=== PATIENT | male | born 1960 | race Two or more races ===

== ENCOUNTER 2023-07-18 20:41 | Inpatient (IN) | payer OTHER, SELFPAY ==
[2023-07-18 21:14] VITALS: BP 150/79; PULSE 90; RESP 18; TEMP 36.3; O2SAT 97
--- NOTE | 2023-07-19 05:25 | PC.NURSE ---
Admission note Patient is a 63 y/o male admitted on CV from ED via stretcher at 21:10. Medical history include hypertension, hyperlipidemia, hyperthyroidism, anxiety, depression, and bipolar disorder. Patient was sent to [facility] ED from day program after experiencing an episode of altered mental status, found talking to himself and unable to answer questions. Patient was unable to provide meaningful history in ED and was medicated th Haldol and Benadryl due to agitation. Patient was noted to have had a seizure activity after ED provider examined him. Patient was alert and oriented to self upon arrival, primarily Vietnamese speaking, flat and mostly non verbal. Patient was able to ambulate independently to exam room, intake assessment and safety check were done. Patient was not able provide concise history but rather keep referring to daughter during mental assessement. still operator helper provider notified and patient placed on 5 min checks.
[2023-07-19] MEDS: hydrOXYzine HCL 25 MG TABLET PO (06:35)
[2023-07-19] MEDS: Levothyroxine Sodium 75 MCG TABLET PO (06:35)
[2023-07-19 08:26] LABS: Estimated Average Glucose 85 mg/dL; Hemoglobin A1c % 4.6 % (<6.0)
[2023-07-19 08:33] LABS: Cholesterol 147 mg/dL (<200); HDL Cholesterol 33 mg/dL (>40); LDL Cholesterol Calculated 98 mg/dL (<100); Triglycerides 83 mg/dL (<150)
[2023-07-19 09:00] VITALS: BP 132/83; PULSE 83; RESP 18; TEMP 36.2; O2SAT 97
[2023-07-19 09:00] LABS: Free T4 (Free Thyroxine) 1.13 ng/dL (0.71-1.85); Thyroid Stimulating Hormone 2.64 uIU/mL (0.32-4.0)
[2023-07-19] MEDS: polyethylene glycoL 3350 17 GM POWD.PACK PO (09:17)
[2023-07-19] MEDS: Omeprazole 20 MG CAPSULE.DR PO (09:18)
[2023-07-19] MEDS: Divalproex Sodium 500 MG TABLET.DR PO ×2 (09:18→20:03)
[2023-07-19] MEDS: OLANZapine 10 MG TABLET PO (09:18)
[2023-07-19] MEDS: clonazePAM 1 MG TABLET 2 MG PO (10:57)
[2023-07-19] MEDS: OLANZapine ODT 10 MG TAB.RAPDIS 20 MG TRANSLINGU (10:57)
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
--- NOTE | 2023-07-19 11:55 | HO.PM.IMCN ---
History of Present Illness Data of Consult Service Date: 07/19/23 Requesting physician: Gibran Davis Primary Care Provider: Celine Tyler NP HPI Reason for consult: medical H&P 63-year-old male with hypertension, hyperlipidemia, hypothyroidism, bipolar disorder, seizure disorder admitted to Geriatric Psychiatry from [facility] with consult placed hospital service for medical H&P. The patient was admitted to [facility] from 07/12-07/18 due to altered mental status and seizures. He was evaluated by Neurology with EEG suggestive of potential seizure. MRI brain negative for stroke but showed atrophy and small vessel ischemia. Neuro recommended adding depakote 500mg bid and discontinuation of keppra. Patient has continued to exhibits aggitation, aggression, and altered mental status and was transferred to geriatric psychiatry for further management. Valproic acid level on discharge therapeutic. Hematology studies unremarkable, renal function baseline, lytes normal. Since arrival, VSS. Review of Systems Review of Systems: General: No fevers, malaise, unintentional weight loss HEENT: No blurred vision, diplopia. No sore throat, nasal congestion, rhinorrhea, sinus pain, ear pain Cardiovascular: No chest pain, palpitations, or leg edema Respiratory: No shortness of breath, wheezing, cough GI: No abdominal pain, nausea, vomiting, diarrhea, constipation, melena, hematochezia : No dysuria, hematuria, increased urinary frequency, decreased urinary output MSK: No myalgia, back pain Neuro: No headaches, weakness, paresthesias Skin: No rashes or lesions PMFSH Medical History HLD (hyperlipidemia) Bipolar disorder Seizure disorder Hypothyroidism HTN (hypertension) Social History Comment: 1:1 Currently Displaying Signs/Symptoms of Drug Intoxication Withdrawal: No Advance Directives: No Advance Directives Information Provided: No Meds Allergies Allergy/AdvReac Type Severity Reaction Status Date / Time lorazepam Allergy Unknown Verified 07/18/23 23:04 Penicillins Allergy Nausea and Verified 07/18/23 23:04 Vomiting Active Medications: Current Medications Acetaminophen (Acetaminophen 325 Mg Tablet) 650 mg PO Q6H PRN PRN Reason: Headache/Pain Mild Scale (1-3) Al Hydroxide/Mg Hydroxide (Magnesium Hydrox/Alum Hydrox 30 Ml Oral.Susp) 30 ml PO Q6H PRN PRN Reason: Heartburn/Nausea Clonazepam (Clonazepam 1 Mg Tablet) 1 mg PO DAILY PRN PRN Reason: Anxiety Divalproex Sodium (Divalproex Sodium 500 Mg Tablet.Dr) 500 mg PO BID [facility] Last Admin: 07/19/23 09:18 Dose: 500 mg Enoxaparin Sodium (Enoxaparin Sodium 40 Mg/0.4 Ml Syringe) 40 mg SUBCUT DAILY [facility] Last Admin: 07/19/23 11:10 Dose: Not Given Hydroxyzine HCl (Hydroxyzine Hcl 25 Mg Tablet) 25 mg PO Q6H PRN PRN Reason: Anxiety Last Admin: 07/19/23 06:35 Dose: 25 mg Levothyroxine Sodium (Levothyroxine Sodium 75 Mcg Tablet) 75 mcg PO DAILY@0600 [facility] Last Admin: 07/19/23 06:35 Dose: 75 mcg Magnesium Hydroxide (Milk Of Magnesia 30 Ml Oral.Susp) 30 ml PO DAILY PRN PRN Reason: Constipation Olanzapine (Olanzapine 10 Mg Tablet) 10 mg PO DAILY [facility] Last Admin: 07/19/23 09:18 Dose: 10 mg Olanzapine (Olanzapine 10 Mg Tablet) 20 mg PO DAILY [facility] Olanzapine (Olanzapine Odt 10 Mg Tab.Rapdis) 10 mg TRANSLINGU BID PRN PRN Reason: Psychosis Omeprazole (Omeprazole 20 Mg Capsule.) 20 mg PO DAILY [facility] Last Admin: 07/19/23 09:18 Dose: 20 mg Ondansetron HCl (Ondansetron Odt 4 Mg Tab.Rapdis) 4 mg TRANSLINGU Q6H PRN PRN Reason: Nausea And Vomiting Polyethylene Glycol (Polyethylene Glycol 3350 17 Gm Powd.Pack) 17 gm PO DAILY [facility] Last Admin: 07/19/23 09:17 Dose: 17 gm Trazodone HCl (Trazodone Hcl 100 Mg Tablet) 100 mg PO BEDTIME [facility] Last Admin: 07/19/23 03:58 Dose: Not Given Home Medications Medication Instructions Recorded Confirmed Last Taken Type clonazepam 1 mg tablet 1 mg PO DAILY PRN Anxiety 07/18/23 07/18/23 Unknown History divalproex 500 mg tablet,delayed 500 mg PO BID 07/18/23 07/18/23 Unknown History release enoxaparin 40 mg/0.4 mL 40 mg subcut DAILY 07/18/23 07/18/23 Unknown History subcutaneous syringe kit levothyroxine 75 mcg tablet 75 mcg PO DAILY 07/18/23 07/18/23 Unknown History olanzapine 10 mg tablet 10 mg PO DAILY 07/18/23 07/18/23 Unknown History ondansetron HCl 4 mg tablet 4 mg PO Q6H PRN Nausea And Vomiting 07/18/23 07/18/23 Unknown History pantoprazole 20 mg tablet,delayed 40 mg PO DAILY 07/18/23 07/18/23 Unknown History release polyethylene glycol 3350 17 gram 17 g PO DAILY 07/18/23 07/18/23 Unknown History oral powder packet trazodone 100 mg tablet 100 mg PO BEDTIME 07/18/23 07/18/23 Unknown History Physical Exam Vital Signs and Narrative: Vital Signs: Last Vital Signs Temp 97.2 F 07/19/23 09:00 Pulse 83 07/19/23 09:00 Resp 18 07/19/23 09:00 BP 132/83 07/19/23 09:00 Pulse Ox 97 07/19/23 09:00 O2 Del Method Room Air 07/19/23 09:00 BMI result Body Mass Index 30.0 Constitutional - Awake and Alert, No apparent distress Eyes - PERRLA, EOMI Cardiovascular - S1S2, RRR, No edema Respiratory - Normal lung expansion, Normal respiratory effort, No respiratory distress, CTA bilaterally Extremities - no calf tenderness bilaterally, no swelling Skin - Warm/Dry Neurological - Alert & oriented x3, CN II-XII in tact Strength and GI exam deferred to patient aggitation and demonstrated aggression towards staff. Results Labs Labs: Laboratory Results - last 24 hr 07/19/23 08:07 Estimat Average Glucose 85 Hemoglobin A1c % 4.6 Triglycerides 83 Cholesterol 147 LDL Cholesterol, Calc 98 HDL Cholesterol 33 L TSH 2.64 Free T4 1.13 Assessment and Plan (1) Routine medical exam: Status: Acute Plan 63-year-old male with hypertension, hyperlipidemia, hypothyroidism, bipolar disorder, seizure disorder admitted to Geriatric Psychiatry from [facility] with consult placed hospital service for medical H&P. #Mood disorder/aggitation -plan per psychiatry #HTN -bp reasonably controlled -not on antihypertensives, monitor bp #Hypothyroidism -continue levothyroxine #GERD -ppi #Unspecified seziure disorder -continue depakote, valproic acid level therapeutic 07/16 (75.0) Discontinued lovenox. This was administered at [facility] as dvt prophylaxis. However, pt is ambulatory and OOB should be encouraged. Thank you for allowing me to participate in this consult. Signing off at this time. Please do not hesitate to call for further questions.
[2023-07-19 14:38] LABS: Vitamin B12 434 pg/mL (200-900)
[2023-07-19] MEDS: clonazePAM 1 MG TABLET PO (16:28)
[2023-07-19] MEDS: OLANZapine ODT 10 MG TAB.RAPDIS TRANSLINGU (16:28)
[2023-07-19] MEDS: diazePAM 5 MG TABLET 10 MG PO (20:03)
[2023-07-19] MEDS: traZODone HCL 100 MG TABLET PO (20:03)
[2023-07-19] MEDS: diphenhydrAMINE HCL 25 MG CAPSULE 50 MG PO (20:03)
[2023-07-19] MEDS: HaloperidoL 5 MG TABLET 10 MG PO (20:03)
[2023-07-19 20:09] VITALS: BP 151/91; PULSE 104; RESP 18; TEMP 36.1; O2SAT 98
[2023-07-20] MEDS: hydrOXYzine HCL 25 MG TABLET PO (02:10)
[2023-07-20] MEDS: Acetaminophen 325 MG TABLET 650 MG PO (02:10)
[2023-07-20] MEDS: OLANZapine ODT 10 MG TAB.RAPDIS TRANSLINGU (02:16)
[2023-07-20] MEDS: Levothyroxine Sodium 75 MCG TABLET PO (05:08)
[2023-07-20 06:00] VITALS: BP 134/73; PULSE 95; RESP 18; TEMP 36.2; O2SAT 98
[2023-07-20 07:00] VITALS: BMI 30.6
[2023-07-20] MEDS: OLANZapine 10 MG TABLET PO (08:38)
[2023-07-20] MEDS: Omeprazole 20 MG CAPSULE.DR PO (08:38)
[2023-07-20] MEDS: Divalproex Sodium 500 MG TABLET.DR PO (08:38)
[2023-07-20] MEDS: OLANZapine 10 MG TABLET 20 MG PO (08:39)
[2023-07-20] MEDS: polyethylene glycoL 3350 17 GM POWD.PACK PO (08:41)
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
[2023-07-20] MEDS: clonazePAM 1 MG TABLET PO (13:23)
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
[2023-07-20] MEDS: diphenhydrAMINE HCL 50 MG/ML VIAL IM (20:50)
[2023-07-20] MEDS: Haloperidol Lactate 5 MG/ML VIAL IM (20:50)
--- NOTE | 2023-07-21 | ECG_ITS ---
Test Reason : qtc check Blood Pressure : / mmHG Vent. Rate : 091 BPM Atrial Rate : 091 BPM P-R Int : 146 ms QRS Dur : 088 ms QT Int : 388 ms P-R-T Axes : 036 005 029 degrees QTc Int : 477 ms Normal sinus rhythm Normal ECG No previous ECGs available Referred By: Jose Matthews Electronically Signed By:JULES PERALTA
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
[2023-07-21] MEDS: OLANZapine ODT 10 MG TAB.RAPDIS TRANSLINGU ×2 (03:28→08:27)
[2023-07-21] MEDS: Levothyroxine Sodium 75 MCG TABLET PO (05:36)
[2023-07-21 06:00] VITALS: PULSE 102; RESP 18; TEMP 36.4; O2SAT 96
[2023-07-21] MEDS: Omeprazole 20 MG CAPSULE.DR PO (08:26)
[2023-07-21] MEDS: Throat Lozenge, Medicated LOZENGE 1 LOZENGE MUCOUS MEM ×2 (08:26→18:48)
[2023-07-21] MEDS: Divalproex Sodium 500 MG TABLET.DR PO ×2 (08:27→20:44)
[2023-07-21] MEDS: clonazePAM 1 MG TABLET PO ×4 (08:27→20:44)
--- NOTE | 2023-07-21 08:29 | HO.PSYCHPN ---
Subjective Subjective Date of Service: 07/21/23 Reason For Visit: F29,F14.21 Subjective Notes: Conditional Voluntary Interim History: Pt slept most of the night. He reports hearing voices at times telling him to harm himself or others or sometimes voices tell him to run. When asked about why is he here, he states for the same reason every time, mental problems. He reports he got in trouble for calling females whores. He denies any plan or intent to harm himself. he appears more organized in his behavior. No side effects with medications. Pt scheduled to receive invega sustenna 234mg IM today. Review of Systems Review of Systems General: No fevers, malaise, unintentional weight loss HEENT: No blurred vision, diplopia. No sore throat, nasal congestion, rhinorrhea, sinus pain, ear pain Cardiovascular: No chest pain, palpitations, or leg edema Respiratory: No shortness of breath, wheezing, cough GI: No abdominal pain, nausea, vomiting, diarrhea, constipation, melena, hematochezia : No dysuria, hematuria, increased urinary frequency, decreased urinary output MSK: No myalgia, back pain Neuro: No headaches, weakness, paresthesias Skin: No rashes or lesions Yes Unobtainable due to mental status Mental Status Exam Mental Status Exam Patient Appearance: Appropriate Patient Orientation: Person Level of Consciousness: Awake and Disoriented Patient Behavior: Guarded, Passive and Suspicious Mood Description: Withdrawn Affect Description: Blunted Patient Cognition Impaired: Yes Ability to Follow Directions: Fair Speech Pattern: Impoverished and Monotone Diagnostics Vital Signs (24Hr): Vital Signs - 24 hr 07/21/23 06:00 Temperature 97.5 F Pulse Rate 102 H Respiratory Rate 18 Pulse Oximetry 96 Oxygen Delivery Method Room Air BMI result Body Mass Index 30.6 Labs Labs: Laboratory Results - last 48 hr 07/19/23 08:07 Triglycerides 83 Cholesterol 147 LDL Cholesterol, Calc 98 HDL Cholesterol 33 L Vitamin B12 434 TSH 2.64 Free T4 1.13 Medications Medications Current Medications Acetaminophen (Acetaminophen 325 Mg Tablet) 650 mg PO Q6H PRN PRN Reason: Headache/Pain Mild Scale (1-3) Last Admin: 07/20/23 02:10 Dose: 650 mg Al Hydroxide/Mg Hydroxide (Magnesium Hydrox/Alum Hydrox 30 Ml Oral.Susp) 30 ml PO Q6H PRN PRN Reason: Heartburn/Nausea Benzocaine (Throat Lozenge, Medicated Lozenge) 1 lozenge MUCOUS MEM Q2H PRN PRN Reason: Sore Throat Last Admin: 07/21/23 08:26 Dose: 1 lozenge Clonazepam (Clonazepam 1 Mg Tablet) 1 mg PO BEDTIME [facility] Last Admin: 07/21/23 02:41 Dose: Not Given Clonazepam (Clonazepam 1 Mg Tablet) 1 mg PO TID PRN PRN Reason: Anxiety Last Admin: 07/21/23 08:27 Dose: 1 mg Divalproex Sodium (Divalproex Sodium 500 Mg Tablet.) 500 mg PO BID [facility] Last Admin: 07/21/23 08:27 Dose: 500 mg Hydroxyzine HCl (Hydroxyzine Hcl 25 Mg Tablet) 25 mg PO Q6H PRN PRN Reason: Anxiety Last Admin: 07/20/23 02:10 Dose: 25 mg Levothyroxine Sodium (Levothyroxine Sodium 75 Mcg Tablet) 75 mcg PO DAILY@0600 [facility] Last Admin: 07/21/23 05:36 Dose: 75 mcg Magnesium Hydroxide (Milk Of Magnesia 30 Ml Oral.Susp) 30 ml PO DAILY PRN PRN Reason: Constipation Olanzapine (Olanzapine Odt 10 Mg Tab.Rapdis) 10 mg TRANSLINGU BID PRN PRN Reason: Psychosis Last Admin: 07/21/23 08:27 Dose: 10 mg Olanzapine (Olanzapine 10 Mg Tablet) 20 mg PO BEDTIME [facility] Last Admin: 07/21/23 02:42 Dose: Not Given Omeprazole (Omeprazole 20 Mg Capsule.) 20 mg PO DAILY [facility] Last Admin: 07/21/23 08:26 Dose: 20 mg Ondansetron HCl (Ondansetron Odt 4 Mg Tab.Rapdis) 4 mg TRANSLINGU Q6H PRN PRN Reason: Nausea And Vomiting Paliperidone Palmitate (Paliperidone Palmitate 234 Mg/1.5 Ml Syringe) 234 mg IM Q30D [facility] Polyethylene Glycol (Polyethylene Glycol 3350 17 Gm Powd.Pack) 17 gm PO DAILY [facility] Last Admin: 07/20/23 08:41 Dose: 17 gm Prazosin HCl (Prazosin Hcl 1 Mg Capsule) 2 mg PO BEDTIME [facility]; Protocol Last Admin: 07/20/23 20:51 Dose: Not Given Trazodone HCl (Trazodone Hcl 100 Mg Tablet) 100 mg PO BEDTIME [facility] Last Admin: 07/21/23 02:41 Dose: Not Given Allergies Allergies Allergy/AdvReac Type Severity Reaction Status Date / Time lorazepam Allergy Unknown Verified 07/18/23 23:04 Penicillins Allergy Nausea and Verified 07/18/23 23:04 Vomiting Assessment & Plan Assessment & Plan (1) Schizophrenia: Status: Acute Code(s): F20.9 - Schizophrenia, unspecified Plan The patient is a middle-aged male with a past history of psychosis with several prior admissions into the hospital for psychiatric stabilization, the patient also has several medical comorbidities such as seizure disorder, HTN, diabetes and others. The patient was noncompliant with medication and he was transferred from the adult group day program to the emergency room of [facility] [place] due to altered mental status. Plan 1. Gather collateral information the patient is unable to provide any information due to his altered mental status. On admission, the patient was very did needed to be medicated with Zyprexa Zydis p.o. 1 Klonopin 2 mg p.o.. 2. Continue with Zyprexa as prescribed per med reconciliation form. On June we are changing to Zyprexa 20 mg p.o. q.h.s. only. We are adding Zyprexa Zydis b.i.d. p.r.n. agitation. 3. Continue with antiseizure medications. The patient had been on Depakote consistently for the last 2 days. We are going to recheck levels early next week. 4. Continue medical workout. 5. Reassessment with results. 6. Continue one-to-one observation for safety. 7. Restarted on prazosin 2 mg p.o. q.h.s. as per information provided by regular provider in the community. 8. Restarting Invega Sustenna on July 20, last dose probably the week of June. 9. We are going to continue to do the paperwork for guardianship as per request of the patient's daughter. 07/20 continue tx. received Invega sustenna 234mg IM today. Reason for continued inpatient stay Substantial Risk for: inability to function Time Spent With Patient Time: Total time managing care of this patient today ____ minutes.
[2023-07-21] MEDS: Paliperidone Palmitate 234 MG/1.5 ML SYRINGE IM (10:10)
--- NOTE | 2023-07-21 10:18 | PC.NURSE ---
Nelly Saez administered R deltoid. Patient tolerated well.
[2023-07-21] MEDS: hydrOXYzine HCL 25 MG TABLET PO ×2 (12:22→18:47)
[2023-07-21 18:00] VITALS: BP 135/80; PULSE 96; RESP 16; TEMP 35.8; O2SAT 99
[2023-07-21] MEDS: traZODone HCL 100 MG TABLET PO (20:44)
[2023-07-21] MEDS: OLANZapine 10 MG TABLET 20 MG PO (20:45)
[2023-07-21] MEDS: Prazosin HCL 1 MG CAPSULE 2 MG PO (20:46)
[2023-07-22] MEDS: clonazePAM 1 MG TABLET PO ×3 (03:23→20:39)
[2023-07-22] MEDS: Nicotine Polacrilex 2 MG GUM BUCCAL ×3 (03:23→20:38)
[2023-07-22] MEDS: OLANZapine ODT 10 MG TAB.RAPDIS TRANSLINGU ×2 (03:26→20:39)
[2023-07-22 07:55] VITALS: BP 105/65; PULSE 100; RESP 18; TEMP 36.8; O2SAT 98
[2023-07-22] MEDS: Omeprazole 20 MG CAPSULE.DR PO (08:30)
[2023-07-22] MEDS: Divalproex Sodium 500 MG TABLET.DR PO ×2 (08:30→19:46)
[2023-07-22] MEDS: Levothyroxine Sodium 75 MCG TABLET PO (08:31)
[2023-07-22] MEDS: polyethylene glycoL 3350 17 GM POWD.PACK PO (08:31)
--- NOTE | 2023-07-22 10:24 | HO.PSYCHPN ---
Subjective Subjective Date of Service: 07/22/23 Reason For Visit: F29,F14.21 Interim History: does not rouse to shoulder rub. ivorian-speaking sitter informed pt of MD's presence and to be in touch with RN later as needed. per staff, disorganized, hypersexual, h/o physical aggression on the unit. Mental Status Exam Mental Status Exam Narrative: appears to be sleeping comfortably in left lateral decubitus position on bed. does not respond to voice or shoulder pressure/movement. adequately dressed and groomed. Diagnostics Vital Signs (24Hr): Vital Signs - 24 hr 07/21/23 18:00 07/22/23 07:55 Temperature 96.5 F L 98.2 F Pulse Rate 96 100 Respiratory Rate 16 18 Blood Pressure 135/80 105/65 Pulse Oximetry 99 98 Oxygen Delivery Method Room Air Room Air BMI result Body Mass Index 30.6 Medications Medications Current Medications Acetaminophen (Acetaminophen 325 Mg Tablet) 650 mg PO Q6H PRN PRN Reason: Headache/Pain Mild Scale (1-3) Last Admin: 07/20/23 02:10 Dose: 650 mg Al Hydroxide/Mg Hydroxide (Magnesium Hydrox/Alum Hydrox 30 Ml Oral.Susp) 30 ml PO Q6H PRN PRN Reason: Heartburn/Nausea Benzocaine (Throat Lozenge, Medicated Lozenge) 1 lozenge MUCOUS MEM Q2H PRN PRN Reason: Sore Throat Last Admin: 07/21/23 18:48 Dose: 1 lozenge Clonazepam (Clonazepam 1 Mg Tablet) 1 mg PO BEDTIME [facility] Last Admin: 07/21/23 20:44 Dose: 1 mg Clonazepam (Clonazepam 1 Mg Tablet) 1 mg PO TID PRN PRN Reason: Anxiety Last Admin: 07/22/23 03:23 Dose: 1 mg Divalproex Sodium (Divalproex Sodium 500 Mg Tablet.) 500 mg PO BID [facility] Last Admin: 07/22/23 08:30 Dose: 500 mg Hydroxyzine HCl (Hydroxyzine Hcl 25 Mg Tablet) 25 mg PO Q6H PRN PRN Reason: Anxiety Last Admin: 07/21/23 18:47 Dose: 25 mg Levothyroxine Sodium (Levothyroxine Sodium 75 Mcg Tablet) 75 mcg PO DAILY@0600 [facility] Last Admin: 07/22/23 08:31 Dose: 75 mcg Magnesium Hydroxide (Milk Of Magnesia 30 Ml Oral.Susp) 30 ml PO DAILY PRN PRN Reason: Constipation Nicotine Polacrilex (Nicotine Polacrilex 2 Mg Gum) 2 mg BUCCAL Q2H PRN PRN Reason: Nicotine Cravings Last Admin: 07/22/23 03:23 Dose: 2 mg Olanzapine (Olanzapine Odt 10 Mg Tab.Rapdis) 10 mg TRANSLINGU BID PRN PRN Reason: Psychosis Last Admin: 07/22/23 03:26 Dose: 10 mg Olanzapine (Olanzapine 10 Mg Tablet) 20 mg PO BEDTIME [facility] Last Admin: 07/21/23 20:45 Dose: 20 mg Omeprazole (Omeprazole 20 Mg Capsule.Dr) 20 mg PO DAILY [facility] Last Admin: 07/22/23 08:30 Dose: 20 mg Ondansetron HCl (Ondansetron Odt 4 Mg Tab.Rapdis) 4 mg TRANSLINGU Q6H PRN PRN Reason: Nausea And Vomiting Paliperidone Palmitate (Paliperidone Palmitate 234 Mg/1.5 Ml Syringe) 234 mg IM Q30D [facility] Last Admin: 07/21/23 10:10 Dose: 234 mg Polyethylene Glycol (Polyethylene Glycol 3350 17 Gm Powd.Pack) 17 gm PO DAILY [facility] Last Admin: 07/22/23 08:31 Dose: 17 gm Prazosin HCl (Prazosin Hcl 1 Mg Capsule) 2 mg PO BEDTIME [facility]; Protocol Last Admin: 07/21/23 20:46 Dose: 2 mg Trazodone HCl (Trazodone Hcl 100 Mg Tablet) 100 mg PO BEDTIME [facility] Last Admin: 07/21/23 20:44 Dose: 100 mg Allergies Allergies Allergy/AdvReac Type Severity Reaction Status Date / Time lorazepam Allergy Unknown Verified 07/18/23 23:04 Penicillins Allergy Nausea and Verified 07/18/23 23:04 Vomiting Assessment & Plan Assessment & Plan (1) Schizophrenia: Status: Acute Code(s): F20.9 - Schizophrenia, unspecified Plan The patient is a middle-aged male with a past history of psychosis with several prior admissions into the hospital for psychiatric stabilization, the patient also has several medical comorbidities such as seizure disorder, HTN, diabetes and others. The patient was noncompliant with medication and he was transferred from the adult group day program to the emergency room of [facility] due to altered mental status. Plan 1. Gather collateral information the patient is unable to provide any information due to his altered mental status. On admission, the patient was very did needed to be medicated with Zyprexa Zydis p.o. 1 Klonopin 2 mg p.o.. 2. Continue with Zyprexa as prescribed per med reconciliation form. On June we are changing to Zyprexa 20 mg p.o. q.h.s. only. We are adding Zyprexa Zydis b.i.d. p.r.n. agitation. 3. Continue with antiseizure medications. The patient had been on Depakote consistently for the last 2 days. We are going to recheck levels early next week. 4. Continue medical workout. 5. Reassessment with results. 6. Continue one-to-one observation for safety. 7. Restarted on prazosin 2 mg p.o. q.h.s. as per information provided by regular provider in the community. 8. Restarting Invega Sustenna on July 20, last dose probably the week of June. 9. We are going to continue to do the paperwork for guardianship as per request of the patient's daughter. 07/20 continue tx. received Invega sustenna 234mg IM today. 07/21: sleeping, not rousable to voice or shoulder rub. continue current mgmt. Reason for continued inpatient stay Substantial Risk for: harm to others, inability to function and rapid decompensation Time Spent With Patient Time: Total time managing care of this patient today ____ minutes.
[2023-07-22] MEDS: OLANZapine 10 MG TABLET 20 MG PO (19:45)
[2023-07-22] MEDS: traZODone HCL 100 MG TABLET PO (19:46)
[2023-07-22] MEDS: Prazosin HCL 1 MG CAPSULE 2 MG PO (19:46)
[2023-07-22] MEDS: hydrOXYzine HCL 25 MG TABLET PO (20:38)
[2023-07-23] MEDS: hydrOXYzine HCL 25 MG TABLET PO ×2 (04:16→16:29)
[2023-07-23] MEDS: Nicotine Polacrilex 2 MG GUM BUCCAL (04:17)
[2023-07-23] MEDS: clonazePAM 1 MG TABLET PO ×3 (04:17→20:18)
[2023-07-23] MEDS: Levothyroxine Sodium 75 MCG TABLET PO (04:24)
[2023-07-23 07:55] VITALS: BP 136/80; PULSE 98; RESP 20; TEMP 36.7; O2SAT 98
[2023-07-23] MEDS: Omeprazole 20 MG CAPSULE.DR PO (08:08)
[2023-07-23] MEDS: polyethylene glycoL 3350 17 GM POWD.PACK PO (08:09)
[2023-07-23] MEDS: Divalproex Sodium 500 MG TABLET.DR PO (08:09)
--- NOTE | 2023-07-23 10:46 | HO.PSYCHPN ---
Subjective Subjective Date of Service: 07/23/23 Reason For Visit: F29,F14.21 Interim History: once again not rousable to loud voice and shoulder touch. per staff, masturbating in front of 1:1 staff yesterday and last evening on all fours in the hallway, rear end hoisted, fondling himself. Mental Status Exam Mental Status Exam Narrative: appears to be sleeping comfortably in right lateral decubitus position on bed. does not respond to voice or shoulder pressure/movement. adequately dressed and groomed. Diagnostics Vital Signs (24Hr): Vital Signs - 24 hr 07/23/23 07:55 Temperature 98.0 F Pulse Rate 98 Respiratory Rate 20 Blood Pressure 136/80 Pulse Oximetry 98 Oxygen Delivery Method Room Air BMI result Body Mass Index 30.6 Medications Medications Current Medications Acetaminophen (Acetaminophen 325 Mg Tablet) 650 mg PO Q6H PRN PRN Reason: Headache/Pain Mild Scale (1-3) Last Admin: 07/20/23 02:10 Dose: 650 mg Al Hydroxide/Mg Hydroxide (Magnesium Hydrox/Alum Hydrox 30 Ml Oral.Susp) 30 ml PO Q6H PRN PRN Reason: Heartburn/Nausea Benzocaine (Throat Lozenge, Medicated Lozenge) 1 lozenge MUCOUS MEM Q2H PRN PRN Reason: Sore Throat Last Admin: 07/21/23 18:48 Dose: 1 lozenge Clonazepam (Clonazepam 1 Mg Tablet) 1 mg PO BEDTIME [facility] Last Admin: 07/22/23 20:39 Dose: 1 mg Clonazepam (Clonazepam 1 Mg Tablet) 1 mg PO TID PRN PRN Reason: Anxiety Last Admin: 07/23/23 04:17 Dose: 1 mg Divalproex Sodium (Divalproex Sodium 500 Mg Tablet.Dr) 500 mg PO BID [facility] Last Admin: 07/23/23 08:09 Dose: 500 mg Hydroxyzine HCl (Hydroxyzine Hcl 25 Mg Tablet) 25 mg PO Q6H PRN PRN Reason: Anxiety Last Admin: 07/23/23 04:16 Dose: 25 mg Levothyroxine Sodium (Levothyroxine Sodium 75 Mcg Tablet) 75 mcg PO DAILY@0600 [facility] Last Admin: 07/23/23 04:24 Dose: 75 mcg Magnesium Hydroxide (Milk Of Magnesia 30 Ml Oral.Susp) 30 ml PO DAILY PRN PRN Reason: Constipation Nicotine Polacrilex (Nicotine Polacrilex 2 Mg Gum) 2 mg BUCCAL Q2H PRN PRN Reason: Nicotine Cravings Last Admin: 07/23/23 04:17 Dose: 2 mg Olanzapine (Olanzapine Odt 10 Mg Tab.Rapdis) 10 mg TRANSLINGU BID PRN PRN Reason: Psychosis Last Admin: 07/22/23 20:39 Dose: 10 mg Olanzapine (Olanzapine 10 Mg Tablet) 20 mg PO BEDTIME [facility] Last Admin: 07/22/23 19:45 Dose: 20 mg Olanzapine (Olanzapine Odt 10 Mg Tab.Rapdis) 20 mg TRANSLINGU DAILY PRN PRN Reason: severe agit/sexualized behavio Omeprazole (Omeprazole 20 Mg Capsule.Dr) 20 mg PO DAILY [facility] Last Admin: 07/23/23 08:08 Dose: 20 mg Ondansetron HCl (Ondansetron Odt 4 Mg Tab.Rapdis) 4 mg TRANSLINGU Q6H PRN PRN Reason: Nausea And Vomiting Paliperidone Palmitate (Paliperidone Palmitate 234 Mg/1.5 Ml Syringe) 234 mg IM Q30D [facility] Last Admin: 07/21/23 10:10 Dose: 234 mg Polyethylene Glycol (Polyethylene Glycol 3350 17 Gm Powd.Pack) 17 gm PO DAILY [facility] Last Admin: 07/23/23 08:09 Dose: 17 gm Prazosin HCl (Prazosin Hcl 1 Mg Capsule) 2 mg PO BEDTIME [facility]; Protocol Last Admin: 07/22/23 19:46 Dose: 2 mg Trazodone HCl (Trazodone Hcl 100 Mg Tablet) 100 mg PO BEDTIME [facility] Last Admin: 07/22/23 19:46 Dose: 100 mg Allergies Allergies Allergy/AdvReac Type Severity Reaction Status Date / Time lorazepam Allergy Unknown Verified 07/18/23 23:04 Penicillins Allergy Nausea and Verified 07/18/23 23:04 Vomiting Assessment & Plan Assessment & Plan (1) Schizophrenia: Status: Acute Code(s): F20.9 - Schizophrenia, unspecified Plan The patient is a middle-aged male with a past history of psychosis with several prior admissions into the hospital for psychiatric stabilization, the patient also has several medical comorbidities such as seizure disorder, HTN, diabetes and others. The patient was noncompliant with medication and he was transferred from the adult group day program to the emergency room of [facility] due to altered mental status. Plan 1. Gather collateral information the patient is unable to provide any information due to his altered mental status. On admission, the patient was very did needed to be medicated with Zyprexa Zydis p.o. 1 Klonopin 2 mg p.o.. 2. Continue with Zyprexa as prescribed per med reconciliation form. On June we are changing to Zyprexa 20 mg p.o. q.h.s. only. We are adding Zyprexa Zydis b.i.d. p.r.n. agitation. 3. Continue with antiseizure medications. The patient had been on Depakote consistently for the last 2 days. We are going to recheck levels early next week. 4. Continue medical workout. 5. Reassessment with results. 6. Continue one-to-one observation for safety. 7. Restarted on prazosin 2 mg p.o. q.h.s. as per information provided by regular provider in the community. 8. Restarting Invega Sustenna on July 20, last dose probably the week of June. 9. We are going to continue to do the paperwork for guardianship as per request of the patient's daughter. 07/20 continue tx. received Invega sustenna 234mg IM today. 07/21: sleeping, not rousable to voice or shoulder rub. continue current mgmt. 3: sleeping, not rousable to voice or shoulder rub. add zydis 20 mg daily PRN agitation or sexualized behaviors. T/C lowering klonopin dosing as that medication may exacerbate disinhibited behaviors. Reason for continued inpatient stay Substantial Risk for: harm to others, inability to function and rapid decompensation Time Spent With Patient Time: Total time managing care of this patient today ____ minutes.
[2023-07-23] MEDS: OLANZapine ODT 10 MG TAB.RAPDIS TRANSLINGU (13:22)
--- NOTE | 2023-07-23 15:25 | PC.NURSE ---
Pt with increased agitation/anxiety, continues on 1:1, doing pushup in hallway. PRN Zydis 10mg and Klonopin 1 mg given with little effect. Pt states I feel like I'm coming out of my skin , Pt also reported hearing voices and declined to inform typewriters functional tester what the voices are telling him. Pt punched the exit door and kept trying to open it, he also shoulder checked the 1:1 and kicked his bedroom door during shift change and seen posturing in an intimidating manner towards staff . pig machine supervisor notified, security notified and will be making rounds on the unit for safety. One of the security officers informed patient of unit policies and patient reported to the security consultant during rounding, I understand, I got it. You can go away now .
[2023-07-23 18:00] VITALS: BP 140/81; PULSE 100; RESP 18; TEMP 35.9; O2SAT 100
[2023-07-23] MEDS: Prazosin HCL 1 MG CAPSULE 2 MG PO (20:17)
[2023-07-23] MEDS: Divalproex Sodium 250 MG TABLET.DR 750 MG PO (20:17)
[2023-07-23] MEDS: OLANZapine 10 MG TABLET 20 MG PO (20:18)
[2023-07-23] MEDS: traZODone HCL 100 MG TABLET PO (20:18)
[2023-07-24 06:00] VITALS: BP 157/86; PULSE 100; RESP 16; TEMP 36; O2SAT 100
[2023-07-24] MEDS: Levothyroxine Sodium 75 MCG TABLET PO (06:42)
[2023-07-24] MEDS: Divalproex Sodium 250 MG TABLET.DR 750 MG PO ×2 (08:37→19:53)
[2023-07-24] MEDS: polyethylene glycoL 3350 17 GM POWD.PACK PO (08:37)
[2023-07-24] MEDS: OLANZapine ODT 10 MG TAB.RAPDIS TRANSLINGU (08:37)
[2023-07-24] MEDS: clonazePAM 1 MG TABLET PO ×4 (08:37→21:50)
[2023-07-24] MEDS: Omeprazole 20 MG CAPSULE.DR PO (08:37)
--- NOTE | 2023-07-24 10:43 | P.PNPSI_ITS ---
Subjective Subjective Date of Service: 07/24/23 Reason For Visit: F29,F14.21 Subjective Notes: Conditional Voluntary Healthcare Proxy: Yes Interim History: The nursing staff reported the patient had been agitated and restless yesterday with flat affect but compliant with medications. He slept 7 hours up and down. The staff has noticed that Haldol and Benadryl works better when he is agitated. Remains on one-to-one for safety. On interview the patient remains isolative and internally preoccupied. We are going to order Depakote level CBC with differential and chemistry tomorrow morning. Mental Status Exam Mental Status Exam Patient Appearance: Appropriate Patient Orientation: Person Level of Consciousness: Awake Patient Behavior: Guarded and Passive Mood Description: Withdrawn Affect Description: Constricted Patient Cognition Impaired: Yes Ability to Follow Directions: Good Speech Pattern: Clear Hallucinations: Auditory Delusions: Paranoid Ideation and Ideas of Reference Thought Process: Incoherent and Distracted Thought Content: positive for [place] and positive for Poverty of Content Judgement: Poor Diagnostics Vital Signs (24Hr): Vital Signs - 24 hr 07/23/23 18:00 07/24/23 06:00 Temperature 96.7 F L 96.8 F Pulse Rate 100 100 Respiratory Rate 18 16 Blood Pressure 140/81 H 157/86 H Pulse Oximetry 100 100 Oxygen Delivery Method Room Air Room Air BMI result Body Mass Index 30.6 Medications Medications Current Medications Acetaminophen (Acetaminophen 325 Mg Tablet) 650 mg PO Q6H PRN PRN Reason: Headache/Pain Mild Scale (1-3) Last Admin: 07/20/23 02:10 Dose: 650 mg Al Hydroxide/Mg Hydroxide (Magnesium Hydrox/Alum Hydrox 30 Ml Oral.Susp) 30 ml PO Q6H PRN PRN Reason: Heartburn/Nausea Benzocaine (Throat Lozenge, Medicated Lozenge) 1 lozenge MUCOUS MEM Q2H PRN PRN Reason: Sore Throat Last Admin: 07/21/23 18:48 Dose: 1 lozenge Clonazepam (Clonazepam 1 Mg Tablet) 1 mg PO BEDTIME [facility] Last Admin: 07/23/23 20:18 Dose: 1 mg Clonazepam (Clonazepam 1 Mg Tablet) 1 mg PO TID PRN PRN Reason: Anxiety Last Admin: 07/24/23 08:37 Dose: 1 mg Divalproex Sodium (Divalproex Sodium 250 Mg Tablet.) 750 mg PO BID [facility] Last Admin: 07/24/23 08:37 Dose: 750 mg Haloperidol (Haloperidol 5 Mg Tablet) 5 mg PO TID PRN PRN Reason: Psychosis Hydroxyzine HCl (Hydroxyzine Hcl 25 Mg Tablet) 25 mg PO Q6H PRN PRN Reason: Anxiety Last Admin: 07/23/23 16:29 Dose: 25 mg Levothyroxine Sodium (Levothyroxine Sodium 75 Mcg Tablet) 75 mcg PO DAILY@0600 [facility] Last Admin: 07/24/23 06:42 Dose: 75 mcg Magnesium Hydroxide (Milk Of Magnesia 30 Ml Oral.Susp) 30 ml PO DAILY PRN PRN Reason: Constipation Nicotine Polacrilex (Nicotine Polacrilex 2 Mg Gum) 2 mg BUCCAL Q2H PRN PRN Reason: Nicotine Cravings Last Admin: 07/23/23 04:17 Dose: 2 mg Olanzapine (Olanzapine 10 Mg Tablet) 20 mg PO BEDTIME [facility] Last Admin: 07/23/23 20:18 Dose: 20 mg Omeprazole (Omeprazole 20 Mg Capsule.Dr) 20 mg PO DAILY [facility] Last Admin: 07/24/23 08:37 Dose: 20 mg Ondansetron HCl (Ondansetron Odt 4 Mg Tab.Rapdis) 4 mg TRANSLINGU Q6H PRN PRN Reason: Nausea And Vomiting Paliperidone Palmitate (Paliperidone Palmitate 234 Mg/1.5 Ml Syringe) 234 mg IM Q30D [facility] Last Admin: 07/21/23 10:10 Dose: 234 mg Polyethylene Glycol (Polyethylene Glycol 3350 17 Gm Powd.Pack) 17 gm PO DAILY [facility] Last Admin: 07/24/23 08:37 Dose: 17 gm Prazosin HCl (Prazosin Hcl 1 Mg Capsule) 2 mg PO BEDTIME [facility]; Protocol Last Admin: 07/23/23 20:17 Dose: 2 mg Trazodone HCl (Trazodone Hcl 100 Mg Tablet) 100 mg PO BEDTIME [facility] Last Admin: 07/23/23 20:18 Dose: 100 mg Allergies Allergies Allergy/AdvReac Type Severity Reaction Status Date / Time lorazepam Allergy Unknown Verified 07/18/23 23:04 Penicillins Allergy Nausea and Verified 07/18/23 23:04 Vomiting Assessment & Plan Assessment & Plan (1) Schizophrenia: Status: Acute Code(s): F20.9 - Schizophrenia, unspecified Plan The patient is a middle-aged male with a past history of psychosis with several prior admissions into the hospital for psychiatric stabilization, the patient also has several medical comorbidities such as seizure disorder, HTN, diabetes and others. The patient was noncompliant with medication and he was transferred from the adult group day program to the emergency room of [facility] due to altered mental status. Plan 1. Gather collateral information the patient is unable to provide any information due to his altered mental status. On admission, the patient was very did needed to be medicated with Zyprexa Zydis p.o. 1 Klonopin 2 mg p.o.. 2. Continue with Zyprexa as prescribed per med reconciliation form. On June we are changing to Zyprexa 20 mg p.o. q.h.s. only. We are adding Zyprexa Zydis b.i.d. p.r.n. agitation. 3. Continue with antiseizure medications. The patient had been on Depakote consistently for the last 2 days. We are going to recheck levels early next week. 4. Continue medical workout. 5. Reassessment with results. 6. Continue one-to-one observation for safety. 7. Restarted on prazosin 2 mg p.o. q.h.s. as per information provided by regular provider in the community. 8. Restarting Invega Sustenna on July 20, last dose probably the week of June. 9. We are going to continue to do the paperwork for guardianship as per request of the patient's daughter. We have already given to the patient's daughter the affidavit sign. 10. We are discontinuing Zyprexa Zydis p.r.n. and starting Haldol p.o. p.r.n.. 11. Bloodowrk for 3/5 Reason for continued inpatient stay Substantial Risk for: inability to function, rapid decompensation and med/psych decompensation Time Spent With Patient Time: Total time managing care of this patient today __20__ minutes.
[2023-07-24] MEDS: hydrOXYzine HCL 25 MG TABLET PO (13:09)
[2023-07-24] MEDS: HaloperidoL 5 MG TABLET PO ×3 (13:10→21:50)
[2023-07-24] MEDS: Nicotine Polacrilex 2 MG GUM BUCCAL (14:46)
[2023-07-24 18:00] VITALS: BP 150/96; PULSE 104; RESP 16; TEMP 36.7; O2SAT 99
[2023-07-24] MEDS: OLANZapine 10 MG TABLET 20 MG PO (19:53)
[2023-07-24] MEDS: traZODone HCL 100 MG TABLET PO (19:54)
[2023-07-24] MEDS: Prazosin HCL 1 MG CAPSULE 2 MG PO (19:54)
[2023-07-25] MEDS: Levothyroxine Sodium 75 MCG TABLET PO (05:35)
[2023-07-25 06:00] VITALS: BP 145/76; PULSE 102; RESP 16; TEMP 36.6; O2SAT 97
--- NOTE | 2023-07-25 08:17 | HO.PSYCHPN ---
Subjective Subjective Date of Service: 07/25/23 Reason For Visit: F29,F14.21 Subjective Notes: Conditional Voluntary Interim History: The nursing staff reported the patient had been seclusive on one-to-one observation for safety. Yesterday he had a visit 1 of the staff members from the community. On interview, the patient denies new symptoms he looks internally preoccupied. We restarted his Invega Sustenna on July 20 and change his p.r.n. from Zyprexa to Haldol that worked better for him. His Depakote level came back on a therapeutic level. Blood work came back without major changes. Mental Status Exam Mental Status Exam Patient Appearance: Appropriate (On hospital gowns) Patient Orientation: Person and Situation Level of Consciousness: Awake and Appropriate Patient Behavior: Guarded and Passive Mood Description: Withdrawn Affect Description: Blunted Patient Cognition Impaired: Yes Ability to Follow Directions: Good Speech Pattern: Clear Hallucinations: None Delusions: Ideas of Reference Thought Process: Distracted and Slowed Thinking Thought Content: positive for [place] and positive for Poverty of Content Judgement: Poor Diagnostics Vital Signs (24Hr): Vital Signs - 24 hr 07/24/23 18:00 Temperature 98.1 F Pulse Rate 104 H Respiratory Rate 16 Blood Pressure 150/96 H Pulse Oximetry 99 Oxygen Delivery Method Room Air BMI result Body Mass Index 30.6 Labs 07/25/23 08:23 Medications Medications Current Medications Acetaminophen (Acetaminophen 325 Mg Tablet) 650 mg PO Q6H PRN PRN Reason: Headache/Pain Mild Scale (1-3) Last Admin: 07/20/23 02:10 Dose: 650 mg Al Hydroxide/Mg Hydroxide (Magnesium Hydrox/Alum Hydrox 30 Ml Oral.Susp) 30 ml PO Q6H PRN PRN Reason: Heartburn/Nausea Benzocaine (Throat Lozenge, Medicated Lozenge) 1 lozenge MUCOUS MEM Q2H PRN PRN Reason: Sore Throat Last Admin: 07/21/23 18:48 Dose: 1 lozenge Clonazepam (Clonazepam 1 Mg Tablet) 1 mg PO BEDTIME [facility] Last Admin: 07/24/23 19:55 Dose: 1 mg Clonazepam (Clonazepam 1 Mg Tablet) 1 mg PO TID PRN PRN Reason: Anxiety Last Admin: 07/24/23 21:50 Dose: 1 mg Divalproex Sodium (Divalproex Sodium 250 Mg Tablet.) 750 mg PO BID [facility] Last Admin: 07/24/23 19:53 Dose: 750 mg Haloperidol (Haloperidol 5 Mg Tablet) 5 mg PO TID PRN PRN Reason: Psychosis Last Admin: 07/24/23 21:50 Dose: 5 mg Hydroxyzine HCl (Hydroxyzine Hcl 25 Mg Tablet) 25 mg PO Q6H PRN PRN Reason: Anxiety Last Admin: 07/24/23 13:09 Dose: 25 mg Levothyroxine Sodium (Levothyroxine Sodium 75 Mcg Tablet) 75 mcg PO DAILY@0600 [facility] Last Admin: 07/25/23 05:35 Dose: 75 mcg Magnesium Hydroxide (Milk Of Magnesia 30 Ml Oral.Susp) 30 ml PO DAILY PRN PRN Reason: Constipation Nicotine Polacrilex (Nicotine Polacrilex 2 Mg Gum) 2 mg BUCCAL Q2H PRN PRN Reason: Nicotine Cravings Last Admin: 07/24/23 14:46 Dose: 2 mg Olanzapine (Olanzapine 10 Mg Tablet) 20 mg PO BEDTIME [facility] Last Admin: 07/24/23 19:53 Dose: 20 mg Omeprazole (Omeprazole 20 Mg Capsule.Dr) 20 mg PO DAILY [facility] Last Admin: 07/24/23 08:37 Dose: 20 mg Ondansetron HCl (Ondansetron Odt 4 Mg Tab.Rapdis) 4 mg TRANSLINGU Q6H PRN PRN Reason: Nausea And Vomiting Paliperidone Palmitate (Paliperidone Palmitate 234 Mg/1.5 Ml Syringe) 234 mg IM Q30D [facility] Last Admin: 07/21/23 10:10 Dose: 234 mg Polyethylene Glycol (Polyethylene Glycol 3350 17 Gm Powd.Pack) 17 gm PO DAILY [facility] Last Admin: 07/24/23 08:37 Dose: 17 gm Prazosin HCl (Prazosin Hcl 1 Mg Capsule) 2 mg PO BEDTIME [facility]; Protocol Last Admin: 07/24/23 19:54 Dose: 2 mg Trazodone HCl (Trazodone Hcl 100 Mg Tablet) 100 mg PO BEDTIME [facility] Last Admin: 07/24/23 19:54 Dose: 100 mg Allergies Allergies Allergy/AdvReac Type Severity Reaction Status Date / Time lorazepam Allergy Unknown Verified 07/18/23 23:04 Penicillins Allergy Nausea and Verified 07/18/23 23:04 Vomiting Assessment & Plan Assessment & Plan (1) Schizophrenia: Status: Acute Code(s): F20.9 - Schizophrenia, unspecified Plan The patient is a middle-aged male with a past history of psychosis with several prior admissions into the hospital for psychiatric stabilization, the patient also has several medical comorbidities such as seizure disorder, HTN, diabetes and others. The patient was noncompliant with medication and he was transferred from the adult group day program to the emergency room of [facility] due to altered mental status. Plan 1. Gather collateral information the patient is unable to provide any information due to his altered mental status. On admission, the patient was very did needed to be medicated with Zyprexa Zydis p.o. 1 Klonopin 2 mg p.o.. 2. Continue with Zyprexa as prescribed per med reconciliation form. On June we are changing to Zyprexa 20 mg p.o. q.h.s. only. We are adding Zyprexa Zydis b.i.d. p.r.n. agitation. 3. Continue with antiseizure medications. The patient had been on Depakote consistently for the last 2 days. We are going to recheck levels early next week. 4. Continue medical workout. 5. Reassessment with results. 6. Continue one-to-one observation for safety. 7. Restarted on prazosin 2 mg p.o. q.h.s. as per information provided by regular provider in the community. 8. Restarting Invega Sustenna on July 20, last dose probably the week of June. 9. We are going to continue to do the paperwork for guardianship as per request of the patient's daughter. We have already given to the patient's daughter the affidavit sign. 10. We are discontinuing Zyprexa Zydis p.r.n. and starting Haldol p.o. p.r.n.. 11. Bloodowrk for 07/24 and Depakote was on a therapeutic level. Reason for continued inpatient stay Substantial Risk for: inability to function, rapid decompensation and med/psych decompensation Time Spent With Patient Time: Total time managing care of this patient today __20__ minutes.
[2023-07-25] MEDS: Divalproex Sodium 250 MG TABLET.DR 750 MG PO ×2 (08:23→20:43)
[2023-07-25] MEDS: HaloperidoL 5 MG TABLET PO ×2 (08:23→15:45)
[2023-07-25] MEDS: Omeprazole 20 MG CAPSULE.DR PO (08:24)
[2023-07-25] MEDS: polyethylene glycoL 3350 17 GM POWD.PACK PO (08:24)
[2023-07-25] MEDS: clonazePAM 1 MG TABLET PO ×3 (08:24→20:43)
[2023-07-25 08:36] LABS: MANUAL DIFF FLAG NO
[2023-07-25 08:39] LABS: Basophils Percent Auto 0.2 % (0-2); Eosinophils Absolute Auto 0.2 X10*3/uL (0.0-0.4); Eosinophils Percent Auto 1.6 % (0-4); Hematocrit 37.4 % (42.0-52.0); Hemoglobin 12.4 g/dl (14.0-18.0); Imm Gran Abs Auto 0.06 X10*3/uL (0.00-0.03); Imm Gran Pct Auto 0.6 % (0.0-0.4); Lymphocytes Absolute Auto 1.6 X10*3/uL (1.2-4.9); Lymphocytes Percent Auto 15.8 % (20-40); Mean Corpuscular HGB Conc 33.2 g/dl (31.0-36.0); Mean Corpuscular Hemoglobin 32.4 pg (27.0-33.0); Mean Corpuscular Volume 97.7 fL (80.0-98.0); Mean Platelet Volume 10.5 fL (9.4-12.4); Monocytes Absolute Auto 0.7 X10*3/uL (0.1-1.2); Monocytes Percent Auto 6.6 % (2-11); Neutrophils Absolute Auto 7.4 x10*3/uL (2.0-8.3); Neutrophils Percent Auto 75.2 % (45-73); Platelet Count 280 X10*3/uL (160-400); Red Blood Count 3.83 X10*6/uL (4.60-5.80); Red Cell Distribution Width 11.5 % (11.0-16.0); White Blood Count 9.9 X10*3/uL (4.8-10.8)
[2023-07-25 08:51] LABS: Valproate 96.3 mcg/mL (50.0-100.0)
[2023-07-25 08:55] LABS: Alanine Aminotransferase 11 U/L (0-40); Albumin Level 4.1 g/dL (3.5-5.0); Alkaline Phosphatase 71 U/L (39-117); Aspartate Amino Transferase 12 U/L (5-37); Bilirubin Direct 0.2 mg/dL (0.0-0.5); Bilirubin Total 0.5 mg/dL (0.0-1.0); Total Protein 7.2 g/dL (6.5-8.0)
[2023-07-25 19:40] VITALS: BP 119/73; PULSE 95; RESP 18; TEMP 36.7; O2SAT 99
[2023-07-25] MEDS: Prazosin HCL 1 MG CAPSULE 2 MG PO (20:43)
[2023-07-25] MEDS: traZODone HCL 100 MG TABLET PO (20:43)
[2023-07-25] MEDS: OLANZapine 10 MG TABLET 20 MG PO (20:43)
[2023-07-26] MEDS: Nicotine Polacrilex 2 MG GUM BUCCAL (02:43)
[2023-07-26] MEDS: clonazePAM 1 MG TABLET PO ×2 (02:43→20:27)
[2023-07-26] MEDS: Levothyroxine Sodium 75 MCG TABLET PO (06:31)
[2023-07-26 08:07] VITALS: BP 120/79; PULSE 102; RESP 18; TEMP 36.4; O2SAT 98
[2023-07-26] MEDS: Divalproex Sodium 250 MG TABLET.DR 750 MG PO ×2 (08:08→20:27)
[2023-07-26] MEDS: Omeprazole 20 MG CAPSULE.DR PO (08:09)
[2023-07-26] MEDS: polyethylene glycoL 3350 17 GM POWD.PACK PO (08:09)
--- NOTE | 2023-07-26 14:15 | HO.PSYCHPN ---
Subjective Subjective Date of Service: 07/26/23 Reason For Visit: F29,F14.21 Subjective Notes: Conditional Voluntary Interim History: The nursing staff reported the patient needed p.r.n. Klonopin and Haldol in the morning. He has been more cooperative but less confused. The occupational therapist reported that he did an Nader test and he scored 3.4. The social services assistant contacted daughter and she is involved and she is applying for guardianship. On interview the patient looks less confused more reactive, we are lowering his observation to constant observation. Mental Status Exam Mental Status Exam Patient Appearance: Disheveled Patient Orientation: Person Level of Consciousness: Awake Patient Behavior: Guarded Mood Description: Withdrawn Affect Description: Blunted Patient Cognition Impaired: Yes Ability to Follow Directions: Good Speech Pattern: Clear Hallucinations: None Delusions: Ideas of Reference Thought Process: Distracted and Slowed Thinking Thought Content: positive for [place] and positive for Poverty of Content Judgement: Fair Diagnostics Vital Signs (24Hr): Vital Signs - 24 hr 07/25/23 19:40 07/26/23 08:07 Temperature 98.0 F 97.5 F Pulse Rate 95 102 H Respiratory Rate 18 18 Blood Pressure 119/73 120/79 Pulse Oximetry 99 98 Oxygen Delivery Method Room Air Room Air BMI result Body Mass Index 30.6 Labs 07/25/23 08:23 Labs: Laboratory Results - last 48 hr 07/25/23 08:23 WBC 9.9 RBC 3.83 L Hgb 12.4 L Hct 37.4 L MCV 97.7 MCH 32.4 MCHC 33.2 RDW 11.5 Plt Count 280 MPV 10.5 Immature Gran % (Auto) 0.6 H Neut % (Auto) 75.2 H Lymph % (Auto) 15.8 L Will % (Auto) 6.6 Eos % (Auto) 1.6 Baso % (Auto) 0.2 Lymph # (Auto) 1.6 Will # (Auto) 0.7 Eos # (Auto) 0.2 Baso # (Auto) 0.0 Abs Immat Gran (auto) 0.06 H Absolute Neuts (auto) 7.4 Absolute Nucleated RBC 0.000 Nucleated RBC % (auto) 0.0 Total Bilirubin 0.5 Direct Bilirubin 0.2 AST 12 ALT 11 Alkaline Phosphatase 71 Total Protein 7.2 Albumin 4.1 Valproic Acid 96.3 Medications Medications Current Medications Acetaminophen (Acetaminophen 325 Mg Tablet) 650 mg PO Q6H PRN PRN Reason: Headache/Pain Mild Scale (1-3) Last Admin: 07/20/23 02:10 Dose: 650 mg Al Hydroxide/Mg Hydroxide (Magnesium Hydrox/Alum Hydrox 30 Ml Oral.Susp) 30 ml PO Q6H PRN PRN Reason: Heartburn/Nausea Benzocaine (Throat Lozenge, Medicated Lozenge) 1 lozenge MUCOUS MEM Q2H PRN PRN Reason: Sore Throat Last Admin: 07/21/23 18:48 Dose: 1 lozenge Clonazepam (Clonazepam 1 Mg Tablet) 1 mg PO BEDTIME [facility] Last Admin: 07/25/23 20:43 Dose: 1 mg Clonazepam (Clonazepam 1 Mg Tablet) 1 mg PO TID PRN PRN Reason: Anxiety Last Admin: 07/26/23 02:43 Dose: 1 mg Divalproex Sodium (Divalproex Sodium 250 Mg Tablet.) 750 mg PO BID [facility] Last Admin: 07/26/23 08:08 Dose: 750 mg Haloperidol (Haloperidol 5 Mg Tablet) 5 mg PO TID PRN PRN Reason: Psychosis Last Admin: 07/25/23 15:45 Dose: 5 mg Hydroxyzine HCl (Hydroxyzine Hcl 25 Mg Tablet) 25 mg PO Q6H PRN PRN Reason: Anxiety Last Admin: 07/24/23 13:09 Dose: 25 mg Levothyroxine Sodium (Levothyroxine Sodium 75 Mcg Tablet) 75 mcg PO DAILY@0600 [facility] Last Admin: 07/26/23 06:31 Dose: 75 mcg Magnesium Hydroxide (Milk Of Magnesia 30 Ml Oral.Susp) 30 ml PO DAILY PRN PRN Reason: Constipation Nicotine Polacrilex (Nicotine Polacrilex 2 Mg Gum) 2 mg BUCCAL Q2H PRN PRN Reason: Nicotine Cravings Last Admin: 07/26/23 02:43 Dose: 2 mg Olanzapine (Olanzapine 10 Mg Tablet) 20 mg PO BEDTIME [facility] Last Admin: 07/25/23 20:43 Dose: 20 mg Omeprazole (Omeprazole 20 Mg Capsule.) 20 mg PO DAILY [facility] Last Admin: 07/26/23 08:09 Dose: 20 mg Ondansetron HCl (Ondansetron Odt 4 Mg Tab.Rapdis) 4 mg TRANSLINGU Q6H PRN PRN Reason: Nausea And Vomiting Paliperidone Palmitate (Paliperidone Palmitate 234 Mg/1.5 Ml Syringe) 234 mg IM Q30D [facility] Last Admin: 07/21/23 10:10 Dose: 234 mg Polyethylene Glycol (Polyethylene Glycol 3350 17 Gm Powd.Pack) 17 gm PO DAILY [facility] Last Admin: 07/26/23 08:09 Dose: 17 gm Prazosin HCl (Prazosin Hcl 1 Mg Capsule) 2 mg PO BEDTIME [facility]; Protocol Last Admin: 07/25/23 20:43 Dose: 2 mg Trazodone HCl (Trazodone Hcl 100 Mg Tablet) 100 mg PO BEDTIME [facility] Last Admin: 07/25/23 20:43 Dose: 100 mg Allergies Allergies Allergy/AdvReac Type Severity Reaction Status Date / Time lorazepam Allergy Unknown Verified 07/18/23 23:04 Penicillins Allergy Nausea and Verified 07/18/23 23:04 Vomiting Assessment & Plan Assessment & Plan (1) Schizophrenia: Status: Acute Code(s): F20.9 - Schizophrenia, unspecified Plan The patient is a middle-aged male with a past history of psychosis with several prior admissions into the hospital for psychiatric stabilization, the patient also has several medical comorbidities such as seizure disorder, HTN, diabetes and others. The patient was noncompliant with medication and he was transferred from the adult group day program to the emergency room of [facility] due to altered mental status. Plan 1. Gather collateral information the patient is unable to provide any information due to his altered mental status. On admission, the patient was very did needed to be medicated with Zyprexa Zydis p.o. 1 Klonopin 2 mg p.o.. 2. Continue with Zyprexa as prescribed per med reconciliation form. On June we are changing to Zyprexa 20 mg p.o. q.h.s. only. We are adding Zyprexa Zydis b.i.d. p.r.n. agitation. 3. Continue with antiseizure medications. The patient had been on Depakote consistently for the last 2 days. We are going to recheck levels early next week. 4. Continue medical workout. 5. Reassessment with results. 6. Continue one-to-one observation for safety. 7. Restarted on prazosin 2 mg p.o. q.h.s. as per information provided by regular provider in the community. 8. Restarting Invega Sustenna on July 20, last dose probably the week of June. 9. We are going to continue to do the paperwork for guardianship as per request of the patient's daughter. We have already given to the patient's daughter the affidavit sign. 10. We are discontinuing Zyprexa Zydis p.r.n. and starting Haldol p.o. p.r.n.. 11. Bloodowrk for 07/24 and Depakote was on a therapeutic level. Reason for continued inpatient stay Substantial Risk for: inability to function, rapid decompensation and med/psych decompensation Time Spent With Patient Time: Total time managing care of this patient today __20__ minutes.
[2023-07-26 19:35] VITALS: BP 126/76; PULSE 73; RESP 18; TEMP 36.3; O2SAT 97
[2023-07-26] MEDS: Prazosin HCL 1 MG CAPSULE 2 MG PO (20:27)
[2023-07-26] MEDS: traZODone HCL 100 MG TABLET PO (20:27)
[2023-07-26] MEDS: OLANZapine 10 MG TABLET 20 MG PO (20:27)
[2023-07-27] MEDS: Levothyroxine Sodium 75 MCG TABLET PO (05:48)
[2023-07-27 07:00] VITALS: BMI 31.0
[2023-07-27 08:23] VITALS: BP 133/89; PULSE 102; RESP 17; TEMP 36.6; O2SAT 97
[2023-07-27] MEDS: Divalproex Sodium 250 MG TABLET.DR 750 MG PO ×2 (08:25→20:52)
[2023-07-27] MEDS: Omeprazole 20 MG CAPSULE.DR PO (08:25)
[2023-07-27] MEDS: polyethylene glycoL 3350 17 GM POWD.PACK PO (08:25)
--- NOTE | 2023-07-27 14:59 | HO.PSYCHPN ---
Subjective Subjective Date of Service: 07/27/23 Reason For Visit: F29,F14.21 Subjective Notes: Conditional Voluntary Interim History: The nursing staff reported the patient had been much better pleasant cooperative compliant with treatment. His affect remains flat and withdrawn. He has not received any p.r.n. Haldol in the last 2 days. The case management social worker will have a family meeting tomorrow. On interview the patient is pleasant and cooperative states that he is feeling much better. No active hallucinations or disruptive behavior. Mental Status Exam Mental Status Exam Patient Appearance: Appropriate Patient Orientation: Person and Situation Level of Consciousness: Awake and Appropriate Patient Behavior: Guarded and Passive Mood Description: Withdrawn Affect Description: Constricted Patient Cognition Impaired: Yes Ability to Follow Directions: Good Speech Pattern: Clear Hallucinations: None Delusions: Not Present Thought Process: Distracted and Slowed Thinking Thought Content: positive for [place], positive for [place] and positive for Poverty of Content Judgement: Fair Diagnostics Vital Signs (24Hr): Vital Signs - 24 hr 07/26/23 19:35 07/27/23 08:23 Temperature 97.4 F 97.9 F Pulse Rate 73 102 H Respiratory Rate 18 17 Blood Pressure 126/76 133/89 Pulse Oximetry 97 97 Oxygen Delivery Method Room Air Room Air BMI result Body Mass Index 30.6 Labs 07/25/23 08:23 Medications Medications Current Medications Acetaminophen (Acetaminophen 325 Mg Tablet) 650 mg PO Q6H PRN PRN Reason: Headache/Pain Mild Scale (1-3) Last Admin: 07/20/23 02:10 Dose: 650 mg Al Hydroxide/Mg Hydroxide (Magnesium Hydrox/Alum Hydrox 30 Ml Oral.Susp) 30 ml PO Q6H PRN PRN Reason: Heartburn/Nausea Benzocaine (Throat Lozenge, Medicated Lozenge) 1 lozenge MUCOUS MEM Q2H PRN PRN Reason: Sore Throat Last Admin: 07/21/23 18:48 Dose: 1 lozenge Clonazepam (Clonazepam 1 Mg Tablet) 1 mg PO BEDTIME [facility] Last Admin: 07/26/23 20:27 Dose: 1 mg Clonazepam (Clonazepam 1 Mg Tablet) 1 mg PO TID PRN PRN Reason: Anxiety Last Admin: 07/26/23 02:43 Dose: 1 mg Divalproex Sodium (Divalproex Sodium 250 Mg Tablet.) 750 mg PO BID [facility] Last Admin: 07/27/23 08:25 Dose: 750 mg Haloperidol (Haloperidol 5 Mg Tablet) 5 mg PO TID PRN PRN Reason: Psychosis Last Admin: 07/25/23 15:45 Dose: 5 mg Hydroxyzine HCl (Hydroxyzine Hcl 25 Mg Tablet) 25 mg PO Q6H PRN PRN Reason: Anxiety Last Admin: 07/24/23 13:09 Dose: 25 mg Levothyroxine Sodium (Levothyroxine Sodium 75 Mcg Tablet) 75 mcg PO DAILY@0600 [facility] Last Admin: 07/27/23 05:48 Dose: 75 mcg Magnesium Hydroxide (Milk Of Magnesia 30 Ml Oral.Susp) 30 ml PO DAILY PRN PRN Reason: Constipation Nicotine Polacrilex (Nicotine Polacrilex 2 Mg Gum) 2 mg BUCCAL Q2H PRN PRN Reason: Nicotine Cravings Last Admin: 07/26/23 02:43 Dose: 2 mg Olanzapine (Olanzapine 10 Mg Tablet) 20 mg PO BEDTIME [facility] Last Admin: 07/26/23 20:27 Dose: 20 mg Omeprazole (Omeprazole 20 Mg Capsule.Dr) 20 mg PO DAILY [facility] Last Admin: 07/27/23 08:25 Dose: 20 mg Ondansetron HCl (Ondansetron Odt 4 Mg Tab.Rapdis) 4 mg TRANSLINGU Q6H PRN PRN Reason: Nausea And Vomiting Paliperidone Palmitate (Paliperidone Palmitate 234 Mg/1.5 Ml Syringe) 234 mg IM Q30D [facility] Last Admin: 07/21/23 10:10 Dose: 234 mg Polyethylene Glycol (Polyethylene Glycol 3350 17 Gm Powd.Pack) 17 gm PO DAILY [facility] Last Admin: 07/27/23 08:25 Dose: 17 gm Prazosin HCl (Prazosin Hcl 1 Mg Capsule) 2 mg PO BEDTIME [facility]; Protocol Last Admin: 07/26/23 20:27 Dose: 2 mg Trazodone HCl (Trazodone Hcl 100 Mg Tablet) 100 mg PO BEDTIME [facility] Last Admin: 07/26/23 20:27 Dose: 100 mg Allergies Allergies Allergy/AdvReac Type Severity Reaction Status Date / Time lorazepam Allergy Unknown Verified 07/18/23 23:04 Penicillins Allergy Nausea and Verified 07/18/23 23:04 Vomiting Assessment & Plan Assessment & Plan (1) Schizophrenia: Status: Acute Code(s): F20.9 - Schizophrenia, unspecified Plan The patient is a middle-aged male with a past history of psychosis with several prior admissions into the hospital for psychiatric stabilization, the patient also has several medical comorbidities such as seizure disorder, HTN, diabetes and others. The patient was noncompliant with medication and he was transferred from the adult group day program to the emergency room of [facility] due to altered mental status. Plan 1. Gather collateral information the patient is unable to provide any information due to his altered mental status. On admission, the patient was very did needed to be medicated with Zyprexa Zydis p.o. 1 Klonopin 2 mg p.o.. 2. Continue with Zyprexa as prescribed per med reconciliation form. On June we are changing to Zyprexa 20 mg p.o. q.h.s. only. We are adding Zyprexa Zydis b.i.d. p.r.n. agitation. 3. Continue with antiseizure medications. The patient had been on Depakote consistently for the last 2 days. We are going to recheck levels early next week. 4. Continue medical workout. 5. Reassessment with results. 6. Continue one-to-one observation for safety. 7. Restarted on prazosin 2 mg p.o. q.h.s. as per information provided by regular provider in the community. 8. Restarting Invega Sustenna on July 20, last dose probably the 1st week of June. 9. We are going to continue to do the paperwork for guardianship as per request of the patient's daughter. We have already given to the patient's daughter the affidavit sign. 10. We are discontinuing Zyprexa Zydis p.r.n. and starting Haldol p.o. p.r.n.. 11. Bloodowrk for 3 and Depakote was on a therapeutic level. Reason for continued inpatient stay Substantial Risk for: inability to function, rapid decompensation and med/psych decompensation Time Spent With Patient Time: Total time managing care of this patient today _20___ minutes.
[2023-07-27 19:46] VITALS: BP 139/78; PULSE 95; RESP 18; TEMP 36.1; O2SAT 98
[2023-07-27] MEDS: Prazosin HCL 1 MG CAPSULE 2 MG PO (20:53)
[2023-07-27] MEDS: OLANZapine 10 MG TABLET 20 MG PO (20:53)
[2023-07-27] MEDS: traZODone HCL 100 MG TABLET PO (20:53)
[2023-07-27] MEDS: clonazePAM 1 MG TABLET PO (20:53)
[2023-07-28 08:13] VITALS: BP 151/78; PULSE 96; RESP 18; TEMP 36.3; O2SAT 98
[2023-07-28] MEDS: Omeprazole 20 MG CAPSULE.DR PO (10:18)
[2023-07-28] MEDS: Levothyroxine Sodium 75 MCG TABLET PO (10:18)
[2023-07-28] MEDS: Divalproex Sodium 250 MG TABLET.DR 750 MG PO ×2 (10:18→20:55)
[2023-07-28] MEDS: polyethylene glycoL 3350 17 GM POWD.PACK PO (10:18)
--- NOTE | 2023-07-28 13:43 | HO.PSYCHPN ---
Subjective Subjective Date of Service: 07/28/23 Reason For Visit: F29,F14.21 Interim History: greenlandic only, seen with management accountant. calm, cooperative. no questions or requests other than to see his daughter, who is visiting today. wondering when he will leave. per staff, behaviors improved from the w/e, off of 1:1 now. Mental Status Exam Mental Status Exam Patient Appearance: Appropriate Patient Orientation: Person and Situation Level of Consciousness: Awake and Appropriate Patient Behavior: Guarded and Passive Mood Description: Withdrawn Affect Description: Constricted Patient Cognition Impaired: Yes Ability to Follow Directions: Good Speech Pattern: Clear Hallucinations: None Delusions: Not Present Thought Process: Distracted and Slowed Thinking Thought Content: positive for [place], positive for [place]um[place] and positive for Poverty of Content Judgement: Fair Diagnostics Vital Signs (24Hr): Vital Signs - 24 hr 07/27/23 19:46 07/28/23 08:13 Temperature 96.9 F 97.4 F Pulse Rate 95 96 Respiratory Rate 18 18 Blood Pressure 139/78 151/78 H Pulse Oximetry 98 98 Oxygen Delivery Method Room Air Room Air BMI result Body Mass Index 31.0 Labs 07/25/23 08:23 Medications Medications Current Medications Acetaminophen (Acetaminophen 325 Mg Tablet) 650 mg PO Q6H PRN PRN Reason: Headache/Pain Mild Scale (1-3) Last Admin: 07/20/23 02:10 Dose: 650 mg Al Hydroxide/Mg Hydroxide (Magnesium Hydrox/Alum Hydrox 30 Ml Oral.Susp) 30 ml PO Q6H PRN PRN Reason: Heartburn/Nausea Benzocaine (Throat Lozenge, Medicated Lozenge) 1 lozenge MUCOUS MEM Q2H PRN PRN Reason: Sore Throat Last Admin: 07/21/23 18:48 Dose: 1 lozenge Clonazepam (Clonazepam 1 Mg Tablet) 1 mg PO BEDTIME [facility] Last Admin: 07/27/23 20:53 Dose: 1 mg Clonazepam (Clonazepam 1 Mg Tablet) 1 mg PO TID PRN PRN Reason: Anxiety Last Admin: 07/26/23 02:43 Dose: 1 mg Divalproex Sodium (Divalproex Sodium 250 Mg Tablet.) 750 mg PO BID [facility] Last Admin: 07/28/23 10:18 Dose: 750 mg Haloperidol (Haloperidol 5 Mg Tablet) 5 mg PO TID PRN PRN Reason: Psychosis Last Admin: 07/25/23 15:45 Dose: 5 mg Hydroxyzine HCl (Hydroxyzine Hcl 25 Mg Tablet) 25 mg PO Q6H PRN PRN Reason: Anxiety Last Admin: 07/24/23 13:09 Dose: 25 mg Levothyroxine Sodium (Levothyroxine Sodium 75 Mcg Tablet) 75 mcg PO DAILY@0600 [facility] Last Admin: 07/28/23 10:18 Dose: 75 mcg Magnesium Hydroxide (Milk Of Magnesia 30 Ml Oral.Susp) 30 ml PO DAILY PRN PRN Reason: Constipation Nicotine Polacrilex (Nicotine Polacrilex 2 Mg Gum) 2 mg BUCCAL Q2H PRN PRN Reason: Nicotine Cravings Last Admin: 07/26/23 02:43 Dose: 2 mg Olanzapine (Olanzapine 10 Mg Tablet) 20 mg PO BEDTIME [facility] Last Admin: 07/27/23 20:53 Dose: 20 mg Omeprazole (Omeprazole 20 Mg Capsule.Dr) 20 mg PO DAILY [facility] Last Admin: 07/28/23 10:18 Dose: 20 mg Ondansetron HCl (Ondansetron Odt 4 Mg Tab.Rapdis) 4 mg TRANSLINGU Q6H PRN PRN Reason: Nausea And Vomiting Paliperidone Palmitate (Paliperidone Palmitate 234 Mg/1.5 Ml Syringe) 234 mg IM Q30D [facility] Last Admin: 07/21/23 10:10 Dose: 234 mg Polyethylene Glycol (Polyethylene Glycol 3350 17 Gm Powd.Pack) 17 gm PO DAILY [facility] Last Admin: 07/28/23 10:18 Dose: 17 gm Prazosin HCl (Prazosin Hcl 1 Mg Capsule) 2 mg PO BEDTIME [facility]; Protocol Last Admin: 07/27/23 20:53 Dose: 2 mg Trazodone HCl (Trazodone Hcl 100 Mg Tablet) 100 mg PO BEDTIME [facility] Last Admin: 07/27/23 20:53 Dose: 100 mg Allergies Allergies Allergy/AdvReac Type Severity Reaction Status Date / Time lorazepam Allergy Unknown Verified 07/18/23 23:04 Penicillins Allergy Nausea and Verified 07/18/23 23:04 Vomiting Assessment & Plan Assessment & Plan (1) Schizophrenia: Status: Acute Code(s): F20.9 - Schizophrenia, unspecified Plan The patient is a middle-aged male with a past history of psychosis with several prior admissions into the hospital for psychiatric stabilization, the patient also has several medical comorbidities such as seizure disorder, HTN, diabetes and others. The patient was noncompliant with medication and he was transferred from the adult group day program to the emergency room of [facility] due to altered mental status. Plan 1. Gather collateral information the patient is unable to provide any information due to his altered mental status. On admission, the patient was very did needed to be medicated with Zyprexa Zydis p.o. 1 Klonopin 2 mg p.o.. 2. Continue with Zyprexa as prescribed per med reconciliation form. On June we are changing to Zyprexa 20 mg p.o. q.h.s. only. We are adding Zyprexa Zydis b.i.d. p.r.n. agitation. 3. Continue with antiseizure medications. The patient had been on Depakote consistently for the last 2 days. We are going to recheck levels early next week. 4. Continue medical workout. 5. Reassessment with results. 6. Continue one-to-one observation for safety. 7. Restarted on prazosin 2 mg p.o. q.h.s. as per information provided by regular provider in the community. 8. Restarting Invega Sustenna on July 20, last dose probably the week of June. 9. We are going to continue to do the paperwork for guardianship as per request of the patient's daughter. We have already given to the patient's daughter the affidavit sign. 10. We are discontinuing Zyprexa Zydis p.r.n. and starting Haldol p.o. p.r.n.. 11. Bloodowrk for 07/24 and Depakote was on a therapeutic level. Reason for continued inpatient stay Substantial Risk for: inability to function and rapid decompensation Time Spent With Patient Time: Total time managing care of this patient today ____ minutes.
[2023-07-28 18:00] VITALS: BP 131/68; PULSE 101; RESP 16; TEMP 36.4; O2SAT 97
[2023-07-28] MEDS: Prazosin HCL 1 MG CAPSULE 2 MG PO (20:54)
[2023-07-28] MEDS: OLANZapine 10 MG TABLET 20 MG PO (20:55)
[2023-07-28] MEDS: traZODone HCL 100 MG TABLET PO (20:56)
[2023-07-28] MEDS: clonazePAM 1 MG TABLET PO (20:56)
[2023-07-29 06:00] VITALS: BP 138/77; PULSE 96; RESP 18; TEMP 36.5; O2SAT 97
[2023-07-29] MEDS: Levothyroxine Sodium 75 MCG TABLET PO (06:30)
[2023-07-29] MEDS: Divalproex Sodium 250 MG TABLET.DR 750 MG PO ×2 (10:15→20:04)
[2023-07-29] MEDS: polyethylene glycoL 3350 17 GM POWD.PACK PO (10:19)
[2023-07-29] MEDS: HaloperidoL 5 MG TABLET PO ×2 (10:20→20:04)
[2023-07-29] MEDS: Omeprazole 20 MG CAPSULE.DR PO (10:20)
--- NOTE | 2023-07-29 10:50 | P.PNPSI_ITS ---
Subjective Subjective Date of Service: 07/29/23 Reason For Visit: F29,F14.21 Subjective Notes: Conditional Voluntary Interim History: met with patient. Discussed with Nursing. Is behaviorally improving. Slept for 6 hours. Doing well on 5 minutes checks feel last 3 days. Overall today reports he is feeling good. Enjoyed breakfast. Sleeping better. No medication concerns. Feeling safe. No agitation. Review of Systems Review of Systems Unremarkable Mental Status Exam Mental Status Exam Narrative: casually dressed. Self-care okay. Pleasant. Denied depression, SI HI. No overt psychosis. Insight and judgment appears to be improving Diagnostics Vital Signs (24Hr): Vital Signs - 24 hr 07/28/23 18:00 07/29/23 06:00 Temperature 97.6 F 97.7 F Pulse Rate 101 H 96 Respiratory Rate 16 18 Blood Pressure 131/68 138/77 Pulse Oximetry 97 97 Oxygen Delivery Method Room Air Room Air BMI result Body Mass Index 31.0 Labs 07/25/23 08:23 Medications Medications Current Medications Acetaminophen (Acetaminophen 325 Mg Tablet) 650 mg PO Q6H PRN PRN Reason: Headache/Pain Mild Scale (1-3) Last Admin: 07/20/23 02:10 Dose: 650 mg Al Hydroxide/Mg Hydroxide (Magnesium Hydrox/Alum Hydrox 30 Ml Oral.Susp) 30 ml PO Q6H PRN PRN Reason: Heartburn/Nausea Benzocaine (Throat Lozenge, Medicated Lozenge) 1 lozenge MUCOUS MEM Q2H PRN PRN Reason: Sore Throat Last Admin: 07/21/23 18:48 Dose: 1 lozenge Clonazepam (Clonazepam 1 Mg Tablet) 1 mg PO BEDTIME WENDIE Last Admin: 07/28/23 20:56 Dose: 1 mg Clonazepam (Clonazepam 1 Mg Tablet) 1 mg PO TID PRN PRN Reason: Anxiety Last Admin: 07/26/23 02:43 Dose: 1 mg Divalproex Sodium (Divalproex Sodium 250 Mg Tablet.) 750 mg PO BID WENDIE Last Admin: 07/29/23 10:15 Dose: 750 mg Haloperidol (Haloperidol 5 Mg Tablet) 5 mg PO TID PRN PRN Reason: Psychosis Last Admin: 07/29/23 10:20 Dose: 5 mg Hydroxyzine HCl (Hydroxyzine Hcl 25 Mg Tablet) 25 mg PO Q6H PRN PRN Reason: Anxiety Last Admin: 07/24/23 13:09 Dose: 25 mg Levothyroxine Sodium (Levothyroxine Sodium 75 Mcg Tablet) 75 mcg PO DAILY@0600 [facility] Last Admin: 07/29/23 06:30 Dose: 75 mcg Magnesium Hydroxide (Milk Of Magnesia 30 Ml Oral.Susp) 30 ml PO DAILY PRN PRN Reason: Constipation Nicotine Polacrilex (Nicotine Polacrilex 2 Mg Gum) 2 mg BUCCAL Q2H PRN PRN Reason: Nicotine Cravings Last Admin: 07/26/23 02:43 Dose: 2 mg Olanzapine (Olanzapine 10 Mg Tablet) 20 mg PO BEDTIME WENDIE Last Admin: 07/28/23 20:55 Dose: 20 mg Omeprazole (Omeprazole 20 Mg Capsule.Dr) 20 mg PO DAILY [facility] Last Admin: 07/29/23 10:20 Dose: 20 mg Ondansetron HCl (Ondansetron Odt 4 Mg Tab.Rapdis) 4 mg TRANSLINGU Q6H PRN PRN Reason: Nausea And Vomiting Paliperidone Palmitate (Paliperidone Palmitate 234 Mg/1.5 Ml Syringe) 234 mg IM Q30D [facility] Last Admin: 07/21/23 10:10 Dose: 234 mg Polyethylene Glycol (Polyethylene Glycol 3350 17 Gm Powd.Pack) 17 gm PO DAILY WENDIE Last Admin: 07/29/23 10:19 Dose: 17 gm Prazosin HCl (Prazosin Hcl 1 Mg Capsule) 2 mg PO BEDTIME [facility]; Protocol Last Admin: 07/28/23 20:54 Dose: 2 mg Trazodone HCl (Trazodone Hcl 100 Mg Tablet) 100 mg PO BEDTIME WENDIE Last Admin: 07/28/23 20:56 Dose: 100 mg Allergies Allergies Allergy/AdvReac Type Severity Reaction Status Date / Time lorazepam Allergy Unknown Verified 07/18/23 23:04 Penicillins Allergy Nausea and Verified 07/18/23 23:04 Vomiting Assessment & Plan Assessment & Plan (1) Schizophrenia: Status: Acute Code(s): F20.9 - Schizophrenia, unspecified Plan The patient is a middle-aged male with a past history of psychosis with several prior admissions into the hospital for psychiatric stabilization, the patient also has several medical comorbidities such as seizure disorder, HTN, diabetes and others. The patient was noncompliant with medication and he was transferred from the adult group day program to the emergency room of [facility] due to altered mental status. Plan 1. Gather collateral information the patient is unable to provide any information due to his altered mental status. On admission, the patient was very did needed to be medicated with Zyprexa Zydis p.o. 1 Klonopin 2 mg p.o.. 2. Continue with Zyprexa as prescribed per med reconciliation form. On June we are changing to Zyprexa 20 mg p.o. q.h.s. only. We are adding Zyprexa Zydis b.i.d. p.r.n. agitation. 3. Continue with antiseizure medications. The patient had been on Depakote consistently for the last 2 days. We are going to recheck levels early next week. 4. Continue medical workout. 5. Reassessment with results. 6. Continue one-to-one observation for safety. 7. Restarted on prazosin 2 mg p.o. q.h.s. as per information provided by regular provider in the community. 8. Restarting Invega Sustenna on July 20, last dose probably the week of June. 9. We are going to continue to do the paperwork for guardianship as per request of the patient's daughter. We have already given to the patient's daughter the affidavit sign. 10. We are discontinuing Zyprexa Zydis p.r.n. and starting Haldol p.o. p.r.n.. 11. Bloodowrk for 07/24 and Depakote was on a therapeutic level. 07/29/2023: No changes Reason for continued inpatient stay Substantial Risk for: rapid decompensation Time Spent With Patient Time: Total time managing care of this patient today ____ minutes.
[2023-07-29] MEDS: clonazePAM 1 MG TABLET PO ×2 (11:28→20:06)
[2023-07-29] MEDS: hydrOXYzine HCL 25 MG TABLET PO ×2 (13:58→20:04)
[2023-07-29 18:00] VITALS: BP 128/83; PULSE 76; RESP 16; TEMP 37.1; O2SAT 96
[2023-07-29] MEDS: Prazosin HCL 1 MG CAPSULE 2 MG PO (20:03)
[2023-07-29] MEDS: OLANZapine 10 MG TABLET 20 MG PO (20:05)
[2023-07-29] MEDS: traZODone HCL 100 MG TABLET PO (20:26)
[2023-07-30] MEDS: Levothyroxine Sodium 75 MCG TABLET PO (05:57)
[2023-07-30 06:00] VITALS: BP 125/77; PULSE 75; RESP 16; TEMP 36.5; O2SAT 96
[2023-07-30] MEDS: Divalproex Sodium 250 MG TABLET.DR 750 MG PO ×2 (09:54→20:08)
[2023-07-30] MEDS: clonazePAM 1 MG TABLET PO ×3 (09:55→20:08)
[2023-07-30] MEDS: Omeprazole 20 MG CAPSULE.DR PO (09:56)
[2023-07-30] MEDS: HaloperidoL 5 MG TABLET PO ×2 (09:56→20:10)
--- NOTE | 2023-07-30 14:07 | P.PNPSI_ITS ---
Subjective Subjective Date of Service: 07/30/23 Reason For Visit: F29,F14.21 Subjective Notes: Conditional Voluntary Interim History: Met with patient. Discussed with Nursing. Is behaviorally improving. [facility] tranlation services #[id number]. Some paranoa e.g. medications are acid or cocaine. Eager for discharge and directed to primary team. Sleeping better. Overall reports he is feeling good. Eating well. Taking care of ADLs. Review of Systems Review of Systems Unremarkable Mental Status Exam Mental Status Exam Narrative: casually dressed. Self-care okay. Orinted to date and being in hospital. Pleasant. Denied depression, SI HI. Paranoid ref medications. Insight and judgment appears to be improving Diagnostics Vital Signs (24Hr): Vital Signs - 24 hr 07/29/23 18:00 07/30/23 06:00 Temperature 98.8 F 97.7 F Pulse Rate 76 75 Respiratory Rate 16 16 Blood Pressure 128/83 125/77 Pulse Oximetry 96 96 Oxygen Delivery Method Room Air Room Air BMI result Body Mass Index 31.0 Labs 07/25/23 08:23 Medications Medications Current Medications Acetaminophen (Acetaminophen 325 Mg Tablet) 650 mg PO Q6H PRN PRN Reason: Headache/Pain Mild Scale (1-3) Last Admin: 07/20/23 02:10 Dose: 650 mg Al Hydroxide/Mg Hydroxide (Magnesium Hydrox/Alum Hydrox 30 Ml Oral.Susp) 30 ml PO Q6H PRN PRN Reason: Heartburn/Nausea Benzocaine (Throat Lozenge, Medicated Lozenge) 1 lozenge MUCOUS MEM Q2H PRN PRN Reason: Sore Throat Last Admin: 07/21/23 18:48 Dose: 1 lozenge Clonazepam (Clonazepam 1 Mg Tablet) 1 mg PO BEDTIME WENDIE Last Admin: 07/29/23 20:06 Dose: 1 mg Clonazepam (Clonazepam 1 Mg Tablet) 1 mg PO TID PRN PRN Reason: Anxiety Last Admin: 07/30/23 09:57 Dose: 1 mg Divalproex Sodium (Divalproex Sodium 250 Mg Tablet.) 750 mg PO BID WENDIE Last Admin: 07/30/23 09:54 Dose: 750 mg Haloperidol (Haloperidol 5 Mg Tablet) 5 mg PO TID PRN PRN Reason: Psychosis Last Admin: 07/30/23 09:56 Dose: 5 mg Hydroxyzine HCl (Hydroxyzine Hcl 25 Mg Tablet) 25 mg PO Q6H PRN PRN Reason: Anxiety Last Admin: 07/29/23 20:04 Dose: 25 mg Levothyroxine Sodium (Levothyroxine Sodium 75 Mcg Tablet) 75 mcg PO DAILY@0600 [facility] Last Admin: 07/30/23 05:57 Dose: 75 mcg Magnesium Hydroxide (Milk Of Magnesia 30 Ml Oral.Susp) 30 ml PO DAILY PRN PRN Reason: Constipation Nicotine Polacrilex (Nicotine Polacrilex 2 Mg Gum) 2 mg BUCCAL Q2H PRN PRN Reason: Nicotine Cravings Last Admin: 07/26/23 02:43 Dose: 2 mg Olanzapine (Olanzapine 10 Mg Tablet) 20 mg PO BEDTIME WENDIE Last Admin: 07/29/23 20:05 Dose: 20 mg Omeprazole (Omeprazole 20 Mg Capsule.Dr) 20 mg PO DAILY [facility] Last Admin: 07/30/23 09:56 Dose: 20 mg Ondansetron HCl (Ondansetron Odt 4 Mg Tab.Rapdis) 4 mg TRANSLINGU Q6H PRN PRN Reason: Nausea And Vomiting Paliperidone Palmitate (Paliperidone Palmitate 234 Mg/1.5 Ml Syringe) 234 mg IM Q30D [facility] Last Admin: 07/21/23 10:10 Dose: 234 mg Polyethylene Glycol (Polyethylene Glycol 3350 17 Gm Powd.Pack) 17 gm PO DAILY [facility] Last Admin: 07/30/23 09:57 Dose: Not Given Prazosin HCl (Prazosin Hcl 1 Mg Capsule) 2 mg PO BEDTIME WENDIE; Protocol Last Admin: 07/29/23 20:03 Dose: 2 mg Trazodone HCl (Trazodone Hcl 100 Mg Tablet) 100 mg PO BEDTIME WENDIE Last Admin: 07/29/23 20:26 Dose: 100 mg Allergies Allergies Allergy/AdvReac Type Severity Reaction Status Date / Time lorazepam Allergy Unknown Verified 07/18/23 23:04 Penicillins Allergy Nausea and Verified 07/18/23 23:04 Vomiting Assessment & Plan Assessment & Plan (1) Schizophrenia: Status: Acute Code(s): F20.9 - Schizophrenia, unspecified Plan The patient is a middle-aged male with a past history of psychosis with several prior admissions into the hospital for psychiatric stabilization, the patient also has several medical comorbidities such as seizure disorder, HTN, diabetes and others. The patient was noncompliant with medication and he was transferred from the adult group day program to the emergency room of [facility] due to altered mental status. Plan 1. Gather collateral information the patient is unable to provide any information due to his altered mental status. On admission, the patient was very did needed to be medicated with Zyprexa Zydis p.o. 1 Klonopin 2 mg p.o.. 2. Continue with Zyprexa as prescribed per med reconciliation form. On June we are changing to Zyprexa 20 mg p.o. q.h.s. only. We are adding Zyprexa Zydis b.i.d. p.r.n. agitation. 3. Continue with antiseizure medications. The patient had been on Depakote consistently for the last 2 days. We are going to recheck levels early next week. 4. Continue medical workout. 5. Reassessment with results. 6. Continue one-to-one observation for safety. 7. Restarted on prazosin 2 mg p.o. q.h.s. as per information provided by regular provider in the community. 8. Restarting Invega Sustenna on July 20, last dose probably the week of June. 9. We are going to continue to do the paperwork for guardianship as per request of the patient's daughter. We have already given to the patient's daughter the affidavit sign. 10. We are discontinuing Zyprexa Zydis p.r.n. and starting Haldol p.o. p.r.n.. 11. Bloodowrk for 07/24 and Depakote was on a therapeutic level. 07/30/2023: No changes Reason for continued inpatient stay Substantial Risk for: inability to function and rapid decompensation Time Spent With Patient Time: Total time managing care of this patient today ____ minutes.
[2023-07-30 18:00] VITALS: BP 132/76; PULSE 97; RESP 18; TEMP 36.5; O2SAT 97
[2023-07-30] MEDS: Prazosin HCL 1 MG CAPSULE 2 MG PO (20:09)
[2023-07-30] MEDS: traZODone HCL 100 MG TABLET PO (20:09)
[2023-07-30] MEDS: hydrOXYzine HCL 25 MG TABLET PO (20:10)
[2023-07-30] MEDS: OLANZapine 10 MG TABLET 20 MG PO (20:11)
[2023-07-31 08:16] VITALS: BP 117/80; PULSE 97; RESP 16; TEMP 36.1; O2SAT 98
[2023-07-31] MEDS: Divalproex Sodium 250 MG TABLET.DR 750 MG PO ×2 (08:37→20:31)
[2023-07-31] MEDS: polyethylene glycoL 3350 17 GM POWD.PACK PO (08:37)
[2023-07-31] MEDS: Levothyroxine Sodium 75 MCG TABLET PO (08:37)
[2023-07-31] MEDS: Omeprazole 20 MG CAPSULE.DR PO (08:37)
--- NOTE | 2023-07-31 09:08 | HO.PSYCHPN ---
Subjective Subjective Date of Service: 07/31/23 Reason For Visit: F29,F14.21 Subjective Notes: Conditional Voluntary Interim History: Pt slept through the night. He denies SI/HI. he also denies VH/AH. He reports doing good. No aggression towards self or others. No inappropriate behaviors. He is visible on the unit. Mostly keeps to himself. Review of Systems Review of Systems Unremarkable Yes Unobtainable due to mental status Mental Status Exam Mental Status Exam Patient Appearance: Appropriate Patient Orientation: Person and Situation Level of Consciousness: Awake and Appropriate Patient Behavior: Guarded and Passive Mood Description: Withdrawn Affect Description: Constricted Patient Cognition Impaired: Yes Ability to Follow Directions: Good Speech Pattern: Clear Diagnostics Vital Signs (24Hr): Vital Signs - 24 hr 07/30/23 18:00 07/31/23 08:16 Temperature 97.7 F 97.0 F Pulse Rate 97 97 Respiratory Rate 18 16 Blood Pressure 132/76 117/80 Pulse Oximetry 97 98 Oxygen Delivery Method Room Air Room Air BMI result Body Mass Index 31.0 Labs 07/25/23 08:23 Medications Medications Current Medications Acetaminophen (Acetaminophen 325 Mg Tablet) 650 mg PO Q6H PRN PRN Reason: Headache/Pain Mild Scale (1-3) Last Admin: 07/20/23 02:10 Dose: 650 mg Al Hydroxide/Mg Hydroxide (Magnesium Hydrox/Alum Hydrox 30 Ml Oral.Susp) 30 ml PO Q6H PRN PRN Reason: Heartburn/Nausea Benzocaine (Throat Lozenge, Medicated Lozenge) 1 lozenge MUCOUS MEM Q2H PRN PRN Reason: Sore Throat Last Admin: 07/21/23 18:48 Dose: 1 lozenge Clonazepam (Clonazepam 1 Mg Tablet) 1 mg PO BEDTIME WENDIE Last Admin: 07/30/23 20:08 Dose: 1 mg Clonazepam (Clonazepam 1 Mg Tablet) 1 mg PO TID PRN PRN Reason: Anxiety Last Admin: 07/30/23 09:57 Dose: 1 mg Divalproex Sodium (Divalproex Sodium 250 Mg Tablet.) 750 mg PO BID WENDIE Last Admin: 07/31/23 08:37 Dose: 750 mg Haloperidol (Haloperidol 5 Mg Tablet) 5 mg PO TID PRN PRN Reason: Psychosis Last Admin: 07/30/23 20:10 Dose: 5 mg Hydroxyzine HCl (Hydroxyzine Hcl 25 Mg Tablet) 25 mg PO Q6H PRN PRN Reason: Anxiety Last Admin: 07/30/23 20:10 Dose: 25 mg Levothyroxine Sodium (Levothyroxine Sodium 75 Mcg Tablet) 75 mcg PO DAILY@0600 [facility] Last Admin: 07/31/23 08:37 Dose: 75 mcg Magnesium Hydroxide (Milk Of Magnesia 30 Ml Oral.Susp) 30 ml PO DAILY PRN PRN Reason: Constipation Nicotine Polacrilex (Nicotine Polacrilex 2 Mg Gum) 2 mg BUCCAL Q2H PRN PRN Reason: Nicotine Cravings Last Admin: 07/26/23 02:43 Dose: 2 mg Olanzapine (Olanzapine 10 Mg Tablet) 20 mg PO BEDTIME WENDIE Last Admin: 07/30/23 20:11 Dose: 20 mg Omeprazole (Omeprazole 20 Mg Capsule.Dr) 20 mg PO DAILY [facility] Last Admin: 07/31/23 08:37 Dose: 20 mg Ondansetron HCl (Ondansetron Odt 4 Mg Tab.Rapdis) 4 mg TRANSLINGU Q6H PRN PRN Reason: Nausea And Vomiting Paliperidone Palmitate (Paliperidone Palmitate 234 Mg/1.5 Ml Syringe) 234 mg IM Q30D [facility] Last Admin: 07/21/23 10:10 Dose: 234 mg Polyethylene Glycol (Polyethylene Glycol 3350 17 Gm Powd.Pack) 17 gm PO DAILY [facility] Last Admin: 07/31/23 08:37 Dose: 17 gm Prazosin HCl (Prazosin Hcl 1 Mg Capsule) 2 mg PO BEDTIME [facility]; Protocol Last Admin: 07/30/23 20:09 Dose: 2 mg Trazodone HCl (Trazodone Hcl 100 Mg Tablet) 100 mg PO BEDTIME WENDIE Last Admin: 07/30/23 20:09 Dose: 100 mg Allergies Allergies Allergy/AdvReac Type Severity Reaction Status Date / Time lorazepam Allergy Unknown Verified 07/18/23 23:04 Penicillins Allergy Nausea and Verified 07/18/23 23:04 Vomiting Assessment & Plan Assessment & Plan (1) Schizophrenia: Status: Acute Code(s): F20.9 - Schizophrenia, unspecified Plan The patient is a middle-aged male with a past history of psychosis with several prior admissions into the hospital for psychiatric stabilization, the patient also has several medical comorbidities such as seizure disorder, HTN, diabetes and others. The patient was noncompliant with medication and he was transferred from the adult group day program to the emergency room of [facility] due to altered mental status. Plan 1. Gather collateral information the patient is unable to provide any information due to his altered mental status. On admission, the patient was very did needed to be medicated with Zyprexa Zydis p.o. 1 Klonopin 2 mg p.o.. 2. Continue with Zyprexa as prescribed per med reconciliation form. On June we are changing to Zyprexa 20 mg p.o. q.h.s. only. We are adding Zyprexa Zydis b.i.d. p.r.n. agitation. 3. Continue with antiseizure medications. The patient had been on Depakote consistently for the last 2 days. We are going to recheck levels early next week. 4. Continue medical workout. 5. Reassessment with results. 6. Continue one-to-one observation for safety. 7. Restarted on prazosin 2 mg p.o. q.h.s. as per information provided by regular provider in the community. 8. Restarting Invega Sustenna on July 20, last dose probably the week of June. 9. We are going to continue to do the paperwork for guardianship as per request of the patient's daughter. We have already given to the patient's daughter the affidavit sign. 10. We are discontinuing Zyprexa Zydis p.r.n. and starting Haldol p.o. p.r.n.. 11. Bloodowrk for 07/24 and Depakote was on a therapeutic level. 07/30/2023: No changes 07/30 continue tx. Reason for continued inpatient stay Substantial Risk for: inability to function Time Spent With Patient Time: Total time managing care of this patient today ____ minutes.
[2023-07-31 20:00] VITALS: BP 127/72; PULSE 88; RESP 18; TEMP 36.6; O2SAT 96
[2023-07-31] MEDS: traZODone HCL 100 MG TABLET PO (20:31)
[2023-07-31] MEDS: OLANZapine 10 MG TABLET 20 MG PO (20:31)
[2023-07-31] MEDS: clonazePAM 1 MG TABLET PO (20:31)
[2023-07-31] MEDS: Prazosin HCL 1 MG CAPSULE 2 MG PO (20:31)
[2023-08-01] MEDS: Levothyroxine Sodium 75 MCG TABLET PO (06:15)
[2023-08-01] MEDS: hydrOXYzine HCL 25 MG TABLET PO (06:15)
[2023-08-01] MEDS: HaloperidoL 5 MG TABLET PO (06:15)
[2023-08-01] MEDS: polyethylene glycoL 3350 17 GM POWD.PACK PO (08:08)
[2023-08-01] MEDS: Divalproex Sodium 250 MG TABLET.DR 750 MG PO (08:08)
[2023-08-01] MEDS: Omeprazole 20 MG CAPSULE.DR PO (08:08)
[2023-08-01 08:28] VITALS: BP 130/81; PULSE 95; RESP 17; TEMP 36.3; O2SAT 98
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
== END 2023-08-01 13:19 | disposition home or self-care (01) | DRG 750 ==
PROVIDERS: Psychiatry & Neurology Psychiatry; Admitting Provider Psychiatry & Neurology Psychiatry; PCP Nurse Practitioner Family; Visit Provider Psychiatry & Neurology Psychiatry
DX: F20.9 Schizophrenia, unspecified (principal); G40.909 Epilepsy, unspecified, not intractable, without status epilepticus; E03.9 Hypothyroidism, unspecified; K21.9 Gastro-esophageal reflux disease without esophagitis; E78.5 Hyperlipidemia, unspecified; I10 Essential (primary) hypertension; Z91.148 Patient's other noncompliance with medication regimen for other reason; Z87.891 Personal history of nicotine dependence; Z79.890 Hormone replacement therapy; Z79.899 Other long term (current) drug therapy
CPT/HCPCS: 36415; 80061; 80076; 80164; 82607; 83036; 84439; 84443; 85025; 92950; 93005; J1200; J1630; J2426

== ENCOUNTER 2023-07-18 20:41 | Outpatient (BNV) | payer MEDICAID, SELFPAY | END 2023-07-21 10:12 | PROVIDERS: Admitting Provider Psychiatry & Neurology Psychiatry; PCP Nurse Practitioner Family; Visit Provider Internal Medicine | DX: I45.81 Long QT syndrome (principal) | CPT/HCPCS: 93010 ==

== ENCOUNTER → 2023-07-18 20:41 | Outpatient (BNV) | payer MEDICAID, SELFPAY | PROVIDERS: Admitting Provider Psychiatry & Neurology Psychiatry; PCP Nurse Practitioner Family; Visit Provider Physician Assistant | DX: Z00.00 Encounter for general adult medical examination without abnormal findings (principal) | CPT/HCPCS: 99222 ==

== ENCOUNTER → 2023-07-18 20:41 | Outpatient (BNV) | payer OTHER, SELFPAY | PROVIDERS: Admitting Provider Psychiatry & Neurology Psychiatry; PCP Nurse Practitioner Family; Visit Provider Psychiatry & Neurology Psychiatry | DX: F20.0 Paranoid schizophrenia (principal) | CPT/HCPCS: 99231; 99232 ==

== ENCOUNTER 2024-07-09 12:32 | Inpatient (IN) | payer OTHER, SELFPAY ==
[2024-07-09 12:50] VITALS: BP 136/80; PULSE 77; RESP 16; TEMP 36.6; O2SAT 99
--- OUTSIDE RECORDS SUMMARY | 2024-07-09 13:28 | XMS_ITS | Clinical Summary ---
Author Organization [facility] Address [address] [place] [address] Phone Care Team Providers Care Station Jailer Name Role Phone Jessica Solomon Primary Care Provider [phone] Allergies Active Allergy Reactions Criticality Noted Date Comments Penicillin 05/01/2024 Medications clonazePAM (KlonoPIN) 1 mg tablet Take 1 tablet (1 mg total) by mouth 1 (one) time each day if needed for anxiety. 2 Active traZODone (DESYREL) 100 mg tablet Take 1 tablet (100 mg total) by mouth at bedtime. 2 Active levothyroxine (SYNTHROID, LEVOTHROID) 88 mcg tablet Take 1 tablet (88 mcg total) by mouth daily. 4 Active OLANZapine (ZyPREXA) 20 mg tablet Take 1 tablet (20 mg total) by mouth at bedtime. 4 Active Invega Sustenna 234 mg/1.5 mL syringe Inject 1.5 mL (234 mg total) into the shoulder, thigh, or buttocks every 30 (thirty) days. 2 Active divalproex (DEPAKOTE) [address] tablet Take 3 tablets (750 mg total) by mouth 2 (two) times a day. 4 Active melatonin 3 mg tablet Take 1 tablet (3 mg total) by mouth at bedtime. 4 Active omeprazole (PriLOSEC) [address] capsule Take 1 capsule (20 mg total) by mouth 1 (one) time each day before breakfast. 2 Active prazosin (MINIPRESS) 2 mg capsule Take 1 capsule (2 mg total) by mouth at bedtime. 4 Active aspirin 81 mg EC tablet Take 1 tablet (81 mg total) by mouth 1 (one) time each day. 4 Active calcium carbonate (OS-JAVIER) 1,250 mg (500 mg elemental calcium) tablet Take 500 mg by mouth daily. 4 Active metoprolol succinate (TOPROL-XL) 25 mg 24 hr tablet Take 1 tablet (25 mg total) by mouth daily. 4 Active rosuvastatin (CRESTOR) 10 mg tablet Take 1 tablet (10 mg total) by mouth at bedtime. 5 Active amitriptyline (ELAVIL) 25 mg tablet Take 2 tablets (50 mg total) by mouth at bedtime as needed (sleep). 5 Active cholecalciferol (VITAMIN D-3) 50 mcg (2,000 unit) tablet Take 1 tablet (2,000 Units total) by mouth daily. 4 Active amitriptyline (ELAVIL) 100 mg tablet Take 25 mg by mouth at bedtime as needed for sleep. 2 07/09/19 25 Discontinu ed(Duplica te order) cholecalciferol (VITAMIN D-3) 50 mcg (2,000 unit) capsule Take 1 capsule (2,000 Units total) by mouth 1 (one) time each day. 3 07/09/19 25 Discontinu ed(Duplica te order) Active Problems No known active problems Encounters Date Type Department Care Team Description 07/08/2024 1:49 AM EST - 07/09/2024 12:16 PM [facility] Emergency [address] [place] [address] Josemanuel Suh MD Durkin, Louis J, MD Other schizophrenia (CMS/HCC) (Primary Dx); Overdose of undetermined intent, initial encounter; Schizoaffective disorder, bipolar type (CMS/HCC) Discharge Disposition: [facility] 05/01/2024 11:06 AM EST - 05/02/2024 12:45 PM [facility] Emergency [address] [place] [address] Josemanuel Suh MD Garvin, MD Chuckie Segura, Alfonso Phillips MD Schizoaffective disorder, bipolar type with good prognostic features (CMS/[facility]) (Primary Dx); Suicidal ideation; Alcohol use, 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 (CMS/HCC) Discharge Disposition: Another Health Care Institution Not Defined from Last 3 Months Social History Tobacco Use Types Packs/Day Years Used Date Smoking Tobacco: Every Day Cigarettes Smokeless Tobacco: Current Tobacco Cessation:Ready to Q uit: No; Counseling Given: Not Answered Alcohol Use Standard Drinks/Week Comments Yes 0 (1 standard drink = 0.6 oz pur e alcohol) Sex and Gender Information Value Date Recorded Sex Assigned at Not on file Legal Sex Male 5:12 PM EST Gender Identity Not on file Sexual Orientation Not on file Obstetrics History Last Filed Vital Signs Vital Sign Reading Time Taken Comments Blood Pressure 120/80 07/09/2024 10:15 AM EST Pulse 97 07/09/2024 10:15 AM EST Temperature 36.7 ??C (98.1 ??F) 07/09/2024 5:17 AM ES T Respiratory Rate 16 07/09/2024 5:17 AM EST Oxygen Saturation 98% 07/09/2024 5:17 AM EST Inhaled Oxygen Concentration - - Weight 45.4 kg (100 lb) 07/08/2024 2:11 AM EST Height 165.1 cm (5' 5 ) 07/08/2024 2:11 AM EST Body Mass Index 16.64 07/08/2024 2:11 AM EST Plan of Treatment Health Maintenance Due Date Last Done Comments Colorectal Cancer Screening: Colonoscopy 04/20/2022 Hepatitis C Screening 04/20/2022 Lung Cancer Screening (Low Dose CT) 04/20/2022 Social Influencers of Health Screening 04/20/2022 Zoster Vaccines (2 of 2) 08/27/2024 07/02/2024 Depression Screening 02/26/2025 02/27/2024 Hypertension/CHF/CAD Annual BMP Blood Test 07/08/2025 07/08/2024, 07/08/2024, 05/01/2024, Additional history exists Cholesterol Screening (Lipid Panel) 01/26/2028 01/25/2023, 01/25/2023, 10/18/2022, Additional history exists DTaP,Tdap,and Td Vaccines (4 - Td or Tdap) 03/21/2028 03/21/2018, 01/08/2007, 01/08/2007 RSV Immunization Patients 60+ Years Old (1 - 1-dose 75+ series) 2037 Hepatitis A Vaccines Aged Out 11/06/2015, 05/06/20 15 No longer eligible based on patient's age to complete this topic Hepatitis B Vaccines Completed 11/06/2015, 06/04/2015, 05/06/2015 HIV Screening Completed 02/12/2019 Pneumococcal Vaccine: 50+ Years Completed 03/23/2022, 02/27/2019 Pneumococcal Vaccine: Pediatrics (0 to 5 Years) and At-Risk Patients (6 to 64 Years) Completed 03/23/2022, 02/27/2019 COVID-19 Vaccine Completed 02/27/2024, , 06/11/2020 Influenza Vaccine Completed 02/27/2024, , 03/23/2022, Additional history exists HIB Vaccines Aged Out No longer eligi ble based on patient's age to complete this topic HPV Vaccines Aged Out No longer eligi ble based on patient's age to complete this topic IPV Vaccines Aged Out No longer eligi ble based on patient's age to complete this topic MMR Vaccines Aged Out No longer eligi ble based on patient's age to complete this topic Meningococcal ACWY Vaccine Aged Out N o longer eligible based on patient's age to complete this topic Meningococcal B Vacine Aged Out No lo nger eligible based on patient's age to complete this topic RSV Immunization Patients Under 20 months Aged Out No longer eligible based on patient's age to complete this topic Varicella Vaccines Aged Out No longer eligible based on patient's age to complete this topic Procedures Procedure Name Priority Date/Time Associated Diagnosis Comments ECG 12-LEAD Routine 07/08/2024 7:44 AM EST ACETAMINOPHEN LEVEL STAT 07/08/2024 7 :44 AM EST CBC WITH AUTO DIFFERENTIAL STAT 07/08/2024 7:44 AM EST MAGNESIUM STAT 07/08/2024 7:44 AM EST COMPREHENSIVE METABOLIC PANEL STAT 07/08/2024 7:44 AM EST CBC AND DIFFERENTIAL STAT 07/08/2024 7:[address] CERVICAL SPINE WO CONTRAST STAT 07/08/2024 6:[address] HEAD WO CONTRAST STAT 07/08/2024 6 :21 AM EST ECG 12-LEAD Routine 07/08/2024 6:12 AM EST METHADONE SCREEN, URINE STAT 07/08/2024 6:01 AM EST PHENCYCLIDINE, URINE STAT 07/08/2024 6:01 AM EST BUPRENORPHINE SCREEN, URINE STAT 07/08/2024 6:01 AM EST DRUG ABUSE SCREEN 8A PANEL, URINE STAT 07/08/2024 6:01 AM EST MAGNESIUM Add-On 07/08/2024 2:55 AM EST PROTHROMBIN TIME WITH INR STAT 07/08/2024 2:55 AM EST CBC WITH AUTO DIFFERENTIAL STAT 07/08/2024 2:55 AM EST SALICYLATE LEVEL STAT 07/08/2024 2:55 AM EST ACETAMINOPHEN LEVEL STAT 07/08/2024 2 :55 AM EST ETHANOL STAT 07/08/2024 2:55 AM EST COMPREHENSIVE METABOLIC PANEL STAT 07/08/2024 2:55 AM EST CBC AND DIFFERENTIAL STAT 07/08/2024 2:55 AM EST ECG 12-LEAD STAT 07/08/2024 2:51 AM EST RAPID [id number] SCREENING, MOLECULAR STAT 05/02/2024 10:10 AM EST CBC WITH AUTO DIFFERENTIAL STAT 05/01/2024 2:47 PM EST SALICYLATE LEVEL STAT 05/01/2024 2:47 PM EST ACETAMINOPHEN LEVEL STAT 05/01/2024 2 :47 PM EST ETHANOL STAT 05/01/2024 2:47 PM EST COMPREHENSIVE METABOLIC PANEL STAT 05/01/2024 2:47 PM EST CBC AND DIFFERENTIAL STAT 05/01/2024 2:47 PM EST METHADONE SCREEN, URINE STAT 05/01/2024 11:17 AM EST PHENCYCLIDINE, URINE STAT 05/01/2024 11:17 AM EST BUPRENORPHINE SCREEN, URINE STAT 05/01/2024 11:17 AM EST DRUG ABUSE SCREEN 8A PANEL, URINE STAT 05/01/2024 11:17 AM EST from Last 3 Months Results * ECG 12 lead (07/08/2024 7:44 AM EST) Only the most recent of3 resultswithin the time period is included. Ventricular Rate ECG 84 BPM GEMUSE Atrial Rate 84 BPM GEMUSE P-R Interval 156 ms GEMUSE QRS Duration 94 ms GEMUSE Q-T Interval 410 ms GEMUSE QTc 484 ms GEMUSE P Wave [place] 27 degrees GEMUSE R [place] 13 degrees GEMUSE T [place] 33 degrees GEMUSE ECG Interpretation Sinus rhythm with Premature atrial complexes Prolonged QT Abnormal ECG When compared with ECG of 08-JUL-2024 06:12, (unconfirmed ) Premature atrial complexes are now Present Confirmed by Yolis JAMISON JAMES ([id number]) on 07/08/2024 2:16:33 PM GEMUSE 07/08/2024 7:44 AM EST 07/08/2024 2:16 PM EST Laurence SALDIVAR ECG ORDERABLES Final Result GEMUSE * (ABNORMAL) CBC auto differential (07/08/2024 7:44 AM EST) Only the most recent of3 resultswithin the time period is included. WBC 7.1 4.8 - 10.8 K/mcL LAB HEMETOLOGY METHOD 07/08/2024 8:20 AM [facility] RBC 3.50(L) 4.50 - 5.50 M/mcL LAB HEMETOLOGY METHOD 07/08/2024 8:20 AM [facility] Hemoglobin 11.5(L) 13.5 - 17.5 g/dL LAB HEMETOLOGY METHOD 07/08/2024 8:20 AM [facility] Hematocrit 35.1(L) 42.0 - 54.0 % LAB HEMETOLOGY METHOD 07/08/2024 8:20 AM [facility] MCV 99.2(H) 79.0 - 98.0 FL LAB HEMETOLOGY METHOD 07/08/2024 8:20 AM [facility] MCH 32.5(H) 27.0 - 32.0 pcg LAB HEMETOLOGY METHOD 07/08/2024 8:20 AM [facility] MCHC 32.8 32.0 - 37.0 g/dL LAB HEMETOLOGY METHOD 07/08/2024 8:20 AM [facility] RDW 12.1 11.0 - 15.0 % LAB HEMETOLOGY METHOD 07/08/2024 8:20 AM [facility] Platelets 272 130 - 400 K/mcL LAB HEMETOLOGY METHOD 07/08/2024 8:20 AM [facility] MPV 11.0 7.0 - 11.0 FL LAB HEMETOLOGY METHOD 07/08/2024 8:20 AM [facility] NRBC 0.0 <1.0 % LAB HEMETOLOGY METHOD 07/08/2024 8:20 AM [facility] NRBC Absolute 0.00 <0.10 K/mcL LAB HEMETOLOGY METHOD 07/08/2024 8:20 AM [facility] Neutrophils Relative 56.1 % LAB HEMETOLOGY METHOD 07/08/2024 8:20 AM [facility] Lymphocytes Relative 30.1 % LAB HEMETOLOGY METHOD 07/08/2024 8:20 AM [facility] Monocytes Relative 9.8 % LAB HEMETOLOGY METHOD 07/08/2024 8:20 AM [facility] Eosinophils Relative 3.1 % LAB HEMETOLOGY METHOD 07/08/2024 8:20 AM [facility] Basophils Relative 0.6 % LAB HEMETOLOGY METHOD 07/08/2024 8:20 AM [facility] Immature Granulocytes Relative 0.3 % LAB HEMETOLOGY METHOD 07/08/2024 8:20 AM [facility] Neutrophils Absolute 4.00 1.50 - 7.00 K/mcL LAB HEMETOLOGY METHOD 07/08/2024 8:20 AM [facility] Lymphocytes Absolute 2.14 1.00 - 5.00 K/mcL LAB HEMETOLOGY METHOD 07/08/2024 8:20 AM [facility] Monocytes Absolute 0.70 0.20 - 1.00 K/mcL LAB HEMETOLOGY METHOD 07/08/2024 8:20 AM [facility] Eosinophils Absolute 0.22 0.00 - 0.50 K/mcL LAB HEMETOLOGY METHOD 07/08/2024 8:20 AM [facility] Basophils Absolute 0.04 0.00 - 0.20 K/[facility] LAB HEMETOLOGY METHOD 07/08/2024 8:20 AM EST [facility] Immature Granulocytes Absolute 0.02 0.00 - 0.03 K/[facility] LAB HEMETOLOGY METHOD 07/08/2024 8:20 AM EST [facility] Blood Venous blood specimen / Unknown Venipuncture / Unknown 07/08/2024 7:44 AM EST 07/08/2024 8:12 AM EST Laurence SALDIVAR LAB BLOOD ORDERABLES Final Resul t Performing Organization Address City/[facility]/ZIP Co de Phone Number [facility] [address] [place] [address], [place] [phone] * Magnesium (07/08/2024 7:44 AM EST) Only the most recent of2 resultswithin the time period is included. Magnesium 1.9 1.9 - 2.6 mg/dL LAB CHEMISTRY METHOD 07/08/2024 8:41 AM EST [facility] Blood Venous blood specimen / Unknown Venipuncture / Unknown 07/08/2024 7:44 AM EST 07/08/2024 8:12 AM EST us Laurence SALDIVAR LAB BLOOD ORDERABLES Final Resul t Performing Organization Address City/[facility]/ZIP Co de Phone Number [facility] [address] [place] [address], [place] [phone] * (ABNORMAL) Acetaminophen level (07/08/2024 7:44 AM EST) Only the most recent of3 resultswithin the time period is included. Acetaminophen Level <2.0(L) 10.0 - 30.0 mcg/mL LAB CHEMISTRY METHOD 07/08/2024 8:41 AM EST [facility] Blood Venous blood specimen / Unknown Venipuncture / Unknown 07/08/2024 7:44 AM EST 07/08/2024 8:12 AM EST us Josemanuel Suh MD LAB BLOOD ORDERABLES Shara alcantar Result [facility] [address] [place] [address], [place] [phone] * (ABNORMAL) Comprehensive metabolic panel (07/08/2024 7:44 AM EST) Only the most recent of3 resultswithin the time period is included. Sodium 142 133 - 145 mmol/L LAB CHEMISTRY METHOD 07/08/2024 8:41 AM [facility] Potassium 4.1 3.5 - 5.5 mmol/L LAB CHEMISTRY METHOD 07/08/2024 8:41 AM [facility] Chloride 112(H) 96 - 110 mmol/L LAB CHEMISTRY METHOD 07/08/2024 8:41 AM [facility] CO2 22 21 - 32 mmol/L LAB CHEMISTRY METHOD 07/08/2024 8:41 AM [facility] Anion Gap 8 3 - 11 LAB CHEMISTRY METHOD 07/08/2024 8:41 AM [facility] Glucose 95 70 - 100 mg/dL LAB CHEMISTRY METHOD 07/08/2024 8:41 AM [facility] BUN 16 5 - 25 mg/dL LAB CHEMISTRY METHOD 07/08/2024 8:41 AM [facility] Creatinine 0.83 0.70 - 1.30 mg/dL LAB CHEMISTRY METHOD 07/08/2024 8:41 AM [facility] eGFR 99 >=60 mL/min/1. 73m2 LAB CHEMISTRY METHOD 07/08/2024 8:41 AM [facility] Comment:Calculation based on the??Chronic Kidney Disease Epidemiology Collaboration (CKD-EPI) equation refit??without adjustment for race. BUN/Creatinine Ratio 19.3 LAB CHEMISTRY METHOD 07/08/2024 8:41 AM [facility] Calcium 9.4 8.5 - 10.5 mg/dL LAB CHEMISTRY METHOD 07/08/2024 8:41 AM [facility] AST (SGOT) 14 10 - 42 unit/L LAB CHEMISTRY METHOD 07/08/2024 8:41 AM [facility] ALT (SGPT) 10 10 - 60 unit/L LAB CHEMISTRY METHOD 07/08/2024 8:41 AM [facility] Alkaline Phosphatase 57 42 - 121 unit/L LAB CHEMISTRY METHOD 07/08/2024 8:41 AM [facility] Total Protein 6.7 6.0 - 8.0 g/dL LAB CHEMISTRY METHOD 07/08/2024 8:41 AM [facility] Albumin 3.6 3.2 - 5.0 g/dL LAB CHEMISTRY METHOD 07/08/2024 8:41 AM [facility] Total Bilirubin 0.6 0.0 - 1.4 mg/dL LAB CHEMISTRY METHOD 07/08/2024 8:41 AM [facility] Blood Venous blood specimen / Unknown Venipuncture / Unknown 07/08/2024 7:44 AM EST 07/08/2024 8:12 AM EST Laurence SALDIVAR LAB BLOOD ORDERABLES Final Resul t [facility] [address] [place] [address], * CT Cervical Spine wo Contrast (07/08/2024 6:21 AM EST) Anatomical Region Laterality Modality Spine, C-spine Computed Tomogra phy 07/08/2024 6:53 AM EST Impressions 07/08/2024 6:53 AM EST No acute findings. Spondylotic changes, with alignment as discussed above. This document has been electronically signed by: Nathanael Brown MD on 07/08/2024 06:53:16 Narrative 07/08/2024 6:53 AM EST INDICATION: ams, fall CT cervical spine without contrast Comparison: None Findings: There is nonspecific straightening of the usual cervical lordosis. Minimal retrolisthesis of C3 on C4 and C4 on C5. Multilevel anterior and posterior endplate osteophytes. No acute fractures identified. Multilevel facet hypertrophy. Procedure Note Nathanael Brown - 07/08/2024 INDICATION: ams, fall CT cervical spine without contrast Comparison: None Findings: There is nonspecific straightening of the usual cervical lordosis.Minimal retrolisthesis of C3 on C4 and C4 on C5. Multilevel anterior andposterior endplate osteophytes. No acute fractures identified. Multilevel facet hypertrophy. IMPRESSION: No acute findings. Spondylotic changes, with alignment as discussedabove. This document has been electronically signed by: Nathanael Brown MD on 07/08/2024 06:53:16 Laurence SALDIVAR [facility] [place] Final Result * CT Head wo Contrast (07/08/2024 6:21 AM EST) Anatomical Region Laterality Modality Head and Neck Computed Tomogra phy 07/08/2024 6:48 AM EST Impressions 07/08/2024 6:48 AM EST 1. No acute intracranial findings. This document has been electronically signed by: Nathanael Brown MD on 07/08/2024 06:48:17 Narrative 07/08/2024 6:48 AM EST INDICATION: ams, fall CT head without contrast Comparison: None Findings: No evidence for acute intracranial hemorrhage, midline shift or mass effect. There is a mild amount of chronic small-vessel ischemic changes in the white matter. Mild diffuse brain volume loss. The skull is intact. The visualized paranasal sinuses and mastoid air cells are aerated. Procedure Note Nathanael Brown - 07/08/2024 INDICATION: ams, fall CT head without contrast Comparison: None Findings: No evidence for acute intracranial hemorrhage, midline shift or mass effect. There is a mild amount of chronic small-vessel ischemic changesin the white matter. Mild diffuse brain volume loss. The skull is intact.The visualized paranasal sinuses and mastoid air cells are aerated. IMPRESSION: 1. No acute intracranial findings. This document has been electronically signed by: Nathanael Brown MD on 07/08/2024 06:48:[address] PROCEDURES Final Result * (ABNORMAL) Drug abuse screen 8a panel, urine (07/08/2024 6:01 AM EST) Only the most recent of2 resultswithin the time period is included. [facility] Amphetamine Screen, Ur Negative Negative LAB CHEMISTRY METHOD 5 6:48 AM [facility] Comment:Certain OTC medicati ons containing ephedrine, phenylephrine, pseudoephedrine and phenylpropanolamine can cause false positive results. Barbiturate Screen, Ur Negative Negative LAB CHEMISTRY METHOD 5 6:48 AM [facility] Benzodiazepine Screen, Ur Negative Negative LAB CHEMISTRY METHOD 5 6:48 AM [facility] Cocaine Screen, Ur Positive(A ) Negative LAB CHEMISTRY METHOD 5 6:48 AM [facility] Opiate Screen, Ur Negative Negative LAB CHEMISTRY METHOD 5 6:48 AM [facility] Cannabinoid (THC) Screen, Ur Negative Negative LAB CHEMISTRY METHOD 5 6:48 AM [facility] Comment:Specimens from patie nts taking pantoprazole sodium (Protonix) have been shown to produce false positive results. Oxycodone Screen, Ur Negative Negative LAB CHEMISTRY METHOD 5 6:48 AM [facility] Fentanyl, Ur Negative Negative LAB CHEMISTRY METHOD 5 6:48 AM [facility] Urine Urine specimen obtained by clean catch procedure / Unknown Non-blood Collection / Unknown 07/08/2024 6:01 AM EST 07/08/2024 6:23 AM [facility]) HOSPITAL LAB - 07/08/2024 6:48 AM EST Assay cutoffs: Amphetamines ? 1000 ng/mL Barbiturates ?200 ng/mL Benzodiazepines ?? 200 ng/mL Cocaine ? 300 ng/mL Fentanyl ?1 ng/mL Opiates ? 300 ng/mL Oxycodone ? 100 ng/mL THC ?50 ng/mL Semi-quantitative assay for screening purposes only. Unconfirmed screening result should not be used for non-medical purposes. *ALTERNATE METHOD CONFIRMATION DONE UPON REQUEST ONLY* Josemanuel Suh MD LAB URINE ORDERABLES Shara l Result Performing Organization Address [facility] de Phone Number [facility] [address] [place] [address], * Buprenorphine screen, urine (07/08/2024 6:01 AM EST) Only the most recent of2 resultswithin the time period is included. Pathologist [facility] Buprenorphine Screen Urine Negative Negative LAB CHEMISTRY METHOD 07/08/2024 6:48 AM EST [facility] Urine Urine specimen obtained by clean catch procedure / Unknown Non-blood Collection / Unknown 07/08/2024 6:01 AM EST 07/08/2024 6:23 AM EST Narrative [facility] - 07/08/2024 6:48 AM EST Assay cutoff 5 ng/mL Semi-quantitative assay for screening purposes only. Unconfirmed screening result should not be used for non-medical purposes. *ALTERNATE METHOD CONFIRMATION DONE UPON REQUEST ONLY* Josemanuel Suh MD LAB URINE ORDERABLES Shara l Result Performing Organization Address [facility]/ZIP Co de Phone Number [facility] [address] [place] [address], * Methadone, urine (07/08/2024 6:01 AM EST) Only the most recent of2 resultswithin the time period is included. Methadone Screen, Urine Negative Negative LAB CHEMISTRY METHOD 07/08/2024 6:48 AM EST [facility] Comment: Assay cutoff 300 ng/mL Semi-quantitative assay for screening purposes only. Unconfirmed screening result should not be used for non-medical purposes. *ALTERNATE METHOD CONFIRMATION DONE UPON REQUEST ONLY* Urine Urine specimen obtained by clean catch procedure / Unknown Non-blood Collection / Unknown 07/08/2024 6:01 AM EST 07/08/2024 6:23 AM EST us Josemanuel Suh MD LAB URINE ORDERABLES Shara l Result Performing Organization Address [facility] de Phone Number [facility] [address] [place] [address], * Phencyclidine, urine (07/08/2024 6:01 AM EST) Only the most recent of2 resultswithin the time period is included. PCP Scrn, Ur Negative Negative LAB CHEMISTRY METHOD 07/08/2024 6:48 AM EST [facility] Comment: Assay cutoff 25 ng/mL Semi-quantitative assay for screening purposes only. Unconfirmed screening result should not be used for non-medical purposes. *ALTERNATE METHOD CONFIRMATION DONE UPON REQUEST ONLY* Urine Urine specimen obtained by clean catch procedure / Unknown Non-blood Collection / Unknown 07/08/2024 6:01 AM EST 07/08/2024 6:23 AM EST us Josemanuel Suh MD LAB URINE ORDERABLES Shara l Result Performing Organization Address [facility]/ZIP Co de Phone Number [facility] [address] [place] [address], * Protime-INR (07/08/2024 2:55 AM EST) Protime 12.6 10.6 - 13.9 sec LAB COAGULATION METHOD 07/08/2024 3:47 AM EST [facility] INR 1.0 LAB COAGULATION METHOD 07/08/2024 3:47 AM EST [facility] Blood Venous blood specimen / Unknown Venipuncture / Unknown 07/08/2024 2:55 AM EST 07/08/2024 3:35 AM EST Laurence SALDIVAR LAB BLOOD ORDERABLES Final Resul t Performing Organization Address City/[facility]/ZIP Co de Phone Number [facility] [address] [place] [address], * Ethanol (07/08/2024 2:55 AM EST) Only the most recent of2 resultswithin the time period is included. Ethanol Level <3 0 - 10 mg/dL LAB CHEMISTRY METHOD 07/08/2024 4:14 AM EST [facility] Blood Venous blood specimen / Unknown Venipuncture / Unknown 07/08/2024 2:55 AM EST 07/08/2024 3:36 AM EST Josemanuel Suh MD LAB BLOOD ORDERABLES Shara l Result Performing Organization Address City/[facility]/ZIP Co de Phone Number [facility] [address] [place] [address], [place] [phone] * (ABNORMAL) Salicylate level (07/08/2024 2:55 AM EST) Only the most recent of2 resultswithin the time period is included. Salicylate Level <1.7(L) 2.0 - 29.0 mg/dL LAB CHEMISTRY METHOD 07/08/2024 4:14 AM EST [facility] Blood Venous blood specimen / Unknown Venipuncture / Unknown 07/08/2024 2:55 AM EST 07/08/2024 3:36 AM EST Josemanuel Suh MD LAB BLOOD ORDERABLES Shara l Result Performing Organization Address City/[facility]/ZIP Co de Phone Number [facility] [address] [place] [address], [place] [phone] * Rapid [id number], molecular (05/02/2024 10:10 AM EST) Pathologist [facility] SARS-COV-2 Screen Not Detected Not Detected METHOD [id number] 05/02/2024 10:43 AM EST [facility] Swab Both anterior nares / Unknown Non-blood Collection / Unknown 05/02/2024 10:10 AM EST 05/02/2024 10:27 AM EST Alfonso Noguera MD LAB MICROBIOLOGY - GENERAL OR DERABLES Final Result Performing Organization Address [facility]/ZIP Co de Phone Number [facility] [address] [place] [address], [place] [phone] from Last 3 Months Insurance MEDICAID - [place] Care Teams [place] [employer] Relationship Specialty Start Date End Date Jessica Solomon PA [address] [place] [phone] PCP - General Internal Medicine 10/27/21
--- OUTSIDE RECORDS SUMMARY | 2024-07-09 13:29 | XMS_ITS | Encounter Summary ---
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 at [facility]. This report is written and finalized by: Daphne Durand MS Behavioral Health Specialist [facility] (Tel): [phone] / : [phone] documented in this encounter Plan of Treatment Pending Results Name Type Priority Associated Diagnoses Date /Time Valproic acid level, total and free Lab STAT 07/08/2024 2:55 AM EST Scheduled Orders Name Type Priority Associated Diagnoses Orde r Schedule Valproic acid level, total and free Lab STAT STAT for 1 Occur rences starting 07/08/2024 until 07/08/2024 documented as of this encounter Procedures Procedure Name Priority Date/Time Associated Diagnosis Comments ECG 12-LEAD Routine 07/08/2024 7:44 AM EST CBC WITH AUTO DIFFERENTIAL STAT 07/08/2024 7:44 AM EST CBC AND DIFFERENTIAL STAT 07/08/2024 7:44 AM EST MAGNESIUM STAT 07/08/2024 7:44 AM EST ACETAMINOPHEN LEVEL STAT 07/08/2024 7 :44 AM EST COMPREHENSIVE METABOLIC PANEL STAT 07/08/2024 7:[address] CERVICAL SPINE WO CONTRAST STAT 07/08/2024 6:[address] HEAD WO CONTRAST STAT 07/08/2024 6 :21 AM EST ECG 12-LEAD Routine 07/08/2024 6:12 AM EST DRUG ABUSE SCREEN 8A PANEL, URINE STAT 07/08/2024 6:01 AM EST BUPRENORPHINE SCREEN, URINE STAT 07/08/2024 6:01 AM EST METHADONE SCREEN, URINE STAT 07/08/2024 6:01 AM EST PHENCYCLIDINE, URINE STAT 07/08/2024 6:01 AM EST CBC WITH AUTO DIFFERENTIAL STAT 07/08/2024 2:55 AM EST PROTHROMBIN TIME WITH INR STAT 07/08/2024 2:55 AM EST CBC AND DIFFERENTIAL STAT 07/08/2024 2:55 AM EST MAGNESIUM Add-On 07/08/2024 2:55 AM EST ETHANOL STAT 07/08/2024 2:55 AM EST ACETAMINOPHEN LEVEL STAT 07/08/2024 2 :55 AM EST SALICYLATE LEVEL STAT 07/08/2024 2:55 AM EST COMPREHENSIVE METABOLIC PANEL STAT 07/08/2024 2:55 AM EST ECG 12-LEAD STAT 07/08/2024 2:51 AM EST documented in this encounter Results * ECG 12 lead (07/08/2024 7:44 AM EST) Ventricular Rate ECG 84 BPM GEMUSE Atrial Rate 84 BPM GEMUSE P-R Interval 156 ms GEMUSE QRS Duration 94 ms GEMUSE Q-T Interval 410 ms GEMUSE QTc 484 ms GEMUSE P Wave [place] 27 degrees GEMUSE R [place] 13 degrees GEMUSE T [place] 33 degrees GEMUSE ECG Interpretation Sinus rhythm with Premature atrial complexes Prolonged QT Abnormal ECG When compared with ECG of 08-JUL-2024 06:12, (unconfirmed ) Premature atrial complexes are now Present Confirmed by Yolis JAMISON JAMES ([id number]) on 07/08/2024 2:16:33 PM GEMUSE 07/08/2024 7:44 AM EST 07/08/2024 2:16 PM EST us Laurence SALDIVAR ECG ORDERABLES Final Result GEMUSE * (ABNORMAL) Acetaminophen level (07/08/2024 7:44 AM EST) Acetaminophen Level <2.0(L) 10.0 - 30.0 mcg/mL LAB CHEMISTRY METHOD 07/08/2024 8:41 AM EST [facility] Blood Venous blood specimen / Unknown Venipuncture / Unknown 07/08/2024 7:44 AM EST 07/08/2024 8:12 AM EST Josemanuel Suh MD LAB BLOOD ORDERABLES Shara l Result [facility] [address] [place] [address], * (ABNORMAL) CBC auto differential (07/08/2024 7:44 AM EST) Pathologist [facility] WBC 7.1 4.8 - 10.8 K/mcL LAB HEMETOLOGY METHOD 07/08/2024 8:20 AM [facility] RBC 3.50(L) 4.50 - 5.50 M/mcL LAB HEMETOLOGY METHOD 07/08/2024 8:20 AM [facility] Hemoglobin 11.5(L) 13.5 - 17.5 g/dL LAB HEMETOLOGY METHOD 07/08/2024 8:20 AM [facility] Hematocrit 35.1(L) 42.0 - 54.0 % LAB HEMETOLOGY METHOD 07/08/2024 8:20 AM [facility] MCV 99.2(H) 79.0 - 98.0 FL LAB HEMETOLOGY METHOD 07/08/2024 8:20 AM [facility] MCH 32.5(H) 27.0 - 32.0 pcg LAB HEMETOLOGY METHOD 07/08/2024 8:20 AM [facility] MCHC 32.8 32.0 - 37.0 g/dL LAB HEMETOLOGY METHOD 07/08/2024 8:20 AM [facility] RDW 12.1 11.0 - 15.0 % LAB HEMETOLOGY METHOD 07/08/2024 8:20 AM [facility] Platelets 272 130 - 400 K/mcL LAB HEMETOLOGY METHOD 07/08/2024 8:20 AM [facility] MPV 11.0 7.0 - 11.0 FL LAB HEMETOLOGY METHOD 07/08/2024 8:20 AM [facility] NRBC 0.0 <1.0 % LAB HEMETOLOGY METHOD 07/08/2024 8:20 AM [facility] NRBC Absolute 0.00 <0.10 K/[facility] LAB HEMETOLOGY METHOD 07/08/2024 8:20 AM [facility] Neutrophils Relative 56.1 % LAB HEMETOLOGY METHOD 07/08/2024 8:20 AM [facility] Lymphocytes Relative 30.1 % LAB HEMETOLOGY METHOD 07/08/2024 8:20 AM [facility] Monocytes Relative 9.8 % LAB HEMETOLOGY METHOD 07/08/2024 8:20 AM [facility] Eosinophils Relative 3.1 % LAB HEMETOLOGY METHOD 07/08/2024 8:20 AM [facility] Basophils Relative 0.6 % LAB HEMETOLOGY METHOD 07/08/2024 8:20 AM [facility] Immature Granulocytes Relative 0.3 % LAB HEMETOLOGY METHOD 07/08/2024 8:20 AM [facility] Neutrophils Absolute 4.00 1.50 - 7.00 K/[facility] LAB HEMETOLOGY METHOD 07/08/2024 8:20 AM [facility] Lymphocytes Absolute 2.14 1.00 - 5.00 K/[facility] LAB HEMETOLOGY METHOD 07/08/2024 8:20 AM [facility] Monocytes Absolute 0.70 0.20 - 1.00 K/mcL LAB HEMETOLOGY METHOD 07/08/2024 8:20 AM [facility] Eosinophils Absolute 0.22 0.00 - 0.50 K/[facility] LAB HEMETOLOGY METHOD 07/08/2024 8:20 AM EST [facility] Basophils Absolute 0.04 0.00 - 0.20 K/[facility] LAB HEMETOLOGY METHOD 07/08/2024 8:20 AM EST [facility] Immature Granulocytes Absolute 0.02 0.00 - 0.03 K/[facility] LAB HEMETOLOGY METHOD 07/08/2024 8:20 AM EST [facility] Blood Venous blood specimen / Unknown Venipuncture / Unknown 07/08/2024 7:44 AM EST 07/08/2024 8:12 AM EST us Laurence SALDIVAR LAB BLOOD ORDERABLES Final Resul t Performing Organization Address City/[facility]/ZIP Co de Phone Number [facility] [address] [place] [address], [place] [phone] * Magnesium (07/08/2024 7:44 AM EST) Pathologist [facility] Magnesium 1.9 1.9 - 2.6 mg/dL LAB CHEMISTRY METHOD 07/08/2024 8:41 AM EST [facility] Blood Venous blood specimen / Unknown Venipuncture / Unknown 07/08/2024 7:44 AM EST 07/08/2024 8:12 AM EST us Laurence SALDIVAR LAB BLOOD ORDERABLES Final Resul t [facility] [address] [place] [address], [place] [phone] * (ABNORMAL) Comprehensive metabolic panel (07/08/2024 7:44 AM EST) Sodium 142 133 - 145 mmol/L LAB CHEMISTRY METHOD 07/08/2024 8:41 AM EST [facility] Potassium 4.1 3.5 - 5.5 mmol/L LAB CHEMISTRY METHOD 07/08/2024 8:41 AM EST [facility] Chloride 112(H) 96 - 110 mmol/L LAB CHEMISTRY METHOD 07/08/2024 8:41 AM [facility] CO2 22 21 - 32 mmol/L LAB CHEMISTRY METHOD 07/08/2024 8:41 AM [facility] Anion Gap 8 3 - 11 LAB CHEMISTRY METHOD 07/08/2024 8:41 AM [facility] Glucose 95 70 - 100 mg/dL LAB CHEMISTRY METHOD 07/08/2024 8:41 AM [facility] BUN 16 5 - 25 mg/dL LAB CHEMISTRY METHOD 07/08/2024 8:41 AM [facility] Creatinine 0.83 0.70 - 1.30 mg/dL LAB CHEMISTRY METHOD 07/08/2024 8:41 AM [facility] eGFR 99 >=60 mL/min/1. 73m2 LAB CHEMISTRY METHOD 07/08/2024 8:41 AM [facility] Comment:Calculation based on the??Chronic Kidney Disease Epidemiology Collaboration (CKD-EPI) equation refit??without adjustment for race. BUN/Creatinine Ratio 19.3 LAB CHEMISTRY METHOD 07/08/2024 8:41 AM [facility] Calcium 9.4 8.5 - 10.5 mg/dL LAB CHEMISTRY METHOD 07/08/2024 8:41 AM [facility] AST (SGOT) 14 10 - 42 unit/L LAB CHEMISTRY METHOD 07/08/2024 8:41 AM [facility] ALT (SGPT) 10 10 - 60 unit/L LAB CHEMISTRY METHOD 07/08/2024 8:41 AM [facility] Alkaline Phosphatase 57 42 - 121 unit/L LAB CHEMISTRY METHOD 07/08/2024 8:41 AM [facility] Total Protein 6.7 6.0 - 8.0 g/dL LAB CHEMISTRY METHOD 07/08/2024 8:41 AM [facility] Albumin 3.6 3.2 - 5.0 g/dL LAB CHEMISTRY METHOD 07/08/2024 8:41 AM EST [facility] Total Bilirubin 0.6 0.0 - 1.4 mg/dL LAB CHEMISTRY METHOD 07/08/2024 8:41 AM EST [facility] Blood Venous blood specimen / Unknown Venipuncture / Unknown 07/08/2024 7:44 AM EST 07/08/2024 8:12 AM EST us Laurence SALDIVAR LAB BLOOD ORDERABLES Final Resul t [facility] [address] [place] [address], * CT Cervical Spine wo Contrast (07/08/2024 [...] Brown MD on 07/08/2024 06:53:16 Laurence SALDIVAR [facility] [place] CT PROCEDURES Final Result * CT Head [...] Brown MD on 07/08/2024 06:48:17 Laurence SALDIVAR [facility] [place] CT PROCEDURES Final Result * ECG 12 lead (07/08/2024 6:12 AM EST) Ventricular Rate ECG 78 BPM GEMUSE Atrial Rate 78 BPM GEMUSE P-R Interval 128 ms GEMUSE QRS Duration 98 ms GEMUSE Q-T Interval 422 ms GEMUSE QTc 481 ms GEMUSE P Wave [place] 6 degrees GEMUSE R [place] 12 degrees GEMUSE T [place] 29 degrees GEMUSE ECG Interpretation Normal sinus rhythm Prolonged QT Abnormal ECG When compared with ECG of 08-JUL-2024 02:51, (unconfirmed) No significant change was found Confirmed by Yolis JAMISON JAMES ([id number]) on 07/08/2024 2:16:14 PM GEMUSE 07/08/2024 6:12 AM EST 07/08/2024 2:16 PM EST Laurence SALDIVAR ECG ORDERABLES Final Result Performing Organization Address City/[facility]/ZIP Co de Phone Number GEMUSE * Methadone, urine (07/08/2024 6:01 AM EST) Methadone Screen, Urine Negative Negative LAB CHEMISTRY METHOD 07/08/2024 6:48 AM EST [facility] Comment: Assay cutoff 300 ng/mL Semi-quantitative assay for screening purposes only. Unconfirmed screening result should not be used for non-medical purposes. *ALTERNATE METHOD CONFIRMATION DONE UPON REQUEST ONLY* Urine Urine specimen obtained by clean catch procedure / Unknown Non-blood Collection / Unknown 07/08/2024 6:01 AM EST 07/08/2024 6:23 AM EST Josemanuel Suh MD LAB URINE ORDERABLES Shara l Result Performing Organization Address [facility] Co de Phone Number [facility] [address] [place] [address], [place] [phone] * Phencyclidine, urine (07/08/2024 6:01 AM EST) PCP Scrn, Ur Negative Negative LAB CHEMISTRY METHOD 07/08/2024 6:48 AM EST [facility] Comment: Assay cutoff 25 ng/mL Semi-quantitative assay for screening purposes only. Unconfirmed screening result should not be used for non-medical purposes. *ALTERNATE METHOD CONFIRMATION DONE UPON REQUEST ONLY* Urine Urine specimen obtained by clean catch procedure / Unknown Non-blood Collection / Unknown 07/08/2024 6:01 AM EST 07/08/2024 6:23 AM EST Josemanuel Suh MD LAB URINE ORDERABLES Shara l Result Performing Organization Address [facility]/ZIP Co de Phone Number [facility] [address] [place] [address], [place] [phone] * Buprenorphine screen, urine (07/08/2024 6:01 AM EST) Pathologist [facility] Buprenorphine Screen Urine Negative Negative LAB CHEMISTRY METHOD 07/08/2024 6:48 AM EST [facility] Urine Urine specimen obtained by clean catch procedure / Unknown Non-blood Collection / Unknown 07/08/2024 6:01 AM EST 07/08/2024 6:23 AM EST [facility] - 07/08/2024 6:48 AM EST Assay cutoff 5 ng/mL Semi-quantitative assay for screening purposes only. Unconfirmed screening result should not be used for non-medical purposes. *ALTERNATE METHOD CONFIRMATION DONE UPON REQUEST ONLY* Josemanuel Suh MD LAB URINE ORDERABLES Shara l Result Performing Organization Address [facility]/ZIP Co de Phone Number [facility] [address] [place] [address], [place] [phone] * (ABNORMAL) Drug abuse screen 8a panel, urine (07/08/2024 6:01 AM EST) [facility] Amphetamine Screen, Ur Negative Negative LAB CHEMISTRY METHOD 5 6:48 AM EST [facility] Comment:Certain OTC medicati ons containing ephedrine, phenylephrine, pseudoephedrine and phenylpropanolamine can cause false positive results. Barbiturate Screen, Ur Negative Negative LAB CHEMISTRY METHOD 5 6:48 AM EST [facility] Benzodiazepine Screen, Ur Negative Negative LAB CHEMISTRY METHOD 5 6:48 AM EST [facility] Cocaine Screen, Ur Positive(A ) Negative LAB CHEMISTRY METHOD 5 6:48 AM EST [facility] Opiate Screen, Ur Negative Negative LAB CHEMISTRY METHOD 5 6:48 AM EST [facility] Cannabinoid (THC) Screen, Ur Negative Negative LAB CHEMISTRY METHOD 5 6:48 AM EST [facility] Comment:Specimens from patie nts taking pantoprazole sodium (Protonix) have been shown to produce false positive results. Oxycodone Screen, Ur Negative Negative LAB CHEMISTRY METHOD 5 6:48 AM EST [facility] Fentanyl, Ur Negative Negative LAB CHEMISTRY METHOD 5 6:48 AM [facility] Urine Urine specimen obtained by clean catch procedure / Unknown Non-blood Collection / Unknown 07/08/2024 6:01 AM EST 07/08/2024 6:23 AM EST [facility] - 07/08/2024 6:48 AM EST Assay cutoffs: Amphetamines ? 1000 ng/mL Barbiturates ?200 ng/mL Benzodiazepines ?? 200 ng/mL Cocaine ? 300 ng/mL Fentanyl ?1 ng/mL Opiates ? 300 ng/mL Oxycodone ? 100 ng/mL THC ?50 ng/mL Semi-quantitative assay for screening purposes only. Unconfirmed screening result should not be used for non-medical purposes. *ALTERNATE METHOD CONFIRMATION DONE UPON REQUEST ONLY* us Josemanuel Suh MD LAB URINE ORDERABLES Shara alcantar Result [facility]) [facility] [address] [place] [address], * Magnesium (07/08/2024 2:55 AM EST) [facility] Magnesium 2.0 1.9 - 2.6 mg/dL LAB CHEMISTRY METHOD 07/08/2024 4:14 AM EST [facility] Blood Venous blood specimen / Unknown Venipuncture / Unknown 07/08/2024 2:55 AM EST 07/08/2024 3:36 AM EST Laurence SALDIVAR LAB BLOOD ORDERABLES Final Resul t Performing Organization Address [facility]/ZIP Co de Phone Number [facility] [address] [place] [address], [place] [phone] * Protime-INR (07/08/2024 2:55 AM EST) Pathologist [facility] Protime 12.6 10.6 - 13.9 sec LAB COAGULATION METHOD 07/08/2024 3:47 AM EST [facility] INR 1.0 LAB COAGULATION METHOD 07/08/2024 3:47 AM EST [facility] Blood Venous blood specimen / Unknown Venipuncture / Unknown 07/08/2024 2:55 AM EST 07/08/2024 3:35 AM EST us Laurence SALDIVAR LAB BLOOD ORDERABLES Final Resul t Performing Organization Address [facility]/ZIP Co de Phone Number [facility] [address] [place] [address], [place] [phone] * (ABNORMAL) CBC auto differential (07/08/2024 2:55 AM EST) Pathologist [facility] WBC 7.3 4.8 - 10.8 K/mcL LAB HEMETOLOGY METHOD 07/08/2024 3:46 AM EST [facility] RBC 3.50(L) 4.50 - 5.50 M/mcL LAB HEMETOLOGY METHOD 07/08/2024 3:46 AM EST [facility] Hemoglobin 11.3(L) 13.5 - 17.5 g/dL LAB HEMETOLOGY METHOD 07/08/2024 3:46 AM EST [facility] Hematocrit 34.5(L) 42.0 - 54.0 % LAB HEMETOLOGY METHOD 07/08/2024 3:46 AM [facility] MCV 99.1(H) 79.0 - 98.0 FL LAB HEMETOLOGY METHOD 07/08/2024 3:46 AM [facility] MCH 32.5(H) 27.0 - 32.0 pcg LAB HEMETOLOGY METHOD 07/08/2024 3:46 AM [facility] MCHC 32.8 32.0 - 37.0 g/dL LAB HEMETOLOGY METHOD 07/08/2024 3:46 AM [facility] RDW 12.3 11.0 - 15.0 % LAB HEMETOLOGY METHOD 07/08/2024 3:46 AM [facility] Platelets 267 130 - 400 K/mcL LAB HEMETOLOGY METHOD 07/08/2024 3:46 AM [facility] MPV 11.0 7.0 - 11.0 FL LAB HEMETOLOGY METHOD 07/08/2024 3:46 AM [facility] NRBC 0.0 <1.0 % LAB HEMETOLOGY METHOD 07/08/2024 3:46 AM [facility] NRBC Absolute 0.00 <0.10 K/mcL LAB HEMETOLOGY METHOD 07/08/2024 3:46 AM [facility] Neutrophils Relative 61.0 % LAB HEMETOLOGY METHOD 07/08/2024 3:46 AM [facility] Lymphocytes Relative 25.4 % LAB HEMETOLOGY METHOD 07/08/2024 3:46 AM [facility] Monocytes Relative 10.3 % LAB HEMETOLOGY METHOD 07/08/2024 3:46 AM [facility] Eosinophils Relative 2.6 % LAB HEMETOLOGY METHOD 07/08/2024 3:46 AM [facility] Basophils Relative 0.4 % LAB HEMETOLOGY METHOD 07/08/2024 3:46 AM EST [facility] Immature Granulocytes Relative 0.3 % LAB HEMETOLOGY METHOD 07/08/2024 3:46 AM EST [facility] Neutrophils Absolute 4.43 1.50 - 7.00 K/mcL LAB HEMETOLOGY METHOD 07/08/2024 3:46 AM [facility] Lymphocytes Absolute 1.85 1.00 - 5.00 K/mcL LAB HEMETOLOGY METHOD 07/08/2024 3:46 AM EST [facility] Monocytes Absolute 0.75 0.20 - 1.00 K/mcL LAB HEMETOLOGY METHOD 07/08/2024 3:46 AM [facility] Eosinophils Absolute 0.19 0.00 - 0.50 K/mcL LAB HEMETOLOGY METHOD 07/08/2024 3:46 AM EST [facility] Basophils Absolute 0.03 0.00 - 0.20 K/mcL LAB HEMETOLOGY METHOD 07/08/2024 3:46 AM [facility] Immature Granulocytes Absolute 0.02 0.00 - 0.03 K/mcL LAB HEMETOLOGY METHOD 07/08/2024 3:46 AM EST [facility] Blood Venous blood specimen / Unknown Venipuncture / Unknown 07/08/2024 2:55 AM EST 07/08/2024 3:35 AM EST us Josemanuel Suh MD LAB BLOOD ORDERABLES Shara l Result [facility] [address] [place] [address], * (ABNORMAL) Salicylate level (07/08/2024 2:55 AM EST) Salicylate Level <1.7(L) 2.0 - 29.0 mg/dL LAB CHEMISTRY METHOD 07/08/2024 4:14 AM EST [facility] Blood Venous blood specimen / Unknown Venipuncture / Unknown 07/08/2024 2:55 AM EST 07/08/2024 3:36 AM EST Josemanuel Suh MD LAB BLOOD ORDERABLES Shara l Result Performing Organization Address City/[facility]/ZIP Co de Phone Number [facility] [address] [place] [address], [place] [phone] * (ABNORMAL) Acetaminophen level (07/08/2024 2:55 AM EST) Acetaminophen Level <2.0(L) 10.0 - 30.0 mcg/mL LAB CHEMISTRY METHOD 07/08/2024 4:14 AM EST [facility] Blood Venous blood specimen / Unknown Venipuncture / Unknown 07/08/2024 2:55 AM EST 07/08/2024 3:36 AM EST Josemanuel Suh MD LAB BLOOD ORDERABLES Shara l Result Performing Organization Address [facility] de Phone Number [facility] [address] [place] [address], [place] [phone] * Ethanol (07/08/2024 2:55 AM EST) Ethanol Level <3 0 - 10 mg/dL LAB CHEMISTRY METHOD 07/08/2024 4:14 AM EST [facility] Blood Venous blood specimen / Unknown Venipuncture / Unknown 07/08/2024 2:55 AM EST 07/08/2024 3:36 AM EST Josemanuel Suh MD LAB BLOOD ORDERABLES Shara l Result Performing Organization Address City/[facility]/ZIP Co de Phone Number [facility] [address] [place] [address], [place] [phone] * (ABNORMAL) Comprehensive metabolic panel (07/08/2024 2:55 AM EST) Sodium 139 133 - 145 mmol/L LAB CHEMISTRY METHOD 07/08/2024 4:22 AM [facility] Potassium 4.0 3.5 - 5.5 mmol/L LAB CHEMISTRY METHOD 07/08/2024 4:22 AM [facility] Chloride 108 96 - 110 mmol/L LAB CHEMISTRY METHOD 07/08/2024 4:22 AM [facility] CO2 26 21 - 32 mmol/L LAB CHEMISTRY METHOD 07/08/2024 4:22 AM [facility] Anion Gap 5 3 - 11 LAB CHEMISTRY METHOD 07/08/2024 4:22 AM [facility] Glucose 94 70 - 100 mg/dL LAB CHEMISTRY METHOD 07/08/2024 4:22 AM [facility] BUN 19 5 - 25 mg/dL LAB CHEMISTRY METHOD 07/08/2024 4:22 AM [facility] Creatinine 0.94 0.70 - 1.30 mg/dL LAB CHEMISTRY METHOD 07/08/2024 4:22 AM [facility] eGFR 92 >=60 mL/min/1. 73m2 LAB CHEMISTRY METHOD 07/08/2024 4:22 AM [facility] Comment:Calculation based on the??Chronic Kidney Disease Epidemiology Collaboration (CKD-EPI) equation refit??without adjustment for race. BUN/Creatinine Ratio 20.2 LAB CHEMISTRY METHOD 07/08/2024 4:22 AM [facility] Calcium 9.1 8.5 - 10.5 mg/dL LAB CHEMISTRY METHOD 07/08/2024 4:22 AM [facility] AST (SGOT) 8(L) 10 - 42 unit/L LAB CHEMISTRY METHOD 07/08/2024 4:22 AM [facility] ALT (SGPT) 14 10 - 60 unit/L LAB CHEMISTRY METHOD 07/08/2024 4:22 AM EST [facility] Alkaline Phosphatase 60 42 - 121 unit/L LAB CHEMISTRY METHOD 07/08/2024 4:22 AM EST [facility] Total Protein 6.8 6.0 - 8.0 g/dL LAB CHEMISTRY METHOD 07/08/2024 4:22 AM EST [facility] Albumin 3.7 3.2 - 5.0 g/dL LAB CHEMISTRY METHOD 07/08/2024 4:22 AM EST [facility] Total Bilirubin 0.5 0.0 - 1.4 mg/dL LAB CHEMISTRY METHOD 07/08/2024 4:22 AM EST [facility] Blood Venous blood specimen / Unknown Venipuncture / Unknown 07/08/2024 2:55 AM EST 07/08/2024 3:36 AM EST Josemanuel Suh MD LAB BLOOD ORDERABLES Shara l Result [facility] [address] [place] [address], * ECG 12 lead (07/08/2024 2:51 AM EST) Ventricular Rate ECG 80 BPM GEMUSE Atrial Rate 80 BPM GEMUSE P-R Interval 162 ms GEMUSE QRS Duration 94 ms GEMUSE Q-T Interval 412 ms GEMUSE QTc 475 ms GEMUSE P Wave [place] 43 degrees GEMUSE R [place] 9 degrees GEMUSE T [place] 30 degrees GEMUSE ECG Interpretation Normal sinus rhythm Normal ECG When compared with ECG of 31-MAR-2024 00:46, Premature ventricular complexes are no longer Present Confirmed by Yolis JAMISON JAMES ([id number]) on 07/08/2024 2:15:14 PM GEMUSE 07/08/2024 2:51 AM EST 07/08/2024 2:15 PM EST Laurence SALDIVAR ECG ORDERABLES Final Result GEMUSE documented in this encounter Visit Diagnoses Diagnosis Other schizophrenia (CMS/HCC)- Primary Overdose of undetermined intent, initial encounter Schizoaffective disorder, bipolar type (CMS/HCC) Schizoaffective disorder, unspecified condition documented in this encounter Administered Medications Active Administered Medications - up to 3 most recent administrations Medication Order MAR Action Action Date Dose Rate Site aspirin EC tablet 81 mg 81 mg, oral, Daily, First dose on Mon07/08/24 at 2030, Do not crush, chew, or split. Given 07/09/2024 8:24 AM EST 81 mg Given 07/08/2024 8:41 PM EST 81 mg cholecalciferol (VITAMIN D-3) tablet 2,000 Units 2,000 Units, oral, Daily, First dose on Mon07/09/24 at 0945, 1000 units = 25 mcg of cholecalciferol (VITAMIN D3) Given 07/09/2024 10:16 AM EST 2,000 U nits divalproex (DEPAKOTE) DR tablet 750 mg 750 mg, oral, 2 times daily, First dose on Mon07/09/24 at 0945, HAZARDOUS Drug Precautions - Low Risk (Category A/NIOSH Group 3) Reproductive Risk Only: - Do NOT split, crush, or open dosage units - Single pair of ASTM standard [id number] certified chemotherapy gloves - Eye protection (goggles or face shield) required only with a potential for facial contact (i.e. concern for spitting or vomiting of the dose during or after administration) Given 07/09/2024 10:17 AM EST 750 mg metoprolol succinate (TOPROL-XL) 24 Hour tablet 25 mg 25 mg, oral, Daily, First dose on Mon07/09/24 at 0945, Do not crush or chew. Given 07/09/2024 10:16 AM EST 25 m g OLANZapine (ZyPREXA) tablet 20 mg 20 mg, oral, Nightly, First dose on Mon07/08/24 at 2100 Given 07/08/2024 8:41 PM EST 20 mg traZODone (DESYREL) tablet 100 mg 100 mg, oral, Nightly, First dose on Mon07/08/24 at 2100 Given 07/08/2024 8:41 PM EST 100 mg Inactive Administered Medications - up to 3 most recent administrations Medication Order MAR Action Action Date Dose Rate Site haloperidol lactate (HALDOL) injection 5 mg 5 mg, intramuscular, Once, On Mon07/08/24 at 1001, For 1 dose, May be ordered via either intramuscular or intravenous route. If ordered IV, maximum of 5 mg/minute. Given 07/08/2024 10:48 AM EST 5 mg Left Anterior Thigh hydrOXYzine pamoate (VISTARIL) capsule 50 mg 50 mg, oral, Once, On Mon07/08/24 at 1515, For 1 dose Given 07/08/2024 3:27 PM EST 50 mg LORazepam (ATIVAN) injection 2 mg 2 mg, intramuscular, Once, On Mon07/08/24 at 1001, For 1 dose, Prior to IV use, lorazepam injection should be DILUTED with an equal volume of compatible solution; Rate of administration should NOT exceed 2 mg/min. Given 07/08/2024 10:48 AM EST 2 mg Left Anterior Thigh documented in this encounter Discontinued Medications Medication Sig Discontinue Reason Start Date End Da te amitriptyline (ELAVIL) 100 mg tablet Take 25 mg by mouth at bedtime as needed for sleep. Duplicate order 09/04/2021 07/09/2024 cholecalciferol (VITAMIN D-3) 50 mcg (2,000 unit) capsule Take 1 capsule (2,000 Units total) by mouth 1 (one) time each day. Duplicate order 09/30/2022 07/09/2024 documented as of this encounter Historical Medications * This list may reflect changes made after this encounter. cholecalciferol (VITAMIN D-3) 50 mcg (2,000 unit) tablet Take 1 tablet (2,000 Units total) by mouth daily. 11/08/2023 amitriptyline (ELAVIL) 25 mg tablet Take 2 tablets (50 mg total) by mouth at bedtime as needed (sleep). 06/18/2024 rosuvastatin (CRESTOR) 10 mg tablet Take 1 tablet (10 mg total) by mouth at bedtime. 07/02/2024 metoprolol succinate (TOPROL-XL) 25 mg 24 hr tablet Take 1 tablet (25 mg total) by mouth daily. 02/27/2024 calcium carbonate (OS-JAVIER) 1,250 mg (500 mg elemental calcium) tablet Take 500 mg by mouth daily. 01/30/2024 aspirin 81 mg EC tablet Take 1 tablet (81 mg total) by mouth 1 (one) time each day. 08/07/2023 added in this encounter Active and Recently Administered Medications Times are shown in EST. Scheduled Medication Order 07/07/2024 07/08/2024 07/09/2024 aspirin EC tablet 81 mg 81 mg, oral, Daily, First dose on Mon07/08/24 at 2030, Do not crush, chew, or split. 2040 (Given - Provider: Maricruz Sena RN) 08 (Given - Provider: Bunny Aleman RN) atorvastatin (LIPITOR) tablet 40 mg 40 mg, oral, Nightly, First dose on Mon07/09/24 at 2100 2100 (Due) calcium carbonate (OS-JAVIER) tablet 1,250 mg 1,250 mg, oral, Daily, First dose on Mon07/09/24 at 0945, Ordered as calcium carbonate. 1,250 mg calcium carbonate = 500 mg elemental calcium. 0945 (Due) cholecalciferol (VITAMIN D-3) tablet 2,000 Units 2,000 Units, oral, Daily, First dose on Mon07/09/24 at 0945, 1000 units = 25 mcg of cholecalciferol (VITAMIN D3) 1016 (Given - Provid er: Bunny Aleman RN) divalproex (DEPAKOTE) DR tablet 750 mg 750 mg, oral, 2 times daily, First dose on Mon07/09/24 at 0945, HAZARDOUS Drug Precautions - Low Risk (Category A/NIOSH Group 3) Reproductive Risk Only: - Do NOT split, crush, or open dosage units - Single pair of ASTM standard D6978 certified chemotherapy gloves - Eye protection (goggles or face shield) required only with a potential for facial contact (i.e.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
--- OUTSIDE RECORDS SUMMARY | 2024-07-09 13:29 | XMS_ITS | Encounter Summary ---
Author Organization [facility] Address [address] [place] [address] Care Team Providers Care Affiliate Marketing Manager Name Role Phone Jessica Solomon PA-C Primary Care Provider [phone] Reason for Visit * Reason Comments Complete Physical Exam Encounter Details Date Type Department Care Team ([facility] st Contact Info) Description 07/02/2024 9:00 AM EST Office Visit [facility] [address] [place] [phone] Jessica Solomon PA-C [address] [place] [phone] Routine general medical examination at a health care facility (Primary Dx); Functional constipation; Acquired hypothyroidism; Non morbid obesity; Mild hyperlipidemia; Schizophrenia, borderline (HCC-CMS); Essential hypertension, benign Social History Tobacco Use Types Packs/Day Years Used Date Smoking Tobacco: Every Day Cigarettes 0.5 47.1 Started: 05/22/1977 Passive Smoke Exposure: Never Smokeless Tobacco: Former Tobacco Cessation:Ready to Q uit: No; Counseling Given: Yes Alcohol Use Standard Drinks/Week Comments No 0 (1 standard drink = 0.6 oz pur e alcohol) Social Connections Answer Date Recorded Connectedness 1 02/27/2024 Financial Resource Strain Answer Date R ecorded Financial Resource Strain 1 2023 Stress Answer Date Recorded Stress 1 02/27/2024 Physical Activity Answer Date Recorded Physical Activity 0 01/13/2019 Food Insecurity Answer Date Recorded Food 1 02/27/2024 Transportation Needs Answer Date Record ed Transportation 1 02/27/2024 Housing Stability Answer Date Recorded Housing 1 02/27/2024 Safety and Environment Answer Date Yordan rded Safety 0 01/25/2023 Utilities Answer Date Recorded Utilities 1 02/27/2024 Employment Answer Date Recorded Stress 0 01/25/2023 Sex and Gender Information Value Date Recorded Sex Assigned at Male 06/09/2017 6:20 AM PST Legal Sex Male 5:41 AM PDT Gender Identity Male 06/09/2017 6:20 AM PST Sexual Orientation Straight 06/09/2017 6: 20 AM PST documented as of this encounter Last Filed Vital Signs Vital Sign Reading Time Taken Comments Blood Pressure 124/64 07/02/2024 9:01 AM EST Pulse 90 07/02/2024 9:01 AM EST Temperature 36.7 ??C (98 ??F) 07/02/2024 9:01 AM EST Respiratory Rate 16 07/02/2024 9:01 AM EST Oxygen Saturation 99% 07/02/2024 9:01 AM EST Inhaled Oxygen Concentration - - Weight 71.2 kg (157 lb) 07/02/2024 9:01 AM EST Height 162.6 cm (5' 4 ) 07/02/2024 9:01 AM EST Body Mass Index 26.95 07/02/2024 9:01 AM EST documented in this encounter Progress Notes * Jessica Solomon PA-C - 07/02/2024 7:01 PM EST Subjective Annual CPE HPI Sharif Chavez is a 64 year old male who presents for annual CPE Seen alone Reports no new concerns Objective Vitals: 07/02/24 0901 BP: 124/64 BP Site: Right Arm BP Position: Sitting BP Cuff Size: Regular Adult Pulse: 90 Resp: 16 Temp: 98 ??F (36.7 ??C) TempSrc: Oral SpO2: 99% Weight: 157 lb (71.2 kg) Height: 5' 4 (1.626 m) Estimated body mass index is 26.95 kg/m?? as calculated from the following: Height as of this encounter: 5' 4 (1.626 m). Weight as of this encounter: 157 lb (71.2 kg). Facility age limit for growth %lelia is 20 years. Physical Exam Vitals and nursing note reviewed. Constitutional: General: He is not in acute distress. Appearance: Normal appearance. He is well-developed. He is not ill-appearing or diaphoretic. HENT: Head: Normocephalic and atraumatic. Right Ear: Tympanic membrane, ear canal and external ear normal. Left Ear: Tympanic membrane, ear canal and external ear normal. Nose: Nose normal. Mouth/Throat: Pharynx: Uvula midline. No oropharyngeal exudate. Eyes: General: Lids are normal. Right eye: No discharge. Left eye: No discharge. Conjunctiva/sclera: Conjunctivae normal. Pupils: Pupils are equal, round, and reactive to light. Neck: Thyroid: No thyroid mass or thyromegaly. Trachea: Trachea normal. No tracheal deviation. Cardiovascular: Rate and Rhythm: Normal rate and regular rhythm. Chest Wall: PMI is not displaced. Pulses: Normal pulses. Heart sounds: Normal heart sounds, S1 normal and S2 normal. No murmur heard. No friction rub. No gallop. Pulmonary: Effort: Pulmonary effort is normal. No respiratory distress. Breath sounds: Normal breath sounds. No decreased breath sounds, wheezing, rhonchi or rales. Abdominal: General: Bowel sounds are normal. There is no distension. Palpations: Abdomen is soft. There is no hepatomegaly, splenomegaly or mass. Tenderness: There is no abdominal tenderness. There is no guarding or rebound. Musculoskeletal: General: No tenderness or deformity. Normal range of motion. Cervical back: Normal range of motion and neck supple. No erythema or rigidity. Lymphadenopathy: Cervical: No cervical adenopathy. Skin: General: Skin is warm and dry. Coloration: Skin is not pale. Findings: No abrasion, erythema or rash. Neurological: Mental Status: He is alert and oriented to person, place, and time. Motor: No tremor, atrophy, abnormal muscle tone or seizure activity. Gait: Gait normal. Psychiatric: Speech: Speech normal. Behavior: Behavior normal. Assessment and Plan Z00.00 Routine general medical examination at a health care facility (primary encounter diagnosis) Plan : HZV ZOSTER VACC RECOMBINANT ADJUVANTED IM USE K59.04 Functional constipation --stable E03.9 Acquired hypothyroidism--stable E66.9 Non morbid obesity Lifestyle measures:BMI follow up plan: The patient was counseled regarding nutrition and physical activity. E78.5 Mild hyperlipidemia Plan : ROSUVASTATIN 10 MG TABLET - Take 1 Tablet by mouth nightly at bedtime ASPIRIN 81 MG TABLET,DELAYED RELEASE The 10-year ASCVD risk score (Freda ENNIS, et al., 2019) is: 20% F21 Schizophrenia, borderline (HCC-CMS) Plan : AMITRIPTYLINE 100 MG TABLET - Take 25 mg by mouth CLONAZEPAM 1 MG TABLET - Take 1 mg by mouth DIVALPROEX 250 MG TABLET,DELAYED RELEASE - Take 750 mg by mouth twice a day HYDROXYZINE PAMOATE 50 MG CAPSULE OLANZAPINE 20 MG TABLET - Take 20 mg by mouth nightly at bedtime INVEGA SUSTENNA 234 MG/1.5 ML INTRAMUSCULAR SYRINGE - Inject 234 mg into the muscle every month TRAZODONE 100 MG TABLET - Take 100 mg by mouth once daily I10 Essential hypertension, benign Plan : LOSARTAN 25 MG TABLET - Take 25 mg by mouth -- blood pressure is controlled, cont all medications as prescribed, refilled all meds that are duefor a refill, reviewed med list in detail I recommended plant-based diet and weight loss for overall health. I also recommended continued primary prevention and lifestyle modification. I encouraged the patient to pursue moderate activity for at least 300 minutes/week per the ACC guidelines. Ready to quit: No Counseling given: Yes documented in this encounter Miscellaneous Notes * Patient Instructions - Jessica Solomon PA-C - 07/02/2024 9:10 AM EST If you are not able to keep your appointment please call 24-48 hours before your appointment to cancel or reschedule. documented in this encounter Plan of Treatment Upcoming Encounters Date Type Department Care Team (Late st Contact Info) Description 07/29/2024 1:00 PM EDT / Visits [facility] [address] [place] [phone] Monae Hauser LCSW [address] [place] [address] 09/02/2024 9:20 AM EDT Office Visit [facility] [address] [place] [phone] Chikis Saucedo [address] [place] [address] documented as of this encounter Visit Diagnoses Diagnosis Routine general medical examination at a health care facility- Primary Functional constipation Other constipation Acquired hypothyroidism Non morbid obesity Mild hyperlipidemia Other and unspecified hyperlipidemia Schizophrenia, borderline ([facility]) Latent schizophrenia, unspecified condition Essential hypertension, benign documented in this encounter Additional Health Concerns Assessment Noted Time PHQ-9 Depression Total Score: 0 02/27/20 24 11:34 AM PDT documented as of this encounter Care Teams Affiliate Marketing Manager Relationship Specialty Start Date End Date Jessica Solomon PA-C [facility] [place] [phone] PCP - General Internal Medicine 02/12/19 documented as of this encounter
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
--- OUTSIDE RECORDS SUMMARY | 2024-07-09 13:29 | XMS_ITS | Clinical Summary ---
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 Performing Organization Address City/[facility]/ZIP Co de Phone Number [address] [address], * (ABNORMAL) HEPATITIS A,B,C PANEL (06/09/2017 10:07 AM EST) Pathologist [facility] HEPATITIS B SURFACE ANTIBODY POSITIVE(A) NEGATIVE [facility] HEPATITIS B SURFACE ANTIGEN NEGATIVE NEGATIVE [facility] Comment: Over the counter supplements containing high doses of biotin may interfere with this assay. ??If interference is suspected, patients shoud be retested after refraining from biotin supplements for 72 hours. HEPATITIS C VIRUS DIAGNOSTIC NEGATIVE NEGATIVE [facility] HEPATITIS A ANTIBODY TOTAL POSITIVE(A) NEGATIVE [facility] Comment: Over the counter supplements containing high doses of biotin may interfere with this assay. ??If interference is suspected, patients shoud be retested after refraining from biotin supplements for 72 hours. HEPATITIS B CORE ANTIBODY NEGATIVE NEGATIVE [facility] Blood specimen (specimen) Blood / Unknown 06/09/2017 10:07 AM EST 06/09/2017 11:29 AM EST Narrative [facility] - 06/09/2017 6:39 PM EST [facility] [address] [place] [address] PT ID [id number] ORD# [id number] Sandra Thrasher FILTER CHANGING TECHNICIAN LAB - BLOOD DRAW Edited Resu lt - Final [address] [address], * COLONOSCOPY (12/28/2016 1:32 PM EDT) Impressions Jessica Solomon PA-C - 12/28/2016 1:32 PM EDT [facility] Lam Rivera M.D. [address] [place] [address] Albertina [place], [place] ?? [address] Primo Andino M.D. Radha De Leon M.D. Jackson Renee M.D. Lucy Renee M.D. Leonie Malagon M.D. Aldo Crane M.D. [facility] ?? El Rojo M.D.,PhD ?? Edmund Diaz M.D.,PhD ? SURGICAL PATHOLOGY REPORT Name: SHARIF CRUZ Sex: M Date Obtained: 01/17/17 Hosp#: [id number] Date Reported: 01/18/17 : 1960 ?Age: 56 MR#: [id number] Physician: LUIS CARLOS SOLORZANO MD Location: [facility] A.CECUM POLYPS: -SESSILE SERRATED ADENOMAS. B.ASCENDING COLON POLYPS: -TUBULOVILLOUS ADENOMAS (MULTIPLE PIECES INVOLVED). C.TRANSVERSE COLON POLYP: -SESSILE SERRATED ADENOMA. Note: Excision of the adenomas cannot be evaluated. Lucy Renee M.D., Pathologist (Case electronically signed 01 18 2017) Pre-Op/Clinical Diagnosis: *COLON POLYPS X6 Specimen and Site: A. COLON, CECAL 2-POLYP B. COLON, ASCENDING 3-POLYP C. COLON, TRANSVERSE-POLYP Gross Description: A. Labeled cecal polyps . ??Received in formalin is a 0.7 x 0.5 x 0.1 cm soft, jaimes-brown, flat polypoid tissue, which is inked blue at the base, bisected and submitted in entirety in one cassette, two pieces, multiple levels. B. Labeled ascending colon polyps . ??Received in formalin are multiple soft to friable, jaimes-pink polypoid tissue fragments, aggregating to 1.8 x 1.4 x 0.2 cm. Also received is a 0.8 x 0.5 x 0.4 cm soft, friable, jaimes-pink polypoid tissue which is inked blue at its base and bisected. The specimens are filtered through paper and submitted in entirety in two cassettes. 1-aggregate of polypoid tissue fragments, multiple pieces 2-largest polypoid tissue, bisected, two pieces, multiple levels. C. Labeled transverse colon polyp . ??Received in formalin are three soft, jaimes tissue fragments, ranging from 0.2 cm to 0.3 cm in greatest diameters, admixed with fecal/food debris, which are wrapped in paper and submitted in toto in one cassette, three + multiple pieces, multiple levels on one slide (the smallest tissue may not survive processing). SN/ks Physicians: LUIS CARLOS SOLORZANO/#[phone] Anatomic Pathology services provided by [facility] ?[facility] ?[facility] ?[address] ?[place] [address] ?A Member of the [facility] ? Procedure Notes Name: SHARIF CRUZ Admit Date: ??12/28/16 - 1960/56yr Discharge Date: ?? Location: ??[facility] - Report #: ??[id number] DATE OF PROCEDURE: ??01/17/2017 PROCEDURE: Colonoscopy. PRIMARY CARE PHYSICIAN: Baltazar Parker MD INDICATIONS FOR COLONOSCOPY: First-degree family member with colon cancer diagnosed at age less than 60, high risk for colon cancer. SURGEON: Procedure was done by Dr. Solorzano at [facility]. AMBULATORY SERVICES REPRESENTATIVE: The GI lab nursing staff assisted with this case. ANESTHESIA: The patient was given MAC anesthesia by the Anesthesia Service. COMPLICATIONS: The procedure resulted in no immediate complications. ESTIMATED BLOOD LOSS: Minimal blood loss has occurred during the procedure. DESCRIPTION OF THE PROCEDURE: The patient was explained about risks and benefits of the colonoscopy via cadd drafter and his written consent was obtained. ??He was brought to the GI suite. He was then placed on a stretcher, lying in left lateral position. ??After he was appropriately sedated following the digital rectal exam, I used the pediatric colonoscope, I advanced the endoscope into the cecum. ??I also used an Endocuff, then I slowly withdrew the endoscope while carefully examined the mucosa. ??The quality of the bowel preparation was good. ??The views were good and the patient tolerated the procedure well. FINDINGS: In the cecum, I encountered two diminutive sessile polyps. ??These were removed using cold snare polypectomy. ??The tissue was retrieved. ??In the ascending colon, the patient did have 3 polyps. ??The size of these polyps was from 5 mm to 15 mm in diameter. ??These were removed using the hot snare polypectomy. ??The tissue was retrieved. ??In the transverse colon, there was a 5 mm sessile polyp, which was also removed using hot snare polypectomy, tissue was retrieved. ??The patient did have multiple scattered small mouth diverticulum in the sigmoid colon. ??Retroflexion in the rectum reveals small sized internal hemorrhoids. ??The patient's perianal examination was significant for external hemorrhoids. IMPRESSION: 1. ??Colon polyps x6, resected and retrieved. 2. ??Internal hemorrhoids. 3. ??Diverticulosis. PLAN: I would repeat the colonoscopy in 3 years. ??We will follow up with the biopsy results. ??The patient should be on high fiber diet. 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
[2024-07-09 13:49] VITALS: BMI 23.1
[2024-07-09 14:49] LABS: Alanine Aminotransferase 11 U/L (0-40); Albumin Level 4.2 g/dL (3.5-5.0); Anion Gap 11 (12-20); Aspartate Amino Transferase 20 U/L (5-37); Bilirubin Total 0.3 mg/dL (0.0-1.0); Blood Urea Nitrogen 18 mg/dL (9-16); Calcium 9.1 mg/dL (8.4-10.2); Carbon Dioxide 24 mmol/L (22-29); Chloride 110 mmol/L (96-108); Creatinine Clr Calc Pharmacy 87.3; Estimated Glomerular Filt Rate > 60; Glucose Random 124 mg/dL (60-115); Potassium 3.8 mmol/L (3.3-5.1); Sodium 141 mmol/L (135-145); Total Protein 7.6 g/dL (6.5-8.0)
[2024-07-09 15:29] LABS: Alkaline Phosphatase 65 U/L (39-117)
[2024-07-09] MEDS: Flu Vacc TS2024-25(6mos up)/PF 0.5 ML SYRINGE IM (15:48)
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
[2024-07-09 18:00] LABS: Appearance Urine Clear; Color Urine Yellow; Glucose Urine UA Negative (Negative); Leukocyte Esterase Urine Trace (Negative); Nitrite Urine Negative (Negative); UMIC TRIGGER UACC YES; Urine Blood Negative (Negative); Urine Ketones Negative (Negative); Urine Protein Negative (Neg-Trace)
[2024-07-09 18:06] LABS: Bacteria Urine None Seen (None Seen); Hyaline Casts Urine 0-2 /LPF (0-2); RBC Urine 0-2 /HPF (0-2); Squamous Epithelial Cell Urine 0-2 /HPF (0-2); WBC Urine 0-5 /HPF (0-5)
[2024-07-09 19:46] VITALS: BP 119/74; PULSE 94; RESP 18; TEMP 36.9; O2SAT 98
[2024-07-09] MEDS: hydrOXYzine HCL 25 MG TABLET PO (21:31)
[2024-07-09] MEDS: traZODone HCL 50 MG TABLET PO (21:31)
[2024-07-09] MEDS: OLANZapine 5 MG TABLET PO (21:31)
[2024-07-10] MEDS: traZODone HCL 50 MG TABLET PO ×2 (03:05→20:04)
[2024-07-10] MEDS: OLANZapine 5 MG TABLET PO (03:05)
[2024-07-10] MEDS: hydrOXYzine HCL 25 MG TABLET PO (03:05)
[2024-07-10 07:56] VITALS: BP 114/60; PULSE 122; RESP 18; TEMP 36.2; O2SAT 99
[2024-07-10 08:12] LABS: Estimated Average Glucose 85 mg/dL; Hemoglobin A1C 87.5342 umol/L; Hemoglobin A1c % 4.6 % (<6.0); Total Hemoglobin (HGBA1C) 3318.2555 umol/L
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
[2024-07-10 08:26] LABS: Cholesterol 109 mg/dL (<200); HDL Cholesterol 48 mg/dL (>40); LDL Cholesterol Calculated 52 mg/dL (<100); Triglycerides 49 mg/dL (<150)
[2024-07-10 08:42] LABS: TSH reflex Free T4 3.84 uIU/mL (0.32-4.0)
[2024-07-10 09:49] LABS: Glucose, Whole Blood 88 mg/dL (60-115)
[2024-07-10] MEDS: Acetaminophen 325 MG TABLET 650 MG PO (10:18)
[2024-07-10 10:19] VITALS: BP 116/76; PULSE 77
[2024-07-10] MEDS: Levothyroxine Sodium 88 MCG TABLET PO (10:19)
[2024-07-10] MEDS: Metoprolol Succinate ER 25 MG TAB.ER.24H PO (10:19)
[2024-07-10] MEDS: Divalproex Sodium 250 MG TABLET.DR 750 MG PO (10:19)
[2024-07-10] MEDS: Omeprazole 20 MG CAPSULE.DR PO (10:20)
[2024-07-10] MEDS: Cholecalciferol (Vitamin D3) 25 MCG TABLET 50 MCG PO (10:20)
[2024-07-10] MEDS: Aspirin 81 MG TAB.CHEW PO (10:20)
[2024-07-10] MEDS: OLANZapine 10 MG TABLET 20 MG PO ×2 (12:37→20:04)
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
[2024-07-10] MEDS: clonazePAM 1 MG TABLET PO (16:05)
[2024-07-10 19:35] VITALS: BP 131/83; PULSE 95; RESP 16; TEMP 36.8; O2SAT 97
[2024-07-10] MEDS: Prazosin HCL 1 MG CAPSULE 2 MG PO (20:04)
[2024-07-10] MEDS: Divalproex Sodium 500 MG TABLET.DR 1000 MG PO (20:04)
[2024-07-10] MEDS: Nicotine 21 MG PATCH.TD24 TRANSDERMA (20:09)
[2024-07-11] MEDS: Melatonin 3 MG TABLET PO (02:38)
[2024-07-11] MEDS: hydrOXYzine HCL 50 MG TABLET PO (02:38)
[2024-07-11] MEDS: OLANZapine 5 MG TABLET PO ×2 (02:38→18:18)
[2024-07-11] MEDS: Omeprazole 20 MG CAPSULE.DR PO (06:56)
[2024-07-11] MEDS: hydrOXYzine HCL 25 MG TABLET PO (06:56)
[2024-07-11] MEDS: Levothyroxine Sodium 88 MCG TABLET PO (06:56)
[2024-07-11 08:00] VITALS: BP 130/73; PULSE 106; TEMP 37; O2SAT 99
[2024-07-11] MEDS: Cholecalciferol (Vitamin D3) 25 MCG TABLET 50 MCG PO (08:52)
[2024-07-11 08:53] VITALS: BP 130/73; PULSE 106
[2024-07-11] MEDS: Metoprolol Succinate ER 25 MG TAB.ER.24H PO (08:53)
[2024-07-11] MEDS: Aspirin 81 MG TAB.CHEW PO (08:53)
[2024-07-11] MEDS: Divalproex Sodium 500 MG TABLET.DR 1000 MG PO ×2 (08:54→20:20)
[2024-07-11] MEDS: Nicotine Polacrilex 2 MG GUM 4 MG BUCCAL ×2 (08:55→18:18)
[2024-07-11] MEDS: Paliperidone ER 3 MG TAB.ER.24 PO (10:44)
--- NOTE | 2024-07-11 11:38 | HO.PSYCHPN ---
Subjective Subjective Date of Service: 07/11/24 Reason For Visit: Schizoaffective DO Bipolar Type Cocaine Use Mod Subjective Notes: Conditional Voluntary and 3 Day Healthcare Proxy: No Guardianship: No Medical Problems Affecting Mental Status: No Interim History: Care discussed with [facility] AD[facility], Yudi [phone]/ Dylan [phone]. Last Invega Injection 234 mg given 06/25/24. Medications [facility]NA has on schedule for pt include Depakote 375 mg bid, Flomax 0.4 mg daily, Levothyroxine 88 mcg daily, Melatonin 3 mg hs, Metoprolol 25 mg daily, Omeprazole 20 mg daily, Prazosin 2 mg hs, Trazodone 100 mg hs and Olanzapine 20 mg hs. TDN to 07/12. Team report pt with labile anger, anxiety, exit seeking Invega PO added today to assist with sx mgt. Pt reporting cravings-baclofen ordered Also reporting poor sleep. Asking about klonopin which is in place for him, but not on [facility] med list. Medication Compliance: Yes Side effects from medications: No Attending Groups: No Review of Systems Acute medical concerns: No Medical Review of Systems: unchanged Review of Systems Review of Systems cravings sleep difficulty Mental Status Exam Mental Status Exam Patient Appearance: Fatigued Patient Orientation: Person, Place and Situation Level of Consciousness: Alert Patient Behavior: Talkative, Cooperative and Good Eye Contact Mood Description: Constricted Affect Description: Constricted Patient Cognition Impaired: No Ability to Follow Directions: Fair Speech Pattern: Spontaneous Speech Memory Description: Episodic Impaired Hallucinations: Auditory Delusions: Paranoid Ideation and Present Thought Process: Distracted Thought Content: positive for Circumstantial, positive for Perseveration, positive for Preoccupation, positive for Suicidal Ideation and positive for Homicidal Ideation Depressive Symptoms: Increased Irritability and Thoughts of /Suicide Judgement: Poor Diagnostics Vital Signs (24Hr): Vital Signs - 24 hr 07/10/24 19:35 07/11/24 08:53 Temperature 98.2 F Pulse Rate 95 106 H Respiratory Rate 16 Blood Pressure 131/83 130/73 Pulse Oximetry 97 Oxygen Delivery Method Room Air BMI result Body Mass Index 23.1 Labs 07/09/24 14:09 Labs: Laboratory Results - last 48 hr 07/09/24 07/09/24 07/10/24 14:09 17:39 07:53 Sodium 141 Potassium 3.8 Chloride 110 H Carbon Dioxide 24 Anion Gap 11 L BUN 18 H Creatinine 0.82 Estim Creat Clear Calc 87.3 Estimated GFR > 60 POC Glucose Random Glucose 124 H Estimat Average Glucose 85 Hemoglobin A1c % 4.6 Calcium 9.1 Total Bilirubin 0.3 AST 20 ALT 11 Alkaline Phosphatase 65 Total Protein 7.6 Albumin 4.2 Triglycerides 49 Cholesterol 109 LDL Cholesterol, Calc 52 HDL Cholesterol 48 TSH 3.84 Urine Color Yellow Urine Appearance Clear Urine pH 7.0 Ur Specific [place] 1.020 Urine Protein Negative Urine Glucose (UA) Negative Urine Ketones Negative Urine Blood Negative Urine Nitrite Negative Ur Leukocyte Esterase Trace H Urine RBC 0-2 Urine WBC 0-5 Ur Squamous Epith Cells 0-2 Urine Bacteria None Seen Hyaline Casts 0-2 07/10/24 09:45 Sodium Potassium Chloride Carbon Dioxide Anion Gap BUN Creatinine Estim Creat Clear Calc Estimated GFR POC Glucose 88 Random Glucose Estimat Average Glucose Hemoglobin A1c % Calcium Total Bilirubin AST ALT Alkaline Phosphatase Total Protein Albumin Triglycerides Cholesterol LDL Cholesterol, Calc HDL Cholesterol TSH Urine Color Urine Appearance Urine pH Ur Specific [place] Urine Protein Urine Glucose (UA) Urine Ketones Urine Blood Urine Nitrite Ur Leukocyte Esterase Urine RBC Urine WBC Ur Squamous Epith Cells Urine Bacteria Hyaline Casts Medications Medications Current Medications Acetaminophen (Acetaminophen 325 Mg Tablet) 650 mg PO Q6H PRN PRN Reason: Headache/Pain, Scale 1-10 Last Admin: 07/10/24 10:18 Dose: 650 mg Al Hydroxide/Mg Hydroxide (Magnesium Hydrox/Alum Hydrox 30 Ml Oral.Susp) 30 ml PO Q6H PRN PRN Reason: Heartburn/Nausea Amitriptyline HCl (Amitriptyline Hcl 50 Mg Tablet) 50 mg PO BEDTIME PRN PRN Reason: sleep Aspirin (Aspirin 81 Mg Tab.Chew) 81 mg PO DAILY [facility] Last Admin: 07/11/24 08:53 Dose: 81 mg Clonazepam (Clonazepam 1 Mg Tablet) 1 mg PO DAILY PRN PRN Reason: Anxiety Last Admin: 07/10/24 16:05 Dose: 1 mg Clonazepam (Clonazepam 1 Mg Tablet) 1 mg PO BEDTIME WENDIE Divalproex Sodium (Divalproex Sodium 500 Mg Tablet.Dr) 1,000 mg PO BID WENDIE Last Admin: 07/11/24 08:54 Dose: 1,000 mg Hydroxyzine HCl (Hydroxyzine Hcl 25 Mg Tablet) 25 mg PO Q6H PRN PRN Reason: mild anxiety Last Admin: 07/11/24 06:56 Dose: 25 mg Hydroxyzine HCl (Hydroxyzine Hcl 50 Mg Tablet) 50 mg PO BID PRN PRN Reason: Anxiety Last Admin: 07/11/24 02:38 Dose: 50 mg Levothyroxine Sodium (Levothyroxine Sodium 88 Mcg Tablet) 88 mcg PO DAILY@0600 [facility] Last Admin: 07/11/24 06:56 Dose: 88 mcg Magnesium Hydroxide (Milk Of Magnesia 30 Ml Oral.Susp) 30 ml PO DAILY PRN PRN Reason: Constipation Melatonin (Melatonin 3 Mg Tablet) 3 mg PO BEDTIME PRN PRN Reason: Insomnia Last Admin: 07/11/24 02:38 Dose: 3 mg Metoprolol Succinate (Metoprolol Succinate Er 25 Mg Tab.Er.24h) 25 mg PO DAILY [facility]; Protocol Last Admin: 07/11/24 08:53 Dose: 25 mg Nicotine (Nicotine 21 Mg Patch.Td24) 21 mg TRANSDERMA DAILY PRN PRN Reason: smoking cessation Last Admin: 07/10/24 20:09 Dose: 21 mg Nicotine Polacrilex (Nicotine Polacrilex 2 Mg Gum) 4 mg BUCCAL Q2H PRN PRN Reason: Nicotine Cravings Last Admin: 07/11/24 08:55 Dose: 4 mg Olanzapine (Olanzapine 5 Mg Tablet) 5 mg PO TID PRN PRN Reason: agitation Last Admin: 07/11/24 02:38 Dose: 5 mg Olanzapine (Olanzapine 10 Mg Tablet) 20 mg PO BEDTIME WENDIE Last Admin: 07/10/24 20:04 Dose: 20 mg Omeprazole (Omeprazole 20 Mg Capsule.Dr) 20 mg PO DAILY@0630 [facility] Last Admin: 07/11/24 06:56 Dose: 20 mg Paliperidone (Paliperidone Er 3 Mg Tab.Er.24) 3 mg PO DAILY [facility] Last Admin: 07/11/24 10:44 Dose: 3 mg Prazosin HCl (Prazosin Hcl 1 Mg Capsule) 2 mg PO BEDTIME [facility]; Protocol Last Admin: 07/10/24 20:04 Dose: 2 mg Trazodone HCl (Trazodone Hcl 50 Mg Tablet) 50 mg PO BEDTIME MRX1 PRN PRN Reason: Insomnia Last Admin: 07/10/24 20:04 Dose: 50 mg Vitamin D (Cholecalciferol (Vitamin D3) 25 Mcg Tablet) 50 mcg PO DAILY WENDIE Last Admin: 07/11/24 08:52 Dose: 50 mcg Allergies Allergies Allergy/AdvReac Type Severity Reaction Status Date / Time lorazepam Allergy Unknown Verified 07/18/23 23:04 Penicillins Allergy Nausea and Verified 07/18/23 23:04 Vomiting Assessment & Plan Assessment & Plan (1) Cocaine use disorder: Status: Acute Code(s): F14.10 - Cocaine abuse, uncomplicated (2) Schizophrenia: Status: Acute Code(s): F20.9 - Schizophrenia, unspecified Plan 07/11/24: Baclofen tid Invega 3 mg po daily Three day notice to 07/12. Reason for continued inpatient stay Substantial Risk for: rapid decompensation Time Spent With Patient Time: Total time managing care of this patient today ____ minutes.
[2024-07-11] MEDS: Baclofen 10 MG TABLET 5 MG PO ×2 (14:40→20:20)
[2024-07-11 20:00] VITALS: BP 117/68; PULSE 105; TEMP 37.7; O2SAT 97
[2024-07-11 20:20] VITALS: BP 117/68
[2024-07-11] MEDS: clonazePAM 1 MG TABLET PO (20:20)
[2024-07-11] MEDS: Tamsulosin HCL 0.4 MG CAPSULE PO (20:20)
[2024-07-11] MEDS: OLANZapine 10 MG TABLET 20 MG PO (20:20)
[2024-07-11] MEDS: Prazosin HCL 1 MG CAPSULE 2 MG PO (20:20)
[2024-07-12] MEDS: Nicotine Polacrilex 2 MG GUM 4 MG BUCCAL ×3 (02:41→13:38)
[2024-07-12] MEDS: traZODone HCL 50 MG TABLET PO ×2 (03:00→21:24)
[2024-07-12] MEDS: Levothyroxine Sodium 88 MCG TABLET PO (06:47)
[2024-07-12] MEDS: Omeprazole 20 MG CAPSULE.DR PO (06:47)
[2024-07-12 08:00] VITALS: BP 158/77; PULSE 111; RESP 16; TEMP 36.8; O2SAT 99
[2024-07-12] MEDS: Aspirin 81 MG TAB.CHEW PO (08:42)
[2024-07-12] MEDS: Divalproex Sodium 500 MG TABLET.DR 1000 MG PO ×2 (08:42→21:28)
[2024-07-12 08:43] VITALS: BP 121/73; PULSE 75
[2024-07-12] MEDS: Baclofen 10 MG TABLET 5 MG PO ×3 (08:43→21:24)
[2024-07-12] MEDS: Paliperidone ER 3 MG TAB.ER.24 PO (08:43)
[2024-07-12] MEDS: Cholecalciferol (Vitamin D3) 25 MCG TABLET 50 MCG PO (08:43)
[2024-07-12] MEDS: Metoprolol Succinate ER 25 MG TAB.ER.24H PO (08:43)
--- NOTE | 2024-07-12 13:56 | HO.PSYCHPN ---
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 Pt was accepting of this, thought it was a reasonable request. He signed a new [place]vian CV, asked appropriate questions and will have family bring him in clothing. Medication Compliance: Yes Side effects from medications: No Attending Groups: No Review of Systems Acute medical concerns: No Review of Systems Review of Systems Denies Mental Status Exam Mental Status Exam Patient Appearance: Appropriate Patient Orientation: Person, Place, Time and Situation Level of Consciousness: Alert Patient Behavior: Talkative, Cooperative and Good Eye Contact Mood Description: Constricted Affect Description: Constricted Patient Cognition Impaired: No Ability to Follow Directions: Fair Speech Pattern: Spontaneous Speech Memory Description: Episodic Impaired Hallucinations: None Delusions: Present Thought Process: Distracted Thought Content: positive for Circumstantial, positive for Perseveration, positive for Preoccupation, positive for Suicidal Ideation and positive for Homicidal Ideation Depressive Symptoms: Increased Irritability and Thoughts of /Suicide Judgement: Fair Diagnostics Vital Signs (24Hr): Vital Signs - 24 hr 07/11/24 20:00 07/11/24 20:20 07/12/24 08:00 Temperature 100 F 98.2 F Pulse Rate 105 H 111 H Respiratory Rate 16 Blood Pressure 117/68 117/68 158/77 H Pulse Oximetry 97 99 Oxygen Delivery Method Room Air Room Air 07/12/24 08:43 Temperature Pulse Rate 75 Respiratory Rate Blood Pressure 121/73 Pulse Oximetry Oxygen Delivery Method BMI result Body Mass Index 23.1 Labs 07/09/24 14:09 Medications Medications Current Medications Acetaminophen (Acetaminophen 325 Mg Tablet) 650 mg PO Q6H PRN PRN Reason: Headache/Pain, Scale 1-10 Last Admin: 07/10/24 10:18 Dose: 650 mg Al Hydroxide/Mg Hydroxide (Magnesium Hydrox/Alum Hydrox 30 Ml Oral.Susp) 30 ml PO Q6H PRN PRN Reason: Heartburn/Nausea Amitriptyline HCl (Amitriptyline Hcl 50 Mg Tablet) 50 mg PO BEDTIME PRN PRN Reason: sleep Aspirin (Aspirin 81 Mg Tab.Chew) 81 mg PO DAILY [facility] Last Admin: 07/12/24 08:42 Dose: 81 mg Baclofen (Baclofen 10 Mg Tablet) 5 mg PO TID [facility] Last Admin: 07/12/24 08:43 Dose: 5 mg Clonazepam (Clonazepam 1 Mg Tablet) 1 mg PO DAILY PRN PRN Reason: Anxiety Last Admin: 07/10/24 16:05 Dose: 1 mg Clonazepam (Clonazepam 1 Mg Tablet) 1 mg PO BEDTIME [facility] Last Admin: 07/11/24 20:20 Dose: 1 mg Divalproex Sodium (Divalproex Sodium 500 Mg Tablet.) 1,000 mg PO BID [facility] Last Admin: 07/12/24 08:42 Dose: 1,000 mg Hydroxyzine HCl (Hydroxyzine Hcl 50 Mg Tablet) 50 mg PO BID PRN PRN Reason: Anxiety Last Admin: 07/11/24 02:38 Dose: 50 mg Levothyroxine Sodium (Levothyroxine Sodium 88 Mcg Tablet) 88 mcg PO DAILY@0600 [facility] Last Admin: 07/12/24 06:47 Dose: 88 mcg Magnesium Hydroxide (Milk Of Magnesia 30 Ml Oral.Susp) 30 ml PO DAILY PRN PRN Reason: Constipation Melatonin (Melatonin 3 Mg Tablet) 3 mg PO BEDTIME PRN PRN Reason: Insomnia Last Admin: 07/11/24 02:38 Dose: 3 mg Metoprolol Succinate (Metoprolol Succinate Er 25 Mg Tab.Er.24h) 25 mg PO DAILY [facility]; Protocol Last Admin: 07/12/24 08:43 Dose: 25 mg Nicotine (Nicotine 21 Mg Patch.Td24) 21 mg TRANSDERMA DAILY PRN PRN Reason: smoking cessation Last Admin: 07/10/24 20:09 Dose: 21 mg Nicotine Polacrilex (Nicotine Polacrilex 2 Mg Gum) 4 mg BUCCAL Q2H PRN PRN Reason: Nicotine Cravings Last Admin: 07/12/24 13:38 Dose: 4 mg Olanzapine (Olanzapine 5 Mg Tablet) 5 mg PO TID PRN PRN Reason: agitation Last Admin: 07/11/24 18:18 Dose: 5 mg Olanzapine (Olanzapine 10 Mg Tablet) 20 mg PO BEDTIME [facility] Last Admin: 07/11/24 20:20 Dose: 20 mg Omeprazole (Omeprazole 20 Mg Capsule.) 20 mg PO DAILY@0630 [facility] Last Admin: 07/12/24 06:47 Dose: 20 mg Paliperidone (Paliperidone Er 3 Mg Tab.Er.24) 3 mg PO DAILY [facility] Last Admin: 07/12/24 08:43 Dose: 3 mg Prazosin HCl (Prazosin Hcl 1 Mg Capsule) 2 mg PO BEDTIME [facility]; Protocol Last Admin: 07/11/24 20:20 Dose: 2 mg Tamsulosin HCl (Tamsulosin Hcl 0.4 Mg Capsule) 0.4 mg PO BEDTIME [facility] Last Admin: 07/11/24 20:20 Dose: 0.4 mg Trazodone HCl (Trazodone Hcl 50 Mg Tablet) 50 mg PO BEDTIME MRX1 PRN PRN Reason: Insomnia Last Admin: 07/12/24 03:00 Dose: 50 mg Vitamin D (Cholecalciferol (Vitamin D3) 25 Mcg Tablet) 50 mcg PO DAILY [facility] Last Admin: 07/12/24 08:43 Dose: 50 mcg Allergies Allergies Allergy/AdvReac Type Severity Reaction Status Date / Time lorazepam Allergy Unknown Verified 07/18/23 23:04 Penicillins Allergy Nausea and Verified 07/18/23 23:04 Vomiting Assessment & Plan Assessment & Plan (1) Cocaine use disorder: Status: Acute Code(s): F14.10 - Cocaine abuse, uncomplicated (2) Schizophrenia: Status: Acute Code(s): F20.9 - Schizophrenia, unspecified Plan 07/12/24: Pt retracted 3 day notice and signed a new CV Will meet with OP team next week for discharge planning No med changes today Reason for continued inpatient stay Substantial Risk for: rapid decompensation Time Spent With Patient Time: Total time managing care of this patient today ____ minutes.
[2024-07-12] MEDS: hydrOXYzine HCL 50 MG TABLET PO (15:17)
[2024-07-12 19:47] VITALS: BP 130/69; PULSE 98; RESP 20; TEMP 37.6; O2SAT 99
[2024-07-12] MEDS: Tamsulosin HCL 0.4 MG CAPSULE PO (21:23)
[2024-07-12] MEDS: Melatonin 3 MG TABLET PO (21:23)
[2024-07-12] MEDS: Prazosin HCL 1 MG CAPSULE 2 MG PO (21:26)
[2024-07-12] MEDS: OLANZapine 10 MG TABLET 20 MG PO (21:29)
[2024-07-12] MEDS: clonazePAM 1 MG TABLET PO (21:32)
[2024-07-13] MEDS: traZODone HCL 50 MG TABLET PO ×2 (03:48→20:52)
[2024-07-13] MEDS: OLANZapine 5 MG TABLET PO (03:48)
[2024-07-13] MEDS: hydrOXYzine HCL 50 MG TABLET PO ×2 (03:48→20:53)
[2024-07-13] MEDS: Omeprazole 20 MG CAPSULE.DR PO (07:38)
[2024-07-13] MEDS: Levothyroxine Sodium 88 MCG TABLET PO (07:38)
[2024-07-13 08:28] VITALS: BP 124/77; PULSE 112; RESP 18; TEMP 36.8; O2SAT 98
[2024-07-13] MEDS: Cholecalciferol (Vitamin D3) 25 MCG TABLET 50 MCG PO (08:57)
[2024-07-13] MEDS: Acetaminophen 325 MG TABLET 650 MG PO (08:57)
[2024-07-13] MEDS: Metoprolol Succinate ER 25 MG TAB.ER.24H PO (08:57)
[2024-07-13] MEDS: Divalproex Sodium 500 MG TABLET.DR 1000 MG PO ×2 (08:57→20:52)
[2024-07-13] MEDS: Baclofen 10 MG TABLET 5 MG PO ×3 (08:58→20:52)
[2024-07-13] MEDS: Paliperidone ER 3 MG TAB.ER.24 PO (08:58)
[2024-07-13] MEDS: Aspirin 81 MG TAB.CHEW PO (08:59)
[2024-07-13] MEDS: Nicotine Polacrilex 2 MG GUM 4 MG BUCCAL ×2 (09:01→15:15)
[2024-07-13] MEDS: clonazePAM 1 MG TABLET PO ×2 (15:14→20:53)
--- NOTE | 2024-07-13 16:06 | HO.PSYCHPN ---
Subjective Subjective Date of Service: 07/13/24 Reason For Visit: Schizoaffective DO Bipolar Type Cocaine Use Mod Interim History: Met with patient; discussed with team Patient seen with asl interpreter Patient reports that he is doing much better and says his mood is good and he no longer has any nightmares. Patient reports he is sleeping and eating well and that all AH is resolved. Mental Status Exam Mental Status Exam Patient Appearance: Appropriate Patient Orientation: Person, Place, Time and Situation Level of Consciousness: Alert Patient Behavior: Appropriate, Talkative, Cooperative and Good Eye Contact Mood Description: Calm ( much better ) Affect Description: Constricted Patient Cognition Impaired: No Ability to Follow Directions: Fair Speech Pattern: Spontaneous Speech Memory Description: Episodic Impaired Hallucinations: None Delusions: Not Present (none expressed) Thought Process: Goal Oriented Thought Content: positive for Suicidal Ideation (denies) Judgement: Fair Judgement and Insight: improved Diagnostics Vital Signs (24Hr): Vital Signs - 24 hr 07/12/24 19:47 07/13/24 08:28 Temperature 99.6 F 98.2 F Pulse Rate 98 112 H Respiratory Rate 20 18 Blood Pressure 130/69 124/77 Pulse Oximetry 99 98 Oxygen Delivery Method Room Air Room Air BMI result Body Mass Index 23.1 Labs 07/09/24 14:09 Medications Medications Current Medications Acetaminophen (Acetaminophen 325 Mg Tablet) 650 mg PO Q6H PRN PRN Reason: Headache/Pain, Scale 1-10 Last Admin: 07/13/24 08:57 Dose: 650 mg Al Hydroxide/Mg Hydroxide (Magnesium Hydrox/Alum Hydrox 30 Ml Oral.Susp) 30 ml PO Q6H PRN PRN Reason: Heartburn/Nausea Amitriptyline HCl (Amitriptyline Hcl 50 Mg Tablet) 50 mg PO BEDTIME PRN PRN Reason: sleep Aspirin (Aspirin 81 Mg Tab.Chew) 81 mg PO DAILY [facility] Last Admin: 07/13/24 08:59 Dose: 81 mg Baclofen (Baclofen 10 Mg Tablet) 5 mg PO TID [facility] Last Admin: 07/13/24 15:13 Dose: 5 mg Clonazepam (Clonazepam 1 Mg Tablet) 1 mg PO DAILY PRN PRN Reason: Anxiety Last Admin: 07/13/24 15:14 Dose: 1 mg Clonazepam (Clonazepam 1 Mg Tablet) 1 mg PO BEDTIME [facility] Last Admin: 07/12/24 21:32 Dose: 1 mg Divalproex Sodium (Divalproex Sodium 500 Mg Tablet.) 1,000 mg PO BID [facility] Last Admin: 07/13/24 08:57 Dose: 1,000 mg Hydroxyzine HCl (Hydroxyzine Hcl 50 Mg Tablet) 50 mg PO BID PRN PRN Reason: Anxiety Last Admin: 07/13/24 03:48 Dose: 50 mg Levothyroxine Sodium (Levothyroxine Sodium 88 Mcg Tablet) 88 mcg PO DAILY@0600 [facility] Last Admin: 07/13/24 07:38 Dose: 88 mcg Magnesium Hydroxide (Milk Of Magnesia 30 Ml Oral.Susp) 30 ml PO DAILY PRN PRN Reason: Constipation Melatonin (Melatonin 3 Mg Tablet) 3 mg PO BEDTIME PRN PRN Reason: Insomnia Last Admin: 07/12/24 21:23 Dose: 3 mg Metoprolol Succinate (Metoprolol Succinate Er 25 Mg Tab.Er.24h) 25 mg PO DAILY [facility]; Protocol Last Admin: 07/13/24 08:57 Dose: 25 mg Nicotine (Nicotine 21 Mg Patch.Td24) 21 mg TRANSDERMA DAILY PRN PRN Reason: smoking cessation Last Admin: 07/10/24 20:09 Dose: 21 mg Nicotine Polacrilex (Nicotine Polacrilex 2 Mg Gum) 4 mg BUCCAL Q2H PRN PRN Reason: Nicotine Cravings Last Admin: 07/13/24 15:15 Dose: 4 mg Olanzapine (Olanzapine 5 Mg Tablet) 5 mg PO TID PRN PRN Reason: agitation Last Admin: 07/13/24 03:48 Dose: 5 mg Olanzapine (Olanzapine 10 Mg Tablet) 20 mg PO BEDTIME [facility] Last Admin: 07/12/24 21:29 Dose: 20 mg Omeprazole (Omeprazole 20 Mg Capsule.) 20 mg PO DAILY@0630 [facility] Last Admin: 07/13/24 07:38 Dose: 20 mg Paliperidone (Paliperidone Er 3 Mg Tab.Er.24) 3 mg PO DAILY [facility] Last Admin: 07/13/24 08:58 Dose: 3 mg Prazosin HCl (Prazosin Hcl 1 Mg Capsule) 2 mg PO BEDTIME [facility]; Protocol Last Admin: 07/12/24 21:26 Dose: 2 mg Tamsulosin HCl (Tamsulosin Hcl 0.4 Mg Capsule) 0.4 mg PO BEDTIME [facility] Last Admin: 02/21/25 21:23 Dose: 0.4 mg Trazodone HCl (Trazodone Hcl 50 Mg Tablet) 50 mg PO BEDTIME MRX1 PRN PRN Reason: Insomnia Last Admin: 07/13/24 03:48 Dose: 50 mg Vitamin D (Cholecalciferol (Vitamin D3) 25 Mcg Tablet) 50 mcg PO DAILY [facility] Last Admin: 07/13/24 08:57 Dose: 50 mcg Allergies Allergies Allergy/AdvReac Type Severity Reaction Status Date / Time lorazepam Allergy Unknown Verified 07/18/23 23:04 Penicillins Allergy Nausea and Verified 07/18/23 23:04 Vomiting Assessment & Plan Assessment & Plan (1) Cocaine use disorder: Status: Acute Code(s): F14.10 - Cocaine abuse, uncomplicated (2) Schizophrenia: Status: Acute Code(s): F20.9 - Schizophrenia, unspecified Plan 07/12/24: Pt retracted 3 day notice and signed a new CV Will meet with OP team next week for discharge planning No med changes today 07/13 Patient reports that he is doing much better and says his mood is good and he no longer has any nightmares. Patient reports he is sleeping and eating well and that all AH is resolved. Patient educated on: diagnosis and medication risk/benefits Informed Consent: understands Reason for continued inpatient stay Substantial Risk for: rapid decompensation Time Spent With Patient Time: Total time managing care of this patient today ____ minutes.
[2024-07-13 19:42] VITALS: BP 116/56; PULSE 94; TEMP 36.8; O2SAT 96
[2024-07-13] MEDS: Prazosin HCL 1 MG CAPSULE 2 MG PO (20:52)
[2024-07-13] MEDS: OLANZapine 10 MG TABLET 20 MG PO (20:53)
[2024-07-13] MEDS: Tamsulosin HCL 0.4 MG CAPSULE PO (21:01)
[2024-07-14] MEDS: traZODone HCL 50 MG TABLET PO (04:04)
[2024-07-14] MEDS: Nicotine Polacrilex 2 MG GUM 4 MG BUCCAL ×2 (04:04→06:51)
[2024-07-14] MEDS: Omeprazole 20 MG CAPSULE.DR PO (06:34)
[2024-07-14] MEDS: Levothyroxine Sodium 88 MCG TABLET PO (06:35)
[2024-07-14 08:00] VITALS: BP 140/82; PULSE 76; TEMP 36.4; O2SAT 95
[2024-07-14] MEDS: Cholecalciferol (Vitamin D3) 25 MCG TABLET 50 MCG PO (08:42)
[2024-07-14] MEDS: Divalproex Sodium 500 MG TABLET.DR 1000 MG PO ×2 (08:43→21:37)
[2024-07-14] MEDS: Aspirin 81 MG TAB.CHEW PO (08:43)
[2024-07-14] MEDS: Paliperidone ER 3 MG TAB.ER.24 PO (08:43)
[2024-07-14] MEDS: Baclofen 10 MG TABLET 5 MG PO ×3 (08:44→21:39)
[2024-07-14] MEDS: Metoprolol Succinate ER 25 MG TAB.ER.24H PO (08:45)
--- NOTE | 2024-07-14 13:31 | P.PNPSI_ITS ---
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 Feels like he is sleeping and eating well. Patient curious about discharge and agrees to discuss with provider upon return Mental Status Exam Mental Status Exam Patient Appearance: Appropriate Patient Orientation: Person, Place, Time and Situation Level of Consciousness: Alert Patient Behavior: Appropriate, Talkative, Cooperative and Good Eye Contact Mood Description: Calm ( much better ) Affect Description: Calm and Appropriate Patient Cognition Impaired: No Ability to Follow Directions: Fair Speech Pattern: Spontaneous Speech Memory Description: Episodic Impaired Hallucinations: None Delusions: Not Present (none expressed) Thought Process: Goal Oriented Thought Content: positive for Suicidal Ideation (denies) Judgement: Fair Judgement and Insight: improved Diagnostics Vital Signs (24Hr): Vital Signs - 24 hr 07/13/24 19:42 07/14/24 08:00 Temperature 98.2 F 97.5 F Pulse Rate 94 76 Blood Pressure 116/56 L 140/82 H Pulse Oximetry 96 95 Oxygen Delivery Method Room Air Room Air BMI result Body Mass Index 23.1 Labs 07/09/24 14:09 Medications Medications Current Medications Acetaminophen (Acetaminophen 325 Mg Tablet) 650 mg PO Q6H PRN PRN Reason: Headache/Pain, Scale 1-10 Last Admin: 07/13/24 08:57 Dose: 650 mg Al Hydroxide/Mg Hydroxide (Magnesium Hydrox/Alum Hydrox 30 Ml Oral.Susp) 30 ml PO Q6H PRN PRN Reason: Heartburn/Nausea Amitriptyline HCl (Amitriptyline Hcl 50 Mg Tablet) 50 mg PO BEDTIME PRN PRN Reason: sleep Aspirin (Aspirin 81 Mg Tab.Chew) 81 mg PO DAILY [facility] Last Admin: 07/14/24 08:43 Dose: 81 mg Baclofen (Baclofen 10 Mg Tablet) 5 mg PO TID [facility] Last Admin: 07/14/24 08:44 Dose: 5 mg Clonazepam (Clonazepam 1 Mg Tablet) 1 mg PO DAILY PRN PRN Reason: Anxiety Last Admin: 07/13/24 15:14 Dose: 1 mg Clonazepam (Clonazepam 1 Mg Tablet) 1 mg PO BEDTIME [facility] Last Admin: 07/13/24 20:53 Dose: 1 mg Divalproex Sodium (Divalproex Sodium 500 Mg Tablet.) 1,000 mg PO BID [facility] Last Admin: 07/14/24 08:43 Dose: 1,000 mg Hydroxyzine HCl (Hydroxyzine Hcl 50 Mg Tablet) 50 mg PO BID PRN PRN Reason: Anxiety Last Admin: 07/13/24 20:53 Dose: 50 mg Levothyroxine Sodium (Levothyroxine Sodium 88 Mcg Tablet) 88 mcg PO DAILY@0600 [facility] Last Admin: 07/14/24 06:35 Dose: 88 mcg Magnesium Hydroxide (Milk Of Magnesia 30 Ml Oral.Susp) 30 ml PO DAILY PRN PRN Reason: Constipation Melatonin (Melatonin 3 Mg Tablet) 3 mg PO BEDTIME PRN PRN Reason: Insomnia Last Admin: 07/12/24 21:23 Dose: 3 mg Metoprolol Succinate (Metoprolol Succinate Er 25 Mg Tab.Er.24h) 25 mg PO DAILY [facility]; Protocol Last Admin: 07/14/24 08:45 Dose: 25 mg Nicotine (Nicotine 21 Mg Patch.Td24) 21 mg TRANSDERMA DAILY PRN PRN Reason: smoking cessation Last Admin: 07/10/24 20:09 Dose: 21 mg Nicotine Polacrilex (Nicotine Polacrilex 2 Mg Gum) 4 mg BUCCAL Q2H PRN PRN Reason: Nicotine Cravings Last Admin: 07/14/24 06:51 Dose: 4 mg Olanzapine (Olanzapine 5 Mg Tablet) 5 mg PO TID PRN PRN Reason: agitation Last Admin: 07/13/24 03:48 Dose: 5 mg Olanzapine (Olanzapine 10 Mg Tablet) 20 mg PO BEDTIME [facility] Last Admin: 07/13/24 20:53 Dose: 20 mg Omeprazole (Omeprazole 20 Mg Capsule.) 20 mg PO DAILY@0630 [facility] Last Admin: 07/14/24 06:34 Dose: 20 mg Paliperidone (Paliperidone Er 3 Mg Tab.Er.24) 3 mg PO DAILY [facility] Last Admin: 07/14/24 08:43 Dose: 3 mg Prazosin HCl (Prazosin Hcl 1 Mg Capsule) 2 mg PO BEDTIME [facility]; Protocol Last Admin: 07/13/24 20:52 Dose: 2 mg Tamsulosin HCl (Tamsulosin Hcl 0.4 Mg Capsule) 0.4 mg PO BEDTIME [facility] Last Admin: 07/13/24 21:01 Dose: 0.4 mg Trazodone HCl (Trazodone Hcl 50 Mg Tablet) 50 mg PO BEDTIME MRX1 PRN PRN Reason: Insomnia Last Admin: 07/14/24 04:04 Dose: 50 mg Vitamin D (Cholecalciferol (Vitamin D3) 25 Mcg Tablet) 50 mcg PO DAILY [facility] Last Admin: 07/14/24 08:42 Dose: 50 mcg Allergies Allergies Allergy/AdvReac Type Severity Reaction Status Date / Time lorazepam Allergy Unknown Verified 07/18/23 23:04 Penicillins Allergy Nausea and Verified 07/18/23 23:04 Vomiting Assessment & Plan Assessment & Plan (1) Cocaine use disorder: Status: Acute Code(s): F14.10 - Cocaine abuse, uncomplicated (2) Schizophrenia: Status: Acute Code(s): F20.9 - Schizophrenia, unspecified Plan 07/12/24: Pt retracted 3 day notice and signed a new CV Will meet with OP team next week for discharge planning No med changes today 07/13 Patient reports that he is doing much better and says his mood is good and he no longer has any nightmares. Patient reports he is sleeping and eating well and that all AH is resolved. 07/14 Patient reports that he is in a good mood, denies AVH, SI. Feels like he is sleeping and eating well. Patient curious about discharge and agrees to discuss with provider upon return Patient educated on: diagnosis and medication risk/benefits Informed Consent: understands Reason for continued inpatient stay Substantial Risk for: stable for discharge Time Spent With Patient Time: Total time managing care of this patient today ____ minutes.
[2024-07-14 20:00] VITALS: BP 143/81; PULSE 98; TEMP 36.6; O2SAT 99
[2024-07-14 21:38] VITALS: BP 143/81
[2024-07-14] MEDS: Prazosin HCL 1 MG CAPSULE 2 MG PO (21:38)
[2024-07-14] MEDS: Tamsulosin HCL 0.4 MG CAPSULE PO (21:38)
[2024-07-14] MEDS: clonazePAM 1 MG TABLET PO (21:43)
[2024-07-14] MEDS: OLANZapine 10 MG TABLET 20 MG PO (21:43)
[2024-07-15] MEDS: traZODone HCL 50 MG TABLET PO ×2 (00:51→21:47)
[2024-07-15] MEDS: Melatonin 3 MG TABLET PO ×2 (00:51→21:48)
[2024-07-15] MEDS: Nicotine Polacrilex 2 MG GUM 4 MG BUCCAL ×3 (00:52→14:07)
[2024-07-15] MEDS: Omeprazole 20 MG CAPSULE.DR PO (07:21)
[2024-07-15] MEDS: Levothyroxine Sodium 88 MCG TABLET PO (07:22)
[2024-07-15] MEDS: Acetaminophen 325 MG TABLET 650 MG PO (07:23)
[2024-07-15 07:56] VITALS: BP 155/70; PULSE 111; RESP 18; TEMP 36.9; O2SAT 98
[2024-07-15] MEDS: Cholecalciferol (Vitamin D3) 25 MCG TABLET 50 MCG PO (08:35)
[2024-07-15] MEDS: Metoprolol Succinate ER 25 MG TAB.ER.24H PO (08:35)
[2024-07-15] MEDS: Paliperidone ER 3 MG TAB.ER.24 PO (08:35)
[2024-07-15] MEDS: Baclofen 10 MG TABLET 5 MG PO ×3 (08:35→21:44)
[2024-07-15] MEDS: Divalproex Sodium 500 MG TABLET.DR 1000 MG PO ×2 (08:36→21:48)
[2024-07-15] MEDS: Aspirin 81 MG TAB.CHEW PO (08:37)
[2024-07-15 09:21] LABS: Valproate 68.3 mcg/mL (50.0-100.0)
[2024-07-15 09:24] LABS: Alanine Aminotransferase 20 U/L (0-40); Albumin Level 3.9 g/dL (3.5-5.0); Alkaline Phosphatase 48 U/L (39-117); Aspartate Amino Transferase 19 U/L (5-37); Bilirubin Direct 0.2 mg/dL (0.0-0.5); Bilirubin Total 0.4 mg/dL (0.0-1.0); Total Protein 6.9 g/dL (6.5-8.0)
[2024-07-15 09:26] LABS: Ammonia 59 umol/L (13-55)
[2024-07-15] MEDS: Loperamide HCl 2 MG CAPSULE 4 MG PO (09:32)
--- NOTE | 2024-07-15 10:35 | P.PNPSI_ITS ---
Subjective Subjective Date of Service: 07/15/24 Reason For Visit: Schizoaffective DO Bipolar Type Cocaine Use Mod Subjective Notes: Conditional Voluntary Healthcare Proxy: No Guardianship: No Medical Problems Affecting Mental Status: No Interim History: Pt reports feeling well, however with reports of stomach pain/ diarrhea this a.m. relieved with Imodium. Discussed discharge planning with pt. His team would like to meet via zoom on 07/17. Pt agrees and would like discharge after the meeting. He will call his daughter to bring clothes and to check on his home. He asks when discharged to have a Span[place] speaking VNA. States he will not be using drugs any more after this experience as the effects were too intense and difficult for him to manage. Medication Compliance: Yes Side effects from medications: No Attending Groups: Intermittent Review of Systems Acute medical concerns: No Review of Systems Review of Systems Reported abdominal pain and diarrhea this a.m. which were relieved with Imodium. Mental Status Exam Mental Status Exam Patient Appearance: Appropriate Patient Orientation: Person, Place, Time and Situation Level of Consciousness: Alert Patient Behavior: Talkative and Good Eye Contact Mood Description: Constricted Affect Description: Constricted Patient Cognition Impaired: No Ability to Follow Directions: Good Speech Pattern: Spontaneous Speech Memory Description: Intact Hallucinations: None Delusions: Not Present Thought Process: Goal Oriented Thought Content: positive for Goal Oriented, positive for Suicidal Ideation (denies) and positive for Homicidal Ideation (denies) Depressive Symptoms: Increased Anxiety Judgement: Good Diagnostics Vital Signs (24Hr): Vital Signs - 24 hr 07/14/24 20:00 07/14/24 21:38 07/15/24 07:56 Temperature 97.9 F 98.4 F Pulse Rate 98 111 H Respiratory Rate 18 Blood Pressure 143/81 H 143/81 H 155/70 H Pulse Oximetry 99 98 Oxygen Delivery Method Room Air Room Air BMI result Body Mass Index 23.1 Labs 07/09/24 14:09 Labs: Laboratory Results - last 48 hr 07/15/24 07/15/24 08:59 09:00 Total Bilirubin 0.4 Direct Bilirubin 0.2 AST 19 ALT 20 Alkaline Phosphatase 48 Ammonia 59 H Total Protein 6.9 Albumin 3.9 Valproic Acid 68.3 Medications Medications Current Medications Acetaminophen (Acetaminophen 325 Mg Tablet) 650 mg PO Q6H PRN PRN Reason: Headache/Pain, Scale 1-10 Last Admin: 07/15/24 07:23 Dose: 650 mg Al Hydroxide/Mg Hydroxide (Magnesium Hydrox/Alum Hydrox 30 Ml Oral.Susp) 30 ml PO Q6H PRN PRN Reason: Heartburn/Nausea Amitriptyline HCl (Amitriptyline Hcl 50 Mg Tablet) 50 mg PO BEDTIME PRN PRN Reason: sleep Aspirin (Aspirin 81 Mg Tab.Chew) 81 mg PO DAILY [facility] Last Admin: 07/15/24 08:37 Dose: 81 mg Baclofen (Baclofen 10 Mg Tablet) 5 mg PO TID [facility] Last Admin: 07/15/24 08:35 Dose: 5 mg Clonazepam (Clonazepam 1 Mg Tablet) 1 mg PO DAILY PRN PRN Reason: Anxiety Last Admin: 07/13/24 15:14 Dose: 1 mg Clonazepam (Clonazepam 1 Mg Tablet) 1 mg PO BEDTIME [facility] Last Admin: 07/14/24 21:43 Dose: 1 mg Divalproex Sodium (Divalproex Sodium 500 Mg Tablet.Dr) 1,000 mg PO BID [facility] Last Admin: 07/15/24 08:36 Dose: 1,000 mg Hydroxyzine HCl (Hydroxyzine Hcl 50 Mg Tablet) 50 mg PO BID PRN PRN Reason: Anxiety Last Admin: 07/13/24 20:53 Dose: 50 mg Levothyroxine Sodium (Levothyroxine Sodium 88 Mcg Tablet) 88 mcg PO DAILY@0600 [facility] Last Admin: 07/15/24 07:22 Dose: 88 mcg Loperamide HCl (Loperamide Hcl 2 Mg Capsule) 4 mg PO Q4H PRN PRN Reason: Diarrhea Last Admin: 07/15/24 09:32 Dose: 4 mg Magnesium Hydroxide (Milk Of Magnesia 30 Ml Oral.Susp) 30 ml PO DAILY PRN PRN Reason: Constipation Melatonin (Melatonin 3 Mg Tablet) 3 mg PO BEDTIME PRN PRN Reason: Insomnia Last Admin: 07/15/24 00:51 Dose: 3 mg Metoprolol Succinate (Metoprolol Succinate Er 25 Mg Tab.Er.24h) 25 mg PO DAILY [facility]; Protocol Last Admin: 07/15/24 08:35 Dose: 25 mg Nicotine (Nicotine 21 Mg Patch.Td24) 21 mg TRANSDERMA DAILY PRN PRN Reason: smoking cessation Last Admin: 07/10/24 20:09 Dose: 21 mg Nicotine Polacrilex (Nicotine Polacrilex 2 Mg Gum) 4 mg BUCCAL Q2H PRN PRN Reason: Nicotine Cravings Last Admin: 07/15/24 05:53 Dose: 4 mg Olanzapine (Olanzapine 5 Mg Tablet) 5 mg PO TID PRN PRN Reason: agitation Last Admin: 07/13/24 03:48 Dose: 5 mg Olanzapine (Olanzapine 10 Mg Tablet) 20 mg PO BEDTIME [facility] Last Admin: 07/14/24 21:43 Dose: 20 mg Omeprazole (Omeprazole 20 Mg Capsule.Dr) 20 mg PO DAILY@0630 [facility] Last Admin: 07/15/24 07:21 Dose: 20 mg Paliperidone (Paliperidone Er 3 Mg Tab.Er.24) 3 mg PO DAILY [facility] Last Admin: 07/15/24 08:35 Dose: 3 mg Prazosin HCl (Prazosin Hcl 1 Mg Capsule) 2 mg PO BEDTIME [facility]; Protocol Last Admin: 07/14/24 21:38 Dose: 2 mg Tamsulosin HCl (Tamsulosin Hcl 0.4 Mg Capsule) 0.4 mg PO BEDTIME [facility] Last Admin: 07/14/24 21:38 Dose: 0.4 mg Trazodone HCl (Trazodone Hcl 50 Mg Tablet) 50 mg PO BEDTIME MRX1 PRN PRN Reason: Insomnia Last Admin: 07/15/24 00:51 Dose: 50 mg Vitamin D (Cholecalciferol (Vitamin D3) 25 Mcg Tablet) 50 mcg PO DAILY [facility] Last Admin: 07/15/24 08:35 Dose: 50 mcg Allergies Allergies Allergy/AdvReac Type Severity Reaction Status Date / Time lorazepam Allergy Unknown Verified 07/18/23 23:04 Penicillins Allergy Nausea and Verified 07/18/23 23:04 Vomiting Assessment & Plan Assessment & Plan (1) Cocaine use disorder: Status: Acute Code(s): F14.10 - Cocaine abuse, uncomplicated (2) Schizophrenia: Status: Acute Code(s): F20.9 - Schizophrenia, unspecified Plan 07/12/24: Pt retracted 3 day notice and signed a new CV Will meet with OP team next week for discharge planning No med changes today 07/13 Patient reports that he is doing much better and says his mood is good and he no longer has any nightmares. Patient reports he is sleeping and eating well and that all AH is resolved. 07/14 Patient reports that he is in a good mood, denies AVH, SI. Feels like he is sleeping and eating well. Patient curious about discharge and agrees to discuss with provider upon return 07/15: Continue current regime. Team meeting 07/17. Pt would like to discharge after this meeting. Reason for continued inpatient stay Substantial Risk for: rapid decompensation Time Spent With Patient Time: Total time managing care of this patient today ____ minutes.
[2024-07-15] MEDS: clonazePAM 1 MG TABLET PO ×2 (14:06→21:46)
[2024-07-15 19:46] VITALS: BP 159/82; PULSE 98; RESP 18; TEMP 36.9; O2SAT 97
[2024-07-15] MEDS: Prazosin HCL 1 MG CAPSULE 2 MG PO (21:46)
[2024-07-15] MEDS: OLANZapine 10 MG TABLET 20 MG PO (21:47)
[2024-07-15] MEDS: Tamsulosin HCL 0.4 MG CAPSULE PO (21:47)
[2024-07-15] MEDS: Amitriptyline HCl 50 MG TABLET PO (21:47)
[2024-07-16] MEDS: Nicotine Polacrilex 2 MG GUM 4 MG BUCCAL ×3 (05:55→16:40)
[2024-07-16] MEDS: Levothyroxine Sodium 88 MCG TABLET PO (05:55)
[2024-07-16] MEDS: Omeprazole 20 MG CAPSULE.DR PO (05:55)
[2024-07-16 08:00] VITALS: BP 116/87; PULSE 106; RESP 18; TEMP 36.8; O2SAT 98
[2024-07-16] MEDS: Metoprolol Succinate ER 25 MG TAB.ER.24H PO (08:42)
[2024-07-16] MEDS: Cholecalciferol (Vitamin D3) 25 MCG TABLET 50 MCG PO (08:43)
[2024-07-16] MEDS: Paliperidone ER 3 MG TAB.ER.24 PO (08:43)
[2024-07-16] MEDS: Divalproex Sodium 500 MG TABLET.DR 1000 MG PO ×2 (08:44→20:33)
[2024-07-16] MEDS: Baclofen 10 MG TABLET 5 MG PO ×3 (08:44→20:31)
[2024-07-16] MEDS: Aspirin 81 MG TAB.CHEW PO (08:44)
[2024-07-16] MEDS: hydrOXYzine HCL 50 MG TABLET PO (09:09)
--- NOTE | 2024-07-16 12:15 | P.PNPSI_ITS ---
Subjective Subjective Date of Service: 07/16/24 Reason For Visit: Schizoaffective DO Bipolar Type Cocaine Use Mod Subjective Notes: Conditional Voluntary Healthcare Proxy: No Guardianship: No Medical Problems Affecting Mental Status: No Interim History: Reports feeling well. Prepared for his team meeting on 07/17. 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 Continues to ask for a [place]ian speaking VNA upon discharge and someone who can help him to continue positive communication with his daughter. Medication Compliance: Yes Side effects from medications: No Attending Groups: Intermittent Review of Systems Acute medical concerns: No Review of Systems Review of Systems Denies Mental Status Exam Mental Status Exam Patient Appearance: Appropriate Patient Orientation: Person, Place, Time and Situation Level of Consciousness: Alert Patient Behavior: Talkative and Good Eye Contact Mood Description: Constricted Affect Description: Constricted Patient Cognition Impaired: No Ability to Follow Directions: Good Speech Pattern: Spontaneous Speech Memory Description: Intact Hallucinations: None Delusions: Not Present Thought Process: Goal Oriented Thought Content: positive for Goal Oriented, positive for Suicidal Ideation (denies) and positive for Homicidal Ideation (denies) Depressive Symptoms: Increased Anxiety Judgement: Good Diagnostics Vital Signs (24Hr): Vital Signs - 24 hr 07/15/24 19:46 07/16/24 08:00 Temperature 98.4 F 98.2 F Pulse Rate 98 106 H Respiratory Rate 18 18 Blood Pressure 159/82 H 116/87 Pulse Oximetry 97 98 Oxygen Delivery Method Room Air Room Air BMI result Body Mass Index 23.1 Labs 07/09/24 14:09 Labs: Laboratory Results - last 48 hr 07/15/24 07/15/24 08:59 09:00 Total Bilirubin 0.4 Direct Bilirubin 0.2 AST 19 ALT 20 Alkaline Phosphatase 48 Ammonia 59 H Total Protein 6.9 Albumin 3.9 Valproic Acid 68.3 Medications Medications Current Medications Acetaminophen (Acetaminophen 325 Mg Tablet) 650 mg PO Q6H PRN PRN Reason: Headache/Pain, Scale 1-10 Last Admin: 07/15/24 07:23 Dose: 650 mg Al Hydroxide/Mg Hydroxide (Magnesium Hydrox/Alum Hydrox 30 Ml Oral.Susp) 30 ml PO Q6H PRN PRN Reason: Heartburn/Nausea Amitriptyline HCl (Amitriptyline Hcl 50 Mg Tablet) 50 mg PO BEDTIME PRN PRN Reason: sleep Last Admin: 07/15/24 21:47 Dose: 50 mg Aspirin (Aspirin 81 Mg Tab.Chew) 81 mg PO DAILY [facility] Last Admin: 07/16/24 08:44 Dose: 81 mg Baclofen (Baclofen 10 Mg Tablet) 5 mg PO TID [facility] Last Admin: 07/16/24 08:44 Dose: 5 mg Clonazepam (Clonazepam 1 Mg Tablet) 1 mg PO DAILY PRN PRN Reason: Anxiety Last Admin: 07/15/24 14:06 Dose: 1 mg Clonazepam (Clonazepam 1 Mg Tablet) 1 mg PO BEDTIME [facility] Last Admin: 07/15/24 21:46 Dose: 1 mg Divalproex Sodium (Divalproex Sodium 500 Mg Tablet.Dr) 1,000 mg PO BID [facility] Last Admin: 07/16/24 08:44 Dose: 1,000 mg Hydroxyzine HCl (Hydroxyzine Hcl 50 Mg Tablet) 50 mg PO BID PRN PRN Reason: Anxiety Last Admin: 07/16/24 09:09 Dose: 50 mg Levothyroxine Sodium (Levothyroxine Sodium 88 Mcg Tablet) 88 mcg PO DAILY@0600 [facility] Last Admin: 07/16/24 05:55 Dose: 88 mcg Loperamide HCl (Loperamide Hcl 2 Mg Capsule) 4 mg PO Q4H PRN PRN Reason: Diarrhea Last Admin: 07/15/24 09:32 Dose: 4 mg Magnesium Hydroxide (Milk Of Magnesia 30 Ml Oral.Susp) 30 ml PO DAILY PRN PRN Reason: Constipation Melatonin (Melatonin 3 Mg Tablet) 3 mg PO BEDTIME PRN PRN Reason: Insomnia Last Admin: 07/15/24 21:48 Dose: 3 mg Metoprolol Succinate (Metoprolol Succinate Er 25 Mg Tab.Er.24h) 25 mg PO DAILY [facility]; Protocol Last Admin: 07/16/24 08:42 Dose: 25 mg Nicotine (Nicotine 21 Mg Patch.Td24) 21 mg TRANSDERMA DAILY PRN PRN Reason: smoking cessation Last Admin: 07/10/24 20:09 Dose: 21 mg Nicotine Polacrilex (Nicotine Polacrilex 2 Mg Gum) 4 mg BUCCAL Q2H PRN PRN Reason: Nicotine Cravings Last Admin: 07/16/24 09:09 Dose: 4 mg Olanzapine (Olanzapine 5 Mg Tablet) 5 mg PO TID PRN PRN Reason: agitation Last Admin: 07/13/24 03:48 Dose: 5 mg Olanzapine (Olanzapine 10 Mg Tablet) 20 mg PO BEDTIME [facility] Last Admin: 07/15/24 21:47 Dose: 20 mg Omeprazole (Omeprazole 20 Mg Capsule.Dr) 20 mg PO DAILY@0630 [facility] Last Admin: 07/16/24 05:55 Dose: 20 mg Paliperidone (Paliperidone Er 3 Mg Tab.Er.24) 3 mg PO DAILY [facility] Last Admin: 07/16/24 08:43 Dose: 3 mg Prazosin HCl (Prazosin Hcl 1 Mg Capsule) 2 mg PO BEDTIME [facility]; Protocol Last Admin: 07/15/24 21:46 Dose: 2 mg Tamsulosin HCl (Tamsulosin Hcl 0.4 Mg Capsule) 0.4 mg PO BEDTIME [facility] Last Admin: 07/15/24 21:47 Dose: 0.4 mg Trazodone HCl (Trazodone Hcl 50 Mg Tablet) 50 mg PO BEDTIME MRX1 PRN PRN Reason: Insomnia Last Admin: 07/15/24 21:47 Dose: 50 mg Vitamin D (Cholecalciferol (Vitamin D3) 25 Mcg Tablet) 50 mcg PO DAILY [facility] Last Admin: 07/16/24 08:43 Dose: 50 mcg Allergies Allergies Allergy/AdvReac Type Severity Reaction Status Date / Time lorazepam Allergy Unknown Verified 07/18/23 23:04 Penicillins Allergy Nausea and Verified 07/18/23 23:04 Vomiting Assessment & Plan Assessment & Plan (1) Cocaine use disorder: Status: Acute Code(s): F14.10 - Cocaine abuse, uncomplicated (2) Schizophrenia: Status: Acute Code(s): F20.9 - Schizophrenia, unspecified Plan 07/12/24: Pt retracted 3 day notice and signed a new CV Will meet with OP team next week for discharge planning No med changes today 07/13 Patient reports that he is doing much better and says his mood is good and he no longer has any nightmares. Patient reports he is sleeping and eating well and that all AH is resolved. 07/14 Patient reports that he is in a good mood, denies AVH, SI. Feels like he is sleeping and eating well. Patient curious about discharge and agrees to discuss with provider upon return 07/15: Continue current regime. Team meeting 07/17. Pt would like to discharge after this meeting. 07/16: Continue tx Reason for continued inpatient stay Substantial Risk for: rapid decompensation Time Spent With Patient Time: Total time managing care of this patient today ____ minutes.
[2024-07-16 20:00] VITALS: BP 139/77; PULSE 104; RESP 18; TEMP 36.8; O2SAT 97
[2024-07-16] MEDS: OLANZapine 10 MG TABLET 20 MG PO (20:30)
[2024-07-16] MEDS: clonazePAM 1 MG TABLET PO (20:32)
[2024-07-16] MEDS: traZODone HCL 50 MG TABLET PO (20:32)
[2024-07-16] MEDS: Melatonin 3 MG TABLET PO (20:32)
[2024-07-16 20:33] VITALS: BP 139/77
[2024-07-16] MEDS: Prazosin HCL 1 MG CAPSULE 2 MG PO (20:33)
[2024-07-16] MEDS: Tamsulosin HCL 0.4 MG CAPSULE PO (20:33)
[2024-07-17] MEDS: Omeprazole 20 MG CAPSULE.DR PO (06:19)
[2024-07-17] MEDS: Levothyroxine Sodium 88 MCG TABLET PO (06:19)
[2024-07-17 09:00] VITALS: BP 133/78; PULSE 108; RESP 18; TEMP 36.6; O2SAT 98
[2024-07-17] MEDS: Metoprolol Succinate ER 25 MG TAB.ER.24H PO (09:10)
[2024-07-17] MEDS: Baclofen 10 MG TABLET 5 MG PO ×3 (09:10→21:23)
[2024-07-17] MEDS: Divalproex Sodium 500 MG TABLET.DR 1000 MG PO ×2 (09:10→21:23)
[2024-07-17] MEDS: Aspirin 81 MG TAB.CHEW PO (09:11)
[2024-07-17] MEDS: Cholecalciferol (Vitamin D3) 25 MCG TABLET 50 MCG PO (09:11)
[2024-07-17] MEDS: Paliperidone ER 3 MG TAB.ER.24 PO (09:11)
--- NOTE | 2024-07-17 10:29 | P.PNPSI_ITS ---
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 Pt denies SI,HI, AH,VH. There are no sx of acute psychosis or roxi Pt plans to work with his team and [facility]NA. Plans no drug use and compliance with medications. Medication Compliance: Yes Side effects from medications: No Attending Groups: No Review of Systems Acute medical concerns: No Medical Review of Systems: unchanged Review of Systems Review of Systems denies Mental Status Exam Mental Status Exam Patient Appearance: Appropriate Patient Orientation: Person, Place, Time and Situation Level of Consciousness: Alert Patient Behavior: Talkative and Good Eye Contact Mood Description: Constricted Affect Description: Constricted Patient Cognition Impaired: No Ability to Follow Directions: Good Speech Pattern: Spontaneous Speech Memory Description: Intact Hallucinations: None Delusions: Not Present Thought Process: Goal Oriented Thought Content: positive for Goal Oriented, positive for Suicidal Ideation (denies) and positive for Homicidal Ideation (denies) Depressive Symptoms: Increased Anxiety Judgement: Good Diagnostics Vital Signs (24Hr): Vital Signs - 24 hr 07/16/24 20:00 07/16/24 20:33 07/17/24 09:00 Temperature 98.3 F 97.8 F Pulse Rate 104 H 108 H Respiratory Rate 18 18 Blood Pressure 139/77 139/77 133/78 Pulse Oximetry 97 98 Oxygen Delivery Method Room Air Room Air BMI result Body Mass Index 23.1 Labs 07/09/24 14:09 Medications Medications Current Medications Acetaminophen (Acetaminophen 325 Mg Tablet) 650 mg PO Q6H PRN PRN Reason: Headache/Pain, Scale 1-10 Last Admin: 07/15/24 07:23 Dose: 650 mg Al Hydroxide/Mg Hydroxide (Magnesium Hydrox/Alum Hydrox 30 Ml Oral.Susp) 30 ml PO Q6H PRN PRN Reason: Heartburn/Nausea Amitriptyline HCl (Amitriptyline Hcl 50 Mg Tablet) 50 mg PO BEDTIME PRN PRN Reason: sleep Last Admin: 07/15/24 21:47 Dose: 50 mg Aspirin (Aspirin 81 Mg Tab.Chew) 81 mg PO DAILY WENDIE Last Admin: 07/17/24 09:11 Dose: 81 mg Baclofen (Baclofen 10 Mg Tablet) 5 mg PO TID WENDIE Last Admin: 07/17/24 09:10 Dose: 5 mg Clonazepam (Clonazepam 1 Mg Tablet) 1 mg PO DAILY PRN PRN Reason: Anxiety Last Admin: 07/15/24 14:06 Dose: 1 mg Clonazepam (Clonazepam 1 Mg Tablet) 1 mg PO BEDTIME REPLACED BY [facility] Last Admin: 07/16/24 20:32 Dose: 1 mg Divalproex Sodium (Divalproex Sodium 500 Mg Tablet.) 1,000 mg PO BID REPLACED BY [facility] Last Admin: 07/17/24 09:10 Dose: 1,000 mg Hydroxyzine HCl (Hydroxyzine Hcl 50 Mg Tablet) 50 mg PO BID PRN PRN Reason: Anxiety Last Admin: 07/16/24 09:09 Dose: 50 mg Levothyroxine Sodium (Levothyroxine Sodium 88 Mcg Tablet) 88 mcg PO DAILY@0600 REPLACED BY [facility] Last Admin: 07/17/24 06:19 Dose: 88 mcg Loperamide HCl (Loperamide Hcl 2 Mg Capsule) 4 mg PO Q4H PRN PRN Reason: Diarrhea Last Admin: 07/15/24 09:32 Dose: 4 mg Magnesium Hydroxide (Milk Of Magnesia 30 Ml Oral.Susp) 30 ml PO DAILY PRN PRN Reason: Constipation Melatonin (Melatonin 3 Mg Tablet) 3 mg PO BEDTIME PRN PRN Reason: Insomnia Last Admin: 07/16/24 20:32 Dose: 3 mg Metoprolol Succinate (Metoprolol Succinate Er 25 Mg Tab.Er.24h) 25 mg PO DAILY REPLACED BY [facility]; Protocol Last Admin: 07/17/24 09:10 Dose: 25 mg Nicotine (Nicotine 21 Mg Patch.Td24) 21 mg TRANSDERMA DAILY PRN PRN Reason: smoking cessation Last Admin: 07/10/24 20:09 Dose: 21 mg Nicotine Polacrilex (Nicotine Polacrilex 2 Mg Gum) 4 mg BUCCAL Q2H PRN PRN Reason: Nicotine Cravings Last Admin: 07/16/24 16:40 Dose: 4 mg Olanzapine (Olanzapine 5 Mg Tablet) 5 mg PO TID PRN PRN Reason: agitation Last Admin: 07/13/24 03:48 Dose: 5 mg Olanzapine (Olanzapine 10 Mg Tablet) 20 mg PO BEDTIME REPLACED BY [facility] Last Admin: 07/16/24 20:30 Dose: 20 mg Omeprazole (Omeprazole 20 Mg Capsule.) 20 mg PO DAILY@0630 REPLACED BY [facility] Last Admin: 07/17/24 06:19 Dose: 20 mg Paliperidone (Paliperidone Er 3 Mg Tab.Er.24) 3 mg PO DAILY REPLACED BY [facility] Last Admin: 07/17/24 09:11 Dose: 3 mg Prazosin HCl (Prazosin Hcl 1 Mg Capsule) 2 mg PO BEDTIME REPLACED BY [facility]; Protocol Last Admin: 07/16/24 20:33 Dose: 2 mg Tamsulosin HCl (Tamsulosin Hcl 0.4 Mg Capsule) 0.4 mg PO BEDTIME REPLACED BY [facility] Last Admin: 07/16/24 20:33 Dose: 0.4 mg Trazodone HCl (Trazodone Hcl 50 Mg Tablet) 50 mg PO BEDTIME MRX1 PRN PRN Reason: Insomnia Last Admin: 07/16/24 20:32 Dose: 50 mg Vitamin D (Cholecalciferol (Vitamin D3) 25 Mcg Tablet) 50 mcg PO DAILY REPLACED BY [facility] Last Admin: 07/17/24 09:11 Dose: 50 mcg Allergies Allergies Allergy/AdvReac Type Severity Reaction Status Date / Time lorazepam Allergy Unknown Verified 07/18/23 23:04 Penicillins Allergy Nausea and Verified 07/18/23 23:04 Vomiting Assessment & Plan Assessment & Plan (1) Cocaine use disorder: Status: Acute Code(s): F14.10 - Cocaine abuse, uncomplicated (2) Schizophrenia: Status: Acute Code(s): F20.9 - Schizophrenia, unspecified Plan 07/12/24: Pt retracted 3 day notice and signed a new CV Will meet with OP team next week for discharge planning No med changes today 07/13 Patient reports that he is doing much better and says his mood is good and he no longer has any nightmares. Patient reports he is sleeping and eating well and that all AH is resolved. 07/14 Patient reports that he is in a good mood, denies AVH, SI. Feels like he is sleeping and eating well. Patient curious about discharge and agrees to discuss with provider upon return 07/15: Continue current regime. Team meeting 07/17. Pt would like to discharge after this meeting. 07/17: Discharge 07/18. Reason for continued inpatient stay Substantial Risk for: stable for discharge Time Spent With Patient Time: Total time managing care of this patient today ____ minutes.
[2024-07-17] MEDS: clonazePAM 1 MG TABLET PO ×2 (11:30→21:23)
[2024-07-17] MEDS: Nicotine Polacrilex 2 MG GUM 4 MG BUCCAL ×2 (13:12→16:04)
[2024-07-17 20:00] VITALS: BP 130/77; PULSE 78; TEMP 36.9; O2SAT 98
[2024-07-17] MEDS: Prazosin HCL 1 MG CAPSULE 2 MG PO (21:23)
[2024-07-17] MEDS: OLANZapine 10 MG TABLET 20 MG PO (21:24)
[2024-07-17] MEDS: traZODone HCL 50 MG TABLET PO (21:24)
[2024-07-17] MEDS: Tamsulosin HCL 0.4 MG CAPSULE PO (21:26)
[2024-07-18] MEDS: Nicotine Polacrilex 2 MG GUM 4 MG BUCCAL (05:27)
[2024-07-18] MEDS: Levothyroxine Sodium 88 MCG TABLET PO (06:01)
[2024-07-18] MEDS: Omeprazole 20 MG CAPSULE.DR PO (06:01)
[2024-07-18 08:17] LABS: Ammonia 53 umol/L (13-55)
[2024-07-18 08:24] LABS: Lipase 30 U/L (8-78)
[2024-07-18 08:30] VITALS: BP 134/70; PULSE 103; RESP 18; TEMP 36.8; O2SAT 96
[2024-07-18] MEDS: Paliperidone ER 3 MG TAB.ER.24 PO (08:45)
[2024-07-18] MEDS: Aspirin 81 MG TAB.CHEW PO (08:45)
[2024-07-18] MEDS: Divalproex Sodium 500 MG TABLET.DR 1000 MG PO (08:45)
[2024-07-18] MEDS: Baclofen 10 MG TABLET 5 MG PO (08:45)
[2024-07-18] MEDS: Cholecalciferol (Vitamin D3) 25 MCG TABLET 50 MCG PO (08:45)
[2024-07-18] MEDS: Metoprolol Succinate ER 25 MG TAB.ER.24H PO (08:45)
--- NOTE | 2024-07-18 14:33 | PM.PSYDC ---
DS: Providers Provider Date of Service: 07/18/24 Date of admission: 07/09/24 12:32 Date of discharge: 07/18/24 Primary care physician: Unknown Physician Admitting clinician: Milagros Rodriguez Attending physician on admission: Ag Cespedes Consults: 07/09/24 13:02 Consult to Hospitalist Routine Comment: Consulting Provider: [facility] Reason For Exam: admission physical Attending physician on discharge: Ag Cespedes Discharging clinician: Milagros Rodriguez DS: Diagnosis Discharge Diagnosis (1) Cocaine use disorder: Status: Acute (2) Schizophrenia: Status: Acute DS: Medications Discharge Medications Home Medications: Home Medications ?Medication ?Instructions ?Recorded ?Confirmed hydroxyzine pamoate 50 mg capsule 50 mg PO BID PRN Anxiety 07/09/24 07/09/24 Previous Rx's ?Medication ?Instructions ?Recorded acetaminophen 325 mg tablet 650 mg (2 x 325 mg) PO Q6H PRN 07/18/24 Headache/Pain, Scale 1-10 #0 tabs amitriptyline 50 mg tablet 50 mg PO BEDTIME PRN sleep #30 tabs 07/18/24 aspirin 81 mg chewable tablet 81 mg PO DAILY #30 tabs 07/18/24 cholecalciferol (vitamin D3) 25 50 mcg (2 x 25 mcg (1,000 unit)) 07/18/24 mcg (1,000 unit) tablet PO DAILY #30 tabs clonazepam 1 mg tablet 1 mg PO BEDTIME #60 tabs 07/18/24 clonazepam 1 mg tablet 1 mg PO DAILY PRN Anxiety #0 tabs 07/18/24 divalproex 500 mg tablet,extended 1,000 mg (2 x 500 mg) PO BID #120 07/18/24 release 24 hr (Depakote ER) tabs levothyroxine 88 mcg tablet 88 mcg PO DAILY@0600 #30 tabs 07/18/24 melatonin 3 mg tablet 3 mg PO BEDTIME PRN Insomnia #30 07/18/24 tabs metoprolol succinate 25 mg 25 mg PO DAILY #30 tabs 07/18/24 tablet,extended release 24 hr naloxone 4 mg/actuation nasal 4 mg intranasal Q2M PRN opioid 07/18/24 spray (Narcan) overdose #2 ea nicotine (polacrilex) 2 mg gum 4 mg buccal Q2H PRN Nicotine 07/18/24 Cravings #100 ea olanzapine 20 mg tablet 20 mg PO BEDTIME #30 tabs 07/18/24 omeprazole 20 mg capsule,delayed 20 mg PO DAILY@0630 #30 caps 07/18/24 release paliperidone palmitate 234 mg/1.5 234 mg (1.5 mL) IM Q30D #1.5 mL 07/18/24 mL intramuscular syringe (Invega Sustenna) prazosin 1 mg capsule 2 mg PO BEDTIME #60 caps 07/18/24 tamsulosin 0.4 mg capsule 0.4 mg PO BEDTIME #30 caps 07/18/24 trazodone 50 mg tablet 50 mg PO BEDTIME MRX1 PRN Insomnia 07/18/24 #60 tabs Mental Status Exam Mental Status Exam Patient Appearance: Appropriate Patient Orientation: Person, Place, Time and Situation Level of Consciousness: Alert Patient Behavior: Talkative and Good Eye Contact Mood Description: Constricted Affect Description: Constricted Patient Cognition Impaired: No Ability to Follow Directions: Good Speech Pattern: Spontaneous Speech Memory Description: Intact Hallucinations: None Delusions: Not Present Thought Process: Goal Oriented Thought Content: positive for Goal Oriented, positive for Suicidal Ideation (denies) and positive for Homicidal Ideation (denies) Depressive Symptoms: Increased Anxiety Judgement: Good Data Data Completed and Pending Completed studies during hospitalization [Text1]: 07/15/24 07/15/24 07/18/24 08:59 09:00 08:09 Total Bilirubin 0.4 Direct Bilirubin 0.2 AST 19 ALT 20 Alkaline Phosphatase 48 Ammonia 59 H 53 Total Protein 6.9 Albumin 3.9 Lipase Valproic Acid 68.3 07/18/24 08:10 Total Bilirubin Direct Bilirubin AST ALT Alkaline Phosphatase Ammonia Total Protein Albumin Lipase 30 Valproic Acid DS: Summary Hospital Course Hospital Course: Admission to adult psychiatry for exacerbation of schizophrenia and cocaine use disorder. Pt broke into his VNA med box prior to admission and questionably overdosed. He reported noncompliance with medication and use of cocaine prior to admission. He had no symptoms or adverse effects after admission. On the unit, he was without behavioral issues. He was compliant with medications and care, did sign a three day notice, retracted so he could have a team meeting with [facility] and plans discharge today to his apartment. He is anxious to meet with his [facility] acute care occupational therapist to discuss a possible employment opportunity which was discussed prior to his admission. He denies SI,HI,AH, VH. Labs this a.m. are unremarkable. Status at Discharge Functional status at discharge: independent ambulation Overall status at discharge: patient is progressing back to baseline Time Spent with Patient Time attestation: Total time managing care of this patient today ____ minutes. Time spent: Less than 30 minutes Discharge Plan Discharge Anticipated Discharge Date/Time: 07/18/24 09:00 Patient Disposition: Home, Self-Care Discharge Diagnosis: Schizophrenia Cocaine Use Disorder Referrals: [facility] [Other] - 1 Week (fax- [phone] Visiting RN to re start at D/C ) [facility] [Other] - 08/26/24 12:20 pm Jessica Solomon PA [[facility] [employer] [facility]] - 1 Week (office will call pt with follow up appointment ) Discharge Medications: New acetaminophen 325 mg Tablet 650 mg PO Q6H PRN (Reason: Headache/Pain, Scale 1-10) Qty: 0 0RF nicotine (polacrilex) 2 mg Gum 4 mg buccal Q2H PRN (Reason: Nicotine Cravings) Qty: 100 0RF prazosin 1 mg Capsule 2 mg PO BEDTIME Qty: 60 0RF Protocol: Hold for SBP< HOLD for SBP < : 90 amitriptyline 50 mg Tablet 50 mg PO BEDTIME PRN (Reason: sleep) Qty: 30 0RF tamsulosin 0.4 mg Capsule 0.4 mg PO BEDTIME Qty: 30 0RF aspirin 81 mg Tablet,Chewable 81 mg PO DAILY Qty: 30 0RF metoprolol succinate 25 mg Tablet Extended Release 24 Hr 25 mg PO DAILY Qty: 30 0RF Protocol: Hold for SBP/HR < HOLD for SBP < : 90 HOLD for HR < : 60 trazodone 50 mg Tablet 50 mg PO BEDTIME MRX1 PRN (Reason: Insomnia) Qty: 60 0RF clonazepam 1 mg Tablet 1 mg PO DAILY PRN (Reason: Anxiety) Qty: 0 0RF clonazepam 1 mg Tablet 1 mg PO BEDTIME Qty: 60 0RF levothyroxine 88 mcg Tablet 88 mcg PO DAILY@0600 Qty: 30 0RF omeprazole 20 mg Capsule,Delayed Release(Dr/Ec) 20 mg PO DAILY@0630 Qty: 30 0RF melatonin 3 mg Tablet 3 mg PO BEDTIME PRN (Reason: Insomnia) Qty: 30 0RF cholecalciferol (vitamin D3) 25 mcg (1,000 unit) Tablet 50 mcg PO DAILY Qty: 30 0RF divalproex [Depakote ER] 500 mg tablet extended release 24 hr 1,000 mg PO BID Qty: 120 0RF olanzapine 20 mg tablet 20 mg PO BEDTIME Qty: 30 0RF naloxone [Narcan] 4 mg/actuation spray,non-aerosol 4 mg intranasal Q2M PRN (Reason: opioid overdose) Qty: 2 0RF Rx Instructions: spray 1 dose into ONE nostril; alternate nostrils w each dose until help arrives Invega Sustenna 234 mg/1.5 mL syringe 234 mg IM Q30D Qty: 1.5 0RF Rx Instructions: Due 07/23/24. Continued hydroxyzine pamoate 50 mg capsule 50 mg PO BID PRN (Reason: Anxiety) Discontinued divalproex 250 mg tablet,delayed release (DR/EC) 750 mg PO BID clonazepam 1 mg tablet 1 mg PO DAILY PRN (Reason: Anxiety) olanzapine 10 mg tablet 20 mg PO BEDTIME melatonin 3 mg tablet 3 mg PO BEDTIME PRN (Reason: Sleep) levothyroxine 88 mcg tablet 88 mcg PO DAILY amitriptyline 25 mg tablet 50 mg PO BEDTIME PRN (Reason: Sleep) omeprazole 20 mg capsule,delayed release(DR/EC) 20 mg PO DAILY metoprolol succinate 25 mg tablet extended release 24 hr 25 mg PO DAILY prazosin 2 mg capsule 2 mg PO DAILY cholecalciferol (vitamin D3) 50 mcg (2,000 unit) tablet 50 mcg PO DAILY aspirin 81 mg tablet,delayed release (DR/EC) 81 mg PO DAILY Discharge Orders: Discharge Order (Routine); Ordered 07/18/24 Ordered By: Milagros Rodriguez Diet: Advance to usual diet Activity on Discharge: As tolerated Stand Alone Forms: Patient Portal Discharge page, Community Support Print Language: Bahamian Care Plan Goals: Mood and Behavioral Stabilization Abstinence from Substances Health Concerns: Mood and Behavioral Stabilization Abstinence from Substances Plan of Treatment: Attend scheduled appointments Follow VNA plan of care Take medications as directed. Invega Sustenna Injection due 07/23/24. Assessment: No SI,HI,AH,VH. No sx of acute roxi or psychosis. Pt agrees with plan of care. Discharge Date/Time: 07/18/24 09:30
== END 2024-07-18 09:30 | disposition home or self-care (01) | DRG 750 ==
PROVIDERS: Admitting Provider Psychiatry & Neurology Psychiatry; Visit Provider Clinical Nurse Specialist Psychiatric/Mental Health, Adult
DX: F20.9 Schizophrenia, unspecified (principal); G40.909 Epilepsy, unspecified, not intractable, without status epilepticus; E03.9 Hypothyroidism, unspecified; K21.9 Gastro-esophageal reflux disease without esophagitis; F14.10 Cocaine abuse, uncomplicated; F17.210 Nicotine dependence, cigarettes, uncomplicated; Z23 Encounter for immunization; Z71.6 Tobacco abuse counseling; Z91.148 Patient's other noncompliance with medication regimen for other reason; Z79.82 Long term (current) use of aspirin; Z79.890 Hormone replacement therapy; Z79.899 Other long term (current) drug therapy
CPT/HCPCS: 36415; 80053; 80061; 80076; 80164; 81001; 82140; 82947; 83036; 83690; 84443; 90656

== ENCOUNTER → 2024-07-09 12:32 | Outpatient (BNV) | payer OTHER, SELFPAY | PROVIDERS: Admitting Provider Psychiatry & Neurology Psychiatry; Visit Provider Clinical Nurse Specialist Psychiatric/Mental Health, Adult | DX: F14.10 Cocaine abuse, uncomplicated (principal); F20.9 Schizophrenia, unspecified | CPT/HCPCS: 99232 ==

== ENCOUNTER → 2024-07-09 12:32 | Outpatient (BNV) | payer MEDICAID, SELFPAY | PROVIDERS: Admitting Provider Psychiatry & Neurology Psychiatry; Visit Provider Student in an Organized Health Care Education/Training Program | DX: F20.9 Schizophrenia, unspecified (principal); F14.10 Cocaine abuse, uncomplicated | CPT/HCPCS: 99221 ==

== ENCOUNTER 2024-07-18 16:01 | Inpatient (IN) | payer OTHER, SELFPAY ==
--- NOTE | 2024-07-18 | ECG_ITS ---
Test Reason : MED CLEAR Blood Pressure : */* mmHG Vent. Rate : 95 BPM Atrial Rate : 95 BPM P-R Int : 150 ms QRS Dur : 88 ms QT Int : 378 ms P-R-T Axes : 37 12 28 degrees QTcB Int : 475 ms Normal sinus rhythm Normal ECG When compared with ECG of 21-Jul-2023 10:12, No significant change was found Referred By: Chrsisy Spann Electronically Signed By: Caleb Tipton
[2024-07-18 16:15] VITALS: BP 127/78; BP 152/74; PULSE 100; PULSE 93; RESP 16; TEMP 37.7; O2SAT 98; BMI 23.5
[2024-07-18 16:25] VITALS: RESP 16
[2024-07-18 16:48] LABS: Appearance Urine Clear; Color Urine Yellow; Glucose Urine UA Negative (Negative); Leukocyte Esterase Urine Negative (Negative); Nitrite Urine Negative (Negative); Specific Gravity - Urine 1.015 (1.005-1.025); Urine Blood Negative (Negative); Urine Ketones Negative (Negative); Urine Protein Negative (Neg-Trace)
[2024-07-18 16:56] LABS: Amphetamine Screen Urine Not Detected (Not Detect); Barbiturates, Urine Not Detected (Not Detect); Benzodiazepines Screen Urine Not Detected (Not Detect); Buprenorphine Scr Not Detected (Not Detect); Cannabinoid Screen Urine Not Detected (Not Detect); Cocaine Screen Urine Not Detected (Not Detect); Fentanyl, urine Not Detected (Not Detect); Methadone Screen, Urine Not Detected (Not Detect); Opiate Screen Urine Not Detected (Not Detect); Oxycodone Screen Urine Not Detected (Not Detect); Phencyclidine Screen Urine Not Detected (Not Detect)
--- NOTE | 2024-07-18 16:58 | MHC.CARE ---
Pt was assessed in the community by [facility] crisis and was transported on a section 12A. He is an inpatient bedsearch. It was reported by [facility] that he was a recent discharge [place] [facility] [place] and he is presenting as suicidal. homicidal, paranoia and disorganized.
[2024-07-18 17:39] LABS: MANUAL DIFF FLAG NO
[2024-07-18 17:41] LABS: Basophils Percent Auto 0.3 % (0-2); Eosinophils Absolute Auto 0.1 X10*3/uL (0.0-0.4); Eosinophils Percent Auto 1.5 % (0-4); Hematocrit 32.6 % (42.0-52.0); Hemoglobin 10.9 g/dl (14.0-18.0); Imm Gran Abs Auto 0.34 X10*3/uL (0.00-0.03); Imm Gran Pct Auto 3.7 % (0.0-0.4); Lymphocytes Absolute Auto 1.7 X10*3/uL (1.2-4.9); Lymphocytes Percent Auto 18.4 % (20-40); Mean Corpuscular HGB Conc 33.4 g/dl (31.0-36.0); Mean Corpuscular Hemoglobin 33.5 pg (27.0-33.0); Mean Corpuscular Volume 100.3 fL (80.0-98.0); Mean Platelet Volume 9.8 fL (9.4-12.4); Monocytes Absolute Auto 0.8 X10*3/uL (0.1-1.2); Monocytes Percent Auto 9.1 % (2-11); Neutrophils Absolute Auto 6.2 x10*3/uL (2.0-8.3); Platelet Count 237 X10*3/uL (160-400); Red Blood Count 3.25 X10*6/uL (4.60-5.80); White Blood Count 9.2 X10*3/uL (4.8-10.8)
[2024-07-18 17:53] LABS: Valproate 70.4 mcg/mL (50.0-100.0)
[2024-07-18 17:55] LABS: Alanine Aminotransferase 23 U/L (0-40); Alkaline Phosphatase 55 U/L (39-117); Anion Gap 12 (12-20); Aspartate Amino Transferase 17 U/L (5-37); Bilirubin Total 0.3 mg/dL (0.0-1.0); Blood Urea Nitrogen 19 mg/dL (9-16); Carbon Dioxide 23 mmol/L (22-29); Chloride 109 mmol/L (96-108); Creatinine Clr Calc Pharmacy 88.4; Estimated Glomerular Filt Rate > 60; Ethanol < 10 mg/dL; Glucose Random 125 mg/dL (60-115); Sodium 140 mmol/L (135-145); Total Protein 7.3 g/dL (6.5-8.0)
--- OUTSIDE RECORDS SUMMARY | 2024-07-18 19:30 | XMS_ITS | Encounter Summary ---
Author Organization [facility] Address [address] [place] [address] Care Team Providers Care Outside Food Server Name Role Phone Jessica Solomon PA-C Primary Care Provider [phone] Reason for Visit * Reason Comments Care Coordination Encounter Details Date Type Department Care Team ([facility] Contact Info) Description 07/11/2024 Interim Notes Caring [facility] Main [address] [place] [phone] Barbie Lee [address] [place] [address] Social History Tobacco Use Types Packs/Day Years Used Date Smoking Tobacco: Every Day Cigarettes 0.5 47.2 Started: 05/22/1977 Passive Smoke Exposure: Never Smokeless [...] as of this encounter Progress Notes * Barbie Lee - 07/11/2024 8:27 AM EST Patien?t identified through ADT feed. Patient admitted 07/08/24 ad discharged 07/09/24 from [facility]. Notification sent to Alena HENSON and Carmen CHESTER. documented in this encounter Plan of Treatment Upcoming Encounters Date Type Department Care Team (Late st Contact Info) Description 07/29/2024 1:00 PM EDT / Visits [address] [phone] Monae Hauser LCSW [address] [place] [phone] 07/31/2024 8:00 AM EDT Telemedicine Visit [address] [phone] Jessica Solomon PA-C [address] [place] [address] 09/02/2024 9:20 AM EDT Office Visit [address] [phone] Chikis Saucedo [address] [place] [phone] documented as of this encounter Visit Diagnoses Not on filedocumented in this encounter Additional Health Concerns Assessment Noted Time PHQ-9 Depression Total Score: 0 02/27/20 24 11:34 AM PDT documented as of this encounter Care Teams Outside Food Server Relationship Specialty Start Date End Date Jessica Solomon PA-C [address] [place] [phone] PCP - General Internal Medicine 02/12/19 documented as of this encounter
--- OUTSIDE RECORDS SUMMARY | 2024-07-18 19:30 | XMS_ITS | Encounter Summary ---
Author Organization [facility] Address [address] [place] [address] Care Team Providers Care Blueprint Reproducer Name Role Phone Jessica Solomon Primary Care Provider [phone] Reason for Visit * Reason Comments Suicidal Homicidal Encounter Details Date Type Department Care Team (Late st Contact Info) Description 07/08/2024 1:49 AM EST - 07/09/2024 12:16 PM EST Emergency [facility] Emergency [address] [place] [phone] Josemanuel Suh MD [address] [place] [address] Jignesh Mata MD [address] [place] [phone] Schizoaffective disorder, bipolar type (CMS/HCC) (Primary Dx); Other schizophrenia (CMS/HCC); Overdose of undetermined intent, initial encounter Discharge Disposition: Psychiatric [facility] Social History Tobacco [...] Discharge Disposition Disposition Code Departure Means Destination [facility] documented in this encounter Progress Notes * Bunny Aleman RN - 07/09/2024 11:02 AM EST Report given to EZIO Sam[place] at [facility] [place]. * Gabriella Rodriguez - 07/09/2024 10:22 AM EST Patient accepted to [facility], unit M5, by Dr Jose Baker. [...] to be sent all the way to [place] and will take days to come back. [...] running. Patientwas stopped in waiting room and railroad police officer spoke to him and ghanaian ans redirected him. Patientstated he watned water [...] was seen with the help of a mortar mixer operator, was inappropriately answering questions, rubbing his [...] Procedure Abnormality Status --------- ------ CBC auto differential[[id number]] Abnormal Final result Please view results for these tests on the individual orders. VALPROIC ACID LEVEL, TOTAL AND FREE CBC AND DIFFERENTIAL Narrative: The following orders were created for panel order CBC and differential. Procedure Abnormality Status --------- ------ CBC auto differential[[id number]] Please view results for these tests on [...] I am awaiting callback facilitated by the [place] line. In the meantime, laboratory workup is largely reassuring. No electrolyte disturbances. CBC and coags are within normal limits. Urine and urine drug screen are currently pending, Depakote level is also pending. No EKG changes and vitals are stable. Medications - No data to display ED Course as of 07/08/24704Jul 08, 2024 0536 Received return communication from [employer]. They recommend that patient be observed forperiod [...] 12:10 PM ESTAssociated Order(s): IP CONSULT TO MACHINE RIVETER Images from the original note were not included. Behavioral Health Services - Crisis Assessment Important times Time of arrival: 07/08/24 1:49 am Time of referral: 07/08/24 1:55 am Time of readiness: 07/08/24 10:30 am Time assessment started: 07/08/24 11:00 am Time of disposition: 07/08/24 12:00 pm Location: [facility] Emergency Department Consulted case with: Radha [...] was seen with the help of a mortar mixer operator, was inappropriately answering questions, rubbing his [...] He was stopped in waiting room and railroad police officer spoke to him and ghanaian. He was given Haldol 5 mg and [...] Collaterals, contact information, and engagement level: Therapist: [facility] bilingual social worker Audreyh [phone] Psychiatrist: NOE Nance [phone] PCP: [facility] [phone] Family: Daughter Mila Chavez (ghanaian speaking only) [phone] Other: [facility] services has a locked box Mental Status [...] clean for 10 years while incarcerated [facility]. Mental Health Treatment History: Outpatient Mental Health Treatment: Has providers. Previous or Current Psychological Diagnosis: Schizoaffective D/O and Cocaine use Prior Psychiatric Hospitalizations/Residential Treatment Facilities: Sharif is known to [facility]. He has a history of several [...] pleasure to assist Sharif Chavez here at [facility]. This report is written and finalized by: Daphne Durand MS Behavioral Health Specialist [facility] (Tel): [phone] / : [phone] documented in this encounter Plan of Treatment Not on file documented as of this encounter Procedures Procedure [...] AND DIFFERENTIAL STAT 07/08/2024 2:55 AM EST VALPROIC ACID LEVEL, TOTAL AND FREE STAT 07/08/2024 2:55 AM EST MAGNESIUM Add-On [...] GEMUSE QTc 484 ms GEMUSE P Wave Deep Gap 27 degrees GEMUSE R Deep Gap 13 degrees GEMUSE T Deep Gap 33 degrees GEMUSE ECG Interpretation Sinus rhythm with Premature atrial complexes Prolonged QT Abnormal ECG When compared with ECG of 08-JUL-2024 06:12, (unconfirmed ) Premature atrial complexes are now Present Confirmed by Yolis JAMISON JAMES ([id number]) on 07/08/2024 2:16:33 PM GEMUSE 07/08/2024 7:44 AM EST 07/08/2024 2:16 PM EST Laurence SALDIVAR ECG ORDERABLES Final Result GEMUSE * (ABNORMAL) Acetaminophen level (07/08/2024 7:44 AM EST) Acetaminophen Level <2.0(L) 10.0 - 30.0 mcg/mL LAB CHEMISTRY METHOD 07/08/2024 8:41 AM EST [facility] Blood Venous blood specimen / Unknown Venipuncture / Unknown 07/08/2024 7:44 AM EST 07/08/2024 8:12 AM EST us Josemanuel Suh MD LAB BLOOD ORDERABLES Shara l Result [facility] [address] [place] [address], * (ABNORMAL) CBC auto differential (07/08/2024 7:44 AM EST) WBC 7.1 4.8 - 10.8 K/mcL LAB HEMETOLOGY METHOD 07/08/2024 8:20 AM EST [facility] RBC 3.50(L) 4.50 - 5.50 [...] 8:20 AM [facility] Basophils Absolute 0.04 0.00 - 0.20 K/mcL LAB HEMETOLOGY METHOD 07/08/2024 8:20 AM EST [facility] Immature Granulocytes Absolute 0.02 0.00 - 0.03 K/mcL LAB HEMETOLOGY METHOD 07/08/2024 8:20 AM EST [facility] Blood Venous blood specimen / Unknown Venipuncture / Unknown 07/08/2024 7:44 AM EST 07/08/2024 8:12 AM EST Laurence SALDIVAR LAB BLOOD ORDERABLES Final Resul t Performing Organization Address City/[facility]/ZIP Co de Phone Number [facility] [address] [place] [address], [place] [phone] * Magnesium (07/08/2024 7:44 AM EST) Magnesium 1.9 1.9 - 2.6 mg/dL LAB CHEMISTRY METHOD 07/08/2024 8:41 AM EST [facility] Blood Venous blood specimen / Unknown Venipuncture / Unknown 07/08/2024 7:44 AM EST 07/08/2024 8:12 AM EST aLurence SALDIVAR LAB BLOOD ORDERABLES Final Resul t Performing Organization Address [facility]/ZIP Co de Phone Number [facility] [address] [place] [address], [place] [phone] * (ABNORMAL) Comprehensive metabolic panel (07/08/2024 7:44 AM EST) Sodium 142 133 - 145 mmol/L LAB CHEMISTRY METHOD 07/08/2024 8:41 AM EST [facility] Potassium 4.1 3.5 - 5.5 mmol/L LAB CHEMISTRY METHOD 07/08/2024 8:41 AM EST [facility] Chloride 112(H) 96 - 110 mmol/L LAB CHEMISTRY METHOD 07/08/2024 8:41 AM EST [facility] CO2 22 21 - 32 [...] 8:41 AM [facility] Total Bilirubin 0.6 0.0 - 1.4 mg/dL LAB CHEMISTRY METHOD 07/08/2024 8:41 AM EST [facility] Blood Venous blood specimen / Unknown Venipuncture / Unknown 07/08/2024 7:44 AM EST 07/08/2024 8:12 AM EST us Laurence SALDIVAR LAB BLOOD ORDERABLES Final Resul t [facility] ([facility]) [facility] [address] [place] [address], [place] [phone] * CT Cervical Spine wo Contrast (07/08/2024 [...] by: Nathanael Brown MD on 07/08/2024 06:53:16 us Laurence SALDIVAR IMG CT PROCEDURES Final Result * CT Head [...] SALDIVAR IMG CT PROCEDURES Final Result * ECG 12 lead (07/08/2024 6:12 AM EST) Ventricular Rate ECG 78 BPM GEMUSE Atrial Rate 78 BPM GEMUSE P-R Interval 128 ms GEMUSE QRS Duration 98 ms GEMUSE Q-T Interval 422 ms GEMUSE QTc 481 ms GEMUSE P Wave Deep Gap 6 degrees GEMUSE R Deep Gap 12 degrees GEMUSE T Deep Gap 29 degrees GEMUSE ECG Interpretation Normal sinus rhythm Prolonged QT Abnormal ECG When compared with ECG of 08-JUL-2024 02:51, (unconfirmed) No significant change was found Confirmed by Yolis JAMISON JAMES ([id number]) on 07/08/2024 2:16:14 PM GEMUSE 07/08/2024 6:12 AM EST 07/08/2024 2:16 PM EST Laurence SALDIVAR ECG ORDERABLES Final Result Performing Organization Address [facility] Co de Phone Number LACI * Methadone, urine (07/08/2024 6:01 AM EST) Methadone Screen, Urine Negative Negative LAB CHEMISTRY METHOD 07/08/2024 6:48 AM EST [facility] Comment: Assay cutoff 300 ng/mL [...] ORDERABLES Shara l Result Performing Organization Address [facility] Co de Phone Number [facility] [address] [place] [address], [place] [phone] * Phencyclidine, urine (07/08/2024 6:01 AM EST) PCP Scrn, Ur Negative Negative LAB CHEMISTRY METHOD 07/08/2024 6:48 AM EST [facility] Comment: Assay cutoff 25 ng/mL [...] ORDERABLES Shara l Result Performing Organization Address [facility]/ZIP Co de Phone Number [facility] [address] [place] [address], [place] [phone] * Buprenorphine screen, urine (07/08/2024 6:01 AM EST) Pathologist [facility] Buprenorphine Screen Urine Negative Negative LAB CHEMISTRY METHOD 07/08/2024 6:48 AM [facility] Urine Urine specimen obtained by clean catch procedure / Unknown Non-blood Collection / Unknown 07/08/2024 6:01 AM EST 07/08/2024 6:23 AM EST [facility] - 07/08/2024 6:48 AM EST Assay cutoff 5 ng/mL Semi-quantitative assay for screening purposes only. Unconfirmed screening result should not be used for non-medical purposes. *ALTERNATE METHOD CONFIRMATION DONE UPON REQUEST ONLY* Josemanuel Suh MD LAB URINE ORDERABLES Shara l Result [facility] [address] [place] [address], * (ABNORMAL) Drug abuse screen 8a panel, urine (07/08/2024 6:01 AM EST) [facility] Amphetamine Screen, Ur Negative Negative LAB CHEMISTRY METHOD 5 6:48 AM [facility] Comment:Certain OTC medicati ons containing ephedrine, phenylephrine, pseudoephedrine and phenylpropanolamine can cause false positive results. Barbiturate Screen, Ur Negative Negative LAB CHEMISTRY METHOD 5 6:48 AM [facility] Benzodiazepine Screen, Ur Negative Negative LAB CHEMISTRY METHOD 5 6:48 AM [facility] Cocaine Screen, Ur Positive(A ) Negative LAB CHEMISTRY METHOD 5 6:48 AM [facility] Opiate Screen, Ur Negative Negative LAB CHEMISTRY METHOD 5 6:48 AM [facility] Cannabinoid (THC) Screen, Ur Negative Negative LAB CHEMISTRY METHOD 5 6:48 AM EST [facility] Comment:Specimens from patie nts taking pantoprazole sodium (Protonix) have been shown to produce false positive results. Oxycodone Screen, Ur Negative Negative LAB CHEMISTRY METHOD 5 6:48 AM EST [facility] Fentanyl, Ur Negative Negative LAB CHEMISTRY METHOD 5 6:48 AM EST [facility] Urine Urine specimen obtained by clean catch procedure / Unknown Non-blood Collection / Unknown 07/08/2024 6:01 AM EST 07/08/2024 6:23 AM EST [facility] - 07/08/2024 6:48 AM EST [...] MD LAB URINE ORDERABLES Shara alcantar Result [facility]) [facility] [address] [place] [address], * Magnesium (07/08/2024 2:55 AM EST) Magnesium 2.0 1.9 - 2.6 mg/dL LAB CHEMISTRY METHOD 07/08/2024 4:14 AM EST [facility] Blood Venous blood specimen / Unknown Venipuncture / Unknown 07/08/2024 2:55 AM EST 07/08/2024 3:36 AM EST Laurence SALDIVAR LAB BLOOD ORDERABLES Final Resul t Performing Organization Address [facility]/ZIP Co de Phone Number [facility] [address] [place] [address], [place] [phone] * Protime-INR (07/08/2024 2:55 AM EST) Pathologist [facility] Protime 12.6 10.6 - 13.9 sec LAB COAGULATION METHOD 07/08/2024 3:47 AM EST [facility] INR 1.0 LAB COAGULATION METHOD 07/08/2024 3:47 AM EST [facility] Blood Venous blood specimen / Unknown Venipuncture / Unknown 07/08/2024 2:55 AM EST 07/08/2024 3:35 AM EST Laurence SALDIVAR LAB BLOOD ORDERABLES Final Resul t Performing Organization Address [facility] Co de Phone Number [facility] [address] [place] [address], [place] [phone] * (ABNORMAL) Valproic acid level, total and free (07/08/2024 2:55 AM EST) Pathologist [facility] Valproic Acid, Free <4.0(L) 4.8 - 17.3 mg/L 07/14/2024 7:12 AM EST [facility] Comment: Note: Non-linear drug binding properties result in the fraction of Free Valproic Acid increasing as total drug increases. The free fraction may range from 5% to 25% for the total drug range of 30-160 mg/L. Valproic Acid 45.5(L) 50.0 - 100.0 mg/L 07/14/2024 7:12 AM EST [facility] Comment: TEST PERFORMED AT: [employer]/[address] ILAN COREY MD,PHD Blood Venous blood specimen / Unknown Venipuncture / Unknown 07/08/2024 2:55 AM EST 07/08/2024 3:35 AM EST us Laurence SALDIVAR LAB BLOOD ORDERABLES Final Resul [place] [address] [place] [address] * (ABNORMAL) CBC auto differential (07/08/2024 2:55 AM EST) [facility] WBC 7.3 4.8 - 10.8 K/mcL LAB HEMETOLOGY METHOD 07/08/2024 3:46 AM [facility] RBC 3.50(L) 4.50 - 5.50 M/mcL LAB HEMETOLOGY METHOD 07/08/2024 3:46 AM [facility] Hemoglobin 11.3(L) 13.5 - 17.5 g/dL LAB HEMETOLOGY METHOD 07/08/2024 3:46 AM [facility] Hematocrit 34.5(L) 42.0 - 54.0 [...] 3:46 AM [facility] Neutrophils Absolute 4.43 1.50 - 7.00 K/mcL LAB HEMETOLOGY METHOD 07/08/2024 3:46 AM [facility] Lymphocytes Absolute 1.85 1.00 - 5.00 K/mcL LAB HEMETOLOGY METHOD 07/08/2024 3:46 AM [facility] Monocytes Absolute 0.75 0.20 - 1.00 K/mcL LAB HEMETOLOGY METHOD 07/08/2024 3:46 AM [facility] Eosinophils Absolute 0.19 0.00 - 0.50 K/mcL LAB HEMETOLOGY METHOD 07/08/2024 3:46 AM [facility] Basophils Absolute 0.03 0.00 - 0.20 K/mcL LAB HEMETOLOGY METHOD 07/08/2024 3:46 AM EST [facility] Immature Granulocytes Absolute 0.02 0.00 - 0.03 K/[facility] LAB HEMETOLOGY METHOD 07/08/2024 3:46 AM EST [facility] Blood Venous blood specimen / Unknown Venipuncture / Unknown 07/08/2024 2:55 AM EST 07/08/2024 3:35 AM EST us Josemanuel Suh MD LAB BLOOD ORDERABLES Shara l Result Performing Organization Address City/[facility]/ZIP Co de Phone Number [facility] [address] [place] [address], [place] [phone] * (ABNORMAL) Salicylate level (07/08/2024 2:55 AM EST) Salicylate Level <1.7(L) 2.0 - 29.0 mg/dL LAB CHEMISTRY METHOD 07/08/2024 4:14 AM EST [facility] Blood Venous blood specimen / Unknown Venipuncture / Unknown 07/08/2024 2:55 AM EST 07/08/2024 3:36 AM EST us Josemanuel Suh MD LAB BLOOD ORDERABLES Shara l Result [facility] [address] [place] [address], [place] [phone] * (ABNORMAL) Acetaminophen level (07/08/2024 2:55 AM EST) Acetaminophen Level <2.0(L) 10.0 - 30.0 mcg/mL LAB CHEMISTRY METHOD 07/08/2024 4:14 AM EST [facility] Blood Venous blood specimen / Unknown Venipuncture / Unknown 07/08/2024 2:55 AM EST 07/08/2024 3:36 AM EST us Josemanuel Suh MD LAB BLOOD ORDERABLES Shara l Result [facility] [address] [place] [address], [place] [phone] * Ethanol (07/08/2024 2:55 AM EST) Pathologist [facility] Ethanol Level <3 0 - 10 mg/dL LAB CHEMISTRY METHOD 07/08/2024 4:14 AM EST [facility] Blood Venous blood specimen / Unknown Venipuncture / Unknown 07/08/2024 2:55 AM EST 07/08/2024 3:36 AM EST us Josemanuel Suh MD LAB BLOOD ORDERABLES Shara l Result Performing Organization Address City/[facility]/ZIP Co de Phone Number [facility] [address] [place] [address], [place] [phone] * (ABNORMAL) Comprehensive metabolic panel (07/08/2024 2:55 AM EST) [facility] Sodium 139 133 - 145 mmol/L LAB [...] 07/08/2024 4:22 AM [facility] Alkaline Phosphatase 60 42 - 121 unit/L LAB CHEMISTRY METHOD 07/08/2024 4:22 AM [facility] Total Protein 6.8 6.0 - 8.0 g/dL LAB CHEMISTRY METHOD 07/08/2024 4:22 AM [facility] Albumin 3.7 3.2 - 5.0 g/dL LAB CHEMISTRY METHOD 07/08/2024 4:22 AM [facility] Total Bilirubin 0.5 0.0 - 1.4 mg/dL LAB CHEMISTRY METHOD 07/08/2024 4:22 AM [facility] Blood Venous blood specimen / Unknown Venipuncture / Unknown 07/08/2024 2:55 AM EST 07/08/2024 3:36 AM EST us Josemanuel Suh MD LAB BLOOD ORDERABLES Shara l Result [facility] ([facility] [address] [place] [address], * ECG 12 lead (07/08/2024 2:51 AM EST) Ventricular Rate ECG 80 BPM GEMUSE Atrial Rate 80 BPM GEMUSE P-R Interval 162 ms GEMUSE QRS Duration 94 ms GEMUSE Q-T Interval 412 ms GEMUSE QTc 475 ms GEMUSE P Wave Deep Gap 43 degrees GEMUSE R Deep Gap 9 degrees GEMUSE T Deep Gap 30 degrees GEMUSE ECG Interpretation Normal sinus rhythm Normal ECG When compared with ECG of 31-MAR-2024 00:46, Premature ventricular complexes are no longer Present Confirmed by Yolis JAMISON JAMES ([id number]) on 07/08/2024 2:15:14 PM GEMUSE 07/08/2024 2:51 AM EST 07/08/2024 2:15 PM EST us Laurence SALDIVAR ECG ORDERABLES Final Result GEMUSE documented in this encounter Visit Diagnoses Diagnosis Schizoaffective disorder, bipolar type (CMS/HCC)- Primary Schizoaffective disorder, unspecified condition Other schizophrenia (CMS/HCC) Overdose of undetermined intent, initial encounter documented in this encounter Administered Medications Inactive Administered Medications - up to 3 [...] D3) Given 07/09/2024 10:16 AM EST 2,000 Units divalproex (DEPAKOTE) DR tablet 750 mg 750 [...] Given 07/09/2024 10:17 AM EST 750 mg haloperidol lactate (HALDOL) injection 5 mg 5 [...] AM EST 2 mg Left Anterior Thigh metoprolol succinate (TOPROL-XL) 24 Hour tablet 25 mg 25 mg, oral, Daily, First dose on Mon07/09/24 at 0945, Do not crush or chew. Given 07/09/2024 10:16 AM EST 25 mg OLANZapine (ZyPREXA) tablet 20 mg 20 mg, oral, Nightly, First dose on Mon07/08/24 at 2100 Given 07/08/2024 8:41 PM EST 20 mg traZODone (DESYREL) tablet 100 mg 100 mg, oral, Nightly, First dose on Mon07/08/24 at 2100 Given 07/08/2024 8:41 PM EST 100 mg documented in this encounter Discontinued Medications Medication [...] 2040 (Given - Provider: Maricruz Sena RN) 0824 (Given - Provider: Bunny Aleman RN) atorvastatin (LIPITOR) tablet 40 mg 40 mg, oral, Nightly, First dose on Mon07/09/24 at 2100 calcium carbonate (OS-JAVIER) tablet 1,250 mg 1,250 mg, oral, Daily, First dose on Mon07/09/24 at 0945, Ordered as calcium carbonate. 1,250 mg calcium carbonate = 500 mg elemental calcium. 0945 (Canceled Entry - Provider: Automatic Discharge Provider - Comment: Automatically canceled at discontinue of medication order) cholecalciferol (VITAMIN D-3) tablet 2,000 Units 2,000 [...] 1017 (Given - Provid er: Bunny Aleman RN) haloperidol lactate (HALDOL) injection 5 mg (COMPLETED) [...] Nightly, First dose on Mon07/09/24 at 2100 metoprolol succinate (TOPROL-XL) 24 Hour tablet 25 mg 25 mg, oral, Daily, First dose on Mon07/09/24 at 0945, Do not crush or chew. 1016 (Given - Provid er: Bunny Aleman RN) OLANZapine (ZyPREXA) tablet 20 mg 20 mg, oral, Nightly, First dose on Mon07/08/24 at 2100 2040 (Given - Provider: Maricruz Sena RN) pantoprazole (PROTONIX) EC tablet 40 mg 40 mg, oral, Every morning before breakfast, First dose on Mon07/10/24 at 0700, Do not crush, chew, or split. prazosin (MINIPRESS) capsule 2 mg 2 mg, oral, Nightly, First dose on Mon07/09/24 at 2099 traZODone (DESYREL) tablet 100 mg 100 mg, oral, Nightly, First dose on Mon07/08/24 at 2100 2040 (Given - Provider: Maricruz Sena RN) PRN Medication Order 07/07/2024 07/08/2024 07/09/2024 amitriptyline (ELAVIL) tablet 50 mg 50 mg, oral, Nightly PRN, sleep, Starting on Mon07/09/24 at 0943 clonazePAM (KlonoPIN) tablet 1 mg 1 mg, oral, Daily PRN, anxiety, Starting on Mon07/08/24 at 2027, HAZARDOUS Drug Precautions - Low Risk (Category [...] clonazePAM (KlonoPIN) tablet 1 mg 1 025 Consult Count Last Ordered Date First Orde red Date IP CONSULT TO MACHINE RIVETER 1 07/08/2024 documented in this encounter Care Teams Blueprint Reproducer Relationship Specialty Start Date End Date Jessica Solomon PA [address] [place] [address] PCP - General Internal Medicine 03/17/21 documented as of this encounter
--- OUTSIDE RECORDS SUMMARY | 2024-07-18 19:30 | XMS_ITS | Encounter Summary ---
Author Organization [facility] Address [address] [place] [address] Care Team Providers Care Hotel Maid Name Role Phone Jessica Solomon PA-C Primary Care Provider [phone] Reason for Visit * Reason Comments Care Coordination Encounter Details Date Type Department Care Team ([facility] Contact Info) Description 07/10/2024 Interim Notes Caring [facility] Main [address] [place] [phone] Barbie Lee [address] [place] [address] Social History Tobacco Use Types Packs/Day Years [...] encounter Progress Notes * Barbie Lee - 07/10/2024 9:01 AM EST Patient identified through ADT feed. Patient admitted 07/07/24 and discharged 07/07/24 from [facility]. Reassigned to Alena HENSON and Carmen CHESTER. ? documented in this encounter Plan of Treatment Upcoming Encounters Date Type Department Care Team (Late st Contact Info) Description 07/29/2024 1:00 PM EDT /MH Visits [address] [phone] Monae Hauser LCSW [address] [place] [phone] 07/31/2024 8:00 AM EDT Telemedicine Visit [address] [phone] Jessica Solomon PA-C [address] [place] [address] 09/02/2024 9:20 AM EDT Office Visit [address] [phone] Chikis Saucedo [address] [place] [phone] documented as of this encounter Visit Diagnoses Not on filedocumented in this encounter Additional Health Concerns Assessment Noted Time PHQ-9 Depression Total Score: 0 02/27/20 24 11:34 AM PDT documented as of this encounter Care Teams Hotel Maid Relationship Specialty Start Date End Date Jessica Solomon PA-C [address] [place] [address] PCP - General Internal Medicine 02/12/19 documented as of this encounter
--- OUTSIDE RECORDS SUMMARY | 2024-07-18 19:30 | XMS_ITS | Clinical Summary ---
Author Organization [facility] Address [address] [place] [address] Phone Care Team Providers Care [employer] Name Role Phone Jessica Solomon Primary Care Provider [phone] Allergies Active Allergy Reactions Criticality Noted Date [...] 1:49 AM EST - 07/09/2024 12:16 PM [facility] [address] [place] [address] Josemanuel Suh MD Durkin, Louis J, MD Schizoaffective disorder, bipolar type (CMS/HCC) (Primary Dx); Other schizophrenia (CMS/HCC); Overdose of undetermined intent, initial encounter Discharge Disposition: [facility] 05/01/2024 11:06 AM EST - 05/02/2024 12:45 PM [facility] [address] [place] [address] Josemanuel Suh MD Garvin, MD Chuckie Segura, Alfonso Phillips MD Schizoaffective disorder, bipolar type with good prognostic features (CMS/[facility]) (Primary Dx); Suicidal ideation; Alcohol use, unsp [...] WITH INR STAT 07/08/2024 2:55 AM EST VALPROIC ACID LEVEL, TOTAL AND FREE STAT 07/08/2024 2:55 AM EST CBC WITH AUTO DIFFERENTIAL STAT 07/08/2024 2:55 AM EST SALICYLATE LEVEL STAT 07/08/2024 2:55 AM EST ACETAMINOPHEN LEVEL STAT 07/08/2024 2 :55 AM EST ETHANOL STAT 07/08/2024 2:55 AM EST COMPREHENSIVE METABOLIC PANEL STAT 07/08/2024 2:55 AM EST CBC AND DIFFERENTIAL STAT 07/08/2024 2:55 AM EST ECG 12-LEAD STAT 07/08/2024 2:51 AM EST RAPID [id number] SCREENING, MOLECULAR STAT 05/02/2024 10:10 AM EST [...] GEMUSE QTc 484 ms GEMUSE P Wave Byron 27 degrees GEMUSE R Byron 13 degrees GEMUSE T Byron 33 degrees GEMUSE ECG Interpretation Sinus rhythm with Premature atrial complexes Prolonged QT Abnormal ECG When compared with ECG of 08-JUL-2024 06:12, (unconfirmed ) Premature atrial complexes are now Present Confirmed by Yolis JAMISON JAMES ([id number]) on 07/08/2024 2:16:33 PM GEMUSE 07/08/2024 7:44 AM EST 07/08/2024 2:16 PM EST Laurence SALDIVAR ECG ORDERABLES Final Result GEMUSE * (ABNORMAL) CBC auto differential (07/08/2024 7:44 AM EST) Only the most recent of3 resultswithin the time period is included. WBC 7.1 4.8 - 10.8 K/mcL LAB HEMETOLOGY METHOD 07/08/2024 8:20 AM [facility] RBC 3.50(L) 4.50 - 5.50 M/mcL LAB HEMETOLOGY METHOD 07/08/2024 8:20 AM [facility] Hemoglobin 11.5(L) 13.5 - 17.5 g/dL LAB HEMETOLOGY METHOD 07/08/2024 8:20 AM [facility] Hematocrit 35.1(L) 42.0 - 54.0 % LAB HEMETOLOGY METHOD 07/08/2024 8:20 AM [facility] MCV 99.2(H) 79.0 - 98.0 FL LAB HEMETOLOGY METHOD 07/08/2024 8:20 AM [facility] MCH 32.5(H) 27.0 - 32.0 pcg LAB HEMETOLOGY METHOD 07/08/2024 8:20 AM [facility] MCHC 32.8 32.0 - 37.0 g/dL LAB HEMETOLOGY METHOD 07/08/2024 8:20 AM [facility] RDW 12.1 11.0 - 15.0 % LAB HEMETOLOGY METHOD 07/08/2024 8:20 AM [facility] Platelets 272 130 - 400 K/mcL LAB HEMETOLOGY METHOD 07/08/2024 8:20 AM [facility] MPV 11.0 7.0 - 11.0 FL LAB HEMETOLOGY METHOD 07/08/2024 8:20 AM [facility] NRBC 0.0 <1.0 % LAB HEMETOLOGY METHOD 07/08/2024 8:20 AM [facility] NRBC Absolute 0.00 <0.10 K/mcL LAB HEMETOLOGY METHOD 07/08/2024 8:20 AM [facility] Neutrophils Relative 56.1 % LAB HEMETOLOGY METHOD 07/08/2024 8:20 AM [facility] Lymphocytes Relative 30.1 % LAB HEMETOLOGY METHOD 07/08/2024 8:20 AM [facility] Monocytes Relative 9.8 % LAB HEMETOLOGY METHOD 07/08/2024 8:20 AM [facility] Eosinophils Relative 3.1 % LAB HEMETOLOGY METHOD 07/08/2024 8:20 AM [facility] Basophils Relative 0.6 % LAB HEMETOLOGY METHOD 07/08/2024 8:20 AM [facility] Immature Granulocytes Relative 0.3 % LAB HEMETOLOGY METHOD 07/08/2024 8:20 AM [facility] Neutrophils Absolute 4.00 1.50 - 7.00 K/mcL LAB HEMETOLOGY METHOD 07/08/2024 8:20 AM [facility] Lymphocytes Absolute 2.14 1.00 - 5.00 K/mcL LAB HEMETOLOGY METHOD 07/08/2024 8:20 AM [facility] Monocytes Absolute 0.70 0.20 - 1.00 K/mcL LAB HEMETOLOGY METHOD 07/08/2024 8:20 AM [facility] Eosinophils Absolute 0.22 0.00 - 0.50 K/mcL LAB HEMETOLOGY METHOD 07/08/2024 8:20 AM EST [facility] Basophils Absolute 0.04 0.00 - 0.20 K/[facility] LAB HEMETOLOGY METHOD 07/08/2024 8:20 AM EST [facility] Immature Granulocytes Absolute 0.02 0.00 - 0.03 K/[facility] LAB HEMETOLOGY METHOD 07/08/2024 8:20 AM EST [facility] Blood Venous blood specimen / Unknown Venipuncture / Unknown 07/08/2024 7:44 AM EST 07/08/2024 8:12 AM EST Laurence SALDIVAR LAB BLOOD ORDERABLES Final Resul t Performing Organization Address [facility]/ZIP Co de Phone Number [facility] [address] [place] [address], * Magnesium (07/08/2024 7:44 AM EST) Only the most recent of2 resultswithin the time period is included. Magnesium 1.9 1.9 - 2.6 mg/dL LAB CHEMISTRY METHOD 07/08/2024 8:41 AM EST [facility] Blood Venous blood specimen / Unknown Venipuncture / Unknown 07/08/2024 7:44 AM EST 07/08/2024 8:12 AM EST us Laurence SALDIVAR LAB BLOOD ORDERABLES Final Resul t Performing Organization Address City/[facility]/ZIP Co de Phone Number [facility] [address] [place] [address], [place] [phone] * (ABNORMAL) Acetaminophen level (07/08/2024 7:44 AM EST) Only the most recent of3 resultswithin the time period is included. Acetaminophen Level <2.0(L) 10.0 - 30.0 mcg/mL LAB CHEMISTRY METHOD 07/08/2024 8:41 AM [facility] Blood Venous blood specimen / Unknown Venipuncture / Unknown 07/08/2024 7:44 AM EST 07/08/2024 8:12 AM EST us Josemanuel Suh MD LAB BLOOD ORDERABLES Shara l Result [facility] [address] [place] [address], * (ABNORMAL) Comprehensive metabolic panel (07/08/2024 7:44 AM EST) Only the most recent of3 resultswithin the time period is included. Sodium 142 133 - 145 mmol/L LAB CHEMISTRY METHOD 07/08/2024 8:41 AM [facility] Potassium 4.1 3.5 - 5.5 mmol/L LAB CHEMISTRY METHOD 07/08/2024 8:41 AM [facility] Chloride 112(H) 96 - 110 mmol/L LAB CHEMISTRY METHOD 07/08/2024 8:41 AM [facility] CO2 22 21 - 32 mmol/L LAB CHEMISTRY METHOD 07/08/2024 8:41 AM [facility] Anion Gap 8 3 - 11 LAB CHEMISTRY METHOD 07/08/2024 8:41 AM [facility] Glucose 95 70 - 100 mg/dL LAB CHEMISTRY METHOD 07/08/2024 8:41 AM [facility] BUN 16 5 - 25 mg/dL LAB CHEMISTRY METHOD 07/08/2024 8:41 AM [facility] Creatinine 0.83 0.70 - 1.30 mg/dL LAB CHEMISTRY METHOD 07/08/2024 8:41 AM [facility] eGFR 99 >=60 mL/min/1. 73m2 LAB CHEMISTRY METHOD 07/08/2024 8:41 AM [facility] Comment:Calculation based on the??Chronic Kidney Disease Epidemiology Collaboration (CKD-EPI) equation refit??without adjustment for race. BUN/Creatinine Ratio 19.3 LAB CHEMISTRY METHOD 07/08/2024 8:41 AM [facility] Calcium 9.4 8.5 - 10.5 mg/dL LAB CHEMISTRY METHOD 07/08/2024 8:41 AM [facility] AST (SGOT) 14 10 - 42 unit/L LAB CHEMISTRY METHOD 07/08/2024 8:41 AM [facility] ALT (SGPT) 10 10 - 60 unit/L LAB CHEMISTRY METHOD 07/08/2024 8:41 AM [facility] Alkaline Phosphatase 57 42 - 121 unit/L LAB CHEMISTRY METHOD 07/08/2024 8:41 AM [facility] Total Protein 6.7 6.0 - 8.0 g/dL LAB CHEMISTRY METHOD 07/08/2024 8:41 AM [facility] Albumin 3.6 3.2 - 5.0 g/dL LAB CHEMISTRY METHOD 07/08/2024 8:41 AM [facility] Total Bilirubin 0.6 0.0 - 1.4 mg/dL LAB CHEMISTRY METHOD 07/08/2024 8:41 AM [facility] Blood Venous blood specimen / Unknown Venipuncture / Unknown 07/08/2024 7:44 AM EST 07/08/2024 8:12 AM EST us Laurence SALDIVAR LAB BLOOD ORDERABLES Final Resul t [facility] [address] [place] [address], * CT Cervical Spine wo Contrast (07/08/2024 [...] Brown MD on 07/08/2024 06:53:16 [address] [facility] CT PROCEDURES Final Result * [...] Brown MD on 07/08/2024 06:48:17 [address] [facility] CT PROCEDURES Final Result * (ABNORMAL) Drug abuse screen 8a panel, urine (07/08/2024 6:01 AM EST) Only the most recent of2 resultswithin the time period is included. Amphetamine Screen, Ur Negative Negative LAB CHEMISTRY METHOD 5 6:48 AM [facility] Comment:Certain OTC medicati ons containing ephedrine, phenylephrine, pseudoephedrine and phenylpropanolamine can cause false positive results. Barbiturate Screen, Ur Negative Negative LAB CHEMISTRY METHOD 5 6:48 AM [facility] Benzodiazepine Screen, Ur Negative Negative LAB CHEMISTRY METHOD 5 6:48 AM [facility] Cocaine Screen, Ur Positive(A ) Negative LAB CHEMISTRY METHOD 5 6:48 AM [facility] Opiate Screen, Ur Negative Negative LAB CHEMISTRY METHOD 5 6:48 AM [facility] Cannabinoid (THC) Screen, Ur Negative Negative LAB CHEMISTRY METHOD 5 6:48 AM [facility] Comment:Specimens from patie nts taking pantoprazole sodium (Protonix) have been shown to produce false positive results. Oxycodone Screen, Ur Negative Negative LAB CHEMISTRY METHOD 5 6:48 AM [facility] Fentanyl, Ur Negative Negative LAB CHEMISTRY METHOD 5 6:48 AM [facility] Urine Urine specimen obtained by clean catch procedure / Unknown Non-blood Collection / Unknown 07/08/2024 6:01 AM EST 07/08/2024 6:23 AM EST Narrative [facility] - 07/08/2024 6:48 AM EST [...] ORDERABLES Shara l Result Performing Organization Address City/[facility]/ZIP Co de Phone Number [facility] [address] [place] [address], [place] [phone] * Buprenorphine screen, urine (07/08/2024 6:01 AM EST) Only the most recent of2 resultswithin the time period is included. [facility] Buprenorphine Screen Urine Negative Negative LAB CHEMISTRY METHOD 07/08/2024 6:48 AM EST [facility] Urine Urine specimen obtained by clean catch procedure / Unknown Non-blood Collection / Unknown 07/08/2024 6:01 AM EST 07/08/2024 6:23 AM EST Narrative [facility] - 07/08/2024 6:48 AM EST Assay cutoff 5 ng/mL Semi-quantitative assay for screening purposes only. Unconfirmed screening result should not be used for non-medical purposes. *ALTERNATE METHOD CONFIRMATION DONE UPON REQUEST ONLY* Josemanuel Suh MD LAB URINE ORDERABLES Shara l Result [facility] [address] [place] [address], [place] [phone] * Methadone, urine (07/08/2024 6:01 AM EST) Only the most recent of2 resultswithin the time period is included. Methadone Screen, Urine Negative Negative LAB CHEMISTRY METHOD 07/08/2024 6:48 AM EST [facility] Comment: Assay cutoff 300 ng/mL [...] ORDERABLES Shara l Result Performing Organization Address City/[facility]/ZIP Co de Phone Number [facility] [address] [place] [address], [place] [phone] * Phencyclidine, urine (07/08/2024 6:01 AM EST) Only the most recent of2 resultswithin the time period is included. PCP Scrn, Ur Negative Negative LAB CHEMISTRY METHOD 07/08/2024 6:48 AM EST [facility] Comment: Assay cutoff 25 ng/mL Semi-quantitative assay for screening purposes only. Unconfirmed screening result should not be used for non-medical purposes. *ALTERNATE METHOD CONFIRMATION DONE UPON REQUEST ONLY* Urine Urine specimen obtained by clean catch procedure / Unknown Non-blood Collection / Unknown 07/08/2024 6:01 AM EST 07/08/2024 6:23 AM EST us Josemanuel Suh MD LAB URINE ORDERABLES Shara l Result [facility] [address] [place] [address], [place] [phone] * Protime-INR (07/08/2024 2:55 AM EST) Pathologist [facility] Protime 12.6 10.6 - 13.9 sec LAB COAGULATION METHOD 07/08/2024 3:47 AM EST [facility] INR 1.0 LAB COAGULATION METHOD 07/08/2024 3:47 AM EST [facility] Blood Venous blood specimen / Unknown Venipuncture / Unknown 07/08/2024 2:55 AM EST 07/08/2024 3:35 AM EST Laurence SALDIVAR LAB BLOOD ORDERABLES Final Resul t [facility] [address] [place] [address], [place] [phone] * (ABNORMAL) Valproic acid level, total and free (07/08/2024 2:55 AM EST) [facility] Valproic Acid, Free <4.0(L) 4.8 - 17.3 [...] EST [facility] Comment: TEST PERFORMED AT: [employer]/[address] ILAN COREY MD,PHD Blood Venous blood specimen / Unknown Venipuncture / Unknown 07/08/2024 2:55 AM EST 07/08/2024 3:35 AM EST us Laurence SALDIVAR LAB BLOOD ORDERABLES Final Resul t [facility] [address] [place] [address] * Ethanol (07/08/2024 2:55 AM EST) Only the most recent of2 resultswithin the time period is included. Ethanol Level <3 0 - 10 mg/dL LAB CHEMISTRY METHOD 07/08/2024 4:14 AM EST [facility] Blood Venous blood specimen / Unknown Venipuncture / Unknown 07/08/2024 2:55 AM EST 07/08/2024 3:36 AM EST us Josemanuel Suh MD LAB BLOOD ORDERABLES Shara l Result [facility] [address] [place] [address], [place] [phone] * (ABNORMAL) Salicylate level (07/08/2024 2:55 AM EST) Only the most recent of2 resultswithin the time period is included. Salicylate Level <1.7(L) 2.0 - 29.0 mg/dL LAB CHEMISTRY METHOD 07/08/2024 4:14 AM EST [facility] Blood Venous blood specimen / Unknown Venipuncture / Unknown 07/08/2024 2:55 AM EST 07/08/2024 3:36 AM EST Josemanuel Suh MD LAB BLOOD ORDERABLES Shara l Result [facility] [address] [place] [address], [place] [phone] * Rapid [id number], molecular (05/02/2024 10:10 AM EST) SARS-COV-2 Screen Not Detected Not Detected METHOD [id number] 05/02/2024 10:43 AM EST [facility] Swab Both anterior nares / Unknown Non-blood Collection / Unknown 05/02/2024 10:10 AM EST 05/02/2024 10:27 AM EST Alfonso Noguera MD LAB MICROBIOLOGY - GENERAL OR DERABLES Final Result [facility] [address] [place] [address], from Last 3 Months Insurance MEDICAID - [place] Care Teams [employer] Relationship Specialty Start Date End Date Jessica Solomon PA [address] [place] [address] PCP - General Internal Medicine 03/17/21
--- OUTSIDE RECORDS SUMMARY | 2024-07-18 19:30 | XMS_ITS | Clinical Summary ---
Author Organization [facility] Address [address] [place] [address] Care Team Providers Care Sterilization Specialist Name Role Phone Jessica Solomon PA-C Primary Care Provider Source Comments PLEASE NOTE, if this patient [...] Vomiting 11/30/2016 Medications prazosin (MINIPRESS) 2 mg capsuleIndications :Schizophrenia, borderline (HCC-CMS) TAKE 1 CAPSULE BY MOUTH EVERY DAY AT BEDTIME 90 Capsule 1 10/18/19 24 Active cholecalciferol (VITAMIN D-3) 50 mcg (2,000 unit) tabletIndications: Mild vitamin D deficiency TAKE 1 TABLET BY MOUTH EVERY DAY 90 Tablet 2 11/08/19 24 Active omeprazole (PRILOSEC) [address] capsuleIndications :Gastroesophageal reflux disease with esophagitis Take 1 Capsule by mouth every morning before breakfast 90 Capsule 2 11/14/19 24 Active levothyroxine 88 mcg tabletIndications: Acquired hypothyroidism TAKE 1 TABLET BY MOUTH ONCE DAILY 90 Tablet 3 12/06/19 24 Active calcium (OS-JAVIER) 500 mg calcium (1,250 mg) tabletIndications: Mild vitamin D deficiency,Primary osteoarthritis, unspecified site TAKE 1 TABLET BY MOUTH ONCE DAILY 90 Tablet 3 01/30/20 24 Active metoprolol succinate XL (TOPROL-XL) 25 mg 24 hr tabletIndications: Essential hypertension, benign Take 1 Tablet by mouth once daily 90 Tablet 2 02/27/20 24 Active melatonin 3 mg tabletIndications: Primary insomnia TAKE 1 TABLET BY MOUTH EVERY DAY AT BEDTIME 30 Tablet 8 04/08/20 24 Active cyclobenzaprine (FLEXERIL) 10 mg tabletIndications: Chronic midline low back pain without sciatica Take 1 Tablet by mouth nightly at bedtime as needed (back pain) 30 Tablet 1 05/13/20 24 Active tamsulosin (FLOMAX) 0.4 mg 24 hr capsuleIndications :Benign prostatic hyperplasia with incomplete bladder emptying TAKE 1 CAPSULE BY MOUTH ONCE DAILY 90 Capsule 1 06/13/19 25 Active rosuvastatin (CRESTOR) 10 mg tabletIndications: Mild hyperlipidemia Take 1 Tablet by mouth nightly at bedtime 90 Tablet 3 07/02/19 25 Active amitriptyline (ELAVIL) 100 mg tabletIndications: Schizophrenia, borderline (HCC-CMS) Take 25 mg by mouth 09/05/19 [address] tabletIndications: Mild hyperlipidemia 08/07/19 24 Active clonazePAM (KLONOPIN) 1 mg tabletIndications: Schizophrenia, borderline (HCC-CMS) Take 1 mg by mouth 09/05/19 22 Active divalproex (DEPAKOTE) [address] tabletIndications: Schizophrenia, borderline (HCC-CMS) Take 750 mg by mouth twice a day 08/14/19 24 Active hydrOXYzine pamoate (VISTARIL) 50 mg capsuleIndications :Schizophrenia, borderline (HCC-CMS) 05/13/20 24 Active losartan (COZAAR) 25 mg tabletIndications: Essential hypertension, benign Take 25 mg by mouth 08/14/19 24 Active OLANZapine (ZYPREXA) 20 mg tabletIndications: Schizophrenia, borderline (HCC-CMS) Take 20 mg by mouth nightly at bedtime 08/01/19 24 Active INVEGA SUSTENNA 234 mg/1.5 mL injectionIndicatio ns:Schizophrenia, borderline (HCC-CMS) Inject 234 mg into the muscle every month 09/03/19 22 Active traZODone (DESYREL) 100 mg tabletIndications: Schizophrenia, borderline (HCC-CMS) Take 100 mg by mouth once daily 09/05/19 22 Active psyllium (METAMUCIL) packet Take 1 Packet by mouth once daily 30 Each 5 07/09/19 23 025 Discontin ued(Outda suzanne-Remov ed from Med List (E-Cancel Not Sent)) METAMUCIL, WITH SUGAR, 3.4 gram pwpk MIX 1 PACKET IN 8 OZ OF LIQUID AND DRINK BY MOUTH DAILY 30 Packet 5 07/11/19 23 025 Discontin ued(Outda suzanne-Remov ed from Med List (E-Cancel Not Sent)) STIMULANT LAXATIVE PLUS 8.6-50 mg per tablet TAKE 2 TABLETS BY MOUTH DAILY 180 Tablet 3 07/14/19 23 025 Discontin ued(Outda suzanne-Remov ed from Med List (E-Cancel Not Sent)) cholecalciferol (VITAMIN D-3) 50 mcg (2,000 unit) capsule TAKE 1 TABLET BY MOUTH EVERY DAY 90 Capsule 1 10/01/19 23 025 Discontin ued(Outda suzanne-Remov ed from Med List (E-Cancel Not Sent)) clonazePAM (KLONOPIN) 1 mg tabletIndications: Schizophrenia, borderline ([facility]) 10/05/19 23 025 Discontin ued(Outda suzanne-Remov ed from Med List (E-Cancel Not Sent)) divalproex (DEPAKOTE ER) 500 mg 24 hr tabletIndications: Schizophrenia, borderline ([facility]) 10/14/19 23 025 Discontin ued(Outda suzanne-Remov ed from Med List (E-Cancel Not Sent)) OLANZapine (ZYPREXA) 10 mg tabletIndications: Schizophrenia, borderline ([facility]) 10/14/19 23 025 Discontin ued(Outda suzanne-Remov ed from Med List (E-Cancel Not Sent)) paliperidone (INVEGA) 1.5 mg 24 hr tabletIndications: Schizophrenia, borderline ([facility]) 07/30/19 23 025 Discontin ued(Outda suzanne-Remov ed from Med List (E-Cancel Not Sent)) traZODone (DESYREL) 100 mg tabletIndications: Schizophrenia, borderline ([facility]) 09/03/19 23 025 Discontin ued(Outda suzanne-Remov ed from Med List (E-Cancel Not Sent)) acetaminophen (TYLENOL 8 HOUR) 650 mg CR tablet Take 1 Tablet by mouth every 12 (twelve) hours as needed (low back pain and/or any pain) 180 Tablet 1 05/26/19 24 025 Discontin ued(Outda suzanne-Remov ed from Med List (E-Cancel Not Sent)) Active Problems Problem Noted Date Diagnosed Date History of echocardiogram 12/13/2022: EF 35-40% 01/25/2023 Overview (01/25/2023): Result type: Echocardiogram - Complete Result date: December 13, 2022 15:03 EDT Result status: Modified Result title: Echo Complete-Doppler, Colorflow, M-Mode Performed by: Jabari Rodriguez DO on December 13, 2022 15:03 EDT Verified by: Jabari Rodriguez DO on December 13, 2022 15:03 EDT Encounter info: [id number], [facility], Disch Obv, 12/12/2022 - 12/15/2022 Contributor system: [employer] Echo Complete-Doppler, Colorflow, M-Mode This document has an image Echo Complete-Doppler, Colorflow, M-Mode Transthoracic Echocardiography Report (TTE) Patient Demographics Patient Name SHARIF CRUZ Date of Study 12/13/2022 Corporate Gender Male Facility Race Ethnicity or Date of 1960 Height: 65 inches Age 62 year(s) Weight: 214 pounds Accession Number [id number] BSA: 2.04 m2 Room Number D320 BMI: 35.61 kg/m2 Referring Physician Alex Delacruz MD Interpreting Physician Jabari Rodriguez DO Retail Merchandiser Technician Parul Allison Indications Syncope. Clinical History Polysubstance abuse. Study Data Type of Study TTE procedure:Echo Complete-Doppler, Colorflow, M-Mode. Study Date12/13/2022 Start Time: 03:03 PM Study Location: [facility] Adult Echo Study Status: Echo lab Patient [...] cm/s E' Lateral Velocity: 6.85 cm/s E/Med E':9.728241 E/Lat E':9.718270 Cardiac Anatomy Left Ventricle/Interventricular Septum The left [...] year s 11/17/2020 Overview (11/17/2020): [facility] [id number] A Member of the [facility] Procedure Notes Name: SHARIF CRUZ Admit Date: 12/28/16 - 1960/56yr Discharge Date: Location: [facility] - Report #: [id number] DATE OF PROCEDURE: 01/17/2017 PROCEDURE: Colonoscopy. PRIMARY CARE PHYSICIAN: Baltazar Parker MD INDICATIONS FOR COLONOSCOPY: First-degree family member with colon cancer diagnosed at age less than 60, high risk for colon cancer. SURGEON: Procedure was done by Dr. Solorzano at [facility]. MILL SET UP: The GI lab nursing staff assisted with this case. ANESTHESIA: The patient was given MAC anesthesia by the Anesthesia Service. COMPLICATIONS: The procedure resulted in no immediate complications. ESTIMATED BLOOD LOSS: Minimal blood loss has occurred during the procedure. DESCRIPTION OF THE PROCEDURE: The patient was explained about risks and benefits of the colonoscopy via translator and interpreter and his written consent was obtained. He [...] fiber diet. Luis Carlos Solorzano MD Doc #:[id number] cc: Baltazar Parker MD TEMP TEMP Psychosis ([facility]) 02/04/2020 Bipolar 1 disorder ([facility]) 02/04/2020 Poor historian 02/04/2020 Non morbid obesity 02/04/2020 Other male erectile dysfunction 02/04/2020 Requires daily assistance fo r activities of daily living (ADL) and comfort needs 02/12/2019 Memory changes 02/12/2019 Chronic low back pain 02/12/2019 Homelessness 07/19/2018 Pain in left toe(s) 12/21/2017 Overview (12/21/2017): [facility] 11/27/2017 Normal examination. Pain of left forearm 12/20/2017 Overview (12/20/2017): [facility] [id number] Soft tissue swelling with possible small foreign bodies versus calcification along the medial aspect of the proximal forearm. Facial trauma 12/20/2017 Overview (12/20/2017): [facility] 11/04/2017 Right forehead soft tissue swelling with nasal fracture. Old right zygomatic arch as well ateral maxillary wall fractures. Preliminary reading from [employer] was reviewed. There are no significant discrepancies. Fall 11/23/2017 Overview (11/23/2017): [facility] 11/04/2017 CT abdomen & Pelvis 1. No evidence of traumatic injury to the thoracic abdominal viscera 2. Age indeterminate thoracic vertebral compression fractures without retropulsion CT Brain No evidence of acute intracranial process on noncontrast head CT Atrophy and mild age-related changes. Right forehead soft tissue swelling. Neck pain 11/13/2017 Overview (12/20/2017): [facility] 11/04/17 S/P fall facial trauma. CT done at [facility] Right forehead soft tissue swelling with nasal [...] left lower quadrant pain 10/13/2017 Overview (10/13/2017): [facility] CT Abdomen & Pelvis W Cont No obstruction, free air, free fluid or focal inflammatory changes. Acquired hypothyroidism 06/13/2017 Schizophrenia, borderline (HCC-CMS) 11/30/2016 Hemorrhoids 11/30/2016 Left knee pain 11/30/2016 Overview (02/12/2019): [facility] 10/20/2017 No evidence [...] Encounters Date Type Department Care Team Description 07/11/2024 Interim Notes [address] [phone] Barbie Lee 07/11/2024 Interim Notes [address] [phone] Alena Latif RN 07/10/2024 Interim Notes [address] [phone] Barbie Lee 07/02/2024 9:00 AM EST Office Visit [address] [phone] Jessica Solomon PA-C Routine general medical examination at a health care facility (Primary Dx); Functional constipation; Acquired hypothyroidism; Non morbid obesity; Mild hyperlipidemia; Schizophrenia, borderline (HCC-CMS); Essential hypertension, benign 07/01/2024 1:00 PM EST / Visits [address] [phone] Monae Hauser LCSW Schizophrenia, borderline (HCC-CMS) (Primary Dx); Anxiety 06/03/2024 Interim Notes [address] [phone] Lissette Alvarenga, Community Health Worker 05/20/2024 11:00 AM EST / Visits [address] [phone] Monae Hauser, CLINICAL REVIEW SPECIALIST Schizophrenia, borderline ([facility]) (Primary Dx); Anxiety 05/20/2024 Travel 05/13/2024 1:00 PM EST Telemedicine Visit [address] [phone] Jessica Solomon PA-C Acquired hypothyroidism (Primary Dx); Non morbid obesity; Chronic midline low back pain without sciatica 05/13/2024 Travel 05/07/2024 Interim Notes [address] [phone] Alena Latif RN 05/07/2024 Interim Notes [address] [phone] Barbie Lee 04/23/2024 2:00 PM EST Office Visit [address] [phone] Caryn Dickey DDS Encounter for dental examination (Primary Dx) 04/23/2024 Travel from Last 3 Months Immunizations Name [...] Description 07/29/2024 1:00 PM EDT / Visits [address] [phone] Monae Hauser LCSW [address] [place] [phone] 07/31/2024 8:00 AM EDT Telemedicine Visit [address] [phone] Jessica Solomon PA-C [address] [place] [phone] 09/02/2024 9:20 AM EDT Office Visit [address] [phone] Chikis Saucedo [address] [place] [phone] Health Maintenance Due Date Last Done Comments CT Colonography 2007 FIT/gFOBT 2007 Fecal DNA 2007 Flexible Sigmoidoscopy 2007 Diabetes Screening 01/26/2024 01/25/2023, 0 10/18/2022, 10/18/2022, Additional history exists Lipid Screening 01/26/2024 01/25/2023, 09/21, 03/23/2022, Additional history exists Alcohol and Drug Screen 05/22/2024 02/27/20, 01/25/2023, 01/12/2022, Additional history exists Depression Annual Screen 05/22/2024 02/27/2024 TSH Monitoring 08/08/2024 08/09/2023, 09/0 10/2022, 10/18/2022, Additional history exists Imm-Zoster, Recombinant [...] 02/12/2019, 03/21/2018 Imm-Pneumococcal Completed 03/23/2022, 01/2019, 04/04/2015 [id number] Completed 02/27/2024, 06/22, 06/11/2020 Imm-Influenza Completed 07/09/2024, 12/2023, 05/04/2023, Additional history exists Procedures Procedure Name Priority Date/Time Associated Diagnosis Comments CARD SCANNED DOCUMENT 07/08/2024 3:00 AM EST CARD SCANNED DOCUMENT 07/08/2024 3:00 AM EST CARD SCANNED DOCUMENT 07/08/2024 3:00 AM EST IMAGING SCANNED DOCUMENT 07/08/2024 3:00 AM EST IMAGING SCANNED DOCUMENT 07/08/2024 3:00 AM EST OFFICE VISIT OBSERVATION NO OTHER [facility] PERFORMED [...] Recently Relevant to Health Maintenance Results * CARD SCANNED DOCUMENT (07/08/2024 3:00 AM EST) Only the most recent of3 resultswithin the time period is included. 07/08/2024 3:00 AM EST Jessica Solomon PA-C SCAN ECGS Final Result * IMAGING SCANNED DOCUMENT (07/08/2024 3:00 AM EST) Only the most recent of2 resultswithin the time period is included. 07/08/2024 3:00 AM EST Jessica Solomon PA-C SCAN IMAGING Final Result * (ABNORMAL) TSH W/RFLX FREE T4 (08/09/2023 11:31 AM EDT) TSH W/REFLEX TO FT4 5.66(H) 0.40 - 4.50 mIU/L [facility] Blood Blood / Unknown 08/09/2023 1 1:31 AM EDT 08/09/2023 11:32 AM EDT Chrissy Camarena PA-C LAB - BLOOD DRAW Final Resu lt [facility] [address] [address], [employer] [address] [place] [address] * (ABNORMAL) LIPID PANEL (01/25/2023 2:19 PM EDT) CHOLESTEROL, TOTAL 155 <200 mg/dL [facility] HDL CHOLESTEROL 27(L) > OR = 40 mg/dL [facility] TRIGLYCERIDES 230(H) <150 mg/dL [facility] Comment: If a non-fasting specimen was collected, consider repeat triglyceride testing on a fasting specimen if clinically indicated. Jonathan et al. J. of Clin. Lipidol. 2015;9:129-169. LDL-CHOLESTEROL 96 99 mg/dL (calc) [facility] Comment: Reference range: <100 Desirable range <100 mg/dL for primary prevention; ?? <70 mg/dL for patients with CHD or diabetic patients with > or = 2 CHD risk factors. LDL-C is now calculated using the Lam-Cate calculation, which is a validated novel method providing better accuracy than the Friedewald equation in the estimation of LDL-C. Lam SS et al. ANNE. 2013;310(19): 7016-0726 (http://education.[employer]/faq/PRC370) CHOL/HDLC RATIO 5.7(H) <5.0 (calc) [facility] NON-HDL CHOLESTEROL 128 <130 mg/dL (calc) [facility] Comment: For patients with diabetes plus 1 major ASCVD risk factor, treating to a non-HDL-C goal of <100 mg/dL (LDL-C of <70 mg/dL) is considered a therapeutic option. Blood Blood / Unknown 01/25/2023 2 :19 PM EDT 01/25/2023 2:20 PM EDT us Jessica Solomon PA-C LAB - BLOOD DRAW Final Resul t [facility] [address] [address], [facility] [address] [place] [address] * (ABNORMAL) COMPREHENSIVE METABOLIC PANEL (01/25/2023 2:19 PM EDT) GLUCOSE 98 65 - 99 mg/dL [facility] Comment: ?Fasting reference interval UREA NITROGEN (BUN) 14 7 - 25 mg/dL [facility] CREATININE (blood) 1.00 0.70 - 1.35 mg/dL [facility] EGFR 86 > OR = 60 mL/min/1. 73m2 [facility] BUN/CREATININE RATIO SEE NOTE: [facility] Comment: ?? Not Reported: BUN and Creatinine are within ?? reference range. ? SODIUM 141 135 - 146 mmol/L [facility] POTASSIUM 3.8 3.5 - 5.3 mmol/L [facility] CHLORIDE 107 98 - 110 mmol/L [facility] CARBON DIOXIDE 26 20 - 32 mmol/L [facility] CALCIUM 9.3 8.6 - 10.3 mg/dL [facility] PROTEIN, TOTAL 7.3 6.1 - 8.1 g/dL [facility] ALBUMIN 4.4 3.6 - 5.1 g/dL [facility] GLOBULIN 2.9 1.9 - 3.7 g/dL (calc) [facility] ALBUMIN/GLOBULI N RATIO 1.5 1.0 - 2.5 (calc) [facility] BILIRUBIN, TOTAL 0.6 0.2 - 1.2 mg/dL [facility] ALKALINE PHOSPHATASE 69 35 - 144 U/L [facility] AST 8(L) 10 - 35 U/L [facility] ALT 8(L) 9 - 46 U/L [facility] Blood Blood / Unknown 01/25/2023 2 :19 PM EDT 01/25/2023 2:20 PM EDT us Jessica Solomon PA-C LAB - BLOOD DRAW Edited Resu lt - Final [employer] [facility] [address] [address], [facility] [address] [place] [address] * HIV-1 & HIV-2 ANTIBODIES (02/12/2019 3:55 PM EDT) HIV 1 AND 2 ANTIBODY SCREEN NEGATIVE NEGATIVE [facility] Comment: This assay is a [...] 3:55 PM EDT 02/12/2019 3:56 PM EDT [facility] - 02/12/2019 8:06 PM EDT [email or web address], [place] [address] Professional Healthcare Representative - Albertina Veliz MD PT ID [id number] ORD# [id number] Jessica Solomon PA-C LAB - BLOOD DRAW Final Resul t Performing Organization Address City/State/[facility] [place] [address], * (ABNORMAL) HEPATITIS A,B,C PANEL (06/09/2017 10:07 AM EST) Pathologist [facility] HEPATITIS B SURFACE ANTIBODY POSITIVE(A) NEGATIVE [facility] HEPATITIS B SURFACE ANTIGEN NEGATIVE NEGATIVE [facility] Comment: Over the counter supplements containing high doses of biotin may interfere with this assay. ??If interference is suspected, patients shoud be retested after refraining from biotin supplements for 72 hours. HEPATITIS C VIRUS DIAGNOSTIC NEGATIVE NEGATIVE [facility] HEPATITIS A ANTIBODY TOTAL POSITIVE(A) NEGATIVE [facility] Comment: Over the counter supplements containing high doses of biotin may interfere with this assay. ??If interference is suspected, patients shoud be retested after refraining from biotin supplements for 72 hours. HEPATITIS B CORE ANTIBODY NEGATIVE NEGATIVE [facility] Blood specimen (specimen) Blood / Unknown 06/09/2017 10:07 AM EST 06/09/2017 11:29 AM EST Narrative [facility] - 06/09/2017 6:39 PM EST [facility] Eligible [address] [place] [address] PT ID [id number] ORD# [id number] Sandra Thrasher HUMAN RESOURCES EXECUTIVE LAB - BLOOD DRAW Edited Resu lt - Final [facility] [address] [place] [address], * COLONOSCOPY (12/28/2016 1:32 PM EDT) [place] Jessica Solomon PA-C - 12/28/2016 1:32 PM EDT Surgical Pathology [facility] Lam Rivera M.D. [address] [place] [address] Albertina Veliz [place].D. [place], [place] ?? [address] Primo Andino M.D. Radha De Leon M.D. Jackson Renee M.D. Lucy Renee M.D. Leonie Malagon M.D. Aldo Crane M.D. [facility] ?? [place]jo M.D.,PhD ?? Edmund Diaz M.D.,PhD ? SURGICAL PATHOLOGY REPORT Name: SHARIF CRUZ Sex: M Date Obtained: 01/17/17 [facility]#: [id number] Date Reported: 01/18/17 : 1960 ?Age: 56 MR#: [id number] Physician: LUIS CARLOS SOLORZANO MD Location: [facility] [...] (the smallest tissue may not survive processing). /wa Physicians: LUIS CARLOS [phone] Anatomic Pathology services provided by [facility] ?[facility] ?[facility] ?[address] ?[place], [place] [address] ?A [facility] ? Procedure Notes Name: SHARIF CRUZ Admit Date: ??12/28/16 - 1960/56yr Discharge Date: ?? Location: ??[facility] - Report #: ??[id number] DATE OF PROCEDURE: ??01/17/2017 PROCEDURE: Colonoscopy. PRIMARY CARE PHYSICIAN: Baltazar Parker MD INDICATIONS FOR COLONOSCOPY: First-degree family member with colon cancer diagnosed at age less than 60, high risk for colon cancer. SURGEON: Procedure was done by Dr. Solorzano at [facility]. MILL SET UP: The GI lab nursing staff assisted with this case. ANESTHESIA: The patient was given MAC anesthesia by the Anesthesia Service. COMPLICATIONS: The procedure resulted in no immediate complications. ESTIMATED BLOOD LOSS: Minimal blood loss has occurred during the procedure. DESCRIPTION OF THE PROCEDURE: The patient was explained about risks and benefits of the colonoscopy via translator and interpreter and his written consent was obtained. ??He [...] fiber diet. Luis Carlos Solorzano MD Doc #:[id number] cc: Baltazar Parker MD TEMP TEMP us Provider [facility] PROCEDURES Final Result from Last 3 Months or Most Recently Relevant to Health Maintenance Insurance [facility] [place] D[facility]AL [facility] Care Teams Sterilization Specialist Relationship Specialty Start Date End Date Jessica Solomon PA-C [address] [place] [address] PCP - General Internal Medicine 02/12/19
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
--- OUTSIDE RECORDS SUMMARY | 2024-07-18 19:30 | XMS_ITS | Encounter Summary ---
Author Organization [facility] Address [address] [place] [address] Care Team Providers Care Video Game Animator Name Role Phone Jessica Solomon PA-C Primary Care Provider [phone] Reason for Visit * Reason Comments Complete Physical Exam Encounter Details Date Type Department Care Team ([facility] st Contact Info) Description 07/02/2024 9:00 AM EST Office Visit [facility] [address] [place] [phone] Jessica Solomon PA-C [address] [place] [phone] Routine general medical examination at a health [...] Description 07/29/2024 1:00 PM EDT / Visits [facility] [address] [place] [phone] Monae Hauser LCSW [address] [place] [address] 07/31/2024 8:00 AM EDT Telemedicine Visit [address] [phone] Jessica Solomon PA-C [address] [place] [phone] 09/02/2024 9:20 AM EDT Office Visit [address] [phone] Lewis Chikis [address] [place] [address] documented as of this encounter Visit Diagnoses Diagnosis Routine general medical examination at a health care facility- Primary Functional constipation Other constipation Acquired hypothyroidism Non morbid obesity Mild hyperlipidemia Other and unspecified hyperlipidemia Schizophrenia, borderline ([facility]-CMS) Latent schizophrenia, unspecified condition Essential hypertension, benign documented in this encounter Additional Health Concerns Assessment Noted Time PHQ-9 Depression Total Score: 0 02/27/20 24 11:34 AM PDT documented as of this encounter Care Teams Video Game Animator Relationship Specialty Start Date End Date Jessica Solomon PA-C [address] [place] [phone] PCP - General Internal Medicine 02/12/19 documented as of this encounter
--- OUTSIDE RECORDS SUMMARY | 2024-07-18 19:30 | XMS_ITS | Encounter Summary ---
Author Organization [facility] Address [address] [place] [address] Care Team Providers Care Electrical And Electronic Assembler Name Role Phone Jessica Solomon PA-C Primary Care Provider [phone] Reason for Visit * Reason Comments Case Management C3/CM Care Managemen t Chart Review Encounter Details Date Type Department Care Team ([facility] st Contact Info) Description 07/11/2024 Interim Notes [facility] [address] [place] [phone] Alena Latif, RN [address] [place] [address] Social History Tobacco Use Types Packs/Day Years [...] as of this encounter Progress Notes * Alena Latif RN - 07/11/2024 8:16 AM EST OLEGARIO Latif RN, performed chart review, in anticipation of initial assessment with patient, as patient has stratified for C3 Adult Complex Care through [facility]. History significant for Primary Insomnia, vitamin D deficiency, Chronic low back pain, Bipolar 1 Disorder, Schizophrenia, Psychosis, Memory Changes. Specialists include: Adult Day Program, [facility], at [facility]. ED visits within the last 12 months include 05/01/24, 04/03/24, 03/31/24, 10/16/23, 08/13/23, with admission on 08/12-08/16/23, 07/18-08/01/23, 07/12-07/18/23. Pt admitted to [facility] ED on 07/07/24 and discharged on 07/07/24. Last appointment with PCP 07/02/24. Next appointment scheduled for 09/02/24. documented in this encounter Plan of Treatment Upcoming Encounters Date Type Department Care Team (Late st Contact Info) Description 07/29/2024 1:00 PM EDT BH/MH Visits [address] [phone] Monae Hauser LCSW [address] [place] [address] 07/31/2024 8:00 AM EDT Telemedicine Visit [facility] [address] [place] [phone] Jessica Solomon PA-C [address] [place] [phone] 09/02/2024 9:20 AM EDT Office Visit [facility] [address] [place] [phone] Chikis Saucedo [address] [place] [address] documented as of this encounter Visit Diagnoses Not on filedocumented in this encounter Additional Health Concerns Assessment Noted Time PHQ-9 Depression Total Score: 0 02/27/20 24 11:34 AM PDT documented as of this encounter Care Teams Electrical And Electronic Assembler Relationship Specialty Start Date End Date Jessica Solomon PA-C [address] [place] [phone] PCP - General Internal Medicine 02/12/19 documented as of this encounter
--- NOTE | 2024-07-18 20:16 | PC.NURSE ---
utilized lead medical technologist to help patient understand process of going upstairs to M5 and regarding questions about his medications. Patient calm and cooperative.
--- NOTE | 2024-07-18 20:36 | ED.PSYCH ---
HPI - Psych General Chief Complaint: Psychiatric Symptoms Stated Complaint: SI/HI, schizophrenia Time Seen by Provider: 07/18/24 17:08 Source: patient Limitations: no limitations History of Present Illness ED Provider: Chrissy Spann PA-C HPI Narrative: 64-year-old male with a history of schizophrenia, cocaine abuse, hypothyroidism, hypertension, GERD, BPH, presents via section 12 with both suicidal and homicidal ideation. When patient asked he denies that he is having thoughts of self-harm or harming others. The patient states ?I am not eating?. Related Data Home Medications ?Medication ?Instructions ?Recorded ?Confirmed hydroxyzine pamoate 50 mg capsule 50 mg PO BID PRN Anxiety 07/09/24 07/18/24 Previous Rx's ?Medication ?Instructions ?Recorded amitriptyline 50 mg tablet 50 mg PO BEDTIME PRN sleep #30 tabs 07/18/24 aspirin 81 mg chewable tablet 81 mg PO DAILY #30 tabs 07/18/24 cholecalciferol (vitamin D3) 25 50 mcg (2 x 25 mcg (1,000 unit)) 07/18/24 mcg (1,000 unit) tablet PO DAILY #30 tabs clonazepam 1 mg tablet 1 mg PO BEDTIME #60 tabs 07/18/24 clonazepam 1 mg tablet 1 mg PO DAILY PRN Anxiety #0 tabs 07/18/24 divalproex 500 mg tablet,extended 1,000 mg (2 x 500 mg) PO BID #120 07/18/24 release 24 hr (Depakote ER) tabs levothyroxine 88 mcg tablet 88 mcg PO DAILY@0600 #30 tabs 07/18/24 melatonin 3 mg tablet 3 mg PO BEDTIME PRN Insomnia #30 07/18/24 tabs metoprolol succinate 25 mg 25 mg PO DAILY #30 tabs 07/18/24 tablet,extended release 24 hr omeprazole 20 mg capsule,delayed 20 mg PO DAILY@0630 #30 caps 07/18/24 release paliperidone palmitate 234 mg/1.5 234 mg (1.5 mL) IM Q30D #1.5 mL 07/18/24 mL intramuscular syringe (Invega Sustenna) prazosin 1 mg capsule 2 mg PO BEDTIME #60 caps 07/18/24 tamsulosin 0.4 mg capsule 0.4 mg PO BEDTIME #30 caps 07/18/24 trazodone 50 mg tablet 50 mg PO BEDTIME MRX1 PRN Insomnia 07/18/24 #60 tabs Allergies Allergy/AdvReac Type Severity Reaction Status Date / Time lorazepam Allergy Unknown Verified 07/18/24 16:19 Penicillins Allergy Nausea and Verified 07/18/24 16:19 Vomiting Review of Systems Review of Systems: Yes all other systems are reviewed and are negative Constitutional: Constitutional: Denies fatigue, Denies fever(s) and Reports poor appetite Cardiovascular: Cardiovascular: Denies chest pain Respiratory: Respiratory: Denies cough Gastrointestinal: Gastrointestinal: Denies abdominal pain, Denies nausea and Denies vomiting Endocrine: Endocrine: Denies fatigue PMF Past Medical History Attestation statement: The following information was validated with the patient. Medical History (Updated 07/18/24 @ 20:41 by JANNA Rosa) Cocaine use disorder HLD (hyperlipidemia) Bipolar disorder Seizure disorder Hypothyroidism HTN (hypertension) Social History Social History Household Members: None Household Members Other:: Alone Housing: Apartment Housing Other:: Residential [facility] Do you presently have visiting nurse or other home services: Yes Comment: close obs Patient Tobacco Use Status: Current everyday Tobacco user Tobacco use type: Cigarette Cigarette Packs Per Day: 1 Cigarettes Per Day: 10 Years Smoked: 40 Smoked in Last 30 Days: No e-Cigarette/Vaping Use: Currently Using Second Hand Smoke Exposure: No Use of substances other than those prescribed or required for medical reasons: No Substance Use Type: Crack/Cocaine Advance Directives: No Advance Directives Information Provided: Yes service: No Sexual orientation: Straight/Heterosexual Physical Exam Vital Signs: Vital Signs: Last Vital Signs Temp 99.8 F 07/18/24 16:15 Pulse 100 07/18/24 16:15 Resp 16 07/18/24 16:25 BP 127/78 07/18/24 16:15 Pulse Ox 98 07/18/24 16:15 O2 Del Method Room Air 07/18/24 16:15 BMI result Body Mass Index 23.5 Const: Other: Awake Orientation/consciousness: patient oriented x3 Resp: Effort & Inspection: normal respiratory effort Cardio: Other: Normal peripheral perfusion Skin: Other: Warm dry no rash Neuro: General: patient oriented x3, gait normal, no focal motor deficits and CN's II-XI intact bilaterally Psych: Other: Cooperative here in ER Medical Decision Making Medical Decision Making MDM Narrative: 64-year-old male with a history of schizophrenia, cocaine abuse, hypothyroidism, hypertension, GERD, BPH, presents via section 12 with both suicidal and homicidal ideation. When patient asked he denies that he is having thoughts of self-harm or harming others. The patient states ?I am not eating?. Problem: Psychiatric illness, substance abuse History: Per patient I have considered the following differential diagnoses: Decompensated psychiatric illness, drug/alcohol intoxication, SI, HI Plan: The patient was high-risk with a psychiatric illness and substance abuse, he will be referred to the care team. Screening labs including serum ethanol and drug screen we will be obtained. I have independently reviewed the following tests: Labs: No leukocytosis, not anemic, no electrolyte abnormality, drug screen negative ethanol negative Lab Data 07/18/24 17:34 07/18/24 17:34 Labs: Lab Results 07/18/24 07/18/24 Range/Units 16:39 17:34 WBC 9.2 (4.8-10.8) X10*3/uL RBC 3.25 L (4.60-5.80) X10*6/uL Hgb 10.9 L (14.0-18.0) g/dl Hct 32.6 L (42.0-52.0) % MCV 100.3 H (80.0-98.0) fL MCH 33.5 H (27.0-33.0) pg MCHC 33.4 (31.0-36.0) g/dl RDW 12.0 (11.0-16.0) % Plt Count 237 (160-400) X10*3/uL MPV 9.8 (9.4-12.4) fL Immature Gran % (Auto) 3.7 H (0.0-0.4) % Neut % (Auto) 67.0 (45-73) % Lymph % (Auto) 18.4 L (20-40) % Sebastian % (Auto) 9.1 (2-11) % Eos % (Auto) 1.5 (0-4) % Baso % (Auto) 0.3 (0-2) % Lymph # (Auto) 1.7 (1.2-4.9) X10*3/uL Sebastian # (Auto) 0.8 (0.1-1.2) X10*3/uL Eos # (Auto) 0.1 (0.0-0.4) X10*3/uL Baso # (Auto) 0.0 (0.0-0.2) X10*3/uL Abs Immat Gran (auto) 0.34 H (0.00-0.03) X10*3/uL Absolute Neuts (auto) 6.2 (2.0-8.3) x10*3/uL Absolute Nucleated RBC 0.000 (0.0-0.012) X10*3/uL Nucleated RBC % (auto) 0.0 (0.0-0.2) /100WBC Sodium 140 (135-145) mmol/L Potassium 4.0 (3.3-5.1) mmol/L Chloride 109 H (96-108) mmol/L Carbon Dioxide 23 (22-29) mmol/L Anion Gap 12 (12-20) BUN 19 H (9-16) mg/dL Creatinine 0.81 (0.5-1.4) mg/dL Estim Creat Clear Calc 88.4 Estimated GFR > 60 Random Glucose 125 H (60-115) mg/dL Calcium 9.0 (8.4-10.2) mg/dL Total Bilirubin 0.3 (0.0-1.0) mg/dL AST 17 (5-37) U/L ALT 23 (0-40) U/L Alkaline Phosphatase 55 (39-117) U/L Total Protein 7.3 (6.5-8.0) g/dL Albumin 4.0 (3.5-5.0) g/dL Urine Color Yellow Urine Appearance Clear Urine pH 8.0 (5.0-9.0) Ur Specific [place] 1.015 (1.005-1.025) Urine Protein Negative (Neg-Trace) mg/dL Urine Glucose (UA) Negative (Negative) mg/dL Urine Ketones Negative (Negative) mg/dL Urine Blood Negative (Negative) Urine Nitrite Negative (Negative) Ur Leukocyte Esterase Negative (Negative) Urine Opiates Screen Not Detected (Not Detect) Ur Buprenorphine Scrn Not Detected (Not Detect) ng/mL Ur Oxycodone Screen Not Detected (Not Detect) ng/mL Urine Methadone Screen Not Detected (Not Detect) ng/mL Urine Fentanyl Screen Not Detected (Not Detect) Ur Barbiturates Screen Not Detected (Not Detect) Valproic Acid 70.4 (50.0-100.0) mcg/mL Ur Phencyclidine Scrn Not Detected (Not Detect) Ur Amphetamines Screen Not Detected (Not Detect) U Benzodiazepines Scrn Not Detected (Not Detect) Urine Cocaine Screen Not Detected (Not Detect) U Marijuana (THC) Screen Not Detected (Not Detect) Ethyl Alcohol < 10 mg/dL Discharge Plan Discharge Clinical Impression: Suicidal ideation, Homicidal ideation Patient Disposition: Still a Patient Prescriptions: No Action hydroxyzine pamoate 50 mg capsule 50 mg PO BID PRN (Reason: Anxiety) prazosin 1 mg Capsule 2 mg PO BEDTIME Qty: 60 0RF Protocol: Hold for SBP< HOLD for SBP < : 90 amitriptyline 50 mg Tablet 50 mg PO BEDTIME PRN (Reason: sleep) Qty: 30 0RF tamsulosin 0.4 mg Capsule 0.4 mg PO BEDTIME Qty: 30 0RF aspirin 81 mg Tablet,Chewable 81 mg PO DAILY Qty: 30 0RF metoprolol succinate 25 mg Tablet Extended Release 24 Hr 25 mg PO DAILY Qty: 30 0RF Protocol: Hold for SBP/HR < HOLD for SBP < : 90 HOLD for HR < : 60 trazodone 50 mg Tablet 50 mg PO BEDTIME MRX1 PRN (Reason: Insomnia) Qty: 60 0RF clonazepam 1 mg Tablet 1 mg PO DAILY PRN (Reason: Anxiety) Qty: 0 0RF clonazepam 1 mg Tablet 1 mg PO BEDTIME Qty: 60 0RF levothyroxine 88 mcg Tablet 88 mcg PO DAILY@0600 Qty: 30 0RF omeprazole 20 mg Capsule,Delayed Release(Dr/Ec) 20 mg PO DAILY@0630 Qty: 30 0RF melatonin 3 mg Tablet 3 mg PO BEDTIME PRN (Reason: Insomnia) Qty: 30 0RF cholecalciferol (vitamin D3) 25 mcg (1,000 unit) Tablet 50 mcg PO DAILY Qty: 30 0RF divalproex [Depakote ER] 500 mg tablet extended release 24 hr 1,000 mg PO BID Qty: 120 0RF Invega Sustenna 234 mg/1.5 mL syringe 234 mg IM Q30D Qty: 1.5 0RF Rx Instructions: Due 07/23/24. Interventions: Ocean-Suicide Risk Severity Scale Last Done: 07/18/24 16:25 Print Language: Kazakh
[2024-07-18 21:49] VITALS: BP 120/70
[2024-07-18] MEDS: Prazosin HCL 1 MG CAPSULE 2 MG PO (21:49)
[2024-07-18] MEDS: clonazePAM 1 MG TABLET PO (21:50)
[2024-07-18] MEDS: Divalproex Sodium ER 500 MG TAB.ER.24H 1000 MG PO (21:50)
[2024-07-18] MEDS: Tamsulosin HCL 0.4 MG CAPSULE PO (21:50)
[2024-07-18 21:53] VITALS: BP 120/70; PULSE 92; RESP 16; TEMP 36.9; O2SAT 93
[2024-07-19] MEDS: Nicotine Polacrilex 2 MG GUM 4 MG BUCCAL ×3 (03:12→09:27)
[2024-07-19] MEDS: traZODone HCL 50 MG TABLET PO ×2 (03:12→20:04)
[2024-07-19 03:55] VITALS: BMI 23.5
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
[2024-07-19] MEDS: Levothyroxine Sodium 88 MCG TABLET PO (06:40)
[2024-07-19] MEDS: Omeprazole 20 MG CAPSULE.DR PO (06:40)
[2024-07-19 08:26] VITALS: BP 123/69; PULSE 108; TEMP 36.9; O2SAT 98
[2024-07-19] MEDS: Cholecalciferol (Vitamin D3) 25 MCG TABLET 50 MCG PO (09:22)
[2024-07-19] MEDS: Paliperidone ER 3 MG TAB.ER.24 PO (09:22)
[2024-07-19] MEDS: Metoprolol Succinate ER 25 MG TAB.ER.24H PO (09:22)
[2024-07-19] MEDS: Aspirin 81 MG TAB.CHEW PO (09:23)
[2024-07-19] MEDS: Divalproex Sodium ER 500 MG TAB.ER.24H 1000 MG PO ×2 (09:23→20:04)
[2024-07-19] MEDS: clonazePAM 1 MG TABLET PO ×2 (09:26→20:04)
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
[2024-07-19] MEDS: hydrOXYzine HCL 50 MG TABLET PO (18:23)
[2024-07-19 20:00] VITALS: BP 168/88; PULSE 97; RESP 15; TEMP 36.7; O2SAT 99
[2024-07-19] MEDS: Prazosin HCL 1 MG CAPSULE 2 MG PO (20:03)
[2024-07-19] MEDS: Tamsulosin HCL 0.4 MG CAPSULE PO (20:03)
[2024-07-20] MEDS: Nicotine Polacrilex 2 MG GUM 4 MG BUCCAL ×2 (02:02→13:26)
[2024-07-20] MEDS: traZODone HCL 50 MG TABLET PO ×2 (02:02→20:24)
[2024-07-20] MEDS: Levothyroxine Sodium 88 MCG TABLET PO (07:03)
[2024-07-20] MEDS: Omeprazole 20 MG CAPSULE.DR PO (07:03)
[2024-07-20] MEDS: Metoprolol Succinate ER 25 MG TAB.ER.24H PO (08:17)
[2024-07-20] MEDS: Divalproex Sodium ER 500 MG TAB.ER.24H 1000 MG PO ×2 (08:17→20:24)
[2024-07-20] MEDS: Aspirin 81 MG TAB.CHEW PO (08:17)
[2024-07-20] MEDS: Cholecalciferol (Vitamin D3) 25 MCG TABLET 50 MCG PO (08:17)
[2024-07-20] MEDS: Paliperidone ER 3 MG TAB.ER.24 PO (08:17)
[2024-07-20 08:24] VITALS: BP 130/79; PULSE 88; RESP 18; TEMP 36.2; O2SAT 94
[2024-07-20] MEDS: clonazePAM 1 MG TABLET PO ×2 (08:51→20:23)
--- NOTE | 2024-07-20 10:48 | P.PNPSI_ITS ---
Subjective Subjective Date of Service: 07/20/24 Reason For Visit: Schizophrenia Subjective Notes: Conditional Voluntary and 3 Day Interim History: The nursing staff reported that the patient has been compliant with treatment, but he looks extremely confused, unable to process or retain information. He signed a 3 day notice letter. On interview, he denies new symptoms, compliant with treatment. The patient is only Martiniquais-speaking and he wanted to know when he is leaving. Very concrete. Mental Status Exam Mental Status Exam Patient Appearance: Appropriate Patient Orientation: Person and Situation Level of Consciousness: Awake and Appropriate Patient Behavior: Guarded Mood Description: Calm Affect Description: Constricted Patient Cognition Impaired: Yes Ability to Follow Directions: Fair Speech Pattern: Clear Hallucinations: None Delusions: Not Present Thought Process: Distracted and Evasive Thought Content: positive for [place] and positive for Poverty of Content Judgement: Fair Diagnostics Vital Signs (24Hr): Vital Signs - 24 hr 07/19/24 20:00 07/20/24 08:24 Temperature 98.1 F 97.2 F Pulse Rate 97 88 Respiratory Rate 15 18 Blood Pressure 168/88 H 130/79 Pulse Oximetry 99 94 Oxygen Delivery Method Room Air BMI result Body Mass Index 23.5 Labs 07/18/24 17:34 07/18/24 17:34 Labs: Laboratory Results - last 48 hr 07/18/24 07/18/24 16:39 17:34 WBC 9.2 RBC 3.25 L Hgb 10.9 L Hct 32.6 L MCV 100.3 H MCH 33.5 H MCHC 33.4 RDW 12.0 Plt Count 237 MPV 9.8 Immature Gran % (Auto) 3.7 H Neut % (Auto) 67.0 Lymph % (Auto) 18.4 L [place] % (Auto) 9.1 Eos % (Auto) 1.5 Baso % (Auto) 0.3 Lymph # (Auto) 1.7 [place] # (Auto) 0.8 Eos # (Auto) 0.1 Baso # (Auto) 0.0 Abs Immat Gran (auto) 0.34 H Absolute Neuts (auto) 6.2 Absolute Nucleated RBC 0.000 Nucleated RBC % (auto) 0.0 Sodium 140 Potassium 4.0 Chloride 109 H Carbon Dioxide 23 Anion Gap 12 BUN 19 H Creatinine 0.81 Estim Creat Clear Calc 88.4 Estimated GFR > 60 Random Glucose 125 H Calcium 9.0 Total Bilirubin 0.3 AST 17 ALT 23 Alkaline Phosphatase 55 Total Protein 7.3 Albumin 4.0 Urine Color Yellow Urine Appearance Clear Urine pH 8.0 Ur Specific [place] 1.015 Urine Protein Negative Urine Glucose (UA) Negative Urine Ketones Negative Urine Blood Negative Urine Nitrite Negative Ur Leukocyte Esterase Negative Urine Opiates Screen Not Detected Ur Buprenorphine Scrn Not Detected Ur Oxycodone Screen Not Detected Urine Methadone Screen Not Detected Urine Fentanyl Screen Not Detected Ur Barbiturates Screen Not Detected Valproic Acid 70.4 Ur Phencyclidine Scrn Not Detected Ur Amphetamines Screen Not Detected U Benzodiazepines Scrn Not Detected Urine Cocaine Screen Not Detected U Marijuana (THC) Screen Not Detected Ethyl Alcohol < 10 Medications Medications Current Medications Acetaminophen (Acetaminophen 325 Mg Tablet) 650 mg PO Q6H PRN PRN Reason: Headache/Pain, Scale 1-10 Al Hydroxide/Mg Hydroxide (Magnesium Hydrox/Alum Hydrox 30 Ml Oral.Susp) 30 ml PO Q6H PRN PRN Reason: Heartburn/Nausea Amitriptyline HCl (Amitriptyline Hcl 50 Mg Tablet) 50 mg PO BEDTIME PRN PRN Reason: sleep Aspirin (Aspirin 81 Mg Tab.Chew) 81 mg PO DAILY [facility] Last Admin: 07/20/24 08:17 Dose: 81 mg Clonazepam (Clonazepam 1 Mg Tablet) 1 mg PO BEDTIME [facility] Last Admin: 07/19/24 20:04 Dose: 1 mg Clonazepam (Clonazepam 1 Mg Tablet) 1 mg PO DAILY PRN PRN Reason: Anxiety Last Admin: 07/20/24 08:51 Dose: 1 mg Divalproex Sodium (Divalproex Sodium Er 500 Mg Tab.Er.24h) 1,000 mg PO BID [facility] Last Admin: 07/20/24 08:17 Dose: 1,000 mg Hydroxyzine HCl (Hydroxyzine Hcl 50 Mg Tablet) 50 mg PO BID PRN PRN Reason: Anxiety Last Admin: 07/19/24 18:23 Dose: 50 mg Hydroxyzine HCl (Hydroxyzine Hcl 25 Mg Tablet) 25 mg PO Q6H PRN PRN Reason: mild anxiety Levothyroxine Sodium (Levothyroxine Sodium 88 Mcg Tablet) 88 mcg PO DAILY@0600 [facility] Last Admin: 07/20/24 07:03 Dose: 88 mcg Magnesium Hydroxide (Milk Of Magnesia 30 Ml Oral.Susp) 30 ml PO DAILY PRN PRN Reason: Constipation Melatonin (Melatonin 3 Mg Tablet) 3 mg PO BEDTIME PRN PRN Reason: Insomnia Metoprolol Succinate (Metoprolol Succinate Er 25 Mg Tab.Er.24h) 25 mg PO DAILY [facility]; Protocol Last Admin: 07/20/24 08:17 Dose: 25 mg Nicotine Polacrilex (Nicotine Polacrilex 2 Mg Gum) 4 mg BUCCAL Q2H PRN PRN Reason: Nicotine Cravings Last Admin: 07/20/24 02:02 Dose: 4 mg Omeprazole (Omeprazole 20 Mg Capsule.Dr) 20 mg PO DAILY@0630 [facility] Last Admin: 07/20/24 07:03 Dose: 20 mg Paliperidone (Paliperidone Er 3 Mg Tab.Er.24) 3 mg PO DAILY [facility] Last Admin: 07/20/24 08:17 Dose: 3 mg Paliperidone Palmitate (Paliperidone Palmitate 234 Mg/1.5 Ml Syringe) 234 mg IM Q30D [facility] Prazosin HCl (Prazosin Hcl 1 Mg Capsule) 2 mg PO BEDTIME [facility]; Protocol Last Admin: 07/19/24 20:03 Dose: 2 mg Tamsulosin HCl (Tamsulosin Hcl 0.4 Mg Capsule) 0.4 mg PO BEDTIME [facility] Last Admin: 07/19/24 20:03 Dose: 0.4 mg Trazodone HCl (Trazodone Hcl 50 Mg Tablet) 50 mg PO BEDTIME MRX1 PRN PRN Reason: Insomnia Last Admin: 07/20/24 02:02 Dose: 50 mg Vitamin D (Cholecalciferol (Vitamin D3) 25 Mcg Tablet) 50 mcg PO DAILY [facility] Last Admin: 07/20/24 08:17 Dose: 50 mcg Allergies Allergies Allergy/AdvReac Type Severity Reaction Status Date / Time lorazepam Allergy Unknown Verified 07/18/24 16:19 Penicillins Allergy Nausea and Verified 07/18/24 16:19 Vomiting Assessment & Plan Assessment & Plan (1) Schizophrenia: Status: Acute Code(s): F20.9 - Schizophrenia, unspecified Plan Admit, CV, Three day notice, 15 minute checks Continue regime Invega Sustenna on 07/23/24. Diagnotics as needed Connect with family to see how they want to handle pt's wanting to leave [facility] Discharge planning. 07/20. Keep same treatment Reason for continued inpatient stay Substantial Risk for: inability to function, rapid decompensation and med/psych decompensation Time Spent With Patient Time: Total time managing care of this patient today _20___ minutes.
[2024-07-20 19:48] VITALS: BP 150/86; PULSE 103; RESP 15; TEMP 36.5; O2SAT 98
[2024-07-20] MEDS: Tamsulosin HCL 0.4 MG CAPSULE PO (20:23)
[2024-07-20] MEDS: Melatonin 3 MG TABLET PO (20:24)
[2024-07-20] MEDS: Prazosin HCL 1 MG CAPSULE 2 MG PO (20:24)
[2024-07-21] MEDS: traZODone HCL 50 MG TABLET PO ×2 (02:00→20:12)
[2024-07-21] MEDS: Nicotine Polacrilex 2 MG GUM 4 MG BUCCAL ×2 (02:01→14:18)
[2024-07-21] MEDS: Levothyroxine Sodium 88 MCG TABLET PO (06:45)
[2024-07-21] MEDS: Omeprazole 20 MG CAPSULE.DR PO (06:45)
[2024-07-21] MEDS: Cholecalciferol (Vitamin D3) 25 MCG TABLET 50 MCG PO (08:15)
[2024-07-21] MEDS: Aspirin 81 MG TAB.CHEW PO (08:15)
[2024-07-21] MEDS: Paliperidone ER 3 MG TAB.ER.24 PO (08:15)
[2024-07-21] MEDS: Divalproex Sodium ER 500 MG TAB.ER.24H 1000 MG PO ×2 (08:16→20:11)
[2024-07-21] MEDS: Metoprolol Succinate ER 25 MG TAB.ER.24H PO (08:16)
[2024-07-21 08:20] VITALS: BP 123/62; PULSE 100; RESP 16; TEMP 36.8; O2SAT 98
[2024-07-21] MEDS: clonazePAM 1 MG TABLET PO ×2 (09:01→20:12)
--- NOTE | 2024-07-21 12:20 | HO.PSYCHPN ---
Subjective Subjective Date of Service: 07/21/24 Reason For Visit: Schizophrenia Subjective Notes: Conditional Voluntary Interim History: The nursing staff reported the patient had been confused with poor short-term memory. On interview the patient denies new symptoms looks pleasantly confused easily redirectable. Mental Status Exam Mental Status Exam Patient Appearance: Appropriate Patient Orientation: Person Level of Consciousness: Awake Patient Behavior: Guarded and Passive Mood Description: Withdrawn Affect Description: Constricted Patient Cognition Impaired: Yes Ability to Follow Directions: Good Speech Pattern: Clear Hallucinations: None Delusions: Ideas of Reference Thought Process: Distracted and Slowed Thinking Thought Content: positive for [place] and positive for Poverty of Content Judgement: Fair Diagnostics Vital Signs (24Hr): Vital Signs - 24 hr 07/20/24 19:48 07/21/24 08:20 Temperature 97.7 F 98.2 F Pulse Rate 103 H 100 Respiratory Rate 15 16 Blood Pressure 150/86 H 123/62 Pulse Oximetry 98 98 Oxygen Delivery Method Room Air BMI result Body Mass Index 23.5 Labs 07/18/24 17:34 07/18/24 17:34 Medications Medications Current Medications Acetaminophen (Acetaminophen 325 Mg Tablet) 650 mg PO Q6H PRN PRN Reason: Headache/Pain, Scale 1-10 Al Hydroxide/Mg Hydroxide (Magnesium Hydrox/Alum Hydrox 30 Ml Oral.Susp) 30 ml PO Q6H PRN PRN Reason: Heartburn/Nausea Amitriptyline HCl (Amitriptyline Hcl 50 Mg Tablet) 50 mg PO BEDTIME PRN PRN Reason: sleep Aspirin (Aspirin 81 Mg Tab.Chew) 81 mg PO DAILY [facility] Last Admin: 07/21/24 08:15 Dose: 81 mg Clonazepam (Clonazepam 1 Mg Tablet) 1 mg PO BEDTIME [facility] Last Admin: 07/20/24 20:23 Dose: 1 mg Clonazepam (Clonazepam 1 Mg Tablet) 1 mg PO DAILY PRN PRN Reason: Anxiety Last Admin: 07/21/24 09:01 Dose: 1 mg Divalproex Sodium (Divalproex Sodium Er 500 Mg Tab.Er.24h) 1,000 mg PO BID [facility] Last Admin: 07/21/24 08:16 Dose: 1,000 mg Hydroxyzine HCl (Hydroxyzine Hcl 50 Mg Tablet) 50 mg PO BID PRN PRN Reason: Anxiety Last Admin: 07/19/24 18:23 Dose: 50 mg Hydroxyzine HCl (Hydroxyzine Hcl 25 Mg Tablet) 25 mg PO Q6H PRN PRN Reason: mild anxiety Levothyroxine Sodium (Levothyroxine Sodium 88 Mcg Tablet) 88 mcg PO DAILY@0600 [facility] Last Admin: 07/21/24 06:45 Dose: 88 mcg Magnesium Hydroxide (Milk Of Magnesia 30 Ml Oral.Susp) 30 ml PO DAILY PRN PRN Reason: Constipation Melatonin (Melatonin 3 Mg Tablet) 3 mg PO BEDTIME PRN PRN Reason: Insomnia Last Admin: 07/20/24 20:24 Dose: 3 mg Metoprolol Succinate (Metoprolol Succinate Er 25 Mg Tab.Er.24h) 25 mg PO DAILY [facility]; Protocol Last Admin: 07/21/24 08:16 Dose: 25 mg Nicotine Polacrilex (Nicotine Polacrilex 2 Mg Gum) 4 mg BUCCAL Q2H PRN PRN Reason: Nicotine Cravings Last Admin: 07/21/24 02:01 Dose: 4 mg Omeprazole (Omeprazole 20 Mg Capsule.Dr) 20 mg PO DAILY@0630 [facility] Last Admin: 07/21/24 06:45 Dose: 20 mg Paliperidone (Paliperidone Er 3 Mg Tab.Er.24) 3 mg PO DAILY [facility] Last Admin: 07/21/24 08:15 Dose: 3 mg Paliperidone Palmitate (Paliperidone Palmitate 234 Mg/1.5 Ml Syringe) 234 mg IM Q30D [facility] Prazosin HCl (Prazosin Hcl 1 Mg Capsule) 2 mg PO BEDTIME [facility]; Protocol Last Admin: 07/20/24 20:24 Dose: 2 mg Tamsulosin HCl (Tamsulosin Hcl 0.4 Mg Capsule) 0.4 mg PO BEDTIME [facility] Last Admin: 07/20/24 20:23 Dose: 0.4 mg Trazodone HCl (Trazodone Hcl 50 Mg Tablet) 50 mg PO BEDTIME MRX1 PRN PRN Reason: Insomnia Last Admin: 07/21/24 02:00 Dose: 50 mg Vitamin D (Cholecalciferol (Vitamin D3) 25 Mcg Tablet) 50 mcg PO DAILY [facility] Last Admin: 07/21/24 08:15 Dose: 50 mcg Allergies Allergies Allergy/AdvReac Type Severity Reaction Status Date / Time lorazepam Allergy Unknown Verified 07/18/24 16:19 Penicillins Allergy Nausea and Verified 07/18/24 16:19 Vomiting Assessment & Plan Assessment & Plan (1) Schizophrenia: Status: Acute Code(s): F20.9 - Schizophrenia, unspecified Plan Admit, CV, Three day notice, 15 minute checks Continue regime Invega Sustenna on 07/23/24. Diagnotics as needed Connect with family to see how they want to handle pt's wanting to leave [facility] Discharge planning. 07/20. Keep same treatment 07/21 keep same treatment Reason for continued inpatient stay Substantial Risk for: inability to function, rapid decompensation and med/psych decompensation Time Spent With Patient Time: Total time managing care of this patient today __20__ minutes.
[2024-07-21] MEDS: hydrOXYzine HCL 50 MG TABLET PO (14:16)
[2024-07-21 19:58] VITALS: BP 136/70; PULSE 94; RESP 15; TEMP 36.7; O2SAT 94
[2024-07-21] MEDS: Prazosin HCL 1 MG CAPSULE 2 MG PO (20:11)
[2024-07-21] MEDS: Melatonin 3 MG TABLET PO (20:12)
[2024-07-21] MEDS: Tamsulosin HCL 0.4 MG CAPSULE PO (20:12)
[2024-07-22] MEDS: Nicotine Polacrilex 2 MG GUM 4 MG BUCCAL (03:27)
[2024-07-22] MEDS: hydrOXYzine HCL 50 MG TABLET PO ×2 (03:27→21:13)
[2024-07-22] MEDS: Levothyroxine Sodium 88 MCG TABLET PO (06:16)
[2024-07-22] MEDS: Omeprazole 20 MG CAPSULE.DR PO (06:16)
[2024-07-22 08:00] VITALS: BP 138/75; PULSE 113; RESP 20; TEMP 36.9; O2SAT 97
[2024-07-22] MEDS: Divalproex Sodium ER 500 MG TAB.ER.24H 1000 MG PO ×2 (09:25→21:13)
[2024-07-22] MEDS: Aspirin 81 MG TAB.CHEW PO (09:25)
[2024-07-22] MEDS: Cholecalciferol (Vitamin D3) 25 MCG TABLET 50 MCG PO (09:26)
[2024-07-22] MEDS: Paliperidone ER 3 MG TAB.ER.24 PO (09:27)
[2024-07-22] MEDS: clonazePAM 1 MG TABLET PO ×2 (09:30→21:13)
[2024-07-22 09:36] VITALS: BP 137/88; PULSE 113
[2024-07-22] MEDS: Metoprolol Succinate ER 25 MG TAB.ER.24H PO (09:36)
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
[2024-07-22 19:50] VITALS: BP 138/71; PULSE 93; TEMP 36.5; O2SAT 98
[2024-07-22] MEDS: Prazosin HCL 1 MG CAPSULE 2 MG PO (21:13)
[2024-07-22] MEDS: traZODone HCL 50 MG TABLET PO (21:13)
[2024-07-22] MEDS: Tamsulosin HCL 0.4 MG CAPSULE PO (21:13)
[2024-07-22] MEDS: Amitriptyline HCl 50 MG TABLET PO (22:42)
[2024-07-23] MEDS: Omeprazole 20 MG CAPSULE.DR PO (06:16)
[2024-07-23] MEDS: Levothyroxine Sodium 88 MCG TABLET PO (06:16)
[2024-07-23 07:43] VITALS: BP 117/62; PULSE 87; RESP 18; TEMP 36.6; O2SAT 97
[2024-07-23] MEDS: Paliperidone ER 3 MG TAB.ER.24 PO (08:31)
[2024-07-23] MEDS: Metoprolol Succinate ER 25 MG TAB.ER.24H PO (08:31)
[2024-07-23] MEDS: Aspirin 81 MG TAB.CHEW PO (08:31)
[2024-07-23] MEDS: Cholecalciferol (Vitamin D3) 25 MCG TABLET 50 MCG PO (08:32)
[2024-07-23] MEDS: Divalproex Sodium ER 500 MG TAB.ER.24H 1000 MG PO ×2 (08:33→21:03)
[2024-07-23] MEDS: hydrOXYzine HCL 50 MG TABLET PO (08:34)
[2024-07-23] MEDS: Paliperidone Palmitate 234 MG/1.5 ML SYRINGE IM (09:47)
[2024-07-23] MEDS: Nicotine Polacrilex 2 MG GUM 4 MG BUCCAL (12:56)
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
[2024-07-23 19:58] VITALS: BP 116/59; PULSE 90; TEMP 36.8; O2SAT 93
[2024-07-23] MEDS: clonazePAM 1 MG TABLET PO (21:03)
[2024-07-23] MEDS: Prazosin HCL 1 MG CAPSULE 2 MG PO (21:03)
[2024-07-23] MEDS: Tamsulosin HCL 0.4 MG CAPSULE PO (21:03)
[2024-07-23] MEDS: traZODone HCL 50 MG TABLET PO (21:03)
[2024-07-24] MEDS: Acetaminophen 325 MG TABLET 650 MG PO (02:00)
--- NOTE | 2024-07-24 06:52 | PC.NURSE ---
AM medical care evaluation specialist attempt made x2 @2520 and 5058, pt asleep
[2024-07-24] MEDS: Aspirin 81 MG TAB.CHEW PO (08:42)
[2024-07-24] MEDS: Cholecalciferol (Vitamin D3) 25 MCG TABLET 50 MCG PO (08:42)
[2024-07-24] MEDS: Levothyroxine Sodium 88 MCG TABLET PO (08:42)
[2024-07-24] MEDS: Paliperidone ER 3 MG TAB.ER.24 PO (08:42)
[2024-07-24] MEDS: Metoprolol Succinate ER 25 MG TAB.ER.24H PO (08:42)
[2024-07-24] MEDS: Omeprazole 20 MG CAPSULE.DR PO (08:42)
[2024-07-24] MEDS: Divalproex Sodium ER 500 MG TAB.ER.24H 1000 MG PO ×2 (08:42→21:13)
[2024-07-24 08:45] VITALS: BP 132/64; PULSE 83; RESP 16; TEMP 36.6; O2SAT 99
[2024-07-24] MEDS: Nicotine Polacrilex 2 MG GUM 4 MG BUCCAL (09:58)
--- NOTE | 2024-07-24 13:14 | HO.PSYCHPN ---
Subjective Subjective Date of Service: 07/24/24 Reason For Visit: Schizophrenia Interim History: facility administrator present. active on unit, medication compliant. patient reports feeling good today; pt stated, I feel like the meds are working . States he is sleeping well. denies SI/HI/VH/AH. Pt reports he is waiting to go to a program. Medication Compliance: Yes Side effects from medications: No Mental Status Exam Mental Status Exam Patient Appearance: Appropriate Patient Orientation: Person, Place, Time and Situation Level of Consciousness: Awake and Alert Patient Behavior: Appropriate Mood Description: Calm Affect Description: Calm Ability to Follow Directions: Good Speech Pattern: Clear Hallucinations: None Delusions: Not Present Thought Process: Intact and Goal Oriented Thought Content: positive for Intact Diagnostics Vital Signs (24Hr): Vital Signs - 24 hr 07/23/24 19:58 07/24/24 08:45 Temperature 98.3 F 97.9 F Pulse Rate 90 83 Respiratory Rate 16 Blood Pressure 116/59 L 132/64 Pulse Oximetry 93 99 Oxygen Delivery Method Room Air Room Air BMI result Body Mass Index 23.5 Labs 07/18/24 17:34 07/18/24 17:34 Medications Medications Current Medications Acetaminophen (Acetaminophen 325 Mg Tablet) 650 mg PO Q6H PRN PRN Reason: Headache/Pain, Scale 1-10 Last Admin: 07/24/24 02:00 Dose: 650 mg Al Hydroxide/Mg Hydroxide (Magnesium Hydrox/Alum Hydrox 30 Ml Oral.Susp) 30 ml PO Q6H PRN PRN Reason: Heartburn/Nausea Amitriptyline HCl (Amitriptyline Hcl 50 Mg Tablet) 50 mg PO BEDTIME PRN PRN Reason: sleep Last Admin: 07/22/24 22:42 Dose: 50 mg Aspirin (Aspirin 81 Mg Tab.Chew) 81 mg PO DAILY [facility] Last Admin: 07/24/24 08:42 Dose: 81 mg Clonazepam (Clonazepam 1 Mg Tablet) 1 mg PO BEDTIME [facility] Last Admin: 07/23/24 21:03 Dose: 1 mg Clonazepam (Clonazepam 1 Mg Tablet) 1 mg PO DAILY PRN PRN Reason: Anxiety Last Admin: 07/22/24 09:30 Dose: 1 mg Divalproex Sodium (Divalproex Sodium Er 500 Mg Tab.Er.24h) 1,000 mg PO BID [facility] Last Admin: 07/24/24 08:42 Dose: 1,000 mg Hydroxyzine HCl (Hydroxyzine Hcl 50 Mg Tablet) 50 mg PO BID PRN PRN Reason: Anxiety Last Admin: 07/23/24 08:34 Dose: 50 mg Hydroxyzine HCl (Hydroxyzine Hcl 25 Mg Tablet) 25 mg PO Q6H PRN PRN Reason: mild anxiety Levothyroxine Sodium (Levothyroxine Sodium 88 Mcg Tablet) 88 mcg PO DAILY@0600 [facility] Last Admin: 07/24/24 08:42 Dose: 88 mcg Magnesium Hydroxide (Milk Of Magnesia 30 Ml Oral.Susp) 30 ml PO DAILY PRN PRN Reason: Constipation Melatonin (Melatonin 3 Mg Tablet) 3 mg PO BEDTIME PRN PRN Reason: Insomnia Last Admin: 07/21/24 20:12 Dose: 3 mg Metoprolol Succinate (Metoprolol Succinate Er 25 Mg Tab.Er.24h) 25 mg PO DAILY [facility]; Protocol Last Admin: 07/24/24 08:42 Dose: 25 mg Nicotine Polacrilex (Nicotine Polacrilex 2 Mg Gum) 4 mg BUCCAL Q2H PRN PRN Reason: Nicotine Cravings Last Admin: 07/24/24 09:58 Dose: 4 mg Omeprazole (Omeprazole 20 Mg Capsule.Dr) 20 mg PO DAILY@0630 [facility] Last Admin: 07/24/24 08:42 Dose: 20 mg Paliperidone (Paliperidone Er 3 Mg Tab.Er.24) 3 mg PO DAILY [facility] Last Admin: 07/24/24 08:42 Dose: 3 mg Paliperidone Palmitate (Paliperidone Palmitate 234 Mg/1.5 Ml Syringe) 234 mg IM Q30D [facility] Last Admin: 07/23/24 09:47 Dose: 234 mg Prazosin HCl (Prazosin Hcl 1 Mg Capsule) 2 mg PO BEDTIME [facility]; Protocol Last Admin: 07/23/24 21:03 Dose: 2 mg Tamsulosin HCl (Tamsulosin Hcl 0.4 Mg Capsule) 0.4 mg PO BEDTIME [facility] Last Admin: 07/23/24 21:03 Dose: 0.4 mg Trazodone HCl (Trazodone Hcl 50 Mg Tablet) 50 mg PO BEDTIME MRX1 PRN PRN Reason: Insomnia Last Admin: 07/23/24 21:03 Dose: 50 mg Vitamin D (Cholecalciferol (Vitamin D3) 25 Mcg Tablet) 50 mcg PO DAILY [facility] Last Admin: 07/24/24 08:42 Dose: 50 mcg Allergies Allergies Allergy/AdvReac Type Severity Reaction Status Date / Time lorazepam Allergy Unknown Verified 07/18/24 16:19 Penicillins Allergy Nausea and Verified 07/18/24 16:19 Vomiting Assessment & Plan Assessment & Plan (1) Schizophrenia: Status: Acute Code(s): F20.9 - Schizophrenia, unspecified Plan Admit, CV, Three day notice, 15 minute checks Continue regime Invega Sustenna on 07/23/24. Diagnotics as needed Connect with family to see how they want to handle pt's wanting to leave [facility] Discharge planning. 07/20. Keep same treatment 07/21 keep same treatment 07/23 Pt retracted TDN Team will search for an appropriate CSS for him 07/24: active on unit, medication compliant. patient reports feeling good today; pt stated, I feel like the meds are working . States he is sleeping well. denies SI/HI/VH/AH. Pt reports he is waiting to go to a program. continue current plan. Patient educated on: medication risk/benefits Reason for continued inpatient stay Substantial Risk for: med/psych decompensation Time Spent With Patient Time: Total time managing care of this patient today _20___ minutes.
[2024-07-24] MEDS: Magnesium Hydrox/Alum Hydrox 30 ML ORAL.SUSP PO (18:26)
[2024-07-24 19:55] VITALS: BP 128/73; PULSE 92; TEMP 37.3; O2SAT 97
[2024-07-24] MEDS: Prazosin HCL 1 MG CAPSULE 2 MG PO (21:12)
[2024-07-24] MEDS: Tamsulosin HCL 0.4 MG CAPSULE PO (21:12)
[2024-07-24] MEDS: traZODone HCL 50 MG TABLET PO (21:12)
[2024-07-24] MEDS: Melatonin 3 MG TABLET PO (21:12)
[2024-07-24] MEDS: clonazePAM 1 MG TABLET PO (21:13)
[2024-07-25 07:00] VITALS: BMI 26.8
[2024-07-25 08:00] VITALS: BP 127/67; PULSE 110; RESP 16; TEMP 36.4; O2SAT 97
[2024-07-25] MEDS: Omeprazole 20 MG CAPSULE.DR PO (08:38)
[2024-07-25] MEDS: Aspirin 81 MG TAB.CHEW PO (08:38)
[2024-07-25] MEDS: Cholecalciferol (Vitamin D3) 25 MCG TABLET 50 MCG PO (08:38)
[2024-07-25] MEDS: Divalproex Sodium ER 500 MG TAB.ER.24H 1000 MG PO ×2 (08:38→21:34)
[2024-07-25] MEDS: Metoprolol Succinate ER 25 MG TAB.ER.24H PO (08:38)
[2024-07-25] MEDS: Paliperidone ER 3 MG TAB.ER.24 PO (08:38)
[2024-07-25] MEDS: Levothyroxine Sodium 88 MCG TABLET PO (08:38)
--- NOTE | 2024-07-25 13:22 | P.PNPSI_ITS ---
Subjective Subjective Date of Service: 07/25/24 Reason For Visit: Schizophrenia Subjective Notes: Conditional Voluntary Healthcare Proxy: No Guardianship: No Medical Problems Affecting Mental Status: No Interim History: Team is assisting pt to interview for CSS programs which he is willing to do. Today, he denies SI,HI, AH,VH. No issues of behavioral discord. He is visable in the milieu at times, but mostly in his room. No medical or psychiatric sx issues reported by pt Medication Compliance: Yes Side effects from medications: No Attending Groups: Intermittent Review of Systems Acute medical concerns: No Review of Systems Review of Systems denies Mental Status Exam Mental Status Exam Patient Appearance: Appropriate Patient Orientation: Person, Place, Time and Situation Level of Consciousness: Awake and Alert Patient Behavior: Appropriate Mood Description: Calm Affect Description: Calm Ability to Follow Directions: Good Speech Pattern: Clear Hallucinations: None Delusions: Not Present Thought Process: Intact and Goal Oriented Thought Content: positive for Intact Diagnostics Vital Signs (24Hr): Vital Signs - 24 hr 07/24/24 19:55 07/25/24 08:00 Temperature 99.1 F 97.6 F Pulse Rate 92 110 H Respiratory Rate 16 Blood Pressure 128/73 127/67 Pulse Oximetry 97 97 Oxygen Delivery Method Room Air Room Air BMI result Body Mass Index 26.8 Labs 07/18/24 17:34 07/18/24 17:34 Medications Medications Current Medications Acetaminophen (Acetaminophen 325 Mg Tablet) 650 mg PO Q6H PRN PRN Reason: Headache/Pain, Scale 1-10 Last Admin: 07/24/24 02:00 Dose: 650 mg Al Hydroxide/Mg Hydroxide (Magnesium Hydrox/Alum Hydrox 30 Ml Oral.Susp) 30 ml PO Q6H PRN PRN Reason: Heartburn/Nausea Last Admin: 07/24/24 18:26 Dose: 30 ml Amitriptyline HCl (Amitriptyline Hcl 50 Mg Tablet) 50 mg PO BEDTIME PRN PRN Reason: sleep Last Admin: 07/22/24 22:42 Dose: 50 mg Aspirin (Aspirin 81 Mg Tab.Chew) 81 mg PO DAILY [facility] Last Admin: 07/25/24 08:38 Dose: 81 mg Clonazepam (Clonazepam 1 Mg Tablet) 1 mg PO BEDTIME [facility] Last Admin: 07/24/24 21:13 Dose: 1 mg Clonazepam (Clonazepam 1 Mg Tablet) 1 mg PO DAILY PRN PRN Reason: Anxiety Last Admin: 07/22/24 09:30 Dose: 1 mg Divalproex Sodium (Divalproex Sodium Er 500 Mg Tab.Er.24h) 1,000 mg PO BID [facility] Last Admin: 07/25/24 08:38 Dose: 1,000 mg Hydroxyzine HCl (Hydroxyzine Hcl 50 Mg Tablet) 50 mg PO BID PRN PRN Reason: Anxiety Last Admin: 07/23/24 08:34 Dose: 50 mg Hydroxyzine HCl (Hydroxyzine Hcl 25 Mg Tablet) 25 mg PO Q6H PRN PRN Reason: mild anxiety Levothyroxine Sodium (Levothyroxine Sodium 88 Mcg Tablet) 88 mcg PO DAILY@0600 [facility] Last Admin: 07/25/24 08:38 Dose: 88 mcg Magnesium Hydroxide (Milk Of Magnesia 30 Ml Oral.Susp) 30 ml PO DAILY PRN PRN Reason: Constipation Melatonin (Melatonin 3 Mg Tablet) 3 mg PO BEDTIME PRN PRN Reason: Insomnia Last Admin: 07/24/24 21:12 Dose: 3 mg Metoprolol Succinate (Metoprolol Succinate Er 25 Mg Tab.Er.24h) 25 mg PO DAILY [facility]; Protocol Last Admin: 07/25/24 08:38 Dose: 25 mg Nicotine Polacrilex (Nicotine Polacrilex 2 Mg Gum) 4 mg BUCCAL Q2H PRN PRN Reason: Nicotine Cravings Last Admin: 07/24/24 09:58 Dose: 4 mg Omeprazole (Omeprazole 20 Mg Capsule.Dr) 20 mg PO DAILY@0630 [facility] Last Admin: 07/25/24 08:38 Dose: 20 mg Paliperidone (Paliperidone Er 3 Mg Tab.Er.24) 3 mg PO DAILY [facility] Last Admin: 07/25/24 08:38 Dose: 3 mg Paliperidone Palmitate (Paliperidone Palmitate 234 Mg/1.5 Ml Syringe) 234 mg IM Q30D [facility] Last Admin: 07/23/24 09:47 Dose: 234 mg Prazosin HCl (Prazosin Hcl 1 Mg Capsule) 2 mg PO BEDTIME [facility]; Protocol Last Admin: 07/24/24 21:12 Dose: 2 mg Tamsulosin HCl (Tamsulosin Hcl 0.4 Mg Capsule) 0.4 mg PO BEDTIME [facility] Last Admin: 07/24/24 21:12 Dose: 0.4 mg Trazodone HCl (Trazodone Hcl 50 Mg Tablet) 50 mg PO BEDTIME MRX1 PRN PRN Reason: Insomnia Last Admin: 07/24/24 21:12 Dose: 50 mg Vitamin D (Cholecalciferol (Vitamin D3) 25 Mcg Tablet) 50 mcg PO DAILY [facility] Last Admin: 07/25/24 08:38 Dose: 50 mcg Allergies Allergies Allergy/AdvReac Type Severity Reaction Status Date / Time lorazepam Allergy Unknown Verified 07/18/24 16:19 Penicillins Allergy Nausea and Verified 07/18/24 16:19 Vomiting Assessment & Plan Assessment & Plan (1) Schizophrenia: Status: Acute Code(s): F20.9 - Schizophrenia, unspecified Plan Admit, CV, Three day notice, 15 minute checks Continue regime Invega Sustenna on 07/23/24. Diagnotics as needed Connect with family to see how they want to handle pt's wanting to leave [facility] Discharge planning. 07/20. Keep same treatment 07/21 keep same treatment 07/23 Pt retracted TDN Team will search for an appropriate CSS for him 07/24: active on unit, medication compliant. patient reports feeling good today; pt stated, I feel like the meds are working . States he is sleeping well. denies SI/HI/VH/AH. Pt reports he is waiting to go to a program. continue current plan. 07/25: Reports he is well. Will participate in interviews for CSS programs when scheduled. Denies SI/HI/AH/VH. Reason for continued inpatient stay Substantial Risk for: rapid decompensation Time Spent With Patient Time: Total time managing care of this patient today ____ minutes.
[2024-07-25] MEDS: Nicotine Polacrilex 2 MG GUM 4 MG BUCCAL (15:07)
[2024-07-25 20:00] VITALS: BP 124/60; PULSE 82; TEMP 36.9; O2SAT 95
[2024-07-25 21:34] VITALS: BP 124/60
[2024-07-25] MEDS: Tamsulosin HCL 0.4 MG CAPSULE PO (21:34)
[2024-07-25] MEDS: Prazosin HCL 1 MG CAPSULE 2 MG PO (21:34)
[2024-07-25] MEDS: traZODone HCL 50 MG TABLET PO (21:34)
[2024-07-25] MEDS: clonazePAM 1 MG TABLET PO (21:35)
[2024-07-26] MEDS: traZODone HCL 50 MG TABLET PO ×2 (00:39→21:32)
[2024-07-26] MEDS: Omeprazole 20 MG CAPSULE.DR PO (06:10)
[2024-07-26] MEDS: Levothyroxine Sodium 88 MCG TABLET PO (06:10)
[2024-07-26 08:00] VITALS: BP 132/57; PULSE 100; RESP 18; TEMP 36.6; O2SAT 94
[2024-07-26] MEDS: Cholecalciferol (Vitamin D3) 25 MCG TABLET 50 MCG PO (09:39)
[2024-07-26] MEDS: Divalproex Sodium ER 500 MG TAB.ER.24H 1000 MG PO ×2 (09:39→21:32)
[2024-07-26] MEDS: Aspirin 81 MG TAB.CHEW PO (09:39)
[2024-07-26] MEDS: Metoprolol Succinate ER 25 MG TAB.ER.24H PO (09:39)
[2024-07-26] MEDS: Paliperidone ER 3 MG TAB.ER.24 PO (09:39)
[2024-07-26] MEDS: Nicotine Polacrilex 2 MG GUM 4 MG BUCCAL (11:23)
--- NOTE | 2024-07-26 15:45 | HO.PSYCHPN ---
Subjective Subjective Date of Service: 07/26/24 Reason For Visit: Schizophrenia Subjective Notes: Conditional Voluntary Healthcare Proxy: No Guardianship: No Medical Problems Affecting Mental Status: No Interim History: Pt is accepted to [facility] for 07/29. He reports feeling positive about this acceptance, reports a good discussion with them today. Denies SI, HI,AH, VH Medication Compliance: Yes Side effects from medications: No Attending Groups: No Review of Systems Acute medical concerns: No Review of Systems Review of Systems Denies Mental Status Exam Mental Status Exam Patient Appearance: Appropriate Patient Orientation: Person, Place, Time and Situation Level of Consciousness: Awake and Alert Patient Behavior: Appropriate Mood Description: Calm Affect Description: Calm Ability to Follow Directions: Good Speech Pattern: Clear Hallucinations: None Delusions: Not Present Thought Process: Intact and Goal Oriented Thought Content: positive for Intact Diagnostics Vital Signs (24Hr): Vital Signs - 24 hr 07/25/24 20:00 07/25/24 21:34 07/26/24 08:00 Temperature 98.5 F 97.8 F Pulse Rate 82 100 Respiratory Rate 18 Blood Pressure 124/60 124/60 132/57 L Pulse Oximetry 95 94 Oxygen Delivery Method Room Air Room Air BMI result Body Mass Index 26.8 Labs 07/18/24 17:34 07/18/24 17:34 Medications Medications Current Medications Acetaminophen (Acetaminophen 325 Mg Tablet) 650 mg PO Q6H PRN PRN Reason: Headache/Pain, Scale 1-10 Last Admin: 07/24/24 02:00 Dose: 650 mg Al Hydroxide/Mg Hydroxide (Magnesium Hydrox/Alum Hydrox 30 Ml Oral.Susp) 30 ml PO Q6H PRN PRN Reason: Heartburn/Nausea Last Admin: 07/24/24 18:26 Dose: 30 ml Amitriptyline HCl (Amitriptyline Hcl 50 Mg Tablet) 50 mg PO BEDTIME PRN PRN Reason: sleep Last Admin: 07/22/24 22:42 Dose: 50 mg Aspirin (Aspirin 81 Mg Tab.Chew) 81 mg PO DAILY [facility] Last Admin: 07/26/24 09:39 Dose: 81 mg Clonazepam (Clonazepam 1 Mg Tablet) 1 mg PO BEDTIME [facility] Last Admin: 07/25/24 21:35 Dose: 1 mg Clonazepam (Clonazepam 1 Mg Tablet) 1 mg PO DAILY PRN PRN Reason: Anxiety Last Admin: 07/22/24 09:30 Dose: 1 mg Divalproex Sodium (Divalproex Sodium Er 500 Mg Tab.Er.24h) 1,000 mg PO BID [facility] Last Admin: 07/26/24 09:39 Dose: 1,000 mg Hydroxyzine HCl (Hydroxyzine Hcl 50 Mg Tablet) 50 mg PO BID PRN PRN Reason: Anxiety Last Admin: 07/23/24 08:34 Dose: 50 mg Hydroxyzine HCl (Hydroxyzine Hcl 25 Mg Tablet) 25 mg PO Q6H PRN PRN Reason: mild anxiety Levothyroxine Sodium (Levothyroxine Sodium 88 Mcg Tablet) 88 mcg PO DAILY@0600 [facility] Last Admin: 07/26/24 06:10 Dose: 88 mcg Magnesium Hydroxide (Milk Of Magnesia 30 Ml Oral.Susp) 30 ml PO DAILY PRN PRN Reason: Constipation Melatonin (Melatonin 3 Mg Tablet) 3 mg PO BEDTIME PRN PRN Reason: Insomnia Last Admin: 07/24/24 21:12 Dose: 3 mg Metoprolol Succinate (Metoprolol Succinate Er 25 Mg Tab.Er.24h) 25 mg PO DAILY [facility]; Protocol Last Admin: 07/26/24 09:39 Dose: 25 mg Nicotine Polacrilex (Nicotine Polacrilex 2 Mg Gum) 4 mg BUCCAL Q2H PRN PRN Reason: Nicotine Cravings Last Admin: 07/26/24 11:23 Dose: 4 mg Omeprazole (Omeprazole 20 Mg Capsule.Dr) 20 mg PO DAILY@0630 [facility] Last Admin: 07/26/24 06:10 Dose: 20 mg Paliperidone (Paliperidone Er 3 Mg Tab.Er.24) 3 mg PO DAILY [facility] Last Admin: 07/26/24 09:39 Dose: 3 mg Paliperidone Palmitate (Paliperidone Palmitate 234 Mg/1.5 Ml Syringe) 234 mg IM Q30D [facility] Last Admin: 07/23/24 09:47 Dose: 234 mg Prazosin HCl (Prazosin Hcl 1 Mg Capsule) 2 mg PO BEDTIME [facility]; Protocol Last Admin: 07/25/24 21:34 Dose: 2 mg Tamsulosin HCl (Tamsulosin Hcl 0.4 Mg Capsule) 0.4 mg PO BEDTIME [facility] Last Admin: 07/25/24 21:34 Dose: 0.4 mg Trazodone HCl (Trazodone Hcl 50 Mg Tablet) 50 mg PO BEDTIME MRX1 PRN PRN Reason: Insomnia Last Admin: 07/26/24 00:39 Dose: 50 mg Vitamin D (Cholecalciferol (Vitamin D3) 25 Mcg Tablet) 50 mcg PO DAILY [facility] Last Admin: 07/26/24 09:39 Dose: 50 mcg Allergies Allergies Allergy/AdvReac Type Severity Reaction Status Date / Time lorazepam Allergy Unknown Verified 07/18/24 16:19 Penicillins Allergy Nausea and Verified 07/18/24 16:19 Vomiting Assessment & Plan Assessment & Plan (1) Schizophrenia: Status: Acute Code(s): F20.9 - Schizophrenia, unspecified Plan Admit, CV, Three day notice, 15 minute checks Continue regime Invega Sustenna on 07/23/24. Diagnotics as needed Connect with family to see how they want to handle pt's wanting to leave [facility] Discharge planning. 07/20. Keep same treatment 07/21 keep same treatment 07/23 Pt retracted TDN Team will search for an appropriate CSS for him 07/24: active on unit, medication compliant. patient reports feeling good today; pt stated, I feel like the meds are working . States he is sleeping well. denies SI/HI/VH/AH. Pt reports he is waiting to go to a program. continue current plan. 07/25: Reports he is well. Will participate in interviews for CSS programs when scheduled. Denies SI/HI/AH/VH. 07/26: Accepted to [facility]. Will transfer on 07/29/24. Pt is in agreement with this plan. Reason for continued inpatient stay Substantial Risk for: rapid decompensation Time Spent With Patient Time: Total time managing care of this patient today ____ minutes.
[2024-07-26] MEDS: Magnesium Hydrox/Alum Hydrox 30 ML ORAL.SUSP PO (17:04)
[2024-07-26 20:00] VITALS: BP 121/75; PULSE 84; RESP 18; TEMP 36.8; O2SAT 95
[2024-07-26] MEDS: Melatonin 3 MG TABLET PO (21:32)
[2024-07-26] MEDS: Prazosin HCL 1 MG CAPSULE 2 MG PO (21:32)
[2024-07-26] MEDS: hydrOXYzine HCL 50 MG TABLET PO (21:32)
[2024-07-26] MEDS: clonazePAM 1 MG TABLET PO (21:32)
[2024-07-26] MEDS: Tamsulosin HCL 0.4 MG CAPSULE PO (21:32)
[2024-07-27] MEDS: Levothyroxine Sodium 88 MCG TABLET PO (06:17)
[2024-07-27] MEDS: Omeprazole 20 MG CAPSULE.DR PO (06:17)
[2024-07-27 08:00] VITALS: BP 127/60; PULSE 98; RESP 16; TEMP 36.4; O2SAT 98
[2024-07-27] MEDS: Metoprolol Succinate ER 25 MG TAB.ER.24H PO (08:52)
[2024-07-27] MEDS: Aspirin 81 MG TAB.CHEW PO (08:52)
[2024-07-27] MEDS: Paliperidone ER 3 MG TAB.ER.24 PO (08:53)
[2024-07-27] MEDS: Cholecalciferol (Vitamin D3) 25 MCG TABLET 50 MCG PO (08:53)
[2024-07-27] MEDS: Divalproex Sodium ER 500 MG TAB.ER.24H 1000 MG PO ×2 (08:53→20:44)
--- NOTE | 2024-07-27 10:17 | P.PNPSI_ITS ---
Subjective Subjective Date of Service: 07/27/24 Reason For Visit: Schizophrenia Subjective Notes: Conditional Voluntary Interim History: patient was seen and discussed in rounds today. Records and plans were reviewed. He has been flat and somewhat guarded. No behavioral issues. No AVH, no SI. He has been accepted to a program and will be discharged early next week. No changes were made today Review of Systems Review of Systems Yes all other systems are reviewed and are negative Mental Status Exam Mental Status Exam Patient Appearance: Appropriate Patient Orientation: Person, Place, Time and Situation Level of Consciousness: Awake and Alert Patient Behavior: Appropriate Mood Description: Calm Affect Description: Calm Ability to Follow Directions: Good Speech Pattern: Clear Hallucinations: None Delusions: Not Present Thought Process: Intact and Goal Oriented Thought Content: positive for Intact Diagnostics Vital Signs (24Hr): Vital Signs - 24 hr 07/26/24 20:00 07/27/24 08:00 Temperature 98.2 F 97.6 F Pulse Rate 84 98 Respiratory Rate 18 16 Blood Pressure 121/75 127/60 Pulse Oximetry 95 98 Oxygen Delivery Method Room Air Room Air BMI result Body Mass Index 26.8 Labs 07/18/24 17:34 07/18/24 17:34 Medications Medications Current Medications Acetaminophen (Acetaminophen 325 Mg Tablet) 650 mg PO Q6H PRN PRN Reason: Headache/Pain, Scale 1-10 Last Admin: 07/24/24 02:00 Dose: 650 mg Al Hydroxide/Mg Hydroxide (Magnesium Hydrox/Alum Hydrox 30 Ml Oral.Susp) 30 ml PO Q6H PRN PRN Reason: Heartburn/Nausea Last Admin: 07/26/24 17:04 Dose: 30 ml Amitriptyline HCl (Amitriptyline Hcl 50 Mg Tablet) 50 mg PO BEDTIME PRN PRN Reason: sleep Last Admin: 07/22/24 22:42 Dose: 50 mg Aspirin (Aspirin 81 Mg Tab.Chew) 81 mg PO DAILY WENDIE Last Admin: 07/27/24 08:52 Dose: 81 mg Clonazepam (Clonazepam 1 Mg Tablet) 1 mg PO BEDTIME WENDIE Last Admin: 07/26/24 21:32 Dose: 1 mg Clonazepam (Clonazepam 1 Mg Tablet) 1 mg PO DAILY PRN PRN Reason: Anxiety Last Admin: 07/22/24 09:30 Dose: 1 mg Divalproex Sodium (Divalproex Sodium Er 500 Mg Tab.Er.24h) 1,000 mg PO BID [facility] Last Admin: 07/27/24 08:53 Dose: 1,000 mg Hydroxyzine HCl (Hydroxyzine Hcl 50 Mg Tablet) 50 mg PO BID PRN PRN Reason: Anxiety Last Admin: 07/26/24 21:32 Dose: 50 mg Hydroxyzine HCl (Hydroxyzine Hcl 25 Mg Tablet) 25 mg PO Q6H PRN PRN Reason: mild anxiety Levothyroxine Sodium (Levothyroxine Sodium 88 Mcg Tablet) 88 mcg PO DAILY@0600 [facility] Last Admin: 07/27/24 06:17 Dose: 88 mcg Magnesium Hydroxide (Milk Of Magnesia 30 Ml Oral.Susp) 30 ml PO DAILY PRN PRN Reason: Constipation Melatonin (Melatonin 3 Mg Tablet) 3 mg PO BEDTIME PRN PRN Reason: Insomnia Last Admin: 07/26/24 21:32 Dose: 3 mg Metoprolol Succinate (Metoprolol Succinate Er 25 Mg Tab.Er.24h) 25 mg PO DAILY [facility]; Protocol Last Admin: 07/27/24 08:52 Dose: 25 mg Nicotine Polacrilex (Nicotine Polacrilex 2 Mg Gum) 4 mg BUCCAL Q2H PRN PRN Reason: Nicotine Cravings Last Admin: 07/26/24 11:23 Dose: 4 mg Omeprazole (Omeprazole 20 Mg Capsule.Dr) 20 mg PO DAILY@0630 [facility] Last Admin: 07/27/24 06:17 Dose: 20 mg Paliperidone (Paliperidone Er 3 Mg Tab.Er.24) 3 mg PO DAILY [facility] Last Admin: 07/27/24 08:53 Dose: 3 mg Paliperidone Palmitate (Paliperidone Palmitate 234 Mg/1.5 Ml Syringe) 234 mg IM Q30D [facility] Last Admin: 07/23/24 09:47 Dose: 234 mg Prazosin HCl (Prazosin Hcl 1 Mg Capsule) 2 mg PO BEDTIME [facility]; Protocol Last Admin: 07/26/24 21:32 Dose: 2 mg Tamsulosin HCl (Tamsulosin Hcl 0.4 Mg Capsule) 0.4 mg PO BEDTIME [facility] Last Admin: 07/26/24 21:32 Dose: 0.4 mg Trazodone HCl (Trazodone Hcl 50 Mg Tablet) 50 mg PO BEDTIME MRX1 PRN PRN Reason: Insomnia Last Admin: 07/26/24 21:32 Dose: 50 mg Vitamin D (Cholecalciferol (Vitamin D3) 25 Mcg Tablet) 50 mcg PO DAILY W[facility] Last Admin: 07/27/24 08:53 Dose: 50 mcg Allergies Allergies Allergy/AdvReac Type Severity Reaction Status Date / Time lorazepam Allergy Unknown Verified 07/18/24 16:19 Penicillins Allergy Nausea and Verified 07/18/24 16:19 Vomiting Assessment & Plan Assessment & Plan (1) Schizophrenia: Status: Acute Code(s): F20.9 - Schizophrenia, unspecified Plan Admit, CV, Three day notice, 15 minute checks Continue regime Invega Sustenna on 07/23/24. Diagnotics as needed Connect with family to see how they want to handle pt's wanting to leave [facility] Discharge planning. 07/20. Keep same treatment 07/21 keep same treatment 07/23 Pt retracted TDN Team will search for an appropriate CSS for him 07/24: active on unit, medication compliant. patient reports feeling good today; pt stated, I feel like the meds are working . States he is sleeping well. denies SI/HI/VH/AH. Pt reports he is waiting to go to a program. continue current plan. 07/25: Reports he is well. Will participate in interviews for CSS programs when scheduled. Denies SI/HI/AH/VH. 07/26: Accepted to [facility]. Will transfer on 07/29/24. Pt is in agreement with this plan. 07/27/24: Continue current plans and regimen Reason for continued inpatient stay Substantial Risk for: stable for discharge Time Spent With Patient Time: Total time managing care of this patient today ____ minutes.
[2024-07-27] MEDS: Nicotine Polacrilex 2 MG GUM 4 MG BUCCAL (12:53)
[2024-07-27 12:56] LABS: Influenza A PCR NEGATIVE (Negative); Influenza B PCR NEGATIVE (Negative); Resp Syncy Virus RNA Qual PCR NEGATIVE (Negative); SARS COV2 PCR INHOUSE NEGATIVE (Negative)
[2024-07-27 19:50] VITALS: BP 130/68; PULSE 79; RESP 18; TEMP 36.4; O2SAT 97
[2024-07-27] MEDS: Prazosin HCL 1 MG CAPSULE 2 MG PO (20:43)
[2024-07-27] MEDS: clonazePAM 1 MG TABLET PO (20:44)
[2024-07-27] MEDS: traZODone HCL 50 MG TABLET PO (20:44)
[2024-07-27] MEDS: Tamsulosin HCL 0.4 MG CAPSULE PO (20:44)
[2024-07-27] MEDS: hydrOXYzine HCL 50 MG TABLET PO (20:44)
[2024-07-28] MEDS: Levothyroxine Sodium 88 MCG TABLET PO (06:45)
[2024-07-28] MEDS: Omeprazole 20 MG CAPSULE.DR PO (06:46)
[2024-07-28 07:56] VITALS: BP 113/64; PULSE 78; TEMP 36.6; O2SAT 97
[2024-07-28] MEDS: Aspirin 81 MG TAB.CHEW PO (08:07)
[2024-07-28] MEDS: Cholecalciferol (Vitamin D3) 25 MCG TABLET 50 MCG PO (08:07)
[2024-07-28] MEDS: Divalproex Sodium ER 500 MG TAB.ER.24H 1000 MG PO ×2 (08:07→20:42)
[2024-07-28] MEDS: Metoprolol Succinate ER 25 MG TAB.ER.24H PO (08:07)
[2024-07-28] MEDS: Paliperidone ER 3 MG TAB.ER.24 PO (08:07)
--- NOTE | 2024-07-28 10:04 | HO.PSYCHPN ---
Subjective Subjective Date of Service: 07/28/24 Reason For Visit: Schizophrenia Subjective Notes: Conditional Voluntary Interim History: patient was seen and discussed in rounds today. Records and plans were reviewed. He is stable with no AVH reported. Continues to have some depression and anxiety. He is mostly withdrawn and guarded. Eating and sleeping adequately. No changes were made today Review of Systems Review of Systems Yes all other systems are reviewed and are negative Mental Status Exam Mental Status Exam Patient Appearance: Appropriate Patient Orientation: Person, Place, Time and Situation Level of Consciousness: Awake and Alert Patient Behavior: Appropriate Mood Description: Calm Affect Description: Calm Ability to Follow Directions: Good Speech Pattern: Clear Hallucinations: None Delusions: Not Present Thought Process: Intact and Goal Oriented Thought Content: positive for Intact Diagnostics Vital Signs (24Hr): Vital Signs - 24 hr 07/27/24 19:50 07/28/24 07:56 Temperature 97.6 F 97.8 F Pulse Rate 79 78 Respiratory Rate 18 Blood Pressure 130/68 113/64 Pulse Oximetry 97 97 Oxygen Delivery Method Room Air Room Air BMI result Body Mass Index 26.8 Labs 07/18/24 17:34 07/18/24 17:34 Labs: Laboratory Results - last 48 hr 07/27/24 12:04 Influenza Type A (PCR) NEGATIVE Influenza Type B (PCR) NEGATIVE RSV RNA Qual (PCR) NEGATIVE SARS-CoV-2 RNA (RT-PCR) NEGATIVE Medications Medications Current Medications Acetaminophen (Acetaminophen 325 Mg Tablet) 650 mg PO Q6H PRN PRN Reason: Headache/Pain, Scale 1-10 Last Admin: 07/24/24 02:00 Dose: 650 mg Al Hydroxide/Mg Hydroxide (Magnesium Hydrox/Alum Hydrox 30 Ml Oral.Susp) 30 ml PO Q6H PRN PRN Reason: Heartburn/Nausea Last Admin: 07/26/24 17:04 Dose: 30 ml Amitriptyline HCl (Amitriptyline Hcl 50 Mg Tablet) 50 mg PO BEDTIME PRN PRN Reason: sleep Last Admin: 07/22/24 22:42 Dose: 50 mg Aspirin (Aspirin 81 Mg Tab.Chew) 81 mg PO DAILY WENDIE Last Admin: 07/28/24 08:07 Dose: 81 mg Clonazepam (Clonazepam 1 Mg Tablet) 1 mg PO BEDTIME WENDIE Last Admin: 07/27/24 20:44 Dose: 1 mg Clonazepam (Clonazepam 1 Mg Tablet) 1 mg PO DAILY PRN PRN Reason: Anxiety Last Admin: 07/22/24 09:30 Dose: 1 mg Divalproex Sodium (Divalproex Sodium Er 500 Mg Tab.Er.24h) 1,000 mg PO BID [facility] Last Admin: 07/28/24 08:07 Dose: 1,000 mg Hydroxyzine HCl (Hydroxyzine Hcl 50 Mg Tablet) 50 mg PO BID PRN PRN Reason: Anxiety Last Admin: 07/27/24 20:44 Dose: 50 mg Hydroxyzine HCl (Hydroxyzine Hcl 25 Mg Tablet) 25 mg PO Q6H PRN PRN Reason: mild anxiety Levothyroxine Sodium (Levothyroxine Sodium 88 Mcg Tablet) 88 mcg PO DAILY@0600 [facility] Last Admin: 07/28/24 06:45 Dose: 88 mcg Magnesium Hydroxide (Milk Of Magnesia 30 Ml Oral.Susp) 30 ml PO DAILY PRN PRN Reason: Constipation Melatonin (Melatonin 3 Mg Tablet) 3 mg PO BEDTIME PRN PRN Reason: Insomnia Last Admin: 07/26/24 21:32 Dose: 3 mg Metoprolol Succinate (Metoprolol Succinate Er 25 Mg Tab.Er.24h) 25 mg PO DAILY [facility]; Protocol Last Admin: 07/28/24 08:07 Dose: 25 mg Nicotine Polacrilex (Nicotine Polacrilex 2 Mg Gum) 4 mg BUCCAL Q2H PRN PRN Reason: Nicotine Cravings Last Admin: 07/27/24 12:53 Dose: 4 mg Omeprazole (Omeprazole 20 Mg Capsule.Dr) 20 mg PO DAILY@0630 [facility] Last Admin: 07/28/24 06:46 Dose: 20 mg Paliperidone (Paliperidone Er 3 Mg Tab.Er.24) 3 mg PO DAILY [facility] Last Admin: 07/28/24 08:07 Dose: 3 mg Paliperidone Palmitate (Paliperidone Palmitate 234 Mg/1.5 Ml Syringe) 234 mg IM Q30D [facility] Last Admin: 07/23/24 09:47 Dose: 234 mg Prazosin HCl (Prazosin Hcl 1 Mg Capsule) 2 mg PO BEDTIME [facility]; Protocol Last Admin: 07/27/24 20:43 Dose: 2 mg Tamsulosin HCl (Tamsulosin Hcl 0.4 Mg Capsule) 0.4 mg PO BEDTIME [facility] Last Admin: 07/27/24 20:44 Dose: 0.4 mg Trazodone HCl (Trazodone Hcl 50 Mg Tablet) 50 mg PO BEDTIME MRX1 PRN PRN Reason: Insomnia Last Admin: 07/27/24 20:44 Dose: 50 mg Vitamin D (Cholecalciferol (Vitamin D3) 25 Mcg Tablet) 50 mcg PO DAILY WEND[facility] Last Admin: 07/28/24 08:07 Dose: 50 mcg Allergies Allergies Allergy/AdvReac Type Severity Reaction Status Date / Time lorazepam Allergy Unknown Verified 07/18/24 16:19 Penicillins Allergy Nausea and Verified 07/18/24 16:19 Vomiting Assessment & Plan Assessment & Plan (1) Schizophrenia: Status: Acute Code(s): F20.9 - Schizophrenia, unspecified Plan Admit, CV, Three day notice, 15 minute checks Continue regime Invega Sustenna on 07/23/24. Diagnotics as needed Connect with family to see how they want to handle pt's wanting to leave [facility] Discharge planning. 07/20. Keep same treatment 07/21 keep same treatment 07/23 Pt retracted TDN Team will search for an appropriate CSS for him 07/24: active on unit, medication compliant. patient reports feeling good today; pt stated, I feel like the meds are working . States he is sleeping well. denies SI/HI/VH/AH. Pt reports he is waiting to go to a program. continue current plan. 07/25: Reports he is well. Will participate in interviews for CSS programs when scheduled. Denies SI/HI/AH/VH. 07/26: Accepted to [facility]. Will transfer on 07/29/24. Pt is in agreement with this plan. 07/27/24: Continue current plans and regimen 07/28: Continue current regimen and plans Reason for continued inpatient stay Substantial Risk for: med/psych decompensation Time Spent With Patient Time: Total time managing care of this patient today ____ minutes.
[2024-07-28 20:00] VITALS: BP 124/74; PULSE 82; TEMP 36.4
[2024-07-28 20:43] VITALS: BP 124/74
[2024-07-28] MEDS: Tamsulosin HCL 0.4 MG CAPSULE PO (20:43)
[2024-07-28] MEDS: Prazosin HCL 1 MG CAPSULE 2 MG PO (20:43)
[2024-07-28] MEDS: traZODone HCL 50 MG TABLET PO ×2 (20:44→23:45)
[2024-07-28] MEDS: clonazePAM 1 MG TABLET PO (20:45)
[2024-07-29] MEDS: Omeprazole 20 MG CAPSULE.DR PO (07:20)
[2024-07-29] MEDS: Levothyroxine Sodium 88 MCG TABLET PO (07:20)
[2024-07-29 08:00] VITALS: BP 123/66; PULSE 91; TEMP 36.6; O2SAT 96
[2024-07-29] MEDS: Cholecalciferol (Vitamin D3) 25 MCG TABLET 50 MCG PO (08:13)
[2024-07-29] MEDS: Divalproex Sodium ER 500 MG TAB.ER.24H 1000 MG PO (08:13)
[2024-07-29] MEDS: Paliperidone ER 3 MG TAB.ER.24 PO (08:13)
[2024-07-29] MEDS: Metoprolol Succinate ER 25 MG TAB.ER.24H PO (08:13)
[2024-07-29] MEDS: Aspirin 81 MG TAB.CHEW PO (08:13)
--- NOTE | 2024-07-29 11:02 | PM.PSYDC ---
DS: Providers Provider Date of admission: 07/18/24 21:11 Primary care physician: Unknown Physician DS: Diagnosis Discharge Diagnosis (1) Schizophrenia: Status: Acute DS: Medications Discharge Medications Home Medications: Previous Rx's ?Medication ?Instructions ?Recorded paliperidone palmitate 234 mg/1.5 234 mg (1.5 mL) IM Q30D #1.5 mL 07/18/24 mL intramuscular syringe (Invega Sustenna) amitriptyline 50 mg tablet 50 mg PO BEDTIME PRN sleep #30 tabs 07/29/24 aspirin 81 mg chewable tablet 81 mg PO DAILY #30 tabs 07/29/24 cholecalciferol (vitamin D3) 25 50 mcg (2 x 25 mcg (1,000 unit)) 07/29/24 mcg (1,000 unit) tablet PO DAILY #60 tabs clonazepam 1 mg tablet 1 mg PO BEDTIME #60 tabs 07/29/24 clonazepam 1 mg tablet 1 mg PO DAILY PRN Anxiety #30 tabs 07/29/24 divalproex 500 mg tablet,extended 1,000 mg (2 x 500 mg) PO BID #120 07/29/24 release 24 hr (Depakote ER) tabs hydroxyzine pamoate 50 mg capsule 50 mg PO BID PRN Anxiety #60 caps 07/29/24 levothyroxine 88 mcg tablet 88 mcg PO DAILY@0600 #30 tabs 07/29/24 melatonin 3 mg tablet 3 mg PO BEDTIME PRN Insomnia #30 07/29/24 tabs metoprolol succinate 25 mg 25 mg PO DAILY #30 tabs 07/29/24 tablet,extended release 24 hr nicotine (polacrilex) 2 mg gum 4 mg buccal Q2H PRN Nicotine 07/29/24 Cravings #100 ea omeprazole 20 mg capsule,delayed 20 mg PO DAILY@0630 #30 caps 07/29/24 release paliperidone 3 mg tablet,extended 3 mg PO DAILY #30 tabs 07/29/24 release 24 hr (Invega) prazosin 1 mg capsule 2 mg PO BEDTIME #60 caps 07/29/24 tamsulosin 0.4 mg capsule 0.4 mg PO BEDTIME #30 caps 07/29/24 trazodone 50 mg tablet 50 mg PO BEDTIME MRX1 PRN Insomnia 07/29/24 #60 tabs Data Data Completed and Pending Completed studies during hospitalization [Text1]: 07/27/24 12:04 Influenza Type A (PCR) NEGATIVE Influenza Type B (PCR) NEGATIVE RSV RNA Qual (PCR) NEGATIVE SARS-CoV-2 RNA (RT-PCR) NEGATIVE DS: Summary Time Spent with Patient Time attestation: Total time managing care of this patient today ____ minutes. Discharge Plan Discharge Anticipated Discharge Date/Time: 07/29/24 12:00 Patient Disposition: Xfer Inpatient Rehab Fac Discharge Diagnosis: Schizophrenia Cocaine Use Disorder Referrals: [facility]- Medication Management [Other] - 08/28/24 9:00 am (Appointment is in person with Dr. Gigi Ace ) [facility] Visiting Nurse [Other] - 1 Week (Fax- [phone] Visiting RN to re start at D/C. ) Physician,Unknown J [Primary Care Provider] - 1 Week Discharge Medications: New nicotine (polacrilex) 2 mg Gum 4 mg buccal Q2H PRN (Reason: Nicotine Cravings) Qty: 100 0RF paliperidone [Invega] 3 mg Tablet Extended Release 24 Hr 3 mg PO DAILY Qty: 30 0RF cholecalciferol (vitamin D3) 25 mcg (1,000 unit) Tablet 50 mcg PO DAILY Qty: 60 0RF Continued Invega Sustenna 234 mg/1.5 mL syringe 234 mg IM Q30D Qty: 1.5 0RF Rx Instructions: Due 07/23/24. trazodone 50 mg Tablet 50 mg PO BEDTIME MRX1 PRN (Reason: Insomnia) Qty: 60 0RF prazosin 1 mg Capsule 2 mg PO BEDTIME Qty: 60 0RF Protocol: Hold for SBP< HOLD for SBP < : 90 clonazepam 1 mg Tablet 1 mg PO BEDTIME Qty: 60 0RF clonazepam 1 mg Tablet 1 mg PO DAILY PRN (Reason: Anxiety) Qty: 30 0RF hydroxyzine pamoate 50 mg capsule 50 mg PO BID PRN (Reason: Anxiety) Qty: 60 0RF melatonin 3 mg Tablet 3 mg PO BEDTIME PRN (Reason: Insomnia) Qty: 30 0RF amitriptyline 50 mg Tablet 50 mg PO BEDTIME PRN (Reason: sleep) Qty: 30 0RF levothyroxine 88 mcg Tablet 88 mcg PO DAILY@0600 Qty: 30 0RF tamsulosin 0.4 mg Capsule 0.4 mg PO BEDTIME Qty: 30 0RF divalproex [Depakote ER] 500 mg tablet extended release 24 hr 1,000 mg PO BID Qty: 120 0RF omeprazole 20 mg Capsule,Delayed Release(Dr/Ec) 20 mg PO DAILY@0630 Qty: 30 0RF aspirin 81 mg Tablet,Chewable 81 mg PO DAILY Qty: 30 0RF metoprolol succinate 25 mg Tablet Extended Release 24 Hr 25 mg PO DAILY Qty: 30 0RF Protocol: Hold for SBP/HR < HOLD for SBP < : 90 HOLD for HR < : 60 Discontinued cholecalciferol (vitamin D3) 25 mcg (1,000 unit) Tablet 50 mcg PO DAILY Qty: 30 0RF Discharge Orders: Discharge Order (Routine); Ordered 07/29/24 Ordered By: Milagros Rodriguez Diet: Advance to usual diet Activity on Discharge: As tolerated Stand Alone Forms: Patient Portal Discharge page, Community Support Print Language: Lao Care Plan Goals: Abstinence from Substances Mood and Behavioral Stabilization Health Concerns: Abstinence from Substances Mood and Behavioral Stabilization Plan of Treatment: Attend scheduled appointments Take medications as directed Participate in [facility] Assessment: No SI,HI,AH,VH Pt agrees with plan of care
== END 2024-07-29 11:24 | DRG 750 ==
LOC: HO.ED 20:41 → HO.PM5 21:27
PROVIDERS: Physician Assistant Medical; Psychiatry & Neurology Psychiatry; Admitting Provider Clinical Nurse Specialist Psychiatric/Mental Health, Adult; Emergency Provider Emergency Medicine; Visit Provider Clinical Nurse Specialist Psychiatric/Mental Health, Adult
DX: F20.9 Schizophrenia, unspecified (principal); R45.850 Homicidal ideations; G40.909 Epilepsy, unspecified, not intractable, without status epilepticus; E03.9 Hypothyroidism, unspecified; F14.10 Cocaine abuse, uncomplicated; F17.210 Nicotine dependence, cigarettes, uncomplicated; Z71.6 Tobacco abuse counseling; Z20.822 Contact with and (suspected) exposure to COVID-19; Z79.82 Long term (current) use of aspirin; Z79.890 Hormone replacement therapy; Z79.899 Other long term (current) drug therapy
CPT/HCPCS: 0241U; 36415; 80053; 80164; 80307; 81003; 85025; 93005; 99285; J2426; S9485

== ENCOUNTER → 2024-07-18 19:07 | Outpatient (BNV) | payer MEDICAID, SELFPAY | PROVIDERS: Admitting Provider Clinical Nurse Specialist Psychiatric/Mental Health, Adult; Emergency Provider Emergency Medicine; Visit Provider Internal Medicine Cardiovascular Disease | DX: Z01.810 Encounter for preprocedural cardiovascular examination (principal) | CPT/HCPCS: 93010 ==

== ENCOUNTER → 2024-07-18 21:11 | Outpatient (BNV) | payer OTHER, SELFPAY | PROVIDERS: Admitting Provider Clinical Nurse Specialist Psychiatric/Mental Health, Adult; Emergency Provider Emergency Medicine; Visit Provider Psychiatry & Neurology Psychiatry | DX: F20.9 Schizophrenia, unspecified (principal) | CPT/HCPCS: 99231; 99232 ==

== ENCOUNTER → 2024-07-18 21:11 | Outpatient (BNV) | payer OTHER, SELFPAY | PROVIDERS: Admitting Provider Clinical Nurse Specialist Psychiatric/Mental Health, Adult; Emergency Provider Emergency Medicine; Visit Provider Psychiatry & Neurology Psychiatry | DX: F20.9 Schizophrenia, unspecified (principal) | CPT/HCPCS: 99231 ==